=== PATIENT | male | born 1970 | race African-American/Black ===

== ENCOUNTER 2024-07-30 18:49 | Emergency (ER) | payer OTHER, SELFPAY ==
--- NOTE | ~2024-07-30 | XR_ITS ---
CHEST RADIOGRAPH, PA AND LATERAL CLINICAL HISTORY: cp . COMPARISON: 07/25/2018 TECHNIQUE: PA and lateral views of the chest. FINDINGS The cardiomediastinal silhouette is unremarkable. The lungs are clear. Visualized osseous structures and soft tissues are unremarkable. IMPRESSION: No focal infiltrate or effusion. Reviewed, dictated and finalized at location A. STICS/SHIPPER
--- NOTE | ~2024-07-30 | CT_ITS ---
EXAMINATION: CTA chest PE protocol DATE: 07/30/2024 20:16 QUALITY ASSURANCE CLERK INDICATION: Midsternal chest pain with a history of pulmonary embolus TECHNIQUE: Computed tomographic angiography (CTA) of the chest was performed with 100 mL Omnipaque-35 0 intravenous contrast. The dose-length product was 317.55 mGy-cm. Maximum intensity projection 3D-re constructions of the aorta and other arteries were constructed by the technologist on a separate work station. COMPARISON: 10/26/2016 FINDINGS/OBSERVATIONS: PULMONARY ARTERIES: No filling defect is identified within the main or proximal pulmonary artery. The main pulmonary artery is not enlarged. THORACIC AORTA: No aneurysmal dilatation or dissection is present. The great vessels are intact LUNGS: The lungs are clear MEDIASTINUM: No morphologically suspicious or pathologically enlarged lymph nodes are identified with in the mediastinum or bilateral axilla. Narrowing of the left brachiocephalic vein at the level of the aortic knob with extensive collaterali zation through the superior mediastinum and the lower cervical spine. BONES OF THE CHEST: No acute fracture. No significant degenerative disease. No lytic or blastic lesions. HEART: The heart is enlarged, without pericardial effusion. IMPRESSION: No pulmonary embolus. No thoracic aortic dissection. Narrowing of the left brachiocephalic vein at the level of the aortic knob with extensive collaterali zation through the superior mediastinum and the lower cervical spine. Reviewed, dictated and finalized at location A. ITY ASSURANCE CLERK IMPRESSION: No pulmonary embolus. No thoracic aortic dissection. Narrowing of the left brachiocephalic vein at the level of the aortic knob with extensive collateralization through the superior mediastinum and the lower cer vical spine.
--- OUTSIDE RECORDS SUMMARY | 2024-07-30 18:51 | XMS_ITS | Patient Health Summary ---
Author Organization [facility] Address [address] [place] [address] Care Team Providers Care Labor Relations Teacher Name Role Phone Corey Donahue MD Primary Care Provider [phone] Note from [facility],non-owned Affiliates and Associated Physician Practices is amultiple site organization consisting of ambulatory clinics and hospital sitesin [place], [place], [place] and [place]. This disclosure is being madepursuant to the Care Everywhere program and may not contain all information available regarding this patient. Last updated 18.[facility] Medications * Be aware that medications may not be up to date on this document. Alwaysverify current medications with the patient. * gabapentin (NEURONTIN) 400 MG capsule(Started 12/15/2015) Take 400 mg by mouth TID. 3 refills left Active Problems Problem Noted Date Diagnosed Date Radiculopathy of cervical region 12/15/2015 Male erectile dysfunction 09/02/2015 Other specified abnormal findings of blood chemi stry 03/17/2015 Epigastric pain 03/17/2015 Panic disorder without agoraphobia 03/17/2015 Prediabetes 03/17/2015 Low back pain 03/17/2015 Other pulmonary embolism without acute cor pulmo nale 01/26/2015 Social History Tobacco Use Types Packs/Day Years Used Date Smoking Tobacco: Never Smokeless Tobacco: Never Alcohol Use Standard Drinks/Week Comments No 0 (1 standard drink = 0.6 oz pur e alcohol) Sex and Gender Information Value Date Recorded Sex Assigned at Not on file Gender Identity Not on file Sexual Orientation Not on file Last Filed Vital Signs Vital Sign Reading Time Taken Comments Blood Pressure 109/75 04/27/2016 2:07 AM SHEET METAL LAYOUT MECH[employer]IC Pulse 45 04/27/2016 2:07 AM SHEET [employer]AL L[employer]OUT MECH[employer]IC Temperature 36.8 C (98.2 F) 04/27/2016 2:07 AM SHEET METAL LAYOUT MECHANIC Respiratory Rate 16 04/27/2016 2:07 AM SHEET METAL LAYOUT MECHANIC Oxygen Saturation 98% 04/27/2016 1:30 AM SHEET METAL LAYOUT MECHANIC Inhaled Oxygen Concentration - - Weight 85.3 kg (188 lb) 04/26/2016 9:50 PM SHEET METAL LAYOUT MECHANIC Height 182.9 cm (6') 04/26/2016 9:50 PM SHEET [employer]AL LAYOUT MECHANIC Body Mass Index 25.5 04/26/2016 9:50 PM SHEET METAL LAYOUT MECHANIC Procedures * CT HEAD WO CONTRAST(Performed 04/27/2016) * XR CHEST 1VW(Performed 04/26/2016) * URINALYSIS W/MICROSCOPIC NO CULTURE(Performed 04/26/2016) * CBC W AUTO DIFFERENTIAL(Performed 04/26/2016) * D-DIMER(Performed 04/26/2016) * CK + CKMB PANEL(Performed 04/26/2016) * TROPONIN I(Performed 04/26/2016) * COMPREHENSIVE METABOLIC PANEL(Performed 04/26/2016) * PT-INR SLH(Performed 04/26/2016) * CBC W AUTO DIFFERENTIAL(Performed 04/26/2016) * EKG 12-LEAD(Performed 04/26/2016) * XR LUMBAR SPINE 2 OR 3VW(Performed 12/18/2015) * CK + CKMB PANEL(Performed 09/19/2015) * D-DIMER(Performed 09/19/2015) * TROPONIN I(Performed 09/19/2015) * XR CHEST 2VW(Performed 09/19/2015) * CK + CKMB PANEL(Performed 09/19/2015) * TROPONIN I(Performed 09/19/2015) * BASIC METABOLIC PANEL (CALCIUM TOTAL)(Performed 09/19/2015) * CBC W AUTO DIFFERENTIAL(Performed 09/19/2015) * CBC W AUTO DIFFERENTIAL(Performed 09/19/2015) * EKG 12-LEAD(Performed 09/19/2015) * EKG 12-LEAD(Performed 09/19/2015) * IR NERVE BLOCK L OR S UNILAT(Performed 09/18/2015) * CBC W AUTO DIFFERENTIAL(Performed 09/18/2015) * PT-INR [facility](Performed 09/18/2015) * CBC W AUTO DIFFERENTIAL(Performed 09/18/2015) * XR LUMBAR SPINE 2 OR 3VW(Performed 08/20/2015) * NESTOR W/REFLEX IFA PATTERN(Performed 07/06/2015) * CYCLIC CITRULLINATED PEPTIDE(CCP) AB IGG(Performed 07/06/2015) * RHEUMATOID FACTOR BLOOD QUANTITATIVE(Performed 07/06/2015) * C-REACTIVE PROTEIN(Performed 07/06/2015) * ERYTHROCYTE SEDIMENTATION RATE(Performed 07/06/2015) * PT-INR [facility](Performed 04/30/2015) * COMPREHENSIVE METABOLIC PANEL(Performed 04/30/2015) * CBC W AUTO DIFFERENTIAL(Performed 04/30/2015) * CBC W AUTO DIFFERENTIAL(Performed 04/30/2015) * GLUCOSE - POINT OF CARE (AMB) SLU(Performed 04/30/2015) * GLUCOSE - POINT OF CARE (AMB) SLU(Performed 04/30/2015) * GLUCOSE ACCUCHECK(Performed 04/30/2015) * CT BRAIN STROKE(Performed 04/30/2015) * GLUCOSE - POINT OF CARE (AMB) SLU(Performed 04/30/2015) * GLUCOSE - POINT OF CARE (AMB) SLU(Performed 04/30/2015) * GLUCOSE ACCUCHECK(Performed 04/30/2015) * EKG 12-LEAD(Performed 04/30/2015) * BETA-2 GLYCOPROTEIN 1 ANTIBODY IGM(Performed 03/17/2015) * BETA-2 GLYCOPROTEIN 1 ANTIBODY IGG(Performed 03/17/2015) * CARDIOLIPIN ANTIBODY IGM(Performed 03/17/2015) * CARDIOLIPIN ANTIBODY IGG(Performed 03/17/2015) * PROTEIN S ACTIVITY(Performed 03/17/2015) * PROTEIN C FUNCTIONAL(Performed 03/17/2015) * COMPREHENSIVE METABOLIC PANEL(Performed 03/17/2015) * LDH BLOOD(Performed 03/17/2015) * ANTITHROMBIN III ACTIVITY(Performed 03/17/2015) * PROTHROMBIN [id number] PANEL(Performed 03/17/2015) * HAPTOGLOBIN(Performed 03/17/2015) * HELICOBACTER PYLORI ANTIGEN FECES(Performed 01/27/2015) * TSH(Performed 01/26/2015) * FERRITIN(Performed 01/26/2015) * TRANSFERRIN(Performed 01/26/2015) * IRON BLOOD(Performed 01/26/2015) * COMPREHENSIVE METABOLIC PANEL(Performed 01/26/2015) * LIPID PROFILE(Performed 01/26/2015) * CBC W AUTO DIFFERENTIAL(Performed 01/26/2015) * CBC W AUTO DIFFERENTIAL(Performed 01/26/2015) * CT ORBITS WO CONTRAST(Performed 12/26/2014) * BASIC METABOLIC PANEL (CALCIUM TOTAL)(Performed 12/26/2014) * PHOSPHORUS BLOOD(Performed 12/26/2014) * MAGNESIUM BLOOD(Performed 12/26/2014) * CBC W AUTO DIFFERENTIAL(Performed 12/26/2014) * CBC W AUTO DIFFERENTIAL(Performed 12/26/2014) * VAS BILATERAL VENOUS DUPLEX LE(Performed 12/25/2014) * BASIC METABOLIC PANEL (CALCIUM TOTAL)(Performed 12/25/2014) * CBC W AUTO DIFFERENTIAL(Performed 12/25/2014) * CBC W AUTO DIFFERENTIAL(Performed 12/25/2014) * ECHO SEBASTIÁN TRANSESOPHAGEAL(Performed 12/25/2014) * CT ANGIO CHEST PULM EMBOLISM(Performed 12/24/2014) * MRI ANGIO BRAIN ARTERIAL WO CONT(Performed 12/24/2014) * MRI ANGIO NECK W CONTRAST(Performed 12/24/2014) * MRI BRAIN WO CONTRAST(Performed 12/24/2014) * HEMOGLOBIN A1C(Performed 12/24/2014) * LIPID PROFILE(Performed 12/24/2014) * HEPATIC FUNCTION PANEL(Performed 12/24/2014) * PT-INR [facility](Performed 12/24/2014) * DRUG ABUSE PANEL 10-20+ETHANOL URINE NO CONFIRM(Performed 12/24/2014) * URINALYSIS REFLEX TO MICROSCOPIC NO CULTURE(Performed 12/24/2014) * TROPONIN I(Performed 12/24/2014) * CK + CKMB PANEL(Performed 12/24/2014) * COMPREHENSIVE METABOLIC PANEL(Performed 12/24/2014) * ALCOHOL ETHYL BLOOD(Performed 12/24/2014) * GLUCOSE - POINT OF CARE (AMB) SLU(Performed 12/24/2014) * GLUCOSE - POINT OF CARE (AMB) SLU(Performed 12/24/2014) * GLUCOSE ACCUCHECK(Performed 12/24/2014) * CT HEAD WO CONTRAST(Performed 12/24/2014) * XR CHEST 1VW PORTABLE(Performed 12/24/2014) * PTT SLH(Performed 12/24/2014) * PHOSPHORUS BLOOD(Performed 12/24/2014) * MAGNESIUM BLOOD(Performed 12/24/2014) * PT-INR [facility](Performed 12/24/2014) * CBC W AUTO DIFFERENTIAL(Performed 12/24/2014) * CBC W AUTO DIFFERENTIAL(Performed 12/24/2014) * ECHO COMPLETE(Performed 12/24/2014) * EKG 12-LEAD(Performed 12/24/2014) * EKG 12-LEAD(Performed 12/24/2014) Results * CT HEAD WO CONTRAST (04/27/2016 12:58 AM SHEET METAL LAYOUT MECHANIC) Only the most recent of2 resultswithin the time period is included. Anatomical Region Laterality Modality Head Other Impressions 04/27/2016 10:00 AM SHEET METAL LAYOUT MECHANIC IMPRESSION: 1. No acute intracranial hemorrhage. This report was approved by Skip Paz M.D. on 04/27/2016 9:19 AM . I, Dr. JUAN A NEELY M.D. have personally reviewed and interpreted this examination/study. This report was electronically signed by JUAN A NEELY M.D. on 04/27/2016 10:00 AM . Narrative 04/27/2016 10:00 AM SHEET METAL LAYOUT MECHANIC EXAMINATION: Computed tomography (CT) of the head without contrast HISTORY: Intermittent right-sided numbness. TECHNIQUE: CT of the head was performed without contrast according to standard protocol. FINDINGS: Comparison is made to prior head CT dated 04/30/2015. No acute intra- or extra-axial fluid collections are identified. The ventricles are of normal size, shape, and morphology. The basilar cisterns are patent. No mass effect or midline shift is seen. The rosas-white matter differentiation is normal. Other than mild mucosal thickening in the left maxillary sinus, the visualized portions of the orbits, paranasal sinuses, and mastoids appear normal. No acute fracture is identified. Procedure Note Erendira Hobson MD - 08/26/2017 EXAMINATION: Computed tomography (CT) of the head without contrast HISTORY: Intermittent right-sided numbness. TECHNIQUE: CT of the head was performed without contrast according tostandard protocol. FINDINGS: Comparison is made to prior head CT dated 04/30/2015. No acute intra- or extra-axial fluid collections are identified. Theventricles are of normal size, shape, and morphology. The basilar cisternsare patent. No mass effect or midline shift is seen. The rosas-white matterdifferentiation is normal. Other than mild mucosal thickening in the left maxillary sinus, the visualizedportions of the orbits, paranasal sinuses, and mastoids appear normal. Noacute fracture is identified. IMPRESSION IMPRESSION: 1. No acute intracranial hemorrhage. This report was approved by Skip Paz M.D. on 04/27/2016 9:[address] JUAN A Franz M.D. have personally reviewed and interpreted thisexamination/study. This report was electronically signed by JUAN A NEELY M.D. on 04/27/201610:00 AM . Antonia Beverly MD CT ORDERABLES * XR CHEST 1VW (04/26/2016 10:57 PM SHEET METAL LAYOUT MECHANIC) Anatomical Region Laterality Modality Chest Other Impressions 04/27/2016 10:23 AM SHEET METAL LAYOUT MECHANIC IMPRESSION: No acute pulmonary process. Dictated by Maverick Spaulding MD (vice president corporate communications). This report was approved by Maverick Spaulding M.D. on 04/27/2016 8:[address] SYBIL Franz MD have personally reviewed and interpreted this examination/study. This report was electronically signed by Dr. SYBIL GRACE MD on 04/27/2016 10:23 AM . Narrative 04/27/2016 10:23 AM SHEET METAL LAYOUT MECHANIC EXAMINATION: Portable chest, one view HISTORY: numbness COMPARISON: Chest radiograph dated 09/19/2015 FINDINGS: There is no focal consolidation, pleural effusion, or pneumothorax. The cardiomediastinal silhouette is normal. The visible bony thorax is intact. Procedure Note Sybil Grace MD - 08/26/2017 EXAMINATION: Portable chest, one view HISTORY: numbness COMPARISON: Chest radiograph dated 09/19/2015 FINDINGS: There is no focal consolidation, pleural effusion, or pneumothorax. Thecardiomediastinal silhouette is normal. The visible bony thorax isintact. IMPRESSION IMPRESSION: No acute pulmonary process. Dictated by Maverick Spaulding MD (vice president corporate communications). This report was approved by Maevrick Spaulding M.D. on 04/27/2016 8:[address] SYBIL Franz MD have personally reviewed and interpreted thisexamination/study. This report was electronically signed by Dr. SYBIL GRACE MD on04/27/2016 10:23 AM . Antonia Beverly MD DIAGNOSTIC IMAGING O RDERABLES * (ABNORMAL) URINALYSIS W/MICROSCOPIC NO CULTURE (04/26/2016 10:42 PM SHEET METAL LAYOUT MECHANIC) Color UA Yellow Straw, Yellow, Colorless, Light Yellow [facility] Clarity UA Clear Clear [facility] Specific [place] UA 1.013 1.001 - 1.030 [facility] pH UA 5.5 5.0 - 8.0 [facility] Protein UA Negative <=20 mg/dL [facility] Glucose UA Negative Negative mg/dL [facility] Ketone UA Negative Negative mg/dL [facility] Bilirubin UA Negative Negative mg/dL [facility] Blood UA Negative Negative [facility] Nitrite UA Negative Negative [facility] Leukocyte Esterase Negative Negative [facility] Urobilinogen UA <2.0 <2.0 mg/dL [facility] RBC UA 1 0 - 8 /HPF [facility] WBC UA 1 0 - 2 /HPF [facility] Mucus UA Few(A) None /LPF [facility] Urine specimen (specimen) 04/26/2016 10:42 PM SHEET METAL LAYOUT MECHANIC 04/26/2016 10:46 PM SHEET METAL LAYOUT MECHANIC Antonia Beverly MD LAB - URINALYSIS ORD ERABLES Performing Organization Address City/State/[facility] Co de Phone Number [address] [phone] * (ABNORMAL) CBC W AUTO DIFFERENTIAL (04/26/2016 10:23 PM SHEET METAL LAYOUT MECHANIC) Only the most recent of16 resultswithin the time period is included. WBC 7.3 3.5 - 10.5 10 3/uL [facility] RBC 5.00 4.30 - 5.70 10 6/uL [facility] Hemoglobin 13.3(L) 13.5 - 17.5 g/dL [facility] Hematocrit 38.9(L) 39.0 - 50.0 % [facility] MCV 77.8(L) 81.0 - 97.0 fL [facility] MCH 26.6(L) 28.0 - 34.0 pg [facility] MCHC 34.2 32.0 - 36.0 g/dL [facility] Platelet Count 260 150 - 400 10 3/uL [facility] RDW-SD 41.2 36.0 - 50.0 fL [facility] RDW-CV 14.6 11.2 - 14.8 % [facility] MPV 9.6 9.3 - 12.8 fL [facility] nRBC Absolute 0.00 0 10 3/uL [facility] nRBC Auto 0.0 0 /100 WBC [facility] Neutrophils % 61.7 35.0 - 70.0 % [facility] Lymphocytes % 28.4 19.7 - 55.1 % [facility] Monocytes % 7.7 3.0 - 15.0 % [facility] Eosinophils % 1.5 0.0 - 6.0 % [facility] Basophil % 0.7 0.0 - 1.5 % [facility] Neutrophils Absolute 4.5 1.6 - 7.0 10 3/uL [facility] Lymphocyte Absolute 2.1 0.8 - 2.9 10 3/uL [facility] Monocytes Absolute 0.56 0.14 - 0.66 10 3/uL [facility] Eosinophils Absolute 0.11 0.00 - 0.22 10 3/uL [facility] Basophils Absolute 0.05 0.00 - 0.06 10 3/uL [facility] Immature Granulocytes % 0.0 0.0 - 1.0 % [facility] Blood specimen (specimen) BLOOD SPECIMEN / Unknown 04/26/2016 10:23 PM SHEET METAL LAYOUT MECHANIC 04/26/2016 10:29 PM SHEET METAL LAYOUT MECHANIC Antonia Beverly MD LAB - HEMATOLOGY ORD ERABLES [facility] [address] [phone] * PT-INR [facility] (04/26/2016 10:23 PM SHEET METAL LAYOUT MECHANIC) Only the most recent of5 resultswithin the time period is included. PT 12.3 12.1 - 14.8 Seconds [facility] INR 0.9 See Comment [facility] Comment: Suggested therapeutic range for low-intensity coumadin therapy for venous thromboembolism prophylaxis is an INR of 2.0-3.0. For high risk patients (Mitral Valve Prosthesis, Atrial Fibrillation, history of TIA/stroke), suggested prophylactic therapeutic range is an INR of 2.5-3.5. Blood specimen (specimen) BLOOD SPECIMEN / Unknown 04/26/2016 10:23 PM SHEET METAL LAYOUT MECHANIC 04/26/2016 10:29 PM SHEET METAL LAYOUT MECHANIC Narrative [facility] - 04/26/2016 10:44 PM SHEET METAL LAYOUT MECHANIC Is patient on Heparin, Argatroban or Dabigatran?->N Antonia Beverly MD LAB - COAGULATION OR DERABLES Performing Organization Address [facility]/ZIP Co de Phone Number [address] [phone] * TROPONIN I (04/26/2016 10:23 PM SHEET METAL LAYOUT MECHANIC) Only the most recent of4 resultswithin the time period is included. Troponin I <0.010 <0.032 ng/mL [facility] Blood specimen (specimen) BLOOD SPECIMEN / Unknown 04/26/2016 10:23 PM SHEET METAL LAYOUT MECHANIC 04/26/2016 10:29 PM SHEET METAL LAYOUT MECHANIC Antonia Beverly MD LAB - CHEMISTRY ORDE RABLES Performing Organization Address [facility]/ZIP Co de Phone Number [address] [phone] * D-DIMER (04/26/2016 10:23 PM SHEET METAL LAYOUT MECHANIC) Only the most recent of2 resultswithin the time period is included. D-Dimer Quantitative 0.49 <=0.50 mcg/mL FEU [facility] Comment: In the absence of clinical symptoms, a value less than or equal to 0.5 mcg/mL FEU significantly decreases the probability of PE/DVT (negative predictive value >95%). 1 mcg/mL FEU = 1 Fibrinogen Equivalent Unit (approximates 0.5 mcg/ml of D- Dimer). [employer]ST[facility] DIAGNOSTIC SCORING SYSTEM FOR DIC Score 0 1 2 3 Platelet Count(x10^3/uL) > 100 < 100 < 50 N/A PT Prolongation above upper limit of normal 0-3 3-6 > 6 N/A range (seconds) Fibrinogen (mg/dL) > 100 < 100 N/A N/A D-Dimer (mcg/mL FEU) < 0.50 N/A 0.50-5.0 > 5 Calculate Cumulative Score: > or = 5 :compatible with overt DIC < 5 :suggestive for non-overt DIC N/A = Non applicable Reference: Br. J. Haematol. 145:24-33,2009. Blood specimen (specimen) BLOOD SPECIMEN / Unknown 04/26/2016 10:23 PM SHEET METAL LAYOUT MECHANIC 04/26/2016 10:29 PM SHEET METAL LAYOUT MECHANIC Antonia Beverly MD LAB - COAGULATION OR DERABLES [facility] [address] [place] [address] * (ABNORMAL) COMPREHENSIVE METABOLIC PANEL (04/26/2016 10:23 PM SHEET METAL LAYOUT MECHANIC) Only the most recent of5 resultswithin the time period is included. BUN 12 7 - 26 mg/dL [facility] Creatinine 0.9 0.6 - 1.2 mg/dL [facility] Sodium 140 136 - 145 mmol/L [facility] Potassium 3.9 3.5 - 4.5 mmol/L [facility] Chloride 104 98 - 107 mmol/L [facility] CO2 25 22 - 29 mmol/L [facility] Glucose 110 70 - 115 mg/dL [facility] Calcium 9.4 8.4 - 10.2 mg/dL [facility] Protein Total 7.7 6.0 - 8.3 g/dL [facility] Albumin 3.8 3.4 - 5.0 g/dL [facility] Bilirubin Total 0.5 0.2 - 1.2 mg/dL [facility] Alkaline Phosphatase 50 40 - 150 Units/L [facility] ALT 10 0 - 55 Units/L [facility] AST 20 5 - 34 Units/L [facility] Anion Gap 15 8 - 18 [facility] BUN/Creatinine Ratio 13 7 - 23 [facility] Osmolality Calculated 290 270 - 300 mOsm/kg [facility] Albumin/Globulin Ratio 1.0(L) 1.1 - 2.3 [facility] eGFR >60 >60 mL/min/1.7 3 m2 [facility] Blood specimen (specimen) BLOOD SPECIMEN / Unknown 04/26/2016 10:23 PM SHEET METAL LAYOUT MECHANIC 04/26/2016 10:29 PM SHEET METAL LAYOUT MECHANIC Antonia Beverly MD LAB - CHEMISTRY ORDE [place] [address] [phone] * (ABNORMAL) CK + CKMB PANEL (04/26/2016 10:23 PM SHEET METAL LAYOUT MECHANIC) Only the most recent of4 resultswithin the time period is included. CK Total 207(H) 30 - 200 Units/L [facility] CK-MB 4.6 0.0 - 6.6 ng/mL [facility] Blood specimen (specimen) BLOOD SPECIMEN / Unknown 04/26/2016 10:23 PM SHEET METAL LAYOUT MECHANIC 04/26/2016 10:29 PM SHEET METAL LAYOUT MECHANIC Antonia Beverly MD LAB - CHEMISTRY ORDE [facility] [address] [phone] * EKG 12-LEAD (04/26/2016 12:00 AM SHEET METAL LAYOUT MECHANIC) Only the most recent of6 resultswithin the time period is included. EKG [facility] Comment: Exam Date/Time: Apr 26 2016 21:57:14 Test Reason : right sided chest pain Blood Pressure : / mmHG Vent. Rate : 047 BPM Atrial Rate : 047 BPM P-R Int : 166 ms QRS Dur : 104 ms QT Int : 432 ms P-R-T Axes : 056 022 032 degrees QTc Int : 382 ms Marked sinus bradycardia Otherwise normal ECG When compared with ECG of 19-SEP-2015 22:05, No significant change was found Confirmed by TORRES COWAN, P ([id number]), design editor Osiel Rivero ([id number]) on 05/08/2016 11:29:47 AM Referred By: REFERRING NO Confirmed By:Martín MACDONALD MD 04/26/2016 Tamara Mercedes MD ECG ORDERABLES [facility] * XR LUMBAR SPINE 2 OR 3VW (12/18/2015 1:52 PM CDT) Only the most recent of2 resultswithin the time period is included. Anatomical Region Laterality Modality Spine Other Impressions 12/18/2015 4:09 PM CDT Impression: Mild lower lumbar degenerative change, not progressed. Report dictated by Jeremiah Gonzalez M.D. (resident). This report was approved by Jeremiah Gonzalez M.D. on 12/18/2015 3:[address] VALENTIN Franz MD have personally reviewed and interpreted this examination/study. This report was electronically signed by VALENTIN ZURITA MD on 12/18/2015 4:09 PM . Narrative 12/18/2015 4:09 PM CDT Examination: XR SPINE LUMBAR 2 OR 3 VW Date: 12/18/2015 1:53 PM History: back pain Comparison: Lumbar spine radiographs dated 08/20/2015. Findings: The alignment is normal. No fractures identified. Mild degenerative disc space narrowing at L4-5 and moderate disc space narrowing at L5-S1 are unchanged. L5- S1 facet arthritis is seen. Procedure Note Valentin Zurita MD - 08/26/2017 Examination: XR SPINE LUMBAR 2 OR 3 VW Date: 12/18/2015 1:53 PM History: back pain Comparison: Lumbar spine radiographs dated 08/20/2015. Findings: The alignment is normal. No fractures identified. Mild degenerative discspace narrowing at L4-5 and moderate disc space narrowing at L5-S1 areunchanged. L5-S1 facet arthritis is seen. IMPRESSION Impression: Mild lower lumbar degenerative change, not progressed. Report dictated by Jeremiah Gonzalez M.D. (resident). This report was approved by Jeremiah Gonzalez M.D. on 12/18/2015 3:[address] VALENTIN Franz MD have personally reviewed and interpreted thisexamination/study. This report was electronically signed by VALENTIN ZURITA MD on 12/18/20154:09 PM . Missael Lainez MD DIAGNOSTIC IMAGING O RDERABLES * XR CHEST 2VW (09/19/2015 6:48 PM CDT) Anatomical Region Laterality Modality Chest Other Impressions 09/20/2015 9:20 AM CDT Impression: No acute pulmonary process. This report has been dictated by Emmy Cervantes M.D. (Resident). This report was approved by Emmy Cervantes on 09/20/2015 7:[address] [email or web address] Franz MD have personally reviewed and interpreted this examination/study. This report was electronically signed by Dr. SYBIL GRACE MD on 09/20/2015 9:20 AM . Narrative 09/20/2015 9:20 AM CDT Exam: Chest, PA and lateral views Date: 09/19/2015 History: 45-year-old male with chest pain. Comparison: Portable chest radiograph dated 12/24/2014. Findings: The lungs are clear. There is no pleural effusion or pneumothorax. The cardiomediastinal silhouette is normal. The visible bony thorax is intact. Procedure Note Sybil Grace MD - 08/26/2017 Exam: Chest, PA and lateral views Date: 09/19/2015 History: 45-year-old male with chest pain. Comparison: Portable chest radiograph dated 12/24/2014. Findings: The lungs are clear. There is no pleural effusion or pneumothorax. Thecardiomediastinal silhouette is normal. The visible bony thorax isintact. IMPRESSION Impression: No acute pulmonary process. This report has been dictated by Emmy Cervantes M.D. (Resident). This report was approved by Emmy Cervantes on 09/20/2015 7:[address] SYBIL Franz MD have personally reviewed and interpreted thisexamination/study. This report was electronically signed by Dr. SYBIL GRACE MD on09/20/2015 9:20 AM . Yoandy Chan MD DIAGNOSTIC IMAGING O RDERABLES * (ABNORMAL) BASIC METABOLIC PANEL (CALCIUM TOTAL) (09/19/2015 6:48 PM CDT) Only the most recent of3 resultswithin the time period is included. BUN 13 7 - 26 mg/dL [facility] Creatinine 0.9 0.6 - 1.2 mg/dL [facility] Sodium 139 136 - 145 mmol/L [facility] Potassium 3.6 3.5 - 4.5 mmol/L [facility] Chloride 105 98 - 107 mmol/L [facility] CO2 22 22 - 29 mmol/L [facility] Glucose 149(H) 70 - 115 mg/dL [facility] Calcium 9.9 8.4 - 10.2 mg/dL [facility] Anion Gap 16 8 - 18 [facility] BUN/Creatinine Ratio 14 7 - 23 [facility] Osmolality Calculated 276 270 - 300 mOsm/kg [facility] eGFR >60 >60 mL/min/1.7 3 m2 [facility] Blood specimen (specimen) BLOOD SPECIMEN / Unknown 09/19/2015 6:48 PM CDT 09/19/2015 6:53 PM CDT Yoandy Chan MD LAB - CHEMISTRY [facility] Organization Address City/State/ZIP Co de Phone Number [facility] [address] [place] [address] * IR NERVE BLOCK L OR S UNILAT (09/18/2015 10:25 AM CDT) Anatomical Region Laterality Modality Other Impressions 09/25/2015 3:19 PM CDT Impression: Successful transforaminal nerve root epidural steroid injection at the level of left L5-S1 without any immediate complications. I, Dr. Jeremiah Meng, was present throughout and performed the entire procedure. This report was approved by Josiah Robles on 09/22/2015 11:51 AM . I, Dr. JEREMIAH MENG M.D. have personally reviewed and interpreted this examination/study. This report was electronically signed by JEREMIAH MENG M.D. on 09/25/2015 3:19 PM . Narrative 09/25/2015 3:19 PM CDT History/indication: Left lower extremity radiculopathy and sciatica pain. Bilateral low back pain. Left L5-S1 (S1 nerve root) epidural steroid injection requested. Procedure performed: Fluoroscopy-guided left L5-S1 transforaminal nerve root epidural steroid injection. Attending physician: Dr. Jeremiah Meng Fellow physician: Dr. Josiah Robles Consent: Written and oral consent was obtained from the patient after explaining the procedure and its risk factors in detail. Medications and monitoring: The procedure was done with local anesthesia. Monitoring of vital signs was provided by interventional radiology nurses. Procedure time: 30 minutes. Fluoroscopy time: 4.7 minutes. Contrast: 3 mL Omni 240. Procedure details and findings: The patient was placed prone on the fluoroscopy table. Preprocedure fluoroscopy was done and region of interest as well as needle trajectory was planned. The region of interest was then prepped and draped in usual sterile fashion. A 22-gauge needle was advanced into the left L5-S1 neural foramen epidural space under fluoroscopy guidance. Contrast was injected through the needle and epidurography was performed. Epidurography confirmed needle tip within the left L5-S1 neural foraminal epidural space. Subsequently, combination of 2.5 mL betamethasone (6 mg/mL) and 2 mL (0.5 percent) bupivacaine was injected. The needle was removed and sterile dressing was applied. The procedure was done without any immediate complications. Patient left the procedure room in a baseline condition. Procedure Note Jeremiah Meng MD - 08/26/2017 History/indication: Left lower extremity radiculopathy and sciatica pain.Bilateral low back pain. Left L5-S1 (S1 nerve root) epidural steroidinjection requested. Procedure performed: Fluoroscopy-guided left L5-S1 transforaminal nerveroot epidural steroid injection. Attending physician: Dr. Jeremiah Meng Fellow physician: Dr. Josiah Rolbes Consent: Written and oral consent was obtained from the patient afterexplaining the procedure and its risk factors in detail. Medications and monitoring: The procedure was done with local anesthesia.Monitoring of vital signs was provided by interventional radiologynurses. Procedure time: 30 minutes. Fluoroscopy time: 4.7 minutes. Contrast: 3 mL Omni 240. Procedure details and findings: The patient was placed prone on the fluoroscopy table. Preprocedurefluoroscopy was done and region of interest as well as needle trajectorywas planned. The region of interest was then prepped and draped in usualsterile fashion. A 22-gauge needle was advanced into the left L5-S1 neural foramen epidural space underfluoroscopy guidance. Contrast was injected through the needle andepidurography was performed. Epidurography confirmed needle tip within theleft L5-S1 neural foraminal epidural space. Subsequently, combination of 2.5 mL betamethasone (6 mg/mL) and 2 mL (0.5percent) bupivacaine was injected. The needle was removed and steriledressing was applied. The procedure was done without any immediatecomplications. Patient left the procedure room in a baseline condition. IMPRESSION Impression: Successful transforaminal nerve root epidural steroid injection at thelevel of left L5-S1 without any immediate complications. I, Dr. Jeremiah Meng, was present throughout and performed the entireprocedure. This report was approved by Josiah Robles on 09/22/2015 11:51 AM . I, Dr. JEREMIAH MENG M.D. have personally reviewed and interpreted thisexamination/study. This report was electronically signed by JEREMIAH MENG M.D. on 09/25/20153:19 PM . Yamil Vazquez III, MD IR ORDERABLES * NESTOR W/REFLEX IFA PATTERN (07/06/2015 12:46 PM SHEET METAL LAYOUT MECHANIC) Pathologist [facility] NESTOR None Detected None Detected [facility] Blood specimen (specimen) BLOOD SPECIMEN / Unknown 07/06/2015 12:46 PM SHEET METAL LAYOUT MECHANIC 07/06/2015 1:03 PM SHEET METAL LAYOUT MECHANIC Kelsea Clemons MD LAB - SEROLOGY ORDER DELORES Performing Organization Address [facility] Co de Phone Number [address] [phone] * RHEUMATOID FACTOR BLOOD QUANTITATIVE (07/06/2015 12:46 PM SHEET METAL LAYOUT MECHANIC) Pathologist [facility] Rheumatoid Factor <15 <30 IU/mL [facility] Blood specimen (specimen) BLOOD SPECIMEN / Unknown 07/06/2015 12:46 PM SHEET METAL LAYOUT MECHANIC 07/06/2015 1:03 PM SHEET METAL LAYOUT MECHANIC Kelsea Clemons MD LAB - CHEMISTRY ORDE RABALBERT Performing Organization Address [facility]/ZIP Co de Phone Number [address] [phone] * (ABNORMAL) C-REACTIVE PROTEIN (07/06/2015 12:46 PM SHEET METAL LAYOUT MECHANIC) Pathologist [facility] C-Reactive Protein 1.1(H) <=0.5 mg/dL [facility] Blood specimen (specimen) BLOOD SPECIMEN / Unknown 07/06/2015 12:46 PM SHEET METAL LAYOUT MECHANIC 07/06/2015 1:03 PM SHEET METAL LAYOUT MECHANIC Kelsea Clemons MD LAB - CHEMISTRY [facility] Performing Organization Address City/[facility]/ZIP Co de Phone Number [address] [phone] * CYCLIC CITRUL PEPTIDE AB IGG (CCP) (07/06/2015 12:46 PM SHEET METAL LAYOUT MECHANIC) CCP Antibody IgG <0.5 <5.0 U/mL [facility] Blood specimen (specimen) BLOOD SPECIMEN / Unknown 07/06/2015 12:46 PM SHEET METAL LAYOUT MECHANIC 07/06/2015 1:03 PM SHEET METAL LAYOUT MECHANIC Kelsea Clemons MD LAB - CHEMISTRY [facility] Performing Organization Address [facility] Co de Phone Number [address] [phone] * (ABNORMAL) ERYTHROCYTE SEDIMENTATION RATE (07/06/2015 12:46 PM SHEET METAL LAYOUT MECHANIC) Erythrocyte Sedimentation Rate Westergren 12(H) 0 - 10 MM/HR [facility] Comment: ########################################################################## # Please Note: New age specific reference ranges have been implemented. # ########################################################################## Blood specimen (specimen) BLOOD SPECIMEN / Unknown 07/06/2015 12:46 PM SHEET METAL LAYOUT MECHANIC 07/06/2015 1:03 PM SHEET METAL LAYOUT MECHANIC Kelsea A Prablek MD LAB - HEMATOLOGY ORD ERABLES Performing Organization Address [facility]/ZIP Co de Phone Number [facility] [address] [phone] * GLUCOSE - POINT OF CARE (AMB) [facility] (04/30/2015 8:43 PM SHEET METAL LAYOUT MECHANIC) Only the most recent of6 resultswithin the time period is included. Tamara Mercedes MD LAB - POINT OF CARE ORDERABLES Performing Organization Address [facility]/ZIP Co de Phone Number [facility] * GLUCOSE ACCUCHECK (04/30/2015 8:43 PM SHEET METAL LAYOUT MECHANIC) Only the most recent of3 resultswithin the time period is included. Glucose, Fingerstick 81 70-115mg/d L mg/dL [facility] ([place]) Comment:Bilingual Manager: ALFREDO HAWKINS 04/30/2015 8:43 PM SHEET METAL LAYOUT MECHANIC Guanaco Wallace MD LAB - CHEMISTRY ORDE MIHAI Performing Organization Address [facility] Co de Phone Number [facility] ([facility]) * CT BRAIN STROKE PROTOCOL (04/30/2015 8:31 PM SHEET METAL LAYOUT MECHANIC) Anatomical Region Laterality Modality Head Other Impressions 05/01/2015 9:29 AM SHEET METAL LAYOUT MECHANIC IMPRESSION: 1. No acute intracranial hemorrhage. This report was approved by Rolf Johansen on 05/01/2015 8:11 AM . I, Dr. ERENDIRA HOBSON M.D. have personally reviewed and interpreted this examination/study. This report was electronically signed by ERENDIRA HOBSON M.D. on 05/01/2015 9:29 AM . Narrative 05/01/2015 9:29 AM SHEET METAL LAYOUT MECHANIC EXAMINATION: Computed tomography (CT) of the head without contrast HISTORY: Headache and left facial numbness TECHNIQUE: CT of the head was performed without contrast according to standard protocol. FINDINGS: Comparison is made with a head CT study from 12/24/14. No acute intra- or extra-axial fluid collections are identified. The ventricles are of normal size, shape, and morphology. The basilar cisterns are patent. No mass effect or midline shift is seen. The rosas-white matter differentiation is normal. Other than mild bilateral ethmoid sinus disease and a partially imaged mucus retention cyst in the left maxillary sinus, the visualized portions of the orbits, paranasal sinuses, and mastoids appear normal. No acute fracture is identified. Chronic left nasal bone fractures are seen. Procedure Note Erendira Hobson MD - 08/26/2017 EXAMINATION: Computed tomography (CT) of the head without contrast HISTORY: Headache and left facial numbness TECHNIQUE: CT of the head was performed without contrast according tostandard protocol. FINDINGS: Comparison is made with a head CT study from 12/24/14. No acute intra- or extra-axial fluid collections are identified. Theventricles are of normal size, shape, and morphology. The basilar cisternsare patent. No mass effect or midline shift is seen. The rosas-white matterdifferentiation is normal. Other than mild bilateral ethmoid sinus disease and a partially imaged mucusretention cyst in the left maxillary sinus, the visualized portions of theorbits, paranasal sinuses, and mastoids appear normal. No acute fractureis identified. Chronic left nasal bone fractures are seen. IMPRESSION IMPRESSION: 1. No acute intracranial hemorrhage. This report was approved by Rolf Johansen on 05/01/2015 8:11 AM . I, Dr. ERENDIRA HOBSON M.D. have personally reviewed and interpreted thisexamination/study. This report was electronically signed by ERENDIRA HOBSON M.D. on 05/01/20159:29 AM . Guanaco Wallace MD CT ORDERABLES * BETA-2 GLYCOPROTEIN 1 ANTIBODY IGG (03/17/2015 1:15 PM CDT) Beta-2 Glycoprotein I Antibody IgG <20.0 <20.0 [facility] Blood specimen (specimen) BLOOD SPECIMEN / Unknown 03/17/2015 1:15 PM CDT 03/17/2015 1:25 PM CDT Corey Donahue MD LAB - SEROLOGY OR DERABLES [address] [phone] * BETA-2 GLYCOPROTEIN 1 ANTIBODY IGM (03/17/2015 1:15 PM CDT) Beta-2 Glycoprotein Antibody IgM <20.0 <20.0 [facility] Blood specimen (specimen) BLOOD SPECIMEN / Unknown 03/17/2015 1:15 PM CDT 03/17/2015 1:25 PM CDT Corey Donahue MD LAB - SEROLOGY OR DERABLES Performing Organization Address [facility] Co de Phone Number [address] [phone] * (ABNORMAL) PROTEIN C FUNCTIONAL (03/17/2015 1:15 PM CDT) Pathologist [facility] APTT 29.3 23.0 - 38.4 Seconds [facility] PT 16.5(H) 12.1 - 14.8 Seconds [facility] Protein C Activity 176(H) 75 - 165 U/dL [facility] INR 1.3 [facility] Blood specimen (specimen) BLOOD SPECIMEN / Unknown 03/17/2015 1:15 PM CDT 03/17/2015 1:25 PM CDT Narrative [facility] - 03/18/2015 1:24 PM CDT Is the patient on Coumadin?->N Corey Donahue MD LAB - CHEMISTRY O RDERABLES Performing Organization Address [facility] Co de Phone Number [address] [phone] * CARDIOLIPIN ANTIBODY IGM (03/17/2015 1:15 PM CDT) Anticardiolipin Antibody IgM <15.0 <15.0 MPL [facility] Blood specimen (specimen) BLOOD SPECIMEN / Unknown 03/17/2015 1:15 PM CDT 03/17/2015 1:25 PM CDT Corey Donahue MD LAB - SEROLOGY OR DERABLES [address] [phone] * CARDIOLIPIN ANTIBODY IGG (03/17/2015 1:15 PM CDT) Anticardiolipin Antibody IgG <15.0 <15.0 GPL [facility] Blood specimen (specimen) BLOOD SPECIMEN / Unknown 03/17/2015 1:15 PM CDT 03/17/2015 1:25 PM CDT Corey Donahue MD LAB - SEROLOGY OR DERABLES Performing Organization Address [facility] Co de Phone Number [address] [phone] * (ABNORMAL) ANTITHROMBIN III ACTIVITY (03/17/2015 1:15 PM CDT) [facility] APTT 30.6 23.0 - 38.4 Seconds [facility] PT 16.9(H) 12.1 - 14.8 Seconds [facility] Antithrombin Activity 100 85 - 130 U/dL [facility] INR 1.4 [facility] Blood specimen (specimen) BLOOD SPECIMEN / Unknown 03/17/2015 1:15 PM CDT 03/17/2015 1:25 PM CDT Narrative [facility] - 03/17/2015 1:46 PM CDT Is patient on Heparin, Argatroban or Dabigatran?->Y Corey Donahue MD LAB - COAGULATION ORDERABLES Performing Organization Address [facility]/ZIP Co de Phone Number [address] [phone] * (ABNORMAL) PROTEIN S ACTIVITY (03/17/2015 1:15 PM CDT) APTT 29.3 23.0 - 38.4 Seconds [facility] PT 16.5(H) 12.1 - 14.8 Seconds [facility] Protein S Functional 117 70 - 130 U/dL [facility] INR 1.3 [facility] Blood specimen (specimen) BLOOD SPECIMEN / Unknown 03/17/2015 1:15 PM CDT 03/17/2015 1:25 PM CDT Narrative [facility] - 03/18/2015 1:24 PM CDT Is the patient on Coumadin?->N Corey Donahue MD LAB - COAGULATION ORDERABLES Performing Organization Address [facility]/ZIP Co de Phone Number [address] [phone] * LDH BLOOD (03/17/2015 1:15 PM CDT) [facility] Total 217 125 - 243 Units/L [facility] Blood specimen (specimen) BLOOD SPECIMEN / Unknown 03/17/2015 1:15 PM CDT 03/17/2015 1:25 PM CDT Corey Donahue MD LAB - CHEMISTRY O RDERABLES Performing Organization Address [facility] Co de Phone Number [address] [phone] * PROTHROMBIN [id number] PANEL (03/17/2015 1:13 PM CDT) PT PCR Specimen Whole Blood [facility] ([facility]) Prothrombin (F2) F07382A Mutation Negative [facility] ([facility]) Comment: Indication for testing: Assess genetic risk for thrombosis. NEGATIVE: The Factor II, prothrombin C71353V mutation, was not detected. Other causes of elevated prothrombin levels and hereditary forms of venous thrombosis have not been excluded. Recommendations: If clinically indicated, testing for other inherited or acquired thrombophilic disorders is recommended including DNA testing for the factor V Leiden mutation, measurement of total plasma homocysteine concentration, serological assays for anticardiolipin antibodies, multiple phospholipid-dependent coagulation assays for lupus inhibitor, protein C activity, protein S activity or free protein S antigen, and antithrombin activity. This result has been reviewed and approved by Rom Gallegos, Ph.D. BACKGROUND INFORMATION: Prothrombin (F2) [id number] Mutation CHARACTERISTICS: The Factor II, D51359F mutation is a common genetic risk factor for venous thrombosis associated with elevated prothrombin levels leading to increased rates of thrombin generation and excessive growth of fibrin clots. The expression of Factor II thrombophilia is impacted by coexisting genetic thrombophilic disorders, acquired thrombophilic disorders (eg malignancy, hyperhomocysteinemia, high Factor VIII levels), and circumstances including: , oral contraceptive use, hormone replacement therapy, selective estrogen receptor modulators, travel, central venous catheters, surgery, and organ transplantation. INCIDENCE: Approximately 2-5 percent of Caucasians and 0.3 percent of Americans are heterozygous; homozygosity occurs in 1 in 10,000 individuals. INHERITANCE: Incomplete autosomal dominant. PENETRANCE: The risk of thrombosis is increased 2-4 fold for heterozygotes and further increased for homozygotes. CAUSE: Homozygosity or heterozygosity for F2 c.24109B>A (U38384E). MUTATION TESTED: F2 c.46396U>A (U40840Y). CLINICAL SENSITIVITY FOR VENOUS THROMBOSIS: Approximately 10 percent. METHODOLOGY: Polymerase chain reaction and fluorescence monitoring. ANALYTICAL SENSITIVITY AND SPECIFICITY: 99 percent. LIMITATIONS: Diagnostic errors can occur due to rare sequence variations. F2 gene mutations, other than [id number], will not be detected. Test developed and characteristics determined by [employer]. See Compliance Statement C: [employer] Blood specimen (specimen) BLOOD SPECIMEN / Unknown 03/17/2015 1:13 PM CDT 03/17/2015 1:24 PM CDT Corey Donahue MD LAB - COAGULATION ORDERABLES Performing Organization Address City/[facility]/ZIP Co de Phone Number [facility] ([facility]) * HAPTOGLOBIN (03/17/2015 1:13 PM CDT) Haptoglobin 89 14 - 258 mg/dL [facility] Blood specimen (specimen) BLOOD SPECIMEN / Unknown 03/17/2015 1:13 PM CDT 03/17/2015 1:25 PM CDT Corey Donahue MD LAB - CHEMISTRY O RDERABLES [address] [phone] * HELICOBACTER PYLORI ANTIGEN FECES (01/27/2015 12:23 PM CDT) Helicobacter pylori Antigen Stool Negative Negative [facility] Stool specimen (specimen) STOOL SPECIMEN / Unknown 01/27/2015 12:23 PM CDT 01/27/2015 12:33 PM CDT Narrative [facility] - 01/30/2015 9:20 AM CDT Specimen Type->Stool Performed at: [address] [id number] Nursing Home Aide: Yamil Ferrera MD, Phone: [phone] Corey Donahue MD LAB - MICROBIOLOG Y ORDERABLES [facility] * TRANSFERRIN (01/26/2015 10:05 AM CDT) Transferrin 264 174 - 382 mg/dL [facility] Transferrin Saturation % 28 16 - 50 % [facility] Blood specimen (specimen) BLOOD SPECIMEN / Unknown 01/26/2015 10:05 AM CDT 01/26/2015 10:45 AM CDT Corey Donahue MD LAB - CHEMISTRY O RDERABLES Performing Organization Address City/[facility]/ZIP Co de Phone Number [address] [phone] * IRON BLOOD (01/26/2015 10:05 AM CDT) Iron 93 50 - 175 mcg/dL [facility] Blood specimen (specimen) BLOOD SPECIMEN / Unknown 01/26/2015 10:05 AM CDT 01/26/2015 10:45 AM CDT Corey Donahue MD LAB - CHEMISTRY O RDERABLES Performing Organization Address [facility]/ZIP Co de Phone Number [address] [phone] * TSH (01/26/2015 10:05 AM CDT) TSH 0.707 0.350 - 4.940 uIU/mL [facility] Blood specimen (specimen) BLOOD SPECIMEN / Unknown 01/26/2015 10:05 AM CDT 01/26/2015 10:45 AM CDT Corey Donahue MD LAB - CHEMISTRY O VÍCTOR Performing Organization Address City/[facility]/ZIP Co de Phone Number [address] [phone] * (ABNORMAL) FERRITIN (01/26/2015 10:05 AM CDT) Ferritin 425(H) 22 - 275 ng/mL [facility] Blood specimen (specimen) BLOOD SPECIMEN / Unknown 01/26/2015 10:05 AM CDT 01/26/2015 10:45 AM CDT Corey Donahue MD LAB - CHEMISTRY O VÍCTOR Performing Organization Address [facility] Co de Phone Number [address] [phone] * (ABNORMAL) LIPID PROFILE (01/26/2015 10:05 AM CDT) Only the most recent of2 resultswithin the time period is included. Cholesterol Total 122 <200 mg/dL [facility] HDL 38(L) >40 mg/dL [facility] Comment: ATP III Classification of HDL Cholesterol: <40 mg/dL: Considered a major risk factor. >60 mg/dL: Considered a negative risk factor. LDL Calculated 70 <100 mg/dL [facility] Comment: ATP III Classification of LDL Cholesterol: <100 mg/dL: Optimal 100 - 129 mg/dL: Near Optimal/Above Optimal 130 - 159 mg/dL: Borderline High 160 - 189 mg/dL: High >190 mg/dL: Very High Triglycerides 72 <150 mg/dL [facility] Comment: ATP III Classification of Triglycerides: <150 mg/dL: Normal 150 - 199 mg/dL: Borderline High 200 - 400 mg/dL: High >500 mg/dL: Very High Blood specimen (specimen) BLOOD SPECIMEN / Unknown 01/26/2015 10:05 AM CDT 01/26/2015 10:45 AM CDT Corey Donahue MD LAB - CHEMISTRY O RDERABLES Performing Organization Address City/State/[facility] Co de Phone Number [facility] [address] [place] [address] * CT ORBITS WO CONTRAST (12/26/2014 9:14 AM CDT) Anatomical Region Laterality Modality Head Other Impressions 12/26/2014 10:25 AM CDT IMPRESSION: 1. Atrophy of the lateral and superior rectus muscles bilaterally. This report was approved by Aleksey Yoon on 12/26/2014 9:48 AM . I, Dr. RANI LOPEZ M.D. have personally reviewed and interpreted this examination/study. This report was electronically signed by RANI LOPEZ M.D. on 12/26/2014 10:25 AM . Narrative 12/26/2014 10:25 AM CDT EXAMINATION: Computed tomography (CT) of the maxillofacial bones, orbits, and paranasal sinuses HISTORY: Limited upward gaze and abduction bilaterally TECHNIQUE: CT of the maxillofacial bones, orbits, and paranasal sinuses was performed without contrast according to standard protocol. FINDINGS: Comparison made to MR brain and CT head dated 12/24/2014. The lateral and superior rectus muscles are atrophied bilaterally. There is a mucus retention cyst versus polyp in the left maxillary sinus. The hard palate, mandible, and temporomandibular joints appear normal. No acute facial bone fractures are identified. The mastoid air cells are clear. No soft tissue abnormality is identified. Procedure Note Rani Lopez MD - 08/26/2017 EXAMINATION: Computed tomography (CT) of the maxillofacial bones, orbits,and paranasal sinuses HISTORY: Limited upward gaze and abduction bilaterally TECHNIQUE: CT of the maxillofacial bones, orbits, and paranasal sinuseswas performed without contrast according to standard protocol. FINDINGS: Comparison made to MR brain and CT head dated 12/24/2014. The lateral and superior rectus muscles are atrophied bilaterally. Thereis a mucus retention cyst versus polyp in the left maxillary sinus. Thehard palate, mandible, and temporomandibular joints appear normal. Noacute facial bone fractures are identified. The mastoid air cells are clear. No soft tissue abnormality isidentified. IMPRESSION IMPRESSION: 1. Atrophy of the lateral and superior rectus muscles bilaterally. This report was approved by Aleksey Yoon on 12/26/2014 9:48 AM . I, Dr. RANI LOPEZ M.D. have personally reviewed and interpreted thisexamination/study. This report was electronically signed by RANI LOPEZ M.D. on 12/26/201410:25 AM . Danis Mcpherson MD CT ORDERABLES * PHOSPHORUS BLOOD (12/26/2014 3:43 AM CDT) Only the most recent of2 resultswithin the time period is included. Phosphorus 3.3 2.3 - 4.7 mg/dL [facility] Blood specimen (specimen) BLOOD SPECIMEN / Unknown 12/26/2014 3:43 AM CDT 12/26/2014 4:08 AM CDT Danis Mcpherson MD LAB - CHEMISTRY [facility] Performing Organization Address [facility] Co de Phone Number [address] [phone] * MAGNESIUM BLOOD (12/26/2014 3:43 AM CDT) Only the most recent of2 resultswithin the time period is included. Magnesium 1.9 1.6 - 2.6 mg/dL [facility] Blood specimen (specimen) BLOOD SPECIMEN / Unknown 12/26/2014 3:43 AM CDT 12/26/2014 4:08 AM CDT Danis Mcpherson MD LAB - CHEMISTRY [facility] Performing Organization Address City/[facility]/ZIP Co de Phone Number [address] [phone] * VAS BILATERAL VENOUS DUPLEX LE (12/25/2014 2:46 PM CDT) Anatomical Region Laterality Modality Other Danis Mcpherson MD VASCULAR LAB ORDERAB LES * ECHO SEBASTIÁN TRANSESOPHAGEAL (12/25/2014 12:00 AM CDT) Anatomical Region Laterality Modality Other 12/25/2014 Danis Mcpherson MD ECHOCARDIOGRAPHY RAD IANT * CT ANGIO CHEST PULM EMBOLISM (12/24/2014 11:55 PM CDT) Anatomical Region Laterality Modality Chest Other Impressions 12/25/2014 2:07 PM CDT IMPRESSION: 1. Pulmonary embolism in the right lower lobe pulmonary artery. 2. Mild right basilar opacity may represent atelectasis or developing infarct. Dictated by Alexa Bran M.D. (vice president corporate communications). This report was approved by Alexa Bran M.D. on 12/25/2014 1:02 PM . I, Dr. JOSEPH DIAMOND M.D. have personally reviewed and interpreted this examination/study. This report was electronically signed by JOSEPH DIAMOND M.D. on 12/25/2014 2:07 PM . Narrative 12/25/2014 2:07 PM CDT EXAMINATION: Computed tomography (CT) of the chest with contrast HISTORY: history of PE 1 week ago TECHNIQUE: 1-mm contiguous axial images were obtained through the chest after the uneventful administration of 75 mL of Omnipaque 350 intravenous contrast with a timing bolus designed for optimal pulmonary artery opacification. Post processing reconstructions were obtained in the coronal plane. COMPARISON: No prior study is available for comparison. FINDINGS: There is a filling defect in the right lower lobe pulmonary artery extending to its segmental branches likely representing a acute pulmonary embolism . Mild right basilar opacity may represent atelectasis and/or developing infarct. Otherwise, no focal consolidation, pneumothorax, or pleural effusion is identified. A calcified granuloma is seen in the right lower lobe. The heart size is normal. There is no evidence of thrombus in the right atrium or right ventricle. The right ventricle is not enlarged. There is no pericardial effusion. The left-sided aortic arch is normal in course and caliber. No pathologically enlarged mediastinal, hilar, or axillary lymph nodes are seen. Calcified right hilar lymph nodes are seen. Within the limits of this arterial phase study, the visualized portions of the liver, gallbladder, spleen, pancreas, adrenal glands, and kidneys are normal. The visualized stomach and bowel are normal. The bony thorax is intact. Procedure Note Joseph Diamond MD - 08/26/2017 EXAMINATION: Computed tomography (CT) of the chest with contrast HISTORY: history of PE 1 week ago TECHNIQUE: 1-mm contiguous axial images were obtained through the chestafter the uneventful administration of 75 mL of Omnipaque 350 intravenouscontrast with a timing bolus designed for optimal pulmonary arteryopacification. Post processing reconstructions were obtained in the coronal plane. COMPARISON: No prior study is available for comparison. FINDINGS: There is a filling defect in the right lower lobe pulmonary arteryextending to its segmental branches likely representing a acute pulmonaryembolism . Mild right basilar opacity may represent atelectasis and/ordeveloping infarct. Otherwise, no focal consolidation, pneumothorax, or pleural effusion is identified. Acalcified granuloma is seen in the right lower lobe. The heart size is normal. There is no evidence of thrombus in the rightatrium or right ventricle. The right ventricle is not enlarged. There isno pericardial effusion. The left-sided aortic arch is normal in courseand caliber. No pathologically enlarged mediastinal, hilar, or axillary lymph nodes are seen. Calcifiedright hilar lymph nodes are seen. Within the limits of this arterial phase study, the visualized portions ofthe liver, gallbladder, spleen, pancreas, adrenal glands, and kidneys arenormal. The visualized stomach and bowel are normal. The bony thorax isintact. IMPRESSION IMPRESSION: 1. Pulmonary embolism in the right lower lobe pulmonary artery. 2. Mild right basilar opacity may represent atelectasis or developinginfarct. Dictated by Alexa Bran M.D. (vice president corporate communications). This report was approved by Alexa Bran M.D. on 12/25/2014 1:02 PM . I, Dr. JOSEPH DIAMOND M.D. have personally reviewed and interpreted thisexamination/study. This report was electronically signed by JOSEPH DIAMOND M.D. on 12/25/20142:07 PM . Danis Mcpherson MD CT ORDERABLES * MRI BRAIN WO CONTRAST (12/24/2014 6:22 PM CDT) Anatomical Region Laterality Modality Head Other Impressions 12/25/2014 9:05 AM CDT IMPRESSION: 1. No evidence of acute cerebral infarction. 2. No large arterial occlusion or stenosis in the head or neck. No intracranial aneurysms identified. This report was approved by Connie Vera M.D. on 12/25/2014 9:02 AM . I, Dr. JUAN A NEELY M.D. have personally reviewed and interpreted this examination/study. This report was electronically signed by JUAN A NEELY M.D. on 12/25/2014 9:05 AM . Narrative 12/25/2014 9:05 AM CDT EXAMINATION: 1. Magnetic resonance imaging (MRI) of the brain without contrast 2. Magnetic resonance angiography (MRA) of the head without contrast 3. MRA of the neck with contrast HISTORY: 44-year-old male with right facial numbness. TECHNIQUE: MRI of the brain was performed without contrast according to standard protocol. MRA of the leards-gx-Azoanj was performed using a kkyc-dp-qmdhfq technique without contrast. Finally, contrast-enhanced MRA of the neck was performed following the uneventful administration of 9.5 mL Gadavist intravenous gadolinium contrast. FINDINGS: Comparison is made to a CT head dated 12/24/2014. Brain: No evidence of acute or chronic hemorrhage is identified. No evidence of acute cerebral infarction is seen. The ventricles are of normal size, shape, and morphology. No mass effect or midline shift is seen. The corpus callosum and sella appear normal. The posterior fossa, brainstem, and craniocervical junction appear normal. Other than mild left maxillary sinus disease, the visualized portions of the orbits, paranasal sinuses, and mastoids appear normal. Normal flow voids are demonstrated in the carotid arteries and basilar artery. The calvarium and visualized cervical spine appear normal. Angiographic findings: The visualized aortic arch appears normal. The configuration of the brachiocephalic vessels is typical. The innominate artery and both subclavian arteries appear normal. The common carotid arteries and carotid bifurcations appear normal. The cervical internal carotid and vertebral arteries appear normal. The distal internal carotid arteries appear normal. The anterior and middle cerebral arteries appear normal. The distal vertebral arteries appear normal. The basilar artery and posterior cerebral arteries appear normal. No aneurysms or intracranial stenoses are identified. Procedure Note Juan A Neely MD - 08/26/2017 EXAMINATION: 1. Magnetic resonance imaging (MRI) of the brain without contrast 2. Magnetic resonance angiography (MRA) of the head without contrast 3. MRA of the neck with contrast HISTORY: 44-year-old male with right facial numbness. TECHNIQUE: MRI of the brain was performed without contrast according tostandard protocol. MRA of the pbziip-ms-Fqngmx was performed using bbihl-qv-glxsnr technique without contrast. Finally, contrast-enhanced MRAof the neck was performed following the uneventful administration of 9.5 mL Gadavist intravenous gadoliniumcontrast. FINDINGS: Comparison is made to a CT head dated 12/24/2014. Brain: No evidence of acute or chronic hemorrhage is identified. No evidence ofacute cerebral infarction is seen. The ventricles are of normal size,shape, and morphology. No mass effect or midline shift is seen. The corpuscallosum and sella appear normal. The posterior fossa, brainstem, and craniocervical junction appearnormal. Other than mild left maxillary sinus disease, the visualized portions ofthe orbits, paranasal sinuses, and mastoids appear normal. Normal flowvoids are demonstrated in the carotid arteries and basilar artery. Thecalvarium and visualized cervical spine appear normal. Angiographic findings: The visualized aortic arch appears normal. The configuration of thebrachiocephalic vessels is typical. The innominate artery and bothsubclavian arteries appear normal. The common carotid arteries and carotidbifurcations appear normal. The cervical internal carotid and vertebral arteries appear normal. The distal internal carotid arteries appear normal. The anterior andmiddle cerebral arteries appear normal. The distal vertebral arteriesappear normal. The basilar artery and posterior cerebral arteries appearnormal. No aneurysms or intracranial stenoses are identified. IMPRESSION IMPRESSION: 1. No evidence of acute cerebral infarction. 2. No large arterial occlusion or stenosis in the head or neck. Nointracranial aneurysms identified. This report was approved by Connie Vera M.D. on 12/25/2014 9:[address] JUAN A Franz M.D. have personally reviewed and interpreted thisexamination/study. This report was electronically signed by JUAN A NEELY M.D. on 12/25/20149:05 AM . Danis Mcpherson MD MR ORDERABLES * MRI ANGIO NECK W CONTRAST (12/24/2014 6:22 PM CDT) Anatomical Region Laterality Modality Head Other Impressions 12/25/2014 9:05 AM CDT IMPRESSION: 1. No evidence of acute cerebral infarction. 2. No large arterial occlusion or stenosis in the head or neck. No intracranial aneurysms identified. This report was approved by Connie Vera M.D. on 12/25/2014 9:[address] JUAN A Franz M.D. have personally reviewed and interpreted this examination/study. This report was electronically signed by JUAN A NEELY M.D. on 12/25/2014 9:05 AM . Narrative 12/25/2014 9:05 AM CDT EXAMINATION: 1. Magnetic resonance imaging (MRI) of the brain without contrast 2. Magnetic resonance angiography (MRA) of the head without contrast 3. MRA of the neck with contrast HISTORY: 44-year-old male with right facial numbness. TECHNIQUE: MRI of the brain was performed without contrast according to standard protocol. MRA of the vgvoql-ri-Tswejl was performed using a bsru-ea-wmjzbh technique without contrast. Finally, contrast-enhanced MRA of the neck was performed following the uneventful administration of 9.5 mL Gadavist intravenous gadolinium contrast. FINDINGS: Comparison is made to a CT head dated 12/24/2014. Brain: No evidence of acute or chronic hemorrhage is identified. No evidence of acute cerebral infarction is seen. The ventricles are of normal size, shape, and morphology. No mass effect or midline shift is seen. The corpus callosum and sella appear normal. The posterior fossa, brainstem, and craniocervical junction appear normal. Other than mild left maxillary sinus disease, the visualized portions of the orbits, paranasal sinuses, and mastoids appear normal. Normal flow voids are demonstrated in the carotid arteries and basilar artery. The calvarium and visualized cervical spine appear normal. Angiographic findings: The visualized aortic arch appears normal. The configuration of the brachiocephalic vessels is typical. The innominate artery and both subclavian arteries appear normal. The common carotid arteries and carotid bifurcations appear normal. The cervical internal carotid and vertebral arteries appear normal. The distal internal carotid arteries appear normal. The anterior and middle cerebral arteries appear normal. The distal vertebral arteries appear normal. The basilar artery and posterior cerebral arteries appear normal. No aneurysms or intracranial stenoses are identified. Procedure Note Juan A Neely MD - 08/26/2017 EXAMINATION: 1. Magnetic resonance imaging (MRI) of the brain without contrast 2. Magnetic resonance angiography (MRA) of the head without contrast 3. MRA of the neck with contrast HISTORY: 44-year-old male with right facial numbness. TECHNIQUE: MRI of the brain was performed without contrast according tostandard protocol. MRA of the woukgl-cm-Qldscw was performed using amzys-fa-mibcdf technique without contrast. Finally, contrast-enhanced MRAof the neck was performed following the uneventful administration of 9.5 mL Gadavist intravenous gadoliniumcontrast. FINDINGS: Comparison is made to a CT head dated 12/24/2014. Brain: No evidence of acute or chronic hemorrhage is identified. No evidence ofacute cerebral infarction is seen. The ventricles are of normal size,shape, and morphology. No mass effect or midline shift is seen. The corpuscallosum and sella appear normal. The posterior fossa, brainstem, and craniocervical junction appearnormal. Other than mild left maxillary sinus disease, the visualized portions ofthe orbits, paranasal sinuses, and mastoids appear normal. Normal flowvoids are demonstrated in the carotid arteries and basilar artery. Thecalvarium and visualized cervical spine appear normal. Angiographic findings: The visualized aortic arch appears normal. The configuration of thebrachiocephalic vessels is typical. The innominate artery and bothsubclavian arteries appear normal. The common carotid arteries and carotidbifurcations appear normal. The cervical internal carotid and vertebral arteries appear normal. The distal internal carotid arteries appear normal. The anterior andmiddle cerebral arteries appear normal. The distal vertebral arteriesappear normal. The basilar artery and posterior cerebral arteries appearnormal. No aneurysms or intracranial stenoses are identified. IMPRESSION IMPRESSION: 1. No evidence of acute cerebral infarction. 2. No large arterial occlusion or stenosis in the head or neck. Nointracranial aneurysms identified. This report was approved by Connie Vera M.D. on 12/25/2014 9:[address] JUAN A Franz M.D. have personally reviewed and interpreted thisexamination/study. This report was electronically signed by JUAN A NEELY M.D. on 12/25/20149:05 AM . Danis Mcpherson MD MR ORDERABLES * MRI ANGIO BRAIN ARTERIAL WO CONT (12/24/2014 6:22 PM CDT) Anatomical Region Laterality Modality Head Other Impressions 12/25/2014 9:05 AM CDT IMPRESSION: 1. No evidence of acute cerebral infarction. 2. No large arterial occlusion or stenosis in the head or neck. No intracranial aneurysms identified. This report was approved by Connie Vera M.D. on 12/25/2014 9:[address] JUAN A Franz M.D. have personally reviewed and interpreted this examination/study. This report was electronically signed by JUAN A NEELY M.D. on 12/25/2014 9:05 AM . Narrative 12/25/2014 9:05 AM CDT EXAMINATION: 1. Magnetic resonance imaging (MRI) of the brain without contrast 2. Magnetic resonance angiography (MRA) of the head without contrast 3. MRA of the neck with contrast HISTORY: 44-year-old male with right facial numbness. TECHNIQUE: MRI of the brain was performed without contrast according to standard protocol. MRA of the ctkaxv-hk-Hcqhgu was performed using a lxtd-bn-fqikyn technique without contrast. Finally, contrast-enhanced MRA of the neck was performed following the uneventful administration of 9.5 mL Gadavist intravenous gadolinium contrast. FINDINGS: Comparison is made to a CT head dated 12/24/2014. Brain: No evidence of acute or chronic hemorrhage is identified. No evidence of acute cerebral infarction is seen. The ventricles are of normal size, shape, and morphology. No mass effect or midline shift is seen. The corpus callosum and sella appear normal. The posterior fossa, brainstem, and craniocervical junction appear normal. Other than mild left maxillary sinus disease, the visualized portions of the orbits, paranasal sinuses, and mastoids appear normal. Normal flow voids are demonstrated in the carotid arteries and basilar artery. The calvarium and visualized cervical spine appear normal. Angiographic findings: The visualized aortic arch appears normal. The configuration of the brachiocephalic vessels is typical. The innominate artery and both subclavian arteries appear normal. The common carotid arteries and carotid bifurcations appear normal. The cervical internal carotid and vertebral arteries appear normal. The distal internal carotid arteries appear normal. The anterior and middle cerebral arteries appear normal. The distal vertebral arteries appear normal. The basilar artery and posterior cerebral arteries appear normal. No aneurysms or intracranial stenoses are identified. Procedure Note Juan A Neely MD - 08/26/2017 EXAMINATION: 1. Magnetic resonance imaging (MRI) of the brain without contrast 2. Magnetic resonance angiography (MRA) of the head without contrast 3. MRA of the neck with contrast HISTORY: 44-year-old male with right facial numbness. TECHNIQUE: MRI of the brain was performed without contrast according tostandard protocol. MRA of the iirqmj-eh-Ovruti was performed using jkppq-yz-hmyufn technique without contrast. Finally, contrast-enhanced MRAof the neck was performed following the uneventful administration of 9.5 mL Gadavist intravenous gadoliniumcontrast. FINDINGS: Comparison is made to a CT head dated 12/24/2014. Brain: No evidence of acute or chronic hemorrhage is identified. No evidence ofacute cerebral infarction is seen. The ventricles are of normal size,shape, and morphology. No mass effect or midline shift is seen. The corpuscallosum and sella appear normal. The posterior fossa, brainstem, and craniocervical junction appearnormal. Other than mild left maxillary sinus disease, the visualized portions ofthe orbits, paranasal sinuses, and mastoids appear normal. Normal flowvoids are demonstrated in the carotid arteries and basilar artery. Thecalvarium and visualized cervical spine appear normal. Angiographic findings: The visualized aortic arch appears normal. The configuration of thebrachiocephalic vessels is typical. The innominate artery and bothsubclavian arteries appear normal. The common carotid arteries and carotidbifurcations appear normal. The cervical internal carotid and vertebral arteries appear normal. The distal internal carotid arteries appear normal. The anterior andmiddle cerebral arteries appear normal. The distal vertebral arteriesappear normal. The basilar artery and posterior cerebral arteries appearnormal. No aneurysms or intracranial stenoses are identified. IMPRESSION IMPRESSION: 1. No evidence of acute cerebral infarction. 2. No large arterial occlusion or stenosis in the head or neck. Nointracranial aneurysms identified. This report was approved by Connie Vera M.D. on 12/25/2014 9:02 AM. I, Dr. JUAN A NEELY M.D. have personally reviewed and interpreted thisexamination/study. This report was electronically signed by JUAN A NEELY M.D. on 12/25/20149:05 AM . Danis Mcpherson MD MR ORDERABLES * (ABNORMAL) HEMOGLOBIN A1C (12/24/2014 5:44 PM CDT) Hemoglobin A1c 6.4(H) 4.4 - 6.3 % [facility] Comment: Hemoglobin variant detected. Abnormal hemoglobins may not form glycated products at the same rate as hemoglobin A. Comparison of absolute hemoglobin A1C results for this patient with the reference range reported above may not be entirely accurate. However, relative changes in the hemoglobin A1C may be used to follow glycemic control. Recommend hemoglobin electrophoresis to evalulate the variant hemoglobin if clinically indicated. Estimated Average Glucose 137 mg/dL [facility] Comment: HbA1c Interpretation: Treatment target values recommended by ADA and other clinical organizations, not reference intervals, should be used to evaluate metabolic control in patients. Treatment Target Values: Normal : < 5.7% Pre-diabetes: 5.7-6.4% Diabetes: > 6.4% Test results diagnostic of diabetes should be repeated for confirmation. The Tosoh G8 assay for the measurement of HbA1c is a National Glycohemoglobin Standardization Program (NGSP)certified method. Results for patients with HbE disease should be interpreted with caution as this hemoglobinopathy has been shown to interfere with the Tosoh G8 assay. Blood specimen (specimen) BLOOD SPECIMEN / Unknown 12/24/2014 5:44 PM CDT 12/24/2014 5:44 PM CDT Danis Mcpherson MD LAB - CHEMISTRY [facility] Organization Address City/State/ZIP Co de Phone Number [address] [phone] * (ABNORMAL) HEPATIC FUNCTION PANEL (12/24/2014 5:33 PM CDT) Protein Total 6.9 6.0 - 8.3 g/dL S LABORATORY [facility] Albumin 3.2(L) 3.4 - 5.0 g/dL [facility] Bilirubin Total 0.5 0.2 - 1.2 mg/dL [facility] Bilirubin Conjugated 0.2 0.0 - 0.5 mg/dL [facility] Bilirubin Unconjugated 0.3 Unconjugated Bilirubin is a calculated value: Reference ranges have not been established. mg/dL [facility] Alkaline Phosphatase 51 40 - 150 Units/L [facility] ALT 16 0 - 55 Units/L [facility] AST 26 5 - 34 Units/L [facility] Albumin/Globulin Ratio 0.9(L) 1.1 - 2.3 [facility] Blood specimen (specimen) BLOOD SPECIMEN / Unknown 12/24/2014 5:33 PM CDT 12/24/2014 5:33 PM CDT Danis Mcpherson MD LAB [facility] Organization Address City/State/ZIP Co de Phone Number [address] [phone] * (ABNORMAL) DRUG ABUSE PANEL 10-20+ETHANOL URINE NO CONFIRM (12/24/2014 11:58 AM CDT) Pathologist [facility] Amphetamines Screen Urine Negative Negative : < 1000 ng/mL [facility] Barbiturates Screen Urine Negative Negative : < 200 ng/mL [facility] Benzodiazepine Screen Urine Negative Negative : < 200 ng/mL [facility] Opiates Urine Positive(A) Negative : < 300 ng/mL [facility] Comment: Positive urine opiate screening results should be confirmed by another generally accepted non-immunological method such as gas chromatography or mass spectrometry. Cocaine Metabolites Urine Negative Negative : < 300 ng/mL [facility] Phencyclidine Screen Urine Negative Negative : < 25 ng/ml [facility] Cannabinoids Screen Urine Negative Negative : <50 ng/mL [facility] Methadone Screen Urine Negative Negative : < 300 ng/mL [facility] Urine specimen (specimen) 12/24/2014 11:58 AM CDT 12/24/2014 12:15 PM CDT Narrative [facility] - 12/24/2014 12:44 PM CDT The Urine Toxicology Screening Panel does not screen for Propoxyphene, Meprobamate, Carisoprodol, Trazodone, [id number]-[id number] medications and/or volatiles (Acetone, Isopropanol, Methanol or Ethylene Glycol). Ethanol, Salicylate, Acetaminophen, Tricyclic Antidepressants and several therapeutic drugs may be individually assayed in serum or plasma specimen. Toxicology testing by the [facility] is an aid to medical diagnosis and treatment of patients. No documented chain of custody was maintained. Results are intended to be used for clinical purposes only. Antonia Beverly MD LAB - URINE CHEMISTR Y ORDERABLES [address] [phone] * (ABNORMAL) URINALYSIS REFLEX TO MICROSCOPIC NO CULTURE (12/24/2014 11:58 AM CDT) Color UA Yellow Straw, Yellow, Colorless, Light Yellow [facility] Clarity UA Clear Clear [facility] Specific [place] UA 1.016 1.001 - 1.030 [facility] pH UA 5.0 5.0 - 8.0 [facility] Protein UA Negative <=20 mg/dL [facility] Glucose UA Negative Negative mg/dL [facility] Ketone UA Negative Negative mg/dL [facility] Bilirubin UA Negative Negative mg/dL [facility] Blood UA Negative Negative [facility] Nitrite UA Negative Negative [facility] Leukocyte Esterase Negative Negative [facility] Urobilinogen UA <2.0 <2.0 mg/dL [facility] RBC UA 1 0 - 8 /HPF [facility] WBC UA 1 0 - 2 /HPF [facility] Bacteria UA Occasional Rare, Occasional, None /HPF [facility] Mucus UA Many(A) None /LPF [facility] Urine specimen (specimen) 12/24/2014 11:58 AM CDT 12/24/2014 12:15 PM CDT Antonia Beverly MD LAB - URINALYSIS ORD ERABLES [address] [phone] * ALCOHOL ETHYL BLOOD (12/24/2014 10:36 AM CDT) Interpretation Ethanol None Detected None Detected mg/dL [facility] Comment:Ethanol levels less than 10 mg/dL are resulted as None detected . Blood specimen (specimen) BLOOD SPECIMEN / Unknown 12/24/2014 10:36 AM CDT 12/24/2014 10:40 AM CDT Antonia Beverly MD LAB - CHEMISTRY ORDE RABLES Performing Organization Address City/[facility]/ZIP Co de Phone Number [address] [phone] * XR CHEST 1VW PORTABLE (12/24/2014 9:56 AM CDT) Anatomical Region Laterality Modality Chest Other Impressions 12/24/2014 11:02 AM CDT Impression: No acute pulmonary process. Dictated by Satya Leung MD (Document Improvement Specialist) This report was approved by Satya Leung on 12/24/2014 10:25 AM . I, Dr. Dr. SYBIL GRACE MD have personally reviewed and interpreted this examination/study. This report was electronically signed by Dr. SYBIL GRACE MD on 12/24/2014 11:02 AM . Narrative 12/24/2014 11:02 AM CDT Exam: PX CHEST 1 VW AP Date: 12/24/2014 9:57 AM History: Code Stroke Comparison: None available Findings: There is no consolidation, pleural effusion, or pneumothorax. The cardiomediastinal silhouette is normal. The visible bony thorax is intact. Procedure Note Sybil Grace MD - 08/26/2017 Exam: PX CHEST 1 VW AP Date: 12/24/2014 9:57 AM History: Code Stroke Comparison: None available Findings: There is no consolidation, pleural effusion, or pneumothorax. Thecardiomediastinal silhouette is normal. The visible bony thorax isintact. IMPRESSION Impression: No acute pulmonary process. Dictated by Satya Leung MD (Document Improvement Specialist) This report was approved by Satya Leung on 12/24/2014 10:25 AM . I, . Dr. SYBIL GRACE MD have personally reviewed and interpreted thisexamination/study. This report was electronically signed by Dr. SYBIL GRACE MD on12/24/2014 11:02 AM . Antonia Beverly MD DIAGNOSTIC IMAGING O RDERABLES * PTT U (12/24/2014 9:47 AM CDT) APTT 33.1 23.0 - 38.4 Seconds [facility] Comment:Suggested therapeuti c range for full dose I.V. heparin therapy for venous thromboembolism is 66.0-91.0 seconds. 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
--- OUTSIDE RECORDS SUMMARY | 2024-07-30 18:51 | XMS_ITS | Clinical Summary ---
Author Organization [facility] Address [address] [place] [address] Care Team Providers Care Atmospheric Chemist Name Role Phone Corey Donahue MD Primary Care Provider [phone] Source Comments [facility],non-owned Affiliates and Associated Physician Practices is amultiple site organization consisting of ambulatory clinics and hospital sitesin [place], [place], [place] and [place]. This disclosure is being madepursuant to the Care Everywhere program and may not contain all information available regarding this patient. Last updated 18.[facility] Medications * Be aware that medications may not be up to date on this document. Alwaysverify current medications with the patient. Medication Sig Dispensed Refills Start Date End Date Status gabapentin (NEURONTIN) 400 MG capsule Take 400 mg by mouth TID. 90 capsule 3 12/15/2015 Active Active Problems Problem Noted Date Diagnosed Date Radiculopathy of cervical region 12/15/2015 Male erectile dysfunction 09/02/2015 Overview (02/26/2022): O 2021 Update Other specified abnormal findings of blood chemi stry 03/17/2015 Epigastric pain 03/17/2015 Panic disorder without agoraphobia 03/17/2015 Prediabetes 03/17/2015 Low back pain 03/17/2015 Other pulmonary embolism without acute cor pulmo nale 01/26/2015 Family History Medical History Relation Name Comments Hypertension Father Hypertension Maternal Grandfather Hypertension Maternal Grandmother Diabetes Mother Diabetes Sister Hypertension Sister Relation Name Status Comments Father Maternal Grandfather Maternal Grandmother Mother Sister Social History Tobacco Use Types Packs/Day Years [...] Comments Blood Pressure 109/75 04/27/2016 2:07 AM ECONOMIC RESEARCH ASSISTANT Pulse 45 04/27/2016 2:07 AM ECONOMIC RESEARCH ASSISTANT Temperature 36.8 C (98.2 F) 04/27/2016 2:07 AM ECONOMIC RESEARCH ASSISTANT Respiratory Rate 16 04/27/2016 2:07 AM ECONOMIC RESEARCH ASSISTANT Oxygen Saturation 98% 04/27/2016 1:30 AM ECONOMIC RESEARCH ASSISTANT Inhaled Oxygen Concentration - - Weight 85.3 kg (188 lb) 04/26/2016 9:50 PM ECONOMIC RESEARCH ASSISTANT Height 182.9 cm (6') 04/26/2016 9:50 PM ECONOMIC RESEARCH ASSISTANT Body Mass Index 25.5 04/26/2016 9:50 PM ECONOMIC RESEARCH ASSISTANT Plan of Treatment Health Maintenance Due Date Last Done Comments COLOGUARD (AGES 45-75) - COL ON CA SCREENING 1968 COLON MONITORING 1968 COLONOSCOPY - COLON CA SCREENING 1968 CT COLONOGRAPHY - COLON CA SCREENING 1968 Colorectal Cancer Screening 1968 FIT - COLON CA SCREENING 1968 FLEX SIG - COLON CA SCREENING 1968 HIV SCREENING 1983 HEPATITIS C SCREENING 02/28/1986 DTAP/TDAP/TD VACCINES (1 - Tdap) 1987 HEPATITIS B VACCINE (1 of 3 - 19+ 3-dose series) 1987 PNEUMOCOCCAL VACCINE 50+ (1 of 1 - PCV) 2018 ZOSTER VACCINE (1 of 2) 2018 LIPID TESTING 01/27/2020 01/26/2015, 12/24/2014 COVID-19 VACCINE ( - 2023-2 5 season) 2024 INFLUENZA VACCINE (#1) 2024 DEPRESSION SCREENING 05/29/2024 HIB VACCINE Aged Out No longer eligi ble based on patient's age to complete this topic HPV VACCINE Aged Out No longer eligi ble based on patient's age to complete this topic MENINGOCOCCAL (Group B) VACCINE Aged Out No longer eligible b ased on patient's age to complete this topic MENINGOCOCCAL VACCINE Aged Out No josselyn kota eligible based on patient's age to complete this topic PNEUMOCOCCAL VACCINE Aged Out No long er eligible based on patient's age to complete this topic Procedures Procedure Name Priority Date/Time Associated Diagnosis Comments LIPID PROFILE Routine 01/26/2015 10:05 AM CDT from Last 3 Months or Most Recently Relevant to Health Maintenance Results * (ABNORMAL) LIPID PROFILE (01/26/2015 10:05 AM CDT) Cholesterol Total 122 <200 mg/dL [facility] HDL 38(L) >40 mg/dL [facility] Comment: ATP III Classification of HDL Cholesterol: <40 mg/dL: Considered a major risk factor. >60 mg/dL: Considered a negative risk factor. LDL Calculated 70 <100 mg/dL [facility] Comment: ATP III Classification of LDL Cholesterol: <100 mg/dL: Optimal 100 - 129 mg/dL: Near Optimal/Above Optimal 130 - 159 mg/dL: Borderline High 160 - 189 mg/dL: High >190 mg/dL: Very High Triglycerides 72 <150 mg/dL [facility] Comment: ATP III Classification of Triglycerides: <150 mg/dL: Normal 150 - 199 mg/dL: Borderline High 200 - 400 mg/dL: High >500 mg/dL: Very High Blood specimen (specimen) BLOOD SPECIMEN / Unknown 01/26/2015 10:05 AM CDT 01/26/2015 10:45 AM CDT Corey Donahue MD LAB - CHEMISTRY O RDERABLES Performing Organization Address City/State/[facility] Co de Phone Number [facility] [address] [phone] from Last 3 Months or Most Recently Relevant to Health Maintenance Care Teams Atmospheric Chemist Relationship Specialty Start Date End Date Corey Donahue MD [address] [place] [address] PCP - General 01/19/16
--- OUTSIDE RECORDS SUMMARY | 2024-07-30 18:51 | XMS_ITS | Clinical Summary ---
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 Care Bonding Machine Operator Name Role Phone Unavailable Primary Care Provider Unavailabl e Social History Tobacco Use Types Packs/Day Years Used Date Smoking Tobacco: Never Assessed Sex and Gender Information Value Date Recorded Sex Assigned at Not on file Legal Sex Male 11:02 AM DIRECTOR APPOINTMENT Gender Identity Not on file Sexual Orientation Not on file Plan of Treatment Health Maintenance Due Date Last Done Comments Hepatitis C Virus (HCV) Screening 1968 TdaP Immunization 1968 Hepatitis B Immunization (1 of 3 - 19+ 3-dose series) 1987 Colonoscopy 2013 Colorectal Cancer Screening 2013 Cologuard 2018 Immunochemical Fecal Occult Blood 2018 Pneumococcal Immunization (5 0+ years) (1 of 1 - PCV) 2018 Zoster Immunization (1 of 2) 2018 PSA Discussion 2023 Influenza Immunization (#1) 2024 SARS-COV-2 Immunization ( - season) 2024 Respiratory Syncytial Virus (RSV) Immunization (Adult) (1 - 1-dose 75+ series) 2043 Meningococcal Immunization (ACWY) Aged Out No longer eligible based on patient's age to complete this topic Pneumococcal Immunization Combined Aged Out No longer eligible based on patient's age to complete this topic Rotavirus Immunization Aged Out No lo nger eligible based on patient's age to complete this topic
--- OUTSIDE RECORDS SUMMARY | 2024-07-30 18:51 | XMS_ITS | Referral Summary ---
Author Organization [facility] Address [address] [place] [address] Care Team Providers Care Tube Closing Machine Operator Name Role Phone Corey Donahue MD Primary Care Provider [phone] [facility],non-owned Affiliates and Associated Physician Practices is amultiple site organization consisting of ambulatory clinics and hospital sitesin [place], [place], [place] and [place]. This disclosure is being madepursuant to the Care Everywhere program and may not contain all information available regarding this patient. Last updated 18.[facility] Medications * Be aware that medications may [...] Comments Blood Pressure 109/75 04/27/2016 2:07 AM GUEST SERVICES OFFICER Pulse 45 04/27/2016 2:07 AM GUEST SERVICES OFFICER Temperature 36.8 C (98.2 F) 04/27/2016 2:07 AM GUEST SERVICES OFFICER Respiratory Rate 16 04/27/2016 2:07 AM GUEST SERVICES OFFICER Oxygen Saturation 98% 04/27/2016 1:30 AM GUEST SERVICES OFFICER Inhaled Oxygen Concentration - - Weight 85.3 kg (188 lb) 04/26/2016 9:50 PM GUEST SERVICES OFFICER Height 182.9 cm (6') 04/26/2016 9:50 PM GUEST SERVICES OFFICER Body Mass Index 25.5 04/26/2016 9:50 PM GUEST SERVICES OFFICER Plan of Treatment Not on file Procedures Procedure Name Priority Date/Time Associated Diagnosis Comments LIPID PROFILE Routine 01/26/2015 10:05 AM CDT from Last 3 Months or Most Recently Relevant to Health Maintenance Results * (ABNORMAL) LIPID PROFILE (01/26/2015 10:05 AM CDT) Cholesterol Total 122 <200 mg/dL [facility] HDL 38(L) >40 mg/dL [facility] Comment: ATP III Classification of HDL Cholesterol: <40 mg/dL: Considered a major risk factor. >60 mg/dL: Considered a negative risk factor. LDL Calculated 70 <100 mg/dL [facility] Comment: ATP III Classification of LDL Cholesterol: <100 mg/dL: Optimal 100 - 129 mg/dL: Near Optimal/Above Optimal 130 - 159 mg/dL: Borderline High 160 - 189 mg/dL: High >190 mg/dL: Very High Triglycerides 72 <150 mg/dL [facility] Comment: ATP III Classification of Triglycerides: <150 mg/dL: Normal 150 - 199 mg/dL: Borderline High 200 - 400 mg/dL: High >500 mg/dL: Very High Blood specimen (specimen) BLOOD SPECIMEN / Unknown 01/26/2015 10:05 AM CDT 01/26/2015 10:45 AM CDT Corey Donahue MD LAB - CHEMISTRY O RDERABLES [facility] [address] [place] [address], [facility] [phone] from Last 3 Months or Most Recently Relevant to Health Maintenance Care Teams Tube Closing Machine Operator Relationship Specialty Start Date End Date Corey Donahue MD [address] [place] [address] PCP - General 01/19/16
--- NOTE | 2024-07-30 18:55 | ECG_ITS ---
Test Date: 2024-07-30 18:58:13 Measurements Intervals Ruby Rate: 57 P: 52 [place]: 202 QRS: 4 QRSD: 113 T: 3 QT: 419 QTc: 409 Interpretive Statements SINUS BRADYCARDIA MODERATE INTRAVENTRICULAR CONDUCTION DELAY [110+ ms QRS DURATION] No previous ECG available for comparison Electronically Signed On 07-31-2024 13:12:54 ARMATURE WINDER by Shree Kirby M.D.
[2024-07-30 18:56] VITALS: BP 153/93; PULSE 65; RESP 16; TEMP 36.6; O2SAT 100
[2024-07-30 19:12] LABS: Basophils Absolute Auto 0.1 K/mm3 (0.0-0.1); Basophils Percent Auto 0.6 % (0.2-1.2); Eosinophils Absolute Auto 0.1 K/mm3 (0-0.3); Eosinophils Percent Auto 1.2 % (0-4.4); Hematocrit 43.7 % (42.0-52.0); Hemoglobin 14.2 g/dL (14.0-18.0); Immature Granulocyte Absolute 0.01 K/mm3 (0.00-0.031); Immature Granulocyte Percent A 0.1 % (0-0.5); Lymphocytes Absolute Auto 3.18 K/mm3 (0.9-3.2); Lymphocytes Percent Auto 34.3 % (18.3-44.2); Mean Corpuscular HGB Conc 32.5 g/dl (32-36); Mean Corpuscular Hemoglobin 26.7 pg (26-34); Mean Corpuscular Volume 82.3 fl (80-100); Monocytes Absolute Auto 0.6 K/mm3 (0.1-0.6); Monocytes Percent Auto 6.9 % (2.6-8.5); Neutrophils Absolute Auto 5.3 K/mm3 (1.3-6.7); Neutrophils Percent Auto 56.9 % (45.5-73.1); Platelet Count Result 274 k/mm3 (150-375); Red Blood Count 5.31 M/mm3 (4.6-6.20); Red Cell Distribution Width 14.7 % (11.5-14.5); White Blood Count 9.3 K/mm3 (4.5-10.0)
--- NOTE | 2024-07-30 19:16 | ED.CHESTPAIN ---
HPI - Chest Pain General Chief Complaint: Chest Pain <Ailin Vazquez MD - Last Filed: 07/30/24 20:27> Stated Complaint: chest pain, sob <Ailin Vazquez MD - Last Filed: 07/30/24 20:27> Time Seen by Provider: 07/30/24 19:15 <Ailin Vazuqez MD - Last Filed: 07/30/24 20:27> History of Present Illness HPI narrative: Patient presents with some midsternal chest pain and shortness of breath started 1hr [employer], he had similar symptoms 10 years ago he was found have a blood clot that was unprovoked and started on blood thinners, so he wanted to get checked out. No leg swelling or pain. <Ailin Vazquez MD - Last Filed: 07/30/24 20:27> Related Data Allergies/Adverse Reactions: Allergies Allergy/AdvReac Type Severity Reaction Status Date / Time No Known Allergies Allergy Unverified 09/06/22 08:43 <Ailin Vazquez MD - Last Filed: 07/30/24 20:27> Review of Systems Review of Systems: All systems reviewed & are unremarkable except as noted in HPI and below <Ailin Vazquez MD - Last Filed: 07/30/24 20:27> [facility] Past Medical History Medical History: Medical History (Updated 07/30/24 @ 20:09 by Ailin Vazquez MD) Pulmonary embolism <Ailin Vazquez MD - Last Filed: 07/30/24 20:27> Surgical History Surgical History: Surgical History (System 09/06/22 @ 08:43 by Kemal Woods) H/O spinal fusion <Ailin Vazquez MD - Last Filed: 07/30/24 20:27> Social History Social History: Social History (System 09/06/22 @ 08:43 by Kemal Woods) Smoking status: Never smoker <Ailin Vazquez MD - Last Filed: 07/30/24 20:27> Exam Narrative: EXAMINATION OF ORGAN SYSTEMS/BODY AREAS: Constitutional: Vital signs per nursing GENERAL:[No acute distress, non-toxic appearing.] HEAD: Normal with no signs of head trauma. EYES: EOMI, conjunctiva normal ENT: Hearing grossly intact LUNGS: Nonlabored breathing. HEART: [Regular rate and rhythm], normal radial/DP pulses ABD: [Soft], [nontender to palpation] EXT: Normal range of motion; no lower extremity swelling or tenderness SKIN: [No rashes or lesions.] NEURO: [Alert and oriented x 3. No gross focal sensory or strength deficits.] PSYCH: Normal affect <Ailin Vazquez MD - Last Filed: 07/30/24 20:27> Course Vital Signs Vital signs: Vital Signs Temperature 36.6 C 07/30/24 18:56 Pulse Rate 65 07/30/24 18:56 Respiratory Rate 16 07/30/24 18:56 Blood Pressure 153/93 H 07/30/24 18:56 Pulse Oximetry 100 07/30/24 18:56 Oxygen Delivery Room Air 07/30/24 18:56 Temperature 36.6 C 07/30/24 18:56 Pulse Rate 46 L 07/30/24 23:30 Respiratory Rate 16 07/30/24 23:23 Blood Pressure 102/64 07/30/24 23:23 Pulse Oximetry 98 07/30/24 23:23 Oxygen Delivery Room Air 07/30/24 18:59 <Ailin Vazquez MD - Last Filed: 07/30/24 20:27> Vital Signs Temperature 36.6 C 07/30/24 18:56 Pulse Rate 65 07/30/24 18:56 Respiratory Rate 16 07/30/24 18:56 Blood Pressure 153/93 H 07/30/24 18:56 Pulse Oximetry 100 07/30/24 18:56 Oxygen Delivery Room Air 07/30/24 18:56 Temperature 36.6 C 07/30/24 18:56 Pulse Rate 46 L 07/30/24 23:30 Respiratory Rate 16 07/30/24 23:23 Blood Pressure 102/64 07/30/24 23:23 Pulse Oximetry 98 07/30/24 23:23 Oxygen Delivery Room Air 07/30/24 18:59 <Usman Douglas MD - Last Filed: 07/31/24 00:44> MDM - Chest Pain MDM Narrative Medical decision making narrative: Patient presents with some midsternal chest pain and shortness of breath started 1hr [employer], he had similar symptoms 10 years ago he was found have a blood clot that was unprovoked and started on blood thinners, so he wanted to get checked out. Will obtain cardiac w/u and CT-PE. EKG on my independent interpretation shows sinus ashley rate 57, NE 202, QRS 113, QTc 409, no significant CARA or D; no signs of acute arrhythmia/ischemia, compared to [address] PE is negative. Labs within acceptable limits including initial negative troponin, repeat troponin ordered along with a rpt EKG and will be signed out to oncoming ER physician. <Ailin Vazquez MD - Last Filed: 07/30/24 20:27> Patient presents with some midsternal chest pain and shortness of breath started 1hr [employer], he had similar symptoms 10 years ago he was found have a blood clot that was unprovoked and started on blood thinners, so he wanted to get checked out. Will obtain cardiac w/u and CT-PE. EKG on my independent interpretation shows sinus ashley rate 57, NE 202, QRS 113, QTc 409, no significant CARA or D; no signs of acute arrhythmia/ischemia, compared to [address] PE is negative. Labs within acceptable limits including initial negative troponin, repeat troponin ordered along with a rpt EKG and will be signed out to oncoming ER physician. Patient was signed out pending repeat troponin that was negative patient will be discharged home <Usman Douglas MD - Last Filed: 07/31/24 00:44> Lab Data Result diagrams: 07/30/24 19:07 07/30/24 19:07 <Ailin Vazquez MD - Last Filed: 07/30/24 20:27> Labs: Lab Results 07/30/24 07/30/24 Range/Units 19:07 22:41 WBC 9.3 (4.5-10.0) K/mm3 RBC 5.31 (4.6-6.20) M/mm3 Hgb 14.2 (14.0-18.0) g/dL Hct 43.7 (42.0-52.0) % MCV 82.3 (80-100) fl MCH 26.7 (26-34) pg MCHC 32.5 (32-36) g/dl RDW 14.7 H (11.5-14.5) % Plt Count 274 (150-375) k/mm3 MPV 9.0 (7.4-10.4) fl Immature Gran % (Auto) 0.1 (0-0.5) % Neut % (Auto) 56.9 (45.5-73.1) % Lymph % (Auto) 34.3 (18.3-44.2) % [place] % (Auto) 6.9 (2.6-8.5) % Eos % (Auto) 1.2 (0-4.4) % Baso % (Auto) 0.6 (0.2-1.2) % Lymph # (Auto) 3.18 (0.9-3.2) K/mm3 [place] # (Auto) 0.6 (0.1-0.6) K/mm3 Eos # (Auto) 0.1 (0-0.3) K/mm3 Baso # (Auto) 0.1 (0.0-0.1) K/mm3 Abs Immat Gran (auto) 0.01 (0.00-0.031) K/mm3 Absolute Neuts (auto) 5.3 (1.3-6.7) K/mm3 Absolute Nucleated RBC 0.000 (0.0-0.012) K/mm3 Nucleated RBC % 0.0 (0.0-0.2) % PT 13.3 (11.1-14.7) Seconds INR 1.0 APTT 23.8 (22.3-36.8) Seconds Sodium 140 (137-145) mmol/L Potassium 3.7 (3.4-5.0) mmol/L Chloride 103 (98-107) mmol/L Carbon Dioxide 25 (22-30) mmol/L Anion Gap 12 (4-12) mmol/L BUN 12 (9-20) mg/dL Creatinine 0.80 (0.7-1.3) mg/dL Estim Creat Clear Calc 99 ml/min Estimated GFR > 60 (59 - ) Glucose 89 (65-110) mg/dL Calcium 9.6 (8.4-10.2) mg/dL Total Bilirubin 0.9 (0.2-1.3) mg/dL AST 40 (17-59) U/L ALT 29 (6-50) U/L Alkaline Phosphatase 54 (38-126) U/L Troponin I 0.016 < 0.012 D (0.000-0.034) ng/mL Total Protein 8.0 (6.3-8.2) g/dL Albumin 4.7 (3.5-5.1) g/dL Lipase 139 (23-300) U/L <Ailin Vazquez MD - Last Filed: 07/30/24 20:27> Lab Results 07/30/24 07/30/24 Range/Units 19:07 22:41 WBC 9.3 (4.5-10.0) K/mm3 RBC 5.31 (4.6-6.20) M/mm3 Hgb 14.2 (14.0-18.0) g/dL Hct 43.7 (42.0-52.0) % MCV 82.3 (80-100) fl MCH 26.7 (26-34) pg MCHC 32.5 (32-36) g/dl RDW 14.7 H (11.5-14.5) % Plt Count 274 (150-375) k/mm3 MPV 9.0 (7.4-10.4) fl Immature Gran % (Auto) 0.1 (0-0.5) % Neut % (Auto) 56.9 (45.5-73.1) % Lymph % (Auto) 34.3 (18.3-44.2) % [place] % (Auto) 6.9 (2.6-8.5) % Eos % (Auto) 1.2 (0-4.4) % Baso % (Auto) 0.6 (0.2-1.2) % Lymph # (Auto) 3.18 (0.9-3.2) K/mm3 [place] # (Auto) 0.6 (0.1-0.6) K/mm3 Eos # (Auto) 0.1 (0-0.3) K/mm3 Baso # (Auto) 0.1 (0.0-0.1) K/mm3 Abs Immat Gran (auto) 0.01 (0.00-0.031) K/mm3 Absolute Neuts (auto) 5.3 (1.3-6.7) K/mm3 Absolute Nucleated RBC 0.000 (0.0-0.012) K/mm3 Nucleated RBC % 0.0 (0.0-0.2) % PT 13.3 (11.1-14.7) Seconds INR 1.0 APTT 23.8 (22.3-36.8) Seconds Sodium 140 (137-145) mmol/L Potassium 3.7 (3.4-5.0) mmol/L Chloride 103 (98-107) mmol/L Carbon Dioxide 25 (22-30) mmol/L Anion Gap 12 (4-12) mmol/L BUN 12 (9-20) mg/dL Creatinine 0.80 (0.7-1.3) mg/dL Estim Creat Clear Calc 99 ml/min Estimated GFR > 60 (59 - ) Glucose 89 (65-110) mg/dL Calcium 9.6 (8.4-10.2) mg/dL Total Bilirubin 0.9 (0.2-1.3) mg/dL AST 40 (17-59) U/L ALT 29 (6-50) U/L Alkaline Phosphatase 54 (38-126) U/L Troponin I 0.016 < 0.012 D (0.000-0.034) ng/mL Total Protein 8.0 (6.3-8.2) g/dL Albumin 4.7 (3.5-5.1) g/dL Lipase 139 (23-300) U/L <Usman Douglas MD - Last Filed: 07/31/24 00:44> Discharge Plan Discharge Clinical Impression: Atypical chest pain <Ailin Vazquez MD - Last Filed: 07/30/24 20:27> Patient Disposition: Home, Self-Care <Ailin Vazquez MD - Last Filed: 07/30/24 20:27> Condition: Stable <Ailin Vazquez MD - Last Filed: 07/30/24 20:27> Instructions: Antibiotic Form <Ailin Vazquez MD - Last Filed: 07/30/24 20:27> Additional Instructions: Please follow up with your doctor; you can always return for any further issues. <Ailin Vazquez MD - Last Filed: 07/30/24 20:27> Patient Language: Welsh <Ailni Vazquez MD - Last Filed: 07/30/24 20:27> Prescriptions: No Action cyclobenzaprine 10 mg tablet 10 mg PO TID PRN (Reason: muscle spasm) Qty: 20 0RF naproxen 500 mg tablet 500 mg PO BID Qty: 20 0RF <Ailin Vazquez MD - Last Filed: 07/30/24 20:27> Follow-up/Referrals: [facility] [Primary Care Provider] - <Ailin Vazquez MD - Last Filed: 07/30/24 20:27> Time of Disposition: 00:43 <Ailin Vazquez MD - Last Filed: 07/30/24 20:27> 00:43 <Usman Douglas MD - Last Filed: 07/31/24 00:44> Sign Out Sign Out Data: Patient Sign Out occurred on 07/31/24 at 00:42. Patient's care was discussed, and care was transferred from Ailin Vazquez MD to Usman Douglas MD. <Ailin Vazquez MD - Last Filed: 07/30/24 20:27>
[2024-07-30] MEDS: ASPIRIN 81 MG CHEWABLE TABLET 324 MG PO (19:19)
--- OUTSIDE RECORDS SUMMARY | 2024-07-30 19:21 | XMS_ITS | Encounter Summary ---
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 This section includes the names of all active insurance providers for the patient. Insurance Provider Type of Coverage Plan Name Start of Policy Coverage End of Policy Coverage Group Number Member ID Insurance Provider's Telephone Number Policy Clemons's Name Patient's Relationship to Policy Clemons Selected Encounter This section includes the information on record at [place] for the Encounter. Date/Time Encounter Type Encounter Description Reason Provider Source Aug 07, 2023 01:30 PM OFFICE O/P EST MOD 30 MIN PRIMARY CARE/MEDICINE ICD-10-CM F43.12 Post-traumatic stress disorder, chronic GOLDSMITH,TOVA A IHE Encounter Template Text not used by [place] Assessments - Encounter Diagnoses This section includes the primary and secondary diagnoses documented for the Encounter. Date/Time Primary/Secondary Diagnosis Diagnosis Name Provider Source Aug 08, 2023 11:21 PM PRIMARY Post-traumatic stress disorder, chronic GOLDSMITH,TOVA A [facility] Aug 08, 2023 11:21 PM SECONDARY Other cervical disc degeneration, unsp cervical region GOLDSMITH,TOVA A . [facility] Aug 08, 2023 11:21 PM SECONDARY Other migraine, not intractable, without status migrainosus TOVA GOLDSMITH [facility] Aug 08, 2023 11:21 PM SECONDARY Type 2 diabetes mellitus without complications ABBEYTOVA A [facility] Plan of Treatment: Future Appointments (+ 6 months) and Future Tests (+/- 45 days) The Plan of Treatment section includes future care activities for the [facility] [place] [facility] This section includes future appointments and future orders which are active, pending or scheduled. Future Appointments This section includes appointments that were scheduled to occur 6 months from the date of the Encounter, up to a maximum of 20 appointments. The data comes from all [facility] facilities. Appointment Date/Time Appointment Type Appointme nt Facility Name Sep 18, 2023 09:00 AM AMBULATORY - NONE [facility] Nov 14, 2023 03:00 PM AMBULATORY - SURGERY [facility] Dec 05, 2023 09:00 AM AMBULATORY - MEDICINE [facility] Jan 04, 2024 09:30 AM AMBULATORY - PSYCHIATRY [facility] Jan 08, 2024 08:30 AM AMBULATORY - MEDICINE [facility] Feb 06, 2024 01:00 PM AMBULATORY - NONE [facility] Vital Signs: All taken on the encounter date This section contains inpatient and outpatient Vital Signs collected on the date of the Encounter. Date/Time Temperature Pulse Blood Pressure Respiratory Rate SP02 Pain Height Weight Body Mass Index Source Aug 07, 2023 01:19 PM 98.1 56 130/79 18 7 199 26 [facility] Social History: Smoking Status (Most current) and Tobacco Use (All prior to encounter date) This section includes the most current, and the historical, smoking and tobacco- related health factors from the [place] facility where the Encounter took place. Current Smoking Status This section includes the most current smoking, or tobacco-related health factor, from the [place] facility where the Encounter took place. Date/Time Current Smoking Status Alida jeffries Dec 29, 2014 03:43 PM LIFETIME NON-USER OF TOBACCO [facility] Encounter Notes: All associated encounter notes This section contains the clinical notes associated to the Encounter. Date/Time Encounter Note(s) Provider Source Aug 07, 2023 01:45 PM PRIMARY CARE NOTE: LOCAL TITLE: PRIMARY CARE PROVIDER ESTABLISHED VISIT ST STANDARD TITLE: PRIMARY CARE NOTE DATE OF NOTE: AUG 07, 2023@13:45 ENTRY DATE: AUG 07, 2023@13:46:02 AUTHOR: TOVA GOLDSMITH COSIGNER: URGENCY: STATUS: COMPLETED ESTABLISHED PATIENT [id number]: REASON FOR VISIT/CHIEF COMPLAINT: routie f.u DM LBP /Neck pain, PTSD, migraine HPI:Reports stable mood, followed by , denies SI.HI. Has chronic neck pain that radiates down both hands. no weakness. worse with activity , better with rest. takes NSaid alternating with APAP prn for pain. Denies increased thirst, urination nor hunger, denies cp, sob, palpitations. SOURCE(S) OF HISTORY: Patient PAST MEDICAL HISTORY: 1) Shoulder pain 2) TIA 3) Chronic low back pain 4) Migraine 5) H/O: embolism comment: Pulmonary 6) H/O: sexual function problem 7) Posttraumatic stress disorder 8) Pain in right knee 9) Type 2 diabetes mellitus 10) Degeneration of intervertebral disc 11) Degenerative disc disease comment: cervical s/p fusion c4-5 '06 and laminec/foraminot c6-7 '08 12) Exposure to potentially hazardous substance FAMILY HISTORY: No new updates. SOCIAL HISTORY: NICOTINE: Nicotine User: No ILLICIT DRUGS: No ETOH: denies ALLERGIES: Patient has answered NKA ALLERGY REVIEW: Allergy list reviewed and remains current. MEDICATION RECONCILIATION: I have reviewed the patient's medication list with the patient and/or his/her care-document specialist. Handwritten corrections, additions and/or deletions were made to the list. Corrected Outpatient Medication List was provided to the patient/caregiver. Active Outpatient Medications (including Supplies): Active Outpatient Medications Status 1) ALOGLIPTIN 25MG TAB TAKE ONE TABLET BY MOUTH ONCE A ACTIVE DAY TO LOWER BLOOD SUGAR 2) CLONIDINE HCL 0.1MG TAB TAKE ONE AND ONE-HALF TABLETS ACTIVE BY MOUTH TWICE A DAY FOR POST TRAUMATIC STRESS DISORDER 3) DULOXETINE HCL 30MG EC CAP TAKE THREE CAPSULES BY ACTIVE MOUTH ONCE A DAY DO NOT ABRUPTLY DISCONTINUE MEDICATION. 4) HYDROXYZINE HCL 25MG TAB TAKE ONE TABLET BY MOUTH ACTIVE THREE TIMES A DAY NEEDED FOR ANXIETY *MAY CAUSE DROWSINESS* Active Non-VA Medications Status 1) Non-VA ASPIRIN 81MG EC TAB 81MG BY MOUTH ONCE A DAY ACTIVE 5 Total Medications REVIEW OF SYSTEMS: General: Normal No Fevers, Chills, Weight Loss, Weight Gain, Recent Illness. Ears, Nose, Mouth, Throat: Normal No new loss of hearing or tinnitus, no Dental issue, Difficulty swallowing, Vertigo. Eye: Normal No Trauma, Cataracts, Glaucoma, Blurred vision Cardiovascular: Normal No Chest pain, Dizziness, Palpitations. Respiratory: Normal No Cough, SOB, Hemoptysis, Epistaxis, Influenza symptoms, +PDD. PHYSICAL EXAMINATION: General appearance: VITALS (most recent, as listed in the electronic record): B/P: 130/79 (08/07/2023 13:19) Pulse: 56 (08/07/2023 13:19) Temperature: 98.1 F [36.7 C] (08/07/2023 13:19) Weight: 199 lb [90.26 kg] (08/07/2023 13:19) Height: 73 in [185.4 cm] (12/17/2020 11:27) BMI: 26.3 Pain: 7 (08/07/2023 13:19) (0-10 scale) General: pleasant, cooperative, well-developed, well-nourished, appropriately dressed and groomed [place]; in no acute distress. Ears, Nose, Mouth, Throat:TM pearly boothe, intact. Throat clear with no exudate. No trismus. Nose patent Eye:PERRL Cardiovascular:RRR, No m/r/g or clicks. Respiratory:Clear to auscultation bilaterally. No accessory muscle use. Respirations even and non-labored ABD/GI:soft, non-tender. BS + x 4. /BUNDLE PACKER: Deferred Lymph: No lymphadenopathy Extremities:No pedal edema. Psych:Affect appropriate. Neuro: Oriented x3. Gait steady with normal stride. Hematology: Color good. No pallor. No ecchymosis or petechiae. Skin:No visualized abnormalities. DATA REVIEW: SLT - Lab Tests Selected Collection DT Specimen Test Name Result Units Ref Range 04/04/2023 07:19 BLOOD HGA1C 7.2 H % 4.0 - 6.0 07/13/2022 10:15 BLOOD HGA1C 6.9 H % 4.0 - 6.0 12/22/2021 11:15 BLOOD HGA1C 7.0 H % 4.0 - 6.0 = TRIGLYCERIDE 62 mg/dL 04/04/2023 07:19 CHOLESTEROL 140 mg/dL 04/04/2023 07:19 HDL(New) 40 mg/dL 04/04/2023 07:19 CALCULATED LDL 88 mg/dL 04/04/2023 07:19 = SODIUM 138 mEq/L 04/04/2023 07:19 POTASSIUM 4.0 mEq/L 04/04/2023 07:19 CHLORIDE 104 mEq/L 04/04/2023 07:19 UREA NITROGEN 10.8 mg/dL 04/04/2023 07:19 CREATININE 0.85 mg/dL 04/04/2023 07:19 CALCIUM 9.8 mg/dL 04/04/2023 07:19 PROTEIN 8.0 g/dL 04/04/2023 07:19 ALBUMIN 4.8 g/dL 04/04/2023 07:19 ALKALINE PHOSPHATASE 53 U/L 04/04/2023 07:19 ALT/SGPT 14 U/L 04/04/2023 07:19 AST/SGOT 21 U/L 04/04/2023 07:19 TOTAL BILIRUBIN 0.6 mg/dL 04/04/2023 07:19 CARBON DIOXIDE 27 mEq/L 04/04/2023 07:19 GLUCOSE 126 H mg/dL 04/04/2023 07:19 EGFR (CKD-EPI 2020) 102.6 04/04/2023 07:19 = WBC 6.9 10*3/uL 04/04/2023 07:19 RBC 5.44 10*6/uL 04/04/2023 07:19 HGB 14.3 g/dL 04/04/2023 07:19 HCT 43.7 % 04/04/2023 07:19 MCV 80.3 fL 04/04/2023 07:19 MCH 26.3 L pg 04/04/2023 07:19 MCHC 32.7 L g/dL 04/04/2023 07:19 RDW 14.4 % 04/04/2023 07:19 PLT 308 10*3/uL 04/04/2023 07:19 MPV 9.7 fL 04/04/2023 07:19 NEUTROPHILS, AUTO % 57 % 04/04/2023 07:19 LYMPHOCYTES, AUTO % 34 % 04/04/2023 07:19 MONOCYTES, AUTO % 6 % 04/04/2023 07:19 EOSINOPHILS, AUTO % 2 % 04/04/2023 07:19 BASOPHILS, AUTO % 1 % 04/04/2023 07:19 IMMATURE GRANS, AUTO % 0.1 % 12/22/2021 11:15 NEUTROPHILS, ABSOLUTE 3.89 10*3/uL 04/04/2023 07:19 LYMPHOCYTES, ABSOLUTE 2.33 10*3/uL 04/04/2023 07:19 MONOCYTES, ABSOLUTE 0.44 10*3/uL 04/04/2023 07:19 EOSINOPHILS, ABSOLUTE 0.11 10*3/uL 04/04/2023 07:19 BASOPHILS, ABSOLUTE 0.07 10*3/uL 04/04/2023 07:19 IMMATURE GRANS, AUTO ABS 0.01 10*3/uL 12/22/2021 11:15 = PROST. SPECIFIC AG.(PB-STL) 0.739 ng/mL 04/04/2023 07:19 PROST. SPECIFIC AG.(PB-STL) 0.696 ng/mL 12/22/2021 11:15 PROST. SPECIFIC AG.(PB-STL) 0.615 ng/mL 12/17/2020 13:00 PROST. SPECIFIC AG.(PB-STL) 0.590 ng/mL 11/26/2019 08:50 PROST. SPECIFIC AG.(PB-STL) 1.173 ng/ml 02/12/2019 13:58 PROST. SPECIFIC AG.(PB-STL) 1.631 ng/ml 10/08/2018 07:50 = TSH 2.025 uIU/mL 04/04/2023 07:19 = URIC ACID: No data available for: URIC ACID = No B12 EO data found = VITAMIN D, 25-HYDROXY 56.2 ng/mL 04/04/2023 07:19 = INR: No INR EO data found = URINE COLOR Light-Yellow 04/04/2023 07:27 APPEARANCE Clear 04/04/2023 07:27 U.PH 5.5 04/04/2023 07:27 U.BILIRUBIN Negative mg/dL 04/04/2023 07:27 U.NITRITE Negative mg/dL 04/04/2023 07:27 = Urine Microalbumin: No data available = No METHADONE PANEL EO data found = Dilantin: ____ = Digoxin: No data available for: DIGOXIN = Chest x-ray: No data available for: CHEST 2 VIEWS PA&LAT = EKG: No data available for: EKG CONSULT STL EKG CONSULTS PB EKG RESULTS MA Result: Acceptable Follow-up Action: Data results reviewed with patient ASSESSMENT/PLAN: PTSD - mood stable, denies SI.HI. MH recs. cpm DMT2- at goal. cint alogliptin. recommend statin, declined . recommend юлия inh for renoprotection,deferred by pt. annual eye exam UTD october 2022 LBP and neck pain 2.2 DDD- cont stretching exercises. cont otc apap alternat with nsaid prn. NSY recs. Migraine stable, monitor RETURN TO CLINIC:6-9 mo Return to Clinic order placed SUMMARY STATEMENT: Plan of care has been discussed with including expected therapeutic benefits and potential side effects of prescribed medication and treatments. [place] verbalizes understanding and is in agreement with the plan of care. Patient was instructed to keep all scheduled appointments and contact actuarial science professor for any additional problems. PREVENTION & SCREENING: ALCOHOL: Clinical Reminder not due now or within a month BLOOD PRESSURE: Clinical Reminder not due now or within a month HEMOGLOBIN A1C: Clinical Reminder not due now or within a month Assess Statin Use - Lipids (CVD/DM): The patient declines to be treated with a statin. Medication Reconciliation Opt STL: I have reviewed the patient's medication list (including active outpatient [facility] and dispensed from another [place] or [facility] facility (remote) as well as inpatient orders (local pending and active), local clinic medications, locally documented non-VA medications, and local prescriptions that have or been discontinued in the past 90 days.) with the patient and/or his/her care-document specialist. Handwritten corrections, additions and/or deletions were made to the list, as appropriate. Corrected Outpatient Medication List was provided to the patient/caregiver. PAVE Foot Check: A complete foot check was completed at this encounter. VISUAL INSPECTION: Includes inspection for skin breaks, deformity, erythema, trauma, pallor on elevation, dependent rubor, nail deformities, extensive callus and pitting edema. Visual exam results: Normal PEDAL PULSES: Includes palpation of dorsalis and posterior tibial pulses and signs/symptoms of vascular compromise like pain, pallor, parasthesia or paralysis. Present (even if diminished) SENSORY CHECK: Includes 10 gram Monofilament ([place]) test of sensation. Intact (Greater than or equal to 80% of sites checked) Abnormal (Less than 80% of sites checked): Intact LOW-RISK LOW RISK FOOT EDUCATION: 1. Advised patient not to walk barefoot. Instructed the patient to pay close attention to the style and fit of shoes. 2. Explained the importance of daily foot checks. Explained that loss of sensation leads to callouses. Callouses break down, which result in ulcers that may lead to gangrene and amputation. 3. Stressed the importance of daily foot hygiene. Warm (not hot) bathing of the feet, complete drying and thorough inspection for changes in the condition of the skin constitute daily foot care. Demonstrated how to do a thorough foot check. 4. Emphasized the use of clean, non-restrictive socks/stockings and well fitting shoes. 5. Stressed the importance of immediate follow-up of any foot injuries or ulcers. Explained that he/she should be non-weight bearing whenever there are lesions on the foot, to prevent cellular damage. Level of Understanding: Good /radha/ TOVA GOLDSMITH MD Signed: 08/17/2023 09:37 TOVA GOLDSMITHChase [facility] Aug 07, 2023 01:30 PM NURSING NOTE: LOCAL TITLE: V15 PACT FACE TO FACE NOTE ST STANDARD TITLE: NURSING NOTE DATE OF NOTE: AUG 07, 2023@13:30 ENTRY DATE: AUG 07, 2023@13:30:34 AUTHOR: CARMEN SALOMON COSIGNER: URGENCY: STATUS: COMPLETED Provider Visit: Patient Identifiers : Full Name Telephone Number Reason for visit: Established Follow-Up Mode of Arrival: Ambulatory Allergy Review: Patient has answered NKA Allergy list reviewed and remains current. Recent Vital Signs: Temperature: 98.1 F [36.7 C] (08/07/2023 13:19) Pulse: 56 (08/07/2023 13:19) Respiration: 18 (08/07/2023 13:19) B/P: 130/79 (08/07/2023 13:19) Pain: 7 (08/07/2023 13:19) Wt: 199 lb [90.26 kg] (08/07/2023 13:19) Ht: 73 in [185.4 cm] (12/17/2020 11:27) BMI: 26.3 POX: 100% (03/29/2023 14:56) Would you like to discuss any personal problem, family problem, alcohol use, drug use, or a mental or emotional illness? No Contact provided Primary Care phone number and encouraged to call if any questions or concerns. Review that after hours nurse line [phone] and emergency room are available 19/12 for patient use. Contact verbalized good understanding. Information forwarded to Dr Goldsmith for intervention. Homelessness/Food Insecurity Screen: In the past 2 months, have you been living in stable housing that you own, rent, or stay in as part of a household? Yes - Living in stable housing. Are you worried or concerned that in the next 2 months you may NOT have stable housing that you own, rent, or stay in as part of a household? No - Not worried about housing near future The [place] reports the following: Within the past 12 months, you worried whether your food would run out before you got money to buy more. Never true Within the past 12 months, the food you bought just didn't last and you didn't have money to get more. Never true COVID-19 Immunization: Refused Moderna Monovalent COVID-19 vaccine Immunization: COVID-19 (MODERNA), MRNA, LNP-S, PF, 50 MCG/0.5 ML (AGES 12+ YEARS) Refusal Reason: PATIENT DECISION Patient refuses all immunization(s) in the COVID-19 group Date Documented: 08/07/23 13:36 Influenza Immunization: The patient declines to receive the recommended dose of seasonal influenza vaccine. Immunization: INFLUENZA, UNSPECIFIED FORMULATION Refusal Reason: PATIENT DECISION Patient refuses all immunization(s) in the FLU group Date Documented: 08/07/23 13:37 /radha/ CARMEN SALOMON REGISTERED NURSE Signed: 08/07/2023 13:38 CARMEN SALOMON [facility]
--- OUTSIDE RECORDS SUMMARY | 2024-07-30 19:22 | XMS_ITS | Encounter Summary ---
Author Name [facility] [place] [facility] [place] Address [address] [place] [address] Care Team Providers Care Postal Clerk Name Role Phone TOVA POTTER Primary Care Provider Unavailabl e Insurance Providers: [...] section includes the information on record at [place] for the Encounter. Date/Time Encounter Type Encounter Description Reason Pro vider Source May 14, 2024 09:44 AM Outpatient Encounter COMMUNITY CARE CONSULT IHE Encounter Template Text not used by [place] Plan of Treatment: Future Appointments (+ 6 months) and Future Tests (+/- 45 days) The Plan of Treatment section includes future care activities for the patient from all [place] treatmentfacilities. This section includes future appointments and future orders which are active, pending or scheduled. Future Appointments This section includes appointments that were scheduled to occur 6 months from the date of the Encounter, up to a maximum of 20 appointments. The data comes from all [place] treatment facilities. Appointment Date/Time Appointment Type Appointme nt Facility Name May 15, 2024 02:00 PM AMBULATORY - PS[facility]ATRY [facility] May 16, 2024 01:00 PM AMBULATORY - REHAB MEDICIN E [facility] May 31, 2024 01:30 PM AMBULATORY - REHAB MEDICIN E [facility] Jun 10, 2024 03:00 PM AMBULATORY - NONE . LENIN Kilgore [facility] Jun 14, 2024 01:30 PM AMBULATORY - REHAB MEDICIN E [facility] Jun 21, 2024 03:00 PM AMBULATORY - NONE [facility] Jun 25, 2024 10:00 AM AMBULATORY - NONE [facility] Jun 28, 2024 01:30 PM AMBULATORY - REHAB MEDICIN E [facility] Jul 02, 2024 08:00 AM AMBULATORY - NONE [facility] Jul 09, 2024 08:30 AM AMBULATORY - MEDICINE [facility] Jul 29, 2024 01:00 PM AMBULATORY - SURGERY [facility] Aug 06, 2024 02:00 AM AMBULATORY - NONE [facility] October 01, 2024 08:00 AM AMBULATORY - MEDICINE [facility] Active, Pending, and Scheduled Orders This section includes a listing of several types of active, pending, and scheduled orders, including clinic medications orders, diagnostic test orders, procedure orders and consult orders; where the start date of the order is 45 days before the date of the Encounter or 45 days after the date of theEncounter. The data comes from all [facility]. Test Date/Time Test Type Test Details Facility Name Apr 15, 2024 12:00 AM Laboratory - Chemi stry Order BASIC METABOLIC PANEL GREEN LI/HEP BLD/PLAS PLASMA SP [facility] Apr 15, 2024 12:00 AM Laboratory - Chemi stry Order MICRAL/CREAT PROFILE (STL) URINE SP [facility] Apr 15, 2024 12:00 AM Laboratory - Chemi stry Order LIPID PANEL (STL) GREEN LI/HEP BLD/PLAS PLASMA SP ONCE [facility] Apr 15, 2024 12:00 AM Laboratory - Chemi stry Order HGA1C BLOOD SP [facility] May 14, 2024 11:54 AM Consult Order COMMUNITY CARE-STL DENTAL GEN Cons Cutter Hot Knife's Choice [facility] Lab Results: +/- 30 days of the encounter This section includes the Chemistry and Hematology Lab Results on record with [facility] for the patient. Radiology Reports and Pathology Reports are provided separately, in subsequent sections. Lab Results This section contains the Chemistry/Hematology Results that were resulted 30 days before or 30 daysafter the date of the Encounter. Date/Time Source Result Type Result - Unit Interpretation Reference Range Comment Apr 15, 2024 02:33 PM [facility] GLUCOSE,BLOOD-poct (STL) Specimen Type: BLOOD Comment: Test Performed by: [id number] Meter #: [id number] Ordering Provider: CHARITY POTTER Report Released Date/Time: Apr 15, 2024 03:35 PM Reporting Lab: [facility] [address] [facility] [id number] Performing Lab: [facility] [address] [facility] [id number] GLUCOSE,BLO OD-poct (STL) 71 mg/dL L 72-99 Social History: Smoking Status (Most current) and Tobacco Use (All prior to encounter date) This section includes the most current, and the historical, smoking and tobacco- related health factors from the [place] facility where the Encounter took place. Current Smoking Status This section includes the most current smoking, or tobacco-related health factor, from the [place] facility where the Encounter took place. Date/Time Current Smoking Status Comment Rocky jeffries Nov 11, 2015 11:40 AM LIFETIME NON-USER OF TOBACCO [facility] Tobacco Use History This section includes a history of the smoking, or tobacco-related health factors, that were collected on or before the date of the Encounter. The data comes from the [place] facility where the Encounter took place. Date/Time Smoking Status/Tobacco Use Comment Linus blake Dec 24, 2013 02:11 PM LIFETIME NON-USER OF TOBAC CO never [facility] Encounter Notes: All associated encounter notes This section contains the clinical notes associated to the Encounter. Date/Time Encounter Note(s) Provider Source May 14, 2024 11:55 AM ADDENDUM: LOCAL TITLE: Addendum STANDARD TITLE: ADDENDUM DATE OF NOTE: MAY 14, 2024@11:55:07 ENTRY DATE: MAY 14, 2024@11:55:08 AUTHOR: DALILA PERALTA COSIGNER: URGENCY: STATUS: COMPLETED STL DENTAL SERVICE/COMMUNITY CARE RFS DETERMINATION The requested treatment: AUTHORIZED SUBMITTED. AUTHORIZED TREATMENT: [id number] MAINTENANCE [id number] APPLICATION OF FLUORIDE ACTION STEPS * RFS/ADA Dental Claim Form external records reviewed. * New consult(s) placed with corresponding SEOC(s). * to continue dental treatment with community provider. AUTHORIZED PROVIDER: Leyla Cabrera [address] [place] [address] Email: [email or web address] Specialty: Dentist - Unit Aide Network: [facility] Region 2 COMMUNITY CARE COORDINATION NOTES Please continue [place]'s care for authorized treatment /es/ DALILA PERALTA DMD DENTIST Signed: 05/14/2024 11:55 Receipt Acknowledged By: 05/14/2024 16:53 /es/ JSESE CHESTER RN, BSN COMMUNITY WALL COVERING INSTALLER 05/14/2024 14:35 /es/ LIZBETH REYES [facility] CARE RN --- Original Document --- 05/14/24 COMMUNITY CARE-REQUEST FOR SERVICE NOTE STL: Request for Services (RFS) documentation has been sent for scanning to [facility] Community Care Consult: COMMUNITY CARE- COMMUNITY CARE-STL DENTAL GEN Consult No: [id number] Date sent to scanning: Apr A Request for Service (RFS) form [id number] has been received which includes the following: Care Requested: [id number] MAINTENANCE [id number] APPLICATION OF FLUORIDE ADA, note in preauth folder Date [facility] received request: Apr Date service required: Apr Requesting Community Provider Information: Name of Ordering Provider: Dr Shai [address] Dr [address] [place] [address] Email: [email or web address] Specialty: Dentist - Unit Aide Network: [place] [phone] /radha/ LIZBETH REYES [facility] RN Signed: 05/14/2024 09:53 Receipt Acknowledged By: 05/14/2024 11:54 /radha/ DALILA PERALTA DMD DENTIST DALILA PERALTA [facility] May 14, 2024 09:44 AM NONVA NOTE: LOCAL TITLE: COMMUNITY CARE-REQUEST FOR SERVICE NOTE STL STANDARD TITLE: NONVA NOTE DATE OF NOTE: MAY 14, 2024@09:44 ENTRY DATE: MAY 14, 2024@09:44:43 AUTHOR: LIZBETH REYES EXP COSIGNER: URGENCY: STATUS: COMPLETED COMMUNITY CARE-REQUEST FOR SERVICE NOTE STL Has ADDENDA Request for Services (RFS) documentation has been sent for scanning to [employer] Community Care Consult: COMMUNITY CARE- COMMUNITY CARE-STL DENTAL GEN Consult No: [id number] Date sent to scanning: Apr A Request for Service (RFS) form [id number] has been received which includes the following: Care Requested: [id number] MAINTENANCE [id number] APPLICATION OF FLUORIDE ADA, note in preauth folder Date VA received request: Apr Date service required: Apr Requesting Community Provider Information: Name of Ordering Provider: Dr Shai Chow Dental Dr Shai [address] [place] [address] Email: [email or web address] Specialty: Dentist - Unit Aide Network: [place] [phone] /jeannette REYES [facility] RN Signed: 05/14/2024 09:53 Receipt Acknowledged By: 05/14/2024 11:54 /radha/ DALILA PERALTA DMD DENTIST 05/14/2024 ADDENDUM STATUS: COMPLETED STL DENTAL SERVICE/COMMUNITY CARE RFS DETERMINATION The requested treatment: AUTHORIZED SUBMITTED. AUTHORIZED TREATMENT: [id number] MAINTENANCE [id number] APPLICATION OF FLUORIDE ACTION STEPS * RFS/ADA Dental Claim Form external records reviewed. * New consult(s) placed with corresponding SEOC(s). * [place] to continue dental treatment with community provider. AUTHORIZED PROVIDER: Leyla Cabrera [address] [place] [address] Email: [email or web address] Specialty: Dentist - Unit Aide Network: [facility] 2 COMMUNITY CARE COORDINATION NOTES Please continue [place]'s care for authorized treatment /es/ DALILA PERALTA DMD DENTIST Signed: 05/14/2024 11:55 Receipt Acknowledged By: * AWAITING SIGNATURE * JESSE CHESTER * AWAITING SIGNATURE * LIZBETH REYES NICOLE D [facility]
--- OUTSIDE RECORDS SUMMARY | 2024-07-30 19:23 | XMS_ITS ---
Author Name [facility] [place] [facility] [place] Address [address] [place] [address] Care Team Providers Care Nutrition Intern Name Role Phone TOVA POTTER Primary Care [...] section includes the information on record at [place] for the Encounter. Date/Time Encounter Type Encounter Description Reason Provider Source Nov 14, 2023 03:00 PM OFFICE O/P EST LOW 20 MIN OPTOMETRY ICD-10-CM E11.9 Type 2 diabetes mellitus without complications GABBY DANIELS [facility] Encounter Template Text not used by [place] Assessments - Encounter Diagnoses This section includes the primary and secondary diagnoses documented for the Encounter. Date/Time Primary/Secondary Diagnosis Diagnosis Name Provider Source Nov 14, 2023 03:59 PM PRIMARY Type 2 diabetes mellitus without complications ADOLPH DANIELS [facility] Nov 14, 2023 03:59 PM SECONDARY Age-related nuclear cataract, bilateral ADOLPH DANIELS [facility] Nov 14, 2023 03:59 PM SECONDARY Myopia, bilateral ADOLPH DANIELS [facility] Nov 14, 2023 03:59 PM SECONDARY Open angle with borderline findings, high risk, bilateral ADOLPH DANIELS [facility] Nov 14, 2023 03:59 PM SECONDARY Presbyopia ADOLPH DANIELS [facility] Nov 14, 2023 03:59 PM SECONDARY Unspecified astigmatism, bilateral ADOLPH DANIELS [facility] Plan of Treatment: Future Appointments (+ 6 months) and Future Tests (+/- 45 days) The Plan of Treatment section includes future care activities for the patient from all [place] [facility] This section includes future appointments and future orders which are active, pending or scheduled. Future Appointments This section includes appointments that were scheduled to occur 6 months from the date of the Encounter, up to a maximum of 20 appointments. The data comes from all [place] treatment [facility]. Appointment Date/Time Appointment Type Appointme nt Facility Name Dec 05, 2023 09:00 AM AMBULATORY - MEDICINE [facility] Jan 04, 2024 09:30 AM AMBULATORY - PSYCHIATRY [facility] Jan 08, 2024 08:30 AM AMBULATORY - MEDICINE [facility] Feb 06, 2024 01:00 PM AMBULATORY - NONE [facility] Feb 13, 2024 03:00 PM AMBULATORY - SURGERY [facility] Apr 15, 2024 02:00 PM AMBULATORY - MEDICINE [facility] May 01, 2024 02:00 PM AMBULATORY - PSYCHIATRY [facility] May 02, 2024 01:00 PM AMBULATORY - REHAB MEDICIN E [facility] May 07, 2024 02:00 PM AMBULATORY - NONE [facility] May 15, 2024 02:00 PM AMBULATORY - PSYCHIATRY [facility] Social History: Smoking Status (Most current) and Tobacco Use (All prior to encounter date) This section includes the most current, and the historical, smoking and tobacco- related health factors from the [place] facility where the Encounter took place. Current Smoking Status This section includes the most current smoking, or tobacco-related health factor, from the [place] facility where the Encounter took place. Date/Time Current Smoking Status Comment Facil ity Dec 19, 2022 08:17 AM VA-TOBACCO NEVER USED [facility] Tobacco Use History This section includes a history of the smoking, or tobacco-related health factors, that were collected on or before the date of the Encounter. The data comes from the [place] facility where the Encounter took place. Date/Time Smoking Status/Tobacco Use Comment F acility Sep 22, 2021 01:13 PM VA-TOBACCO NEVER USED . [facility] Sep 17, 2020 08:39 AM VA-TOBACCO NEVER USED [facility] Aug 07, 2019 08:59 AM [place]-TOBACCO NEVER USED [facility] October 07, 2016 10:17 AM LIFETIME NON-USER OF TOBACCO [facility] Jun 04, 2012 03:33 PM LIFETIME NON-USER OF TOBACCO [facility] Encounter Notes: All associated encounter notes This section contains the clinical notes associated to the Encounter. Date/Time Encounter Note(s) Provider Source Nov 14, 2023 04:01 PM OPTOMETRY CONSULT: LOCAL TITLE: OPTOMETRY CONSULT [facility] STANDARD TITLE: OPTOMETRY CONSULT DATE OF NOTE: NOV 14, 2023@16:01 ENTRY DATE: NOV 14, 2023@16:01:43 AUTHOR: GUILLE DANIELS EXP COSIGNER: URGENCY: STATUS: COMPLETED Optic Nerve Head and RNFL Analysis 11/14/23 Reason: Glaucoma suspect high risk OU OD: SS 9/10; Ave Thickness 76 um Interpretation: thinning temp, textile machine mechanic thinning inf OS: SS 9/10; Ave Thickness 76 um Interpretation: textile machine mechanic thinning temp and inf Assessment: progression inf and temp OD; Stable OS GCC analysis 11/14/23 OD: SS 10/10; Interpretation: textile machine mechanic thinning S,ST,IT; all other quadrants WNL OS: SS 10/10; Interpretation: thinning ST, all other quadrants WNL Assessment: Baseline [employer] /radha/ GUILLE DANIELS O.D. Staff Tanning Solution Maker, Optometry Signed: 11/14/2023 16:05 GUILLE DANIELS [facility] Nov 14, 2023 03:01 PM OPTOMETRY NOTE: LOCAL TITLE: OPTOMETRY NOTE STANDARD TITLE: OPTOMETRY NOTE DATE OF NOTE: NOV 14, 2023@15:01 ENTRY DATE: NOV 13, 2023@15:14:47 AUTHOR: GUILLE DANIELS EXP COSIGNER: URGENCY: STATUS: COMPLETED Last seen 10/14/22 Reason for visit: Ocular Health CC: 1. Vision stable per patient - H/o POAG, indeterminate stage OU Current treatment: Lumigan qhs OU (LD: yesterday) Pt states good compliance (6 out of 7 days) - No ocular complaints or vision changes 2. Diabetes Type 2 - Patient controls BS through diet and exercise - Last blood sugar: 102 - Last HbA1C: 7.2 H % Ocular meds: None Ocular ROS: (-) Surgery (-) Trauma (+) Primary Open Angle Glaucoma, indeterminate stage OU (+) Hx of External Ophthalmoplegia OU (+) Diabetes without retinopathy OU (+) Refractive Error/presbyopoia OU Family OcHX: (-) blindness (+) glaucoma - mother, paternal grandmother (-) AMD (-) RD Cardiovascular ROS: no change from problem & medication lists CPRS Problem list, medications and allergies reviewed: CPRS Serology for Diabetes GLUCOSE 126 H mg/dL 04/04/2023 07:19 HGA1C 7.2 H % 04/04/2023 07:19 Cardiovascular BP: 130/79 (08/07/2023 13:19) Pulse: 56 (08/07/2023 13:19) Neuro: Orientation: Normal Psych: Mood/Affect: Normal Depression/suicide ideation: NO VISUAL ACUITY With correction Distance Visual Acuity OD 20/20- OS 20/20 Pupils PERRL OU (-)APD Confrontation: Limited elevation and abduction, OD, OS Extra-Ocular Muscles Full OU, (-) diplopia, (-) pain Externals/adnexa: Unremarkable OU Refraction: 10/14/2022 OD: -0.75 -0.75 x150 20/20 OS: -0.75 -1.00 x150 20/20 Add: +2.00 06/18/24 OD -0.75 - 0.50 x 145 20/20- OS -0.50 - 0.75 x 135 20/20- Add: + 2.00 SLIT LAMP EXAMINATION Lids/Lashes/Lacrimal No blepharitis OU Conjunctiva/Sclera White/quiet OU Cornea Clear OU Ant Chamber Deep and quiet OU; no cells or flare Iris Normal, (-)NVI OU Lens Tr NS cataract OU Intraocular Pressures (Goldmann) 1 gtt fluress Date: O.D. O.S. Time Meds 01/25/2019 16 17 15:00 none (patient squinting) 10/20/2021 15 15 1530 none 10/14/2022 17 16 0850 Lumigan qhs OU, lid holding 11/10/2022 15 13 0922 Lumigan 11/14/23 16 15 1508 Lumigan qhs OU RETINAL EVALUATION 1 phenyleph 2.5%, 1 trop 1% OU Pt educated on temporary effects of dilation drops such as light sensitivityand blurry vision. DFE Dilated retinal exam Optic Nerve OD: 0.7 CDR Flat, pink, distinct (-)NVD OS: 0.7 CDR Flat, pink, distinct (-)NVD Vessels: 2/3 OU; no tortuosity noted Posterior Pole: OD: (-) Hemorrhages (-) exudates (-) cotton wool spots OS: (-) Hemorrhages (-) exudates (-) cotton wool spots Macula: OD: Flat, clear (-)CSME hypopigmentation/atrophy inferior temporal OS: Flat, clear (-)CSME hypopigmentation superior nasal Periphery: OD: Flat and attached; no holes, tears, detachments 360 OS: Flat and attached; no holes, tears, detachments 360 Vitreous: No PVD OU Assessment/Plan 11/14/23 1. Primary Open Angle Glaucoma, indeterminate stage OU - CDRs 0.70 OU - IOPs (treated) today: - OCT (10/2023): RNFL: progression inf and temp OD; Stable OS GCC: OD: textile machine mechanic thinning S,ST,IT; all other quadrants WNL OS: thinning ST, all other quadrants WNL - Current Treatment: Lumigan qhs OU Started by outside provider - (+) family hx: mother, paternal grandmother - Continue [facility] q OU - Educated patient on today's findings and the importance of monitoring closely as well as coming to follow-ups as indicated - Monitor in 3 months with HVF 24-2, IOP check 2. Diabetes without retinopathy - Last HgA1C 7.2% - No CSME noted on clinical examination - Educated patient on today's findings and the affect Diabetes can have on vision. Recommended pt keep HbA1C below 7.0% - Monitor yearly 3. H/o External Ophthalmoplegia OU - Chronic, 2/2 TBI - Diagnosed at [place] 2000 - Appears stable per chart review - Patient asymptomatic - Monitor yearly 4. Refractive error/Presbyopia - increase in bva w/refraction - Ordered new glasses for patient today - Monitor yearly Ed. Pt on all findings and given the opportunity to have questions answered RTC in 3 months for HVF 24-2, IOP check; sooner PRN /radha/ GUILLE DANIELS O.D. Staff Tanning Solution Maker, Optometry Signed: 11/16/2023 15:19 GUILLE DANIELS [facility]
--- OUTSIDE RECORDS SUMMARY | 2024-07-30 19:23 | XMS_ITS | Encounter Summary ---
Author Name [facility] [place] Organization [facility] [place] Address [address] [place] [address] Care Team Providers Care Windows Deployment Technician Name Role Phone TOVA GOLDSMITH Primary Care Provider Unavailabl e Insurance Providers: [...] section includes the information on record at [place] for the Encounter. Date/Time Encounter Type Encounter Description Reason Provider Source May 16, 2024 01:00 PM THERAPEUTIC EXERCISES PHYSICAL THERAPY ICD-10-CM M54.50 Low back pain, unspecified JEWELS ARAIZA Encounter Template Text not used by [place] Assessments - Encounter Diagnoses This section includes the primary and secondary diagnoses documented for the Encounter. Date/Time Primary/Secondary Diagnosis Diagnosis Name Provider Source May 16, 2024 01:21 PM PRIMARY Low back pain, unspecified EDDI COLINDRES [facility] Plan of Treatment: Future Appointments (+ 6 months) and Future Tests (+/- 45 days) The Plan of Treatment section includes future care activities for the patient from all [place] treatmentfacilities. This section includes future appointments and future orders which are active, pending or scheduled. Future Appointments This section includes appointments that were scheduled to occur 6 months from the date of the Encounter, up to a maximum of 20 appointments. The data comes from all [facility]. Appointment Date/Time Appointment Type Appointme nt Facility Name May 31, 2024 01:30 PM AMBULATORY - REHAB [facility]IN [facility] Jun 10, 2024 03:00 PM AMBULATORY - NONE [facility] Jun 14, 2024 01:30 PM AMBULATORY - REHAB [facility] Jun 21, 2024 03:00 PM AMBULATORY - NONE [facility] Jun 25, 2024 10:00 AM AMBULATORY - NONE [facility] Jun 28, 2024 01:30 PM AMBULATORY - REHAB MEDICIN [facility] Jul 02, 2024 08:00 AM AMBULATORY - NONE [facility] Jul 09, 2024 08:30 AM AMBULATORY - MEDICINE [facility] Jul 29, 2024 01:00 PM AMBULATORY - SURGERY [facility] Aug 06, 2024 02:00 AM AMBULATORY - NONE [facility] October 01, 2024 08:00 AM AMBULATORY - MEDICINE [facility] Active, Pending, and Scheduled Orders This section includes a listing of several types of active, pending, and scheduled orders, including clinic medications orders, diagnostic test orders, procedure orders and consult orders; where the start date of the order is 45 days before the date of the Encounter or 45 days after the date of theEncounter. The data comes from all [facility]. Test Date/Time Test Type Test Details Facility Name Apr 15, 2024 12:00 AM Laboratory - Chemi stry Order BASIC METABOLIC PANEL GREEN LI/HEP BLD/PLAS PLASMA SP [facility] Apr 15, 2024 12:00 AM Laboratory - Chemi stry Order HGA1C BLOOD SP [facility] Apr 15, 2024 12:00 AM Laboratory - Chemi stry Order LIPID PANEL (STL) GREEN LI/HEP BLD/PLAS PLASMA SP ONCE [facility] Apr 15, 2024 12:00 AM Laboratory - Chemi stry Order MICRAL/CREAT PROFILE (STL) URINE SP [facility] May 14, 2024 11:54 AM Consult Order COMMUNITY CARE-STL DENTAL GEN Cons Pharm Tech's Choice [facility] Social History: Smoking Status (Most current) and Tobacco Use (All prior to encounter date) This section includes the most current, and the historical, smoking and tobacco- related health factors from the [facility] where the Encounter took place. Current Smoking Status This section includes the most current smoking, or tobacco-related health factor, from the [place] facility where the Encounter took place. Date/Time Current Smoking Status Comment Facil ity Dec 28, 2023 10:45 AM IN-TOBACCO NEVER USED [facility] Tobacco Use History This section includes a history of the smoking, or tobacco-related health factors, that were collected on or before the date of the Encounter. The data comes from the [place] facility where the Encounter took place. Date/Time Smoking Status/Tobacco Use Comment F acility Dec 19, 2022 08:17 AM VA-TOBACCO NEVER USED [facility] Sep 22, 2021 01:13 PM VA-TOBACCO NEVER USED [facility] Sep 17, 2020 08:39 AM IN-TOBACCO NEVER USED [facility] Aug 07, 2019 08:59 AM IN-TOBACCO NEVER USED [facility] October 07, 2016 10:17 AM LIFETIME NON-USER OF TOBACCO [facility] Jun 04, 2012 03:33 PM LIFETIME NON-USER OF TOBACCO [facility] Encounter Notes: All associated encounter notes This section contains the clinical notes associated to the Encounter. Date/Time Encounter Note(s) Provider Source May 16, 2024 01:15 PM PHYSICAL MEDICINE REHAB NOTE: LOCAL TITLE: PT DAILY STL STANDARD TITLE: PHYSICAL MEDICINE REHAB NOTE DATE OF NOTE: MAY 16, 2024@13:15 ENTRY DATE: MAY 16, 2024@13:15:39 AUTHOR: EDDI COLINDRES COSIGNER: URGENCY: STATUS: COMPLETED PLAN OF CARE: Plan of care documented in Primary PT note; treatment consisting of: []Initial eval []progress note Frequency/duration: Primary PT:Clary Araiza PT Treatment Time: 1300 Service Related: [] yes [x] no ICD-10-Code/dx: M54.50/Low back pain, unspecified ICD-10-Code/dx: Requesting Provider: Tova Goldsmith PARTICIPATION: 04/15/2024 - MD consult 05/02/2024 - PT initial eval 05/16/2024 - follow up 2 Visit as of today: 2 Treatment minutes: 30 min [] min early, began therapy upon arrival [] min late for therapy session today SUBJECTIVE: [facility] [facility] reports that he has been doing his HEP Pain Rating (0-10 scale): Current: 7-7.5/10 Where: Change in health status since last visit: [x] No; [] Yes: Falls: [x]No []Yes: OBJECTIVE: received/performed the following: [x]review HEP TREATMENT TODAY [x] Therapeutic Exercise (CPT code 46634): x2 [x] HOME EXERCISE PROGRAM: [x] No changes [] See Changes Below Current HEP Exercises - Clamshell - 2 x daily - 5 x weekly - 1 sets - 20 reps - Supine Bridge - 2 x daily - 5 x weekly - 1 sets - 20 reps - Supine Piriformis Stretch with Foot on Ground - 2 x daily - 5 x weekly - 1 sets - 20 reps - Seated Hamstring Stretch - 2 x daily - 5 x weekly - 1 sets - 20 reps EDUCATION [facility] provided the following education during this therapy session: [x]verbally [x] expresses understanding Exercise [x]importance of compliance with HEP [x]Correct exercise techniques [x]Correct posture Aquatics [x]Handout provided for what is expected/required to participate in Aquatic PT []Not appropriate for aquatic at this time []Declined at this time ASSESSMENT: demonstrates good understanding of HEP GOALS: Continue exercises for to progress toward goals set on initial/progress evaluation not previously met: STG's(to be met within 3 visits): 1. Independent with HEP. 2. Pt will describe at least a 25% decrease in frequency and/or intensity of pain radiating to his left leg. 3. Pt will initiate a walking program, or an alternative low-impact aerobic exercise, as appropriate per pt's tolerance. 4. Progress neutral spine core stabilization and functional hip strengthening and conditioning exercises as appropriate per pt's tolerance. 5. Pt will improve B hip abductor strength by 1/3 MMT. 6. Pt will improve B hip extensor strength by 1/3 MMT. LTG's(to be met within 6 visits): 1. Pt will be (I) with progressive HEP. 2. Pt will describe improved functional strength and stability at his left leg with at least a 50% reduction in episodes of his left leg radiating pain during performance of daily gait activities. 3. Pt will be knowledgeable regarding appropriate selection and performance of neutral spine core stabilization exercises. 4. Pt will display increased awareness of posture, neutral spine mechanics, and positioning techniques. 5. Pt will describe improved management of back and left leg pain with combination of HEP performance, increased awareness of postural and positioning strategies, and use of provided therapeutic equipment. 6. Pt will be able to itzel/doff socks. [facility]'s care preformed under supervision of primary PT. All progress and changes in plan of care communicated with Primary PT. PLAN: Continue per plan of care as communicated with primary PT UPCOMING APPOINTMENTS [x][place] [facility] accepted earliest available appointment unless otherwise noted [x] understands changes may occur due to illness/weather/other cancelations. [x]attendance Policy- 2 no show/cancelation policy will be seen for 4-10 therapy sessions: [x]1x a week []2x a week [] Other: [] [facility]-Physical Therapy 1 [x] [facility]-PT Aquatic [x]RTC entered for visits /es/ EDDI COLINDRES Licensed Regional Property Manager Signed: 05/16/2024 13:21 EDDI COLINDRES [facility]
--- OUTSIDE RECORDS SUMMARY | 2024-07-30 19:23 | XMS_ITS | Clinical Summary ---
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
--- OUTSIDE RECORDS SUMMARY | 2024-07-30 19:23 | XMS_ITS | Encounter Summary ---
Author Name [facility] [place] Organization [facility] [place] Address [address] [place] [address] Care Team Providers Care Bariatric Coordinator Name Role Phone TOVA POTTER Primary Care [...] section includes the information on record at [place] for the Encounter. Date/Time Encounter Type Encounter Description Reason Pro vider Source Dec 05, 2023 09:00 AM OFFICE O/P EST MOD 30 MIN GASTROENTEROLOGY ICD-10-CM K31.9 Disease of stomach and duodenum, unspecified SHERIN REYES E IHE Encounter Template Text not used by [place] Assessments - Encounter Diagnoses This section includes the primary and secondary diagnoses documented for the Encounter. Date/Time Primary/Secondary Diagnosis Diagnosis Name Provider Source Dec 05, 2023 10:07 AM PRIMARY Disease of stomach and duodenum, unspecified RICHARD REYES [facility] Dec 05, 2023 10:07 AM SECONDARY Fatty (change of) liver, not elsewhere classified RICHARD REYES [facility] Dec 05, 2023 10:07 AM SECONDARY Personal history of colonic polyps RICHARD REYES [facility] Plan of Treatment: Future Appointments (+ 6 months) and Future Tests (+/- 45 days) The Plan of Treatment section includes future care activities for the patient from all [place] [facility] This section includes future appointments and future orders which are active, pending or scheduled. Future Appointments This section includes appointments that were scheduled to occur 6 months from the date of the Encounter, up to a maximum of 20 appointments. The data comes from all [facility]. Appointment Date/Time Appointment Type Appointme nt Facility Name Jan 04, 2024 09:30 AM AMBULATORY - PSYCHIATRY [facility] Jan 08, 2024 08:30 AM AMBULATORY - MEDICINE [facility] Feb 06, 2024 01:00 PM AMBULATORY - NONE [facility] Feb 13, 2024 03:00 PM AMBULATORY - SURGERY [facility] Apr 15, 2024 02:00 PM AMBULATORY - MEDICINE [facility] May 01, 2024 02:00 PM AMBULATORY - PSYCHIATRY [facility] May 02, 2024 01:00 PM AMBULATORY - REHAB MEDICIN E [facility] May 07, 2024 02:00 PM AMBULATORY - NONE [facility] May 15, 2024 02:00 PM AMBULATORY - PSYCHIATRY [facility] May 16, 2024 01:00 PM AMBULATORY - REHAB MEDICIN E [facility] May 31, 2024 01:30 PM AMBULATORY - REHAB MEDICIN E [facility] Vital Signs: All taken on the encounter date This section contains inpatient and outpatient Vital Signs collected on the date of the Encounter. Date/Time Temperature Pulse Blood Pressure Respiratory Rate SP02 Pain Height Weight Body Mass Index Source Dec 05, 2023 09:00 AM 153/93 [facility] Dec 05, 2023 09:00 AM 96.7 52 165/108 16 98 0 195.2 26 [facility] Social History: Smoking Status (Most current) and Tobacco Use (All prior to encounter date) This section includes the most current, and the historical, smoking and tobacco- related health factors from the [facility] where the Encounter took place. Current Smoking Status This section includes the most current smoking, or tobacco-related health factor, from the [facility] where the Encounter took place. Date/Time Current Smoking Status Comment Rocky mervin Nov 11, 2015 11:40 AM LIFETIME NON-USER OF TOBACCO [facility] Tobacco Use History This section includes a history of the smoking, or tobacco-related health factors, that were collected on or before the date of the Encounter. The data comes from the [place] facility where the Encounter took place. Date/Time Smoking Status/Tobacco Use Comment F acdianna Dec 24, 2013 02:11 PM LIFETIME NON-USER OF TOBAC CO never [facility] Encounter Notes: All associated encounter notes This section contains the clinical notes associated to the Encounter. Date/Time Encounter Note(s) Provider Source Jan 08, 2024 02:01 PM PHYSICIAN LETTERS: LOCAL TITLE: TEST RESULT GI LETTER ST STANDARD TITLE: PHYSICIAN LETTERS DATE OF NOTE: JAN 08, 2024@14:01 ENTRY DATE: JAN 08, 2024@14:02:02 AUTHOR: RICHARD REYES COSIGNER: URGENCY: STATUS: COMPLETED [facility] [address] [place] [address] JAN 08, 2024 FANY CISSE [address] [place], [place] [address] Dear Fany Cisse, I would like to update you on your recent test results. OTHER TEST RESULTS RADIOLOGY (NON-INVASIVE TEST RESULTS): Report Status: Verified Date Reported: JAN 08, 2024 Date Verified: JAN 08, 2024 Pictures Editor E-Sig:/ES/SYBIL SALOMON Report: Report number: [id number], [id number] EXAMINATION:US ABDOMEN LTD, SINGLE ORG OR QUADRANT, US BLOOD FLOW ABD/RENAL (LTD) HISTORY::MASH, History of elevated LFTs Comparison: None FINDINGS: The echotexture of the liver is normal. The echogenicity is normal. There is no surface nodularity. No focal solid lesions are seen. No intrahepatic bile duct dilatation is seen. The common bile duct is normal, measuring 3 mm. The liver measures 13.6 cm in diameter. Portal vein measures 8 mm and demonstrates hepatopedal flow. The gallbladder wall measures 1 mm in thickness. No pericholecystic fluid. Sonographic Hoffman sign is negative. The visualized portions of the pancreas demonstrate no focal lesion. The right kidney has an inferior pole contour abnormality which likely represents a small scar Impression: 1. Normal liver sonogram. The liver ultrasound has improved compared to the one done on 08/18/2020. At that time there was evidence of Hepatic steatosis (fatty tissue in the liver). PLAN Keep scheduled follow up in the GI Clinic, 10/01/2024. Sincerely, Richard Reyes MD Staff Physician FANY CISSE [facility] Dec 05, 2023 07:40 AM GASTROENTEROLOGY O UTPATIENT NOTE: LOCAL TITLE: GASTROENTEROLOGY OUTPATIENT FOLLOW UP [facility] STANDARD TITLE: GASTROENTEROLOGY OUTPATIENT NOTE DATE OF NOTE: DEC 05, 2023@07:40 ENTRY DATE: DEC 05, 2023@07:40:41 AUTHOR: RICHARD REYES EXP COSIGNER: URGENCY: STATUS: COMPLETED CC: Duplication cyst of duodenum, TINA, Personal History of Colon Polyps/FH CRC 12/05/2023: Pt. is a 53 y/o BLACK OR MALE with following GI Problems: 1. Duplication cyst of second duodenum: EUSs: 06/06/[address] Moscoso at [facility]. Benign Leiomyoma. 05/10/[address] Suresh Win at [place]. 07/11/[address] Oracio Mack at [place]. One 9.0 x 4.5 mm anechoic subepithelial lesion was found in the 2nd portion of the duodenum, distal to the ampulla and close to the lateral wall. This had an thin wall and was arising from layer 3 (submucosa). 08/16/[address] Perry Jimenez at [place]. The endosonographic appeaance is suggestive of a duplication cyst. 10/14/[address] Perry Jimenez at [place]. The lesion measured 7 mm (in maximum thickness). The lesion also measure 15 mm in diameter. 2 year recall. 2. MASH. US of RUQ 08/18/2020. Hepatic steatosis with no focal liver mass. Normal gallbladder with no bile duct dilatation. Labs reviewed, improved. 3. Personal History of Colon Polyps. Colonoscopy 02/15/2016. Subcentimeter sigmoid hyperplastic polyp. Colonoscopy 02/09/2021. Internal hemorrhoids, otherwise normal. 10 year recall. FH GI: Aunt, late 60s, CRC EtOH: None Patient does not smoke cigarettes PMH: 1) Shoulder pain 2) TIA 3) Chronic low back pain 4) Migraine 5) H/O: embolism 6) H/O: sexual function problem 7) Posttraumatic stress disorder 8) Pain in right knee 9) Type 2 diabetes mellitus 10) Degeneration of intervertebral disc 11) Degenerative disc disease 12) Exposure to potentially hazardous substance ROS: Review of systems is as per HPI and additionally notable for Constitutional: No fever, No weakness/ fatigue Cardiovascular: No chest pain, No palpitations Respiratory: No shortness of breath, No cough Genitourinary: No dysuria, No polyuria Neurology: +headache, No tremors Musculoskeletal: +joint pain, +back pain Skin: No rash, No itching Psychiatric: +anxiety, +depression 10-point ROS is otherwise negative. MEDICATIONS: Active Outpatient Medications (excluding Supplies): Issue Date Status Last Fill Active Outpatient Medications Refills Expiration 1) ALOGLIPTIN 25MG TAB Qty: 90 for 90 days ACTIVE Issu:01-25-23 Sig: TAKE ONE TABLET BY MOUTH ONCE A Refills: 2 Last:01-26-23 DAY TO LOWER BLOOD SUGAR Expr:01-26-24 2) CLONIDINE HCL 0.1MG TAB Qty: 270 for 90 ACTIVE Issu:07-07-23 days Sig: TAKE ONE AND ONE-HALF Refills: 1 Last:07-07-23 TABLETS BY MOUTH TWICE A DAY FOR POST Expr:07-07-24 TRAUMATIC STRESS DISORDER 3) DULOXETINE HCL 30MG EC CAP Qty: 270 for ACTIVE Issu:07-07-23 90 days Sig: TAKE THREE CAPSULES BY Refills: 1 Last:07-07-23 MOUTH ONCE A DAY DO NOT ABRUPTLY Expr:07-07-24 DISCONTINUE MEDICATION. 4) HYDROXYZINE HCL 25MG TAB Qty: 90 for 30 ACTIVE Issu:07-07-23 days Sig: TAKE ONE TABLET BY MOUTH Refills: 1 Last:07-07-23 THREE TIMES A DAY NEEDED FOR Expr:07-07-24 ANXIETY *MAY CAUSE DROWSINESS* 5) SITAGLIPTIN (EQV-ZITUVIO) 100MG TAB HOLD Issu:01-25-23 Qty: 90 for 90 days Sig: TAKE ONE Refills: 2 TABLET BY MOUTH ONCE A DAY FOR Expr:01-26-24 DIABETES REPLACES ALOGLIPTIN Start Date Active Non-VA Medications Refills Expiration 1) Non-VA ASPIRIN 81MG EC TAB SiMG BY ACTIVE MOUTH ONCE A DAY 6 Total Medications Vitals: 98.1 F [36.7 C] (08/07/2023 13:19)56 (08/07/2023 13:19)130/79 (08/07/2023 13:19)18 (08/07/2023 13:19) Measurement DT POx (L/MIN)(%) 03/29/2023 14:56 100 07/13/2022 09:49 98 06/23/2022 10:01 99 01/24/2022 15:12 9926.3 General-NAD, Well-Nourished HEENT-Sclera nonicteric, mucosal membranes moist. CV-RRR Lung-CTA & P. Abd-Soft, ND, NABS. Nontender to palpation. Skin-No rash or jaundice. Ext-No c/c/e INTERVAL TESTS: LABS: WBC 6.9 10*3/uL (04/04/23 07:19) Hgb HGB 14.3 g/dL 04/04/2023 07:19 Hct 43.7 % (04/04/23 07:19) MCV 80.3 fL (04/04/23 07:19) Plt PLT 308 10*3/uL 04/04/2023 07:19 Iron, TIBC No IRON & TIBC EO data found Sajan No FERRITIN EO data found BUN 10.8 mg/dL (04/04/23 07:19) Cr CREATININE 0.85 mg/dL 04/04/2023 07:19 Alb ALBUMIN 4.8 g/dL 04/04/2023 07:19 Ca 9.8 mg/dL (04/04/23 07:19) TSH TSH 2.025 uIU/mL 04/04/2023 07:19 Vit D VITAMIN D, 25-HYDROXY 56.2 ng/mL 04/04/2023 07:19 ALT 14 U/L (04/04/23 07:19) AST 21 U/L (04/04/23 07:19) TB TOTAL BILIRUBIN 0.6 mg/dL 04/04/2023 07:19 AP ALKALINE PHOSPHATASE 53 U/L 04/04/2023 07:19 INR No INR EO data found VitDVITAMIN D, 25-HYDROXY 56.2 ng/mL 04/04/2023 07:19 0 No PEREZ Ab (IgG) (STL) data found HEP HB S AG (AUSRIA) STL-MT No data available for: HEP HB S Ag (AUSRIA) (STL) No HEP B Surface Ab-HBsAB (AUSAB) (STL-MA) data found HEP C Ab HCV Ab (STL) Nonreactive S/CO 08/18/2020 08:57 HEP C Ab HCV Ab (STL) Nonreactive S/CO 08/18/2020 08:57 IMAGING: No Impressions found Impression for US ABDOMEN LTD, SINGLE ORG OR QUADRANT, 08/18/20, case 1066 Hepatic steatosis with no focal liver mass. Normal gallbladder with no bile duct dilatation. No Impressions found Colonoscopy: Prog Note DT Title Author Last Anup DT 02/09/2021 COLONOSCOPY CONSULT REPORT JONATHAN MALDONADO ASSESSMENT AND PLAN: # Duplication cyst of duodenum. Repeat EUS 2024. # MASH. Follow up LFTs, US RUQ. # Personal History of Colon Polyps/FH CRC. Discusssed with patient. Plan repeat colonoscopy in 5 years instead of 10 as previously recommended. Repeat colonoscopy 2025. Follow Up GI Clinic 1 year 12/05/2023 09:00 [facility]-GI PRESTI 01/04/2024 09:30 [facility]-VVC PCT ARISTIDES PSI 1 02/13/2024 15:00 [facility]-OPTOMETRY 9 04/15/2024 14:00 [facility]-ST CLR PACT 6 PCP In the case of procedures; benefits, risks, and alternative tests described to patient in layperson terms. The patient was instructed to call the GI lab on the 6th floor of [facility] at [phone] or [phone] if questions or concerns arise. Medication list was reviewed with the patient or care-data software engineer, any discrepancies were resolved and the patient was given an updated list. The patient was provided information with my name, contact phone number, fax, GI lab number and email address. Patient was instructed to contact me with issues/questions/concerns. Instructions with plans for meds/lab/imaging/procedures were provided to ensure compliance with the above stated plan. /es/ Richard Reyes MD Staff Physician Signed: 12/05/2023 10:07 RICHARD REYES [facility]
--- OUTSIDE RECORDS SUMMARY | 2024-07-30 19:23 | XMS_ITS | Encounter Summary ---
Author Name [facility] [facility] [place] Address [address] [place] [address] Care Team Providers Care Bull Riveter Name Role Phone TOVA POTTER Primary Care [...] Type Encounter Description Reason Provider Source May 01, 2024 02:00 PM PSYTX W PT 60 MINUTES PTSD OUTPT RES SPEC PROG INDIV ICD-10-CM F43.12 Post-traumatic stress disorder, chronic MASTNAK,MARY IHE Encounter Template Text not used by [place] Assessments - Encounter Diagnoses This section includes the primary and secondary diagnoses documented for the Encounter. Date/Time Primary/Secondary Diagnosis Diagnosis Name Provider Source May 01, 2024 03:49 PM PRIMARY Post-traumatic stress disorder, chronic MARY WISDOM [facility] Plan of Treatment: Future Appointments (+ 6 months) and Future Tests (+/- 45 days) The Plan of Treatment section includes future care activities for the patient from all [facility]. This section includes future appointments and future orders which are active, pending or scheduled. Future Appointments This section includes appointments that were scheduled to occur 6 months from the date of the Encounter, up to a maximum of 20 appointments. The data comes from all [facility]. Appointment Date/Time Appointment Type Appointme nt Facility Name May 02, 2024 01:00 PM AMBULATORY - REHAB MEDIC[facility] E [facility] May 07, 2024 02:00 PM AMBULATORY - NONE [facility] May 15, 2024 02:00 PM AMBULATORY - PSYCHIATRY [facility] May 16, 2024 01:00 PM AMBULATORY - REHAB MEDICIN E [facility] May 31, 2024 01:30 PM AMBULATORY - REHAB MEDICIN E [facility] Jun 10, 2024 03:00 PM AMBULATORY - NONE [facility] Jun 14, 2024 01:30 PM AMBULATORY - REHAB MEDICIN E [facility] Jun 21, 2024 03:00 PM AMBULATORY - NONE [facility] Jun 25, 2024 10:00 AM AMBULATORY - NONE [facility] Jun 28, 2024 01:30 PM AMBULATORY - REHAB MEDICIN E [facility] Jul 02, 2024 08:00 AM AMBULATORY - NONE [facility] Jul 09, 2024 08:30 AM AMBULATORY - MEDICINE [facility] Jul 29, 2024 01:00 PM AMBULATORY - SURGERY . [facility] Aug 06, 2024 02:00 AM AMBULATORY - NONE [facility] October 01, 2024 08:00 AM AMBULATORY - MEDICINE [facility] Active, Pending, and Scheduled Orders This section includes a listing of several types of active, pending, and scheduled orders, including clinic medications orders, diagnostic test orders, procedure orders and consult orders; where the start date of the order is 45 days before the date of the Encounter or 45 days after the date of theEncounter. The data comes from all [facility]. Test Date/Time Test Type Test Details Facility Name Apr 15, 2024 12:00 AM Laboratory - Chemi stry Order BASIC METABOLIC PANEL GREEN LI/HEP BLD/PLAS PLASMA SP [facility] Apr 15, 2024 12:00 AM Laboratory - Chemi stry Order LIPID PANEL (STL) GREEN LI/HEP BLD/PLAS PLASMA SP ONCE [facility] Apr 15, 2024 12:00 AM Laboratory - Chemi stry Order MICRAL/CREAT PROFILE (STL) URINE SP [facility] Apr 15, 2024 12:00 AM Laboratory - Chemi stry Order HGA1C BLOOD SP [facility] May 14, 2024 11:54 AM Consult Order COMMUNITY CARE-STL DENTAL GEN Cons Instrument Technologist's Choice [facility] Lab Results: +/- 30 days of the encounter This section includes the Chemistry and Hematology Lab Results on record with [place] for the patient. Radiology Reports and Pathology Reports are provided separately, in subsequent sections. Lab Results This section contains the Chemistry/Hematology Results that were resulted 30 days before or 30 daysafter the date of the Encounter. Date/Time Source Result Type Result - Unit Interpretation Reference Range Comment Apr 15, 2024 02:33 PM [facility] GLUCOSE,BLOOD-poct (STL) Specimen Type: BLOOD Comment: Test Performed by: [id number] Meter #: [id number] Ordering Provider: CHARITY POTTER Report Released Date/Time: Apr 15, 2024 03:35 PM Reporting Lab: [facility] [address] [facility] [id number] Performing Lab: [facility] [address] [facility] [id number] GLUCOSE,BLO OD-poct (STL) 71 mg/dL L 72-99 Social History: Smoking Status (Most current) and Tobacco Use (All prior to encounter date) This section includes the most current, and the historical, smoking and tobacco- related health factors from the [place] facility where the Encounter took place. Current Smoking Status This section includes the most current smoking, or tobacco-related health factor, from the [place] facility where the Encounter took place. Date/Time Current Smoking Status Comment Facil ity Dec 28, 2023 10:45 AM VA-TOBACCO NEVER USED [facility] Tobacco Use History This section includes a history of the smoking, or tobacco-related health factors, that were collected on or before the date of the Encounter. The data comes from the [place] facility where the Encounter took place. Date/Time Smoking Status/Tobacco Use Comment F acility Dec 19, 2022 08:17 AM VA-TOBACCO NEVER USED [facility] Sep 22, 2021 01:13 PM VA-TOBACCO NEVER USED [facility] Sep 17, 2020 08:39 AM VA-TOBACCO NEVER USED . [facility] Aug 07, 2019 08:59 AM VA-TOBACCO NEVER USED . [facility] October 07, 2016 10:17 AM LIFETIME NON-USER OF TOBACCO [facility] Jun 04, 2012 03:33 PM LIFETIME NON-USER OF TOBACCO [facility] Encounter Notes: All associated encounter notes This section contains the clinical notes associated to the Encounter. Date/Time Encounter Note(s) Provider Source May 01, 2024 04:45 PM PSYCHOLOGY CONSULT : LOCAL TITLE: PSYCHOLOGY CONSULT [facility] STANDARD TITLE: PSYCHOLOGY CONSULT DATE OF NOTE: MAY 01, 2024@16:45 ENTRY DATE: MAY 01, 2024@16:45:15 AUTHOR: MARY WISDOM EXP COSIGNER: URGENCY: STATUS: COMPLETED PSYCHOLOGY CONSULT [facility] Has ADDENDA The participated in an appointment on this date. No emergent mental health needs were identified; the denied current SI/HI. The [place] is aware of how to access emergency mental health services, should the need arise. A full report will follow. /radha/ Mary Wisdom, Ph.D., ABPP Psychologist, [facility]-Trauma Recovery Program Signed: 05/02/2024 07:35 05/02/2024 ADDENDUM STATUS: COMPLETED TRAUMA RECOVERY PROGRAM (TRP) - TREATMENT PLANNING SESSION was informed of the limits of confidentiality, as well as the potential risk, benefits, and complications of participating in treatment. The [place] expressed understanding and consented to participate in services. REASON FOR VISIT [X] Treatment planning update INTERVENTIONS [X] Establish rapport [X] Assessment of current mental health symptoms [X] Identify 's treatment goals [X] Provide psycho-education about relevant evidence-based psychotherapy treatments [X] Review treatment progress (and review previous measurement-based care, if applicable) and explore options for future care using shared decision-making ASSESSMENT MEASURES USED [X] Measures/Scores session (see results in Mental Health Diagnostic Study Note): PCL-5 = 38 PHQ-9 = 6 [X] Measures will continue to be monitored CHANGE IN RELEVANT HISTORY IMPACTING CURRENT FUNCTIONING [X] Assessment of symptoms/functioning: The [place] was previously engaged in an episode of psychotherapy in [facility] ([facility]T, last seen by this provider in 2022). 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 The [place] reported that recent stressors have contributed to an exacerbation of nightmares, difficulty sleeping (he estimated sleeping 3-4 hours per night), trust-related stuck points, and hypervigilance. [X] Changes in history since previous team assessment: [X] Suicide attempts? Denied [X] Psychiatric hospitalizations? Denied [X] Current substance use? Denied [X] Relationship status: The [place] reported that he has been to his of nearly 37 years. They have two children and three grandchildren. [X] Employment/financial stability: The [place] reported that he is currently working full-time. [X] Significant life events: The [place] reported recent work-related stressors. VETERANS CURRENT GOALS FOR TREATMENT (as part of shared decision-making) Treatment goal in the Veterans own words: talk to someone , get this cry out CURRENT DIAGNOSTIC IMPRESSIONS (based on current symptoms outlined above): PTSD RISK ASSESSMENT Assessment for suicidal or homicidal ideation: The [place] was asked directly and denied suicidal or homicidal ideation, plan, or intent. The C-SSRS was negative. Risk factors include: History of trauma exposure, current PTSD symptoms, current stressors Protective factors include: Family (, kids, grandkids), help-seeking behavior (including re-engaging in an episode of psychotherapy) The [place] was reminded how to access emergency mental health services (through the ER or the Veterans Crisis Hotline), should the need arise. SUMMARY OF RISK BASED UPON REVIEW OF KNOWN RISK/PROTECTIVE FACTORS [X] Carmen did not appear to be at imminent risk to harm self or others. Carmen is judged to be sustainable as an outpatient at this time. OUTCOME OF SHARED DECISION-MAKING INFORMED CONSENT FOR PSYCHOTHERAPY [X] Evidence-Based Psychotherapy (EBPs) treatments were discussed/offered, as clinically indicated. Veterans response for all applicable offered EBPs: The [place] was offered, but declined, to resume a trauma-focused EBP at this time, citing work- related stressors as the primary presenting concern. The provider and [place] discussed various options, engaged in shared decision-making, and collaboratively agreed to meet for several sessions (to review CBT-based coping skills). [X] The [place] was offered, but declined, a referral to psychiatry; he reported plans to follow-up with his PCP for medication at this time. [X] The [place] was offered, and accepted, a referral [facility] (and expressed interest in the Mindfulness-Based Stress Reduction class); a consult was generated on this date. [X] The was offered, but declined, a referral to Vocation Rehabilitation services at this time. [X] Carmen was agreeable to the following RTC: 05-15-2024 @ 2:00 pm /es/ Mary Wisdom, Ph.D., [facility] Psychologist, [facility]-Trauma Recovery Program Signed: 05/02/2024 11:10 MARY WISDOM [facility] May 01, 2024 03:05 PM SUICIDE PREVENTION NOTE: LOCAL TITLE: [place]-SUICIDE SEVERITY RATING SCALE STANDARD TITLE: SUICIDE PREVENTION NOTE DATE OF NOTE: MAY 01, 2024@15:05 ENTRY DATE: MAY 01, 2024@15:05:31 AUTHOR: MARY WISDOM EXP COSIGNER: URGENCY: STATUS: COMPLETED [place]-Suicide Severity Rating Scale (C-SSRS Screener) 1. Over the past month, have you wished you were or wished you could go to sleep and not wake up? No 2. Over the past month, have you had any actual thoughts of killing yourself? No 3. Over the past month, have you been thinking about how you might do this? Response not required due to responses to other questions. 4. Over the past month, have you had these thoughts and had some intention of acting on them? Response not required due to responses to other questions. 5. Over the past month, have you started to work out or worked out the details of how to kill yourself? Response not required due to responses to other questions. 6. If yes, at any time in the past month did you intend to carry out this plan? Response not required due to responses to other questions. 7. In your lifetime, have you ever done anything, started to do anything, or prepared to do anything to end your life (for example, collected pills, obtained a gun, gave away valuables, went to the roof but didn't jump)? No 8. If YES, was this within the past 3 months? Response not required due to responses to other questions. I have reviewed the results of the Mental Health screens and have evaluated the patient. Based on the evaluation, the following disposition plan will be implemented: Already receiving needed treatment. Contact information and instructions for accessing emergency services provided. /radha/ Mary Wisdom, Ph.D., ABPP Psychologist, [facility]-Trauma Recovery Program Signed: 05/01/2024 15:49 MARY WISDOM [facility]
--- OUTSIDE RECORDS SUMMARY | 2024-07-30 19:23 | XMS_ITS | Encounter Summary ---
Author Name [facility] [place] [facility] [place] [facility] [place] Address [address] [place] [address] Care Team Providers Care Glass Worker Name Role Phone TOVA POTTER Primary Care [...] section includes the information on record at [place] for the Encounter. Date/Time Encounter Type Encounter Description Reason Pro vider Source May 14, 2024 02:37 PM Outpatient Encounter COMMUNITY CARE CONSULT IHE Encounter Template Text not used by [place] Plan of Treatment: Future Appointments (+ 6 months) and Future Tests (+/- 45 days) The Plan of Treatment section includes future care activities for the patient from all [place] treatmentfacilities. This section includes future appointments and future orders which are active, pending or scheduled. Future Appointments This section includes appointments that were scheduled to occur 6 months from the date of the Encounter, up to a maximum of 20 appointments. The data comes from all [place] treatment facilities. Appointment Date/Time Appointment Type Appointme nt Facility Name May 15, 2024 02:00 PM AMBULATORY - PSYCHIATRY [facility] May 16, 2024 01:00 PM AMBULATORY - REHAB MEDICIN E [facility] May 31, 2024 01:30 PM AMBULATORY - REHAB MEDICIN E [facility] Jun 10, 2024 03:00 PM AMBULATORY - NONE . [facility] Jun 14, 2024 01:30 PM AMBULATORY - REHAB MEDICIN E [facility] Jun 21, 2024 03:00 PM AMBULATORY - NONE [facility] Jun 25, 2024 10:00 AM AMBULATORY - NONE [facility] Jun 28, 2024 01:30 PM AMBULATORY - REHAB MEDICIN E [facility] Jul 02, 2024 08:00 AM AMBULATORY - NONE [facility] Jul 09, 2024 08:30 AM AMBULATORY - MEDICINE [facility] Jul 29, 2024 01:00 PM AMBULATORY - SURGERY [facility] Aug 06, 2024 02:00 AM AMBULATORY - NONE [facility] October 01, 2024 08:00 AM AMBULATORY - MEDICINE [facility] Active, Pending, and Scheduled Orders This section includes a listing of several types of active, pending, and scheduled orders, including clinic medications orders, diagnostic test orders, procedure orders and consult orders; where the start date of the order is 45 days before the date of the Encounter or 45 days after the date of theEncounter. The data comes from all [facility]. Test Date/Time Test Type Test Details Facility Name Apr 15, 2024 12:00 AM Laboratory - Chemi stry Order BASIC METABOLIC PANEL GREEN LI/HEP BLD/PLAS PLASMA SP [facility] Apr 15, 2024 12:00 AM Laboratory - Chemi stry Order MICRAL/CREAT PROFILE (STL) URINE SP [facility] Apr 15, 2024 12:00 AM Laboratory - Chemi stry Order LIPID PANEL (STL) GREEN LI/HEP BLD/PLAS PLASMA SP ONCE [facility] Apr 15, 2024 12:00 AM Laboratory - Chemi stry Order HGA1C BLOOD SP [facility] May 14, 2024 11:54 AM Consult Order COMMUNITY CARE-STL DENTAL GEN Cons Counter Sales Representative's Choice [facility] Lab Results: +/- 30 days of the [...] Range Comment Apr 15, 2024 02:33 PM [facility] GLUCOSE,BLOOD-poct (STL) Specimen Type: BLOOD Comment: Test Performed by: [id number] Meter #: [id number] Ordering Provider: CHARITY POTTER Report Released Date/Time: Apr 15, 2024 03:35 PM Reporting Lab: [facility] [address] [facility] [id number] Performing Lab: [facility] [address] [facility] [id number] GLUCOSE,BLO OD-poct (STL) 71 mg/dL L 72-99 Social History: Smoking Status (Most current) and Tobacco Use (All prior to encounter date) This section includes the most current, and the historical, smoking and tobacco- related health factors from the [place] facility where the Encounter took place. Current Smoking Status This section includes the most current smoking, or tobacco-related health factor, from the [place] facility where the Encounter took place. Date/Time Current Smoking Status Comment Rocky jeffries Nov 11, 2015 11:40 AM LIFETIME NON-USER OF TOBACCO [facility] Tobacco Use History This section includes a history of the smoking, or tobacco-related health factors, that were collected on or before the date of the Encounter. The data comes from the [place] facility where the Encounter took place. Date/Time Smoking Status/Tobacco Use Comment Linus blake Dec 24, 2013 02:11 PM LIFETIME NON-USER OF TOBAC CO never [facility] Encounter Notes: All associated encounter notes This section contains the clinical notes associated to the Encounter. Date/Time Encounter Note(s) Provider Source May 14, 2024 02:37 PM LETTERS: LOCAL TITLE: COMMUNITY CARE-REQUEST FOR SERVICES (RFS) LETTER ST STANDARD TITLE: LETTERS DATE OF NOTE: MAY 14, 2024@14:37 ENTRY DATE: MAY 14, 2024@14:37:35 AUTHOR: LIZBETH REYES COSIGNER: URGENCY: STATUS: COMPLETED [facility] [address] [place] [address] [facility] Shai Cab[address] [place] [address] Dear Provider, Information: Patient Name: FANY CISSE Date of : Feb The [facility] has received the request [id number] MAINTENANCE [id number] APPLICATION OF FLUORIDE from you for services that were not originally authorized in the [employer] for this [place]. Upon review, the following determination has been made: Service has been approved. Should you have questions, please contact us at [phone] to speak with a patient account services coordinator. As a reminder, if applicable, return medical records within 30 days for routine services. Sincerely, LIZBETH REYES [facility]ARE RN LIZBETH REYES [facility]
--- OUTSIDE RECORDS SUMMARY | 2024-07-30 19:23 | XMS_ITS | Encounter Summary ---
Author Name [facility] [place] [facility] [place] Address [address] [place] [address] Care Team Providers Care Duplicator Punch Set Up Operator Name Role Phone TOVA GOLDSMITH Primary Care [...] section includes the information on record at [place] for the Encounter. 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 Date/Time Primary/Secondary Diagnosis Diagnosis Name Provider Source Jul 29, 2024 01:31 PM PRIMARY Spondyls w/o myelopathy or radiculopathy, lumbosacr region SUZANNE CORDOVA [facility] Jul 29, 2024 01:31 PM SECONDARY Spinal stenosis, lumbar region without neurogenic sher CARAGINE,SUZANNE Resendiz [facility] Plan of Treatment: Future Appointments (+ 6 months) and Future Tests (+/- 45 days) The Plan of Treatment section includes future care activities for the patient from [facility] [place] [facility] This section includes future appointments and future orders which are active, pending or scheduled. Future Appointments This section includes appointments that were scheduled to occur 6 months from the date of the Encounter, up to a maximum of 20 appointments. The data comes from all [place] treatment facilities. Appointment Date/Time Appointment Type Appointme nt Facility Name Aug 06, 2024 02:00 AM AMBULATORY - NONE [facility] October 01, 2024 08:00 AM AMBULATORY - MEDICINE [facility] Active, Pending, and Scheduled Orders This section includes a listing of several types of active, pending, and scheduled orders, including clinic medications orders, diagnostic test orders, procedure orders and consult orders; where the start date of the order is 45 days before the date of the Encounter or 45 days after the date of theEncounter. The data comes from all [facility]. Test Date/Time Test Type Test Details Facility Name Jul 29, 2024 02:47 PM Consult Order HEMATOLOGY /ONCOLOGY ECONSULT OUTPT [facility] Cons Gear Straightener's Choice [facility] Lab Results: +/- 30 days of the encounter This section includes the Chemistry and Hematology Lab Results on record with [place] for the patient. Radiology Reports and Pathology Reports are provided separately, in subsequent sections. Lab Results This section contains the Chemistry/Hematology Results that were resulted 30 days before or 30 daysafter the date of the Encounter. Date/Time Source Result Type Result - Unit Interpretation Reference Range Comment Jul 12, 2024 05:35 PM [facility] HGA1C Specimen Type: BLOOD No comment entered. Ordering Provider: TOVA GOLDSMITH Report Released Date/Time: Jul 12, 2024 09:05 AM Reporting Lab: [place] [address] [facility] [id number] Performing Lab: [address] [address] HGA1C 6.5 H 4.0-6.0 Jul 12, 2024 05:35 PM [facility] LIPID PANEL (STL) Specimen Type: PLASMA Comment: No hemolysis noted. Ordering Provider: TOVA GOLDSMITH Report Released Date/Time: Jul 12, 2024 09:05 AM Reporting Lab: [facility] [address] [facility] [address] Performing Lab: [facility] [address] [place] [id number] CHOLESTEROL 171 mg/dL 0-200 TRIGLYCERIDE 61 mg/dL 0-150 CALCULATED LDL 112 mg/dL HDL(New) 47 mg/dL >40 Jul 12, 2024 05:35 PM [facility] MICRAL/CREAT PROFILE (STL) Specimen Type: URINE Comment: uALB/CREAT Ratio Unable to be calculated Unable to calculate due to Microalbumin < 5.0 mg/L Ordering Provider: TOVA GOLDSMITH Report Released Date/Time: Jul 12, 2024 09:05 AM Reporting Lab: [facility] [address] [address] Performing Lab: [address] [address] URINE ALBUMIN (PB-STL) <5.0 mg/L uACR (STL) comment mg/g 0-29 CREATININE URINE/OTHERS 57.8 mg/dL L 63-166 Jul 12, 2024 05:35 PM [facility] BASIC METABOLIC PANEL Specimen Type: PLASMA Comment: No hemolysis noted. Ordering Provider: TOVA GOLDSMITH Report Released Date/Time: Jul 12, 2024 09:05 AM Reporting Lab: [facility] [address] [address] Performing Lab: [address] [address] CREATININE 0.83 mg/dL 0.7-1.3 UREA NITROGEN 14.4 mg/dL 9.0-25.0 GLUCOSE 96 mg/dL 72-99 SODIUM 138 meq/L 136-145 POTASSIUM 4.3 meq/L 3.5-5 CHLORIDE 104 meq/L 98-107 CARBON DIOXIDE 24 meq/L 22-31 CALCIUM 10.0 mg/dL 8.4-10.4 EGFR (CKD-EPI 2020) 102.7 >60 Vital Signs: All taken on the encounter date This section contains inpatient and outpatient Vital Signs collected on the date of the Encounter. Date/Time Temperature Pulse Blood Pressure Respiratory Rate SP02 Pain Height Weight Body Mass Index Source Jul 29, 2024 01:04 PM 97.3 58 114/73 [address] [facility] Social History: Smoking Status (Most current) and Tobacco Use (All prior to encounter date) This section includes the most current, and the historical, smoking and tobacco- related health factors from the [place] facility where the Encounter took place. Current Smoking Status This section includes the most current smoking, or tobacco-related health factor, from the [place] facility where the Encounter took place. Date/Time Current Smoking Status Comment Rocky jeffries Nov 11, 2015 11:40 AM LIFETIME NON-USER OF TOBACCO [facility] Tobacco Use History This section includes a history of the smoking, or tobacco-related health factors, that were collected on or before the date of the Encounter. The data comes from the [place] facility where the Encounter took place. Date/Time Smoking Status/Tobacco Use Comment F acdianna Dec 24, 2013 02:11 PM LIFETIME NON-USER OF TOBAC CO never [facility] Radiology Reports: +/- 30 days of the encounter Radiology Reports For cases when an order for radiology services may have been completed prior to the date of the Encounter, the report list includes the Radiology Reports that were completed up to 30 days before dateof the Encounter. For cases when an order for radiology services may have been completed after the date of the Encounter, the report list also includes the Radiology Reports that were completed up to30 days after date of the Encounter. The data comes from all [place] treatment facilities. Date/Time Radiology Report Provider Source Jul 02, 2024 08:02 AM MRI SPINE LUMBAR W /O CONT: BETITOFANYFlores TURNER [id number] -[id number] M Exm Date: JUL 02, 2024@08:02 Req Phys: TOVA GOLDSMITH Pat Loc: [facility] PACT 6 PCP ([facility] Loc: [facility] Service: Unknown [facility], [address] [place] [address] (Case [id number] COMPLETE) MRI SPINE LUMBAR W/O CONT (MRI Detailed) CPT:18375 Reason for Study: acute exac of CLBP 2/2 DDD Clinical History: Has this patient had a plain film x-ray of this associated spine within the past 6 months? No If the above answer is no, please order an x-ray of the associated spine along with the MRI. These studies will be performed during the same patient encounter. Date of plain film x-ray performed? Mar Responsible Attending: Tova Goldsmith Attending Contact Number: [phone] Resident Contact Number: Does your patient have an implanted device or hardware? (Any prosthesis, implant, shrapnel or bullet fragments) No Does your patient have any of the following (Please check all that apply) [ ] Pacemaker [ ] AICD [ ] Neuro-stimulator [ ] Bone Growth Stimulator [ ] Pain Pump [ ] Insulin Pump [ ] Cochlear Implant [ ] Ocular Implant [ ] Aneurysm Clip [ ] Vascular Clip Any other type of implant, please explain Does your patient have a Coronary Stent: No Does your patient have a an artificial Heart Valve: No Were any of the following intravascular implanted devices inserted less than 6 weeks ago: Stent No IVC Filter No Embolization Coils No Is your patient's weight >350lbs or abdominal and shoulder width >60cm? No Does your patient have Renal Failure, Chronic or Acute Renal Disease? No If ordering a contrasted enhanced MRI, you will be required to complete the order for creatine eGFR which is located at the bottom of the MRI ordering screen. If your patient is 60 years or older, the patient will need a recent eGFR within 30 days prior to the exam. NOTE: Incorrectly answering these questions may result in a delay in the procedure. A patient with a device or implant does not automatically mean the patient cannot receive an MRI. If your patient will have difficulty with a confined space, the provider will be responsible for ordering a sedation prior to the procedure, or to order an alternative procedure. Report Status: Verified Date Reported: JUL 02, 2024 Date Verified: JUL 02, 2024 Clothes Wringer E-Sig:/ES/CHANTELLE GARCIA Report: INDICATION: acute exac of CLBP 2/2 DDD COMPARISON: Radiographs 05/10/2016. TECHNIQUE: MRI lumbar spine without intravenous contrast FINDINGS: Mild retrolisthesis at L5-S1. Endplate remodeling is seen primarily at L5-S1, L4-L5, and L3-L4. Congenitally short pedicles. Epidural lipomatosis. Edema associated with the endplates is seen primarily at L5-S1. The lowest fully formed intervertebral disc space is designated as L5-S1. No suspicious marrow replacing lesion. Normal distal spinal cord signal. The conus is at L1. Bilateral T2 bright renal cysts. Multilevel ligamentum flavum hypertrophy. T11-T12: No significant central canal stenosis. T12-L1: No significant central canal stenosis. L1-L2: No significant neuroforaminal stenosis. No significant central canal stenosis. Facet arthropathy. L2-L3: No significant neuroforaminal stenosis. Mild right-sided articular stenosis. Facet arthropathy and ligamentum flavum hypertrophy. Mild central canal stenosis. L3-L4: Mild to moderate left mild right neuroforaminal stenosis. Disc bulge. Left greater than right subarticular stenosis. Facet arthropathy asymmetric on the left. Ligamentum flavum hypertrophy. Dorsal epidural lipomatosis. Moderate to severe central canal stenosis. L4-L5: Mild bilateral neuroforaminal stenosis. Disc bulge asymmetric on the right with abutment of exiting right L4 nerve root in the extra foraminal zone. Facet arthropathy and ligamentum flavum hypertrophy. Dorsal epidural lipomatosis. Severe central canal stenosis with thecal sac impingement and nerve root crowding. Bilateral subarticular stenosis with mass effect on the descending L5 nerve roots. L5-S1: Moderate left neuroforaminal stenosis. Disc osteophyte complex asymmetric on the left with abutment of exiting left L5 nerve roots next foraminal zone. Right greater than left facet arthropathy with fluid in the facet joints. Ligamentum flavum hypertrophy. Moderate central canal stenosis. Left subarticular stenosis with impingement of the descending left S1 nerve root. Impression: Multilevel degenerative disc disease as discussed above. Congenitally short pedicles. Collectively this results in multilevel central canal stenosis which is most prominent at L4-L5. Primary Interpreting Staff: CHANTELLE GARCIA, RADIOLOGIST (Clothes Wringer) /ALONSO GARCIA,CHANTELLE [facility] Encounter Notes: All associated encounter notes This section contains the clinical notes associated to the Encounter. Date/Time Encounter Note(s) Provider Source Jul 29, 2024 01:13 PM NEUROSURGERY CONSU LT: LOCAL TITLE: NEUROSURGERY CONSULT STL STANDARD TITLE: NEUROSURGERY CONSULT DATE OF NOTE: JUL 29, 2024@13:13 ENTRY DATE: JUL 29, 2024@13:13:18 AUTHOR: SUZANNE CORDOVA EXP COSIGNER: URGENCY: STATUS: COMPLETED HPI: 54 yo with h/o TIA, embolism, Type II DM (6.5), sexual function problem, right knee pain, migraine, and... CLBP occ radiating BLE PT just started PMH: 1) Shoulder pain 2) TIA 3) Chronic low back pain 4) Migraine 5) H/O: embolism 6) H/O: sexual function problem 7) Posttraumatic stress disorder 8) Pain in right knee 9) Type 2 diabetes mellitus 10) Degeneration of intervertebral disc 11) Degenerative disc disease 12) Exposure to potentially hazardous substance Active Outpatient Medications (including Supplies): Active Outpatient Medications Status 1) ATORVASTATIN CALCIUM 80MG TAB TAKE ONE-HALF TABLET BY MOUTH ACTIVE EVERY EVENING Indication: FOR HIGH CHOLESTEROL 2) CLONIDINE HCL 0.1MG TAB TAKE ONE AND ONE-HALF TABLETS BY ACTIVE MOUTH TWICE A DAY FOR POST TRAUMATIC STRESS DISORDER 3) DULOXETINE HCL 30MG EC CAP TAKE THREE CAPSULES BY MOUTH ONCE ACTIVE A DAY DO NOT ABRUPTLY DISCONTINUE MEDICATION. 4) HYDROXYZINE HCL 25MG TAB TAKE ONE TABLET BY MOUTH THREE ACTIVE TIMES A DAY NEEDED *MAY CAUSE DROWSINESS* Indication: FOR ANXIETY 5) METHOCARBAMOL 750MG TAB TAKE 1 TABLET BY MOUTH FOUR TIMES A ACTIVE DAY NEEDED Indication: FOR MUSCLE SPASM 6) SITAGLIPTIN (EQV-ZITUVIO) 100MG TAB TAKE ONE TABLET BY MOUTH ACTIVE ONCE A DAY REPLACES ALOGLIPTIN Indication: FOR DIABETES Neurologic EXAMINATION Vitals: Stable Weight: BMI = 26 195 No saddle paresthesia. UE: R L Power Triceps 5 5 Biceps 5 5 Deltoid 5 5 Wrist FLX 5 5 Wrist EXT 5 5 Finger abduction 5 5 Database Management Specialist 5 5 Muscle bulk Normal Normal Tone Normal Normal Reflexes Triceps 2+ 2+ Biceps 2+ 2+ Brachioradialis 2+ 2+ Hussein's - - Tremor - - Shoulder ROM Normal Normal Pain to palpation - - Sensory Normal to light touch bilaterally Coordination Movements are normal. LE: R L Power Hip flex 5 5 Hip ext 5 5 Knee flex 5 5 Knee ext 5 5 Ankle flex 5 5 Ankle ext 5 5 Toe flex 5 5 Toe ext 5 5 Muscle bulk Normal Normal Tone Normal Normal SLR Negative Negative Reflexes Patellar 2+ 2+ Achilles 2+ 2+ Sensory Normal to light touch bilaterally Coordination Movements are normal. Gait: Posture is normal. Gait is steady with normal steps. Final Report REPORT: Exam: MRI SPINE LUMBAR W/O CONT INDICATION: acute exac of CLBP 2/2 DDD COMPARISON: Radiographs 05/10/2016. TECHNIQUE: MRI lumbar spine without intravenous contrast FINDINGS: Mild retrolisthesis at L5-S1. Endplate remodeling is seen primarily at L5-S1, L4-L5, and L3-L4. Congenitally short pedicles. Epidural lipomatosis. Edema associated with the endplates is seen primarily at L5-S1. The lowest fully formed intervertebral disc space is designated as L5-S1. No suspicious marrow replacing lesion. Normal distal spinal cord signal. The conus is at L1. Bilateral T2 bright renal cysts. Multilevel ligamentum flavum hypertrophy. T11-T12: No significant central canal stenosis. T12-L1: No significant central canal stenosis. L1-L2: No significant neuroforaminal stenosis. No significant central canal stenosis. Facet arthropathy. L2-L3: No significant neuroforaminal stenosis. Mild right-sided articular stenosis. Facet arthropathy and ligamentum flavum hypertrophy. Mild central canal stenosis. L3-L4: Mild to moderate left mild right neuroforaminal stenosis. Disc bulge. Left greater than right subarticular stenosis. Facet arthropathy asymmetric on the left. Ligamentum flavum hypertrophy. Dorsal epidural lipomatosis. Moderate to severe central canal stenosis. L4-L5: Mild bilateral neuroforaminal stenosis. Disc bulge asymmetric on the right with abutment of exiting right L4 nerve root in the extra foraminal zone. Facet arthropathy and ligamentum flavum hypertrophy. Dorsal epidural lipomatosis. Severe central canal stenosis with thecal sac impingement and nerve root crowding. Bilateral subarticular stenosis with mass effect on the descending L5 nerve roots. L5-S1: Moderate left neuroforaminal stenosis. Disc osteophyte complex asymmetric on the left with abutment of exiting left L5 nerve roots next foraminal zone. Right greater than left facet arthropathy with fluid in the facet joints. Ligamentum flavum hypertrophy. Moderate central canal stenosis. Left subarticular stenosis with impingement of the descending left S1 nerve root. IMPRESSION: Multilevel degenerative disc disease as discussed above. Congenitally short pedicles. Collectively this results in multilevel central canal stenosis which is most prominent at L4-L5. Principal Lead Manufacturing Technician Name: CHANTELLE GARCIA A/P 54 yo with h/o TIA, pulmonary embolism unprovoked not worked up for hypercoagulable state, Type II DM (6.5), sexual function problem, right knee pain, migraine, cervical s.c.i. (S/P C4-C5 ACDF and bilat. laminectomies C4 and C5 OH), and... CLBP occ left posterior leg pain, no pain today. PT just started Lumbar MRI shows: lumbar spondylosis with DDD L4-5 and L5-S1 facet arthropathy and hypertrophy especially L4-5 epidural lipomatosis contributing to stenosis L4-L5: Mild bilateral neuroforaminal stenosis. Disc bulge asymmetric on the right with abutment of exiting right L4 nerve root in the extra foraminal zone. Facet arthropathy and ligamentum flavum hypertrophy. Dorsal epidural lipomatosis. Severe central canal stenosis with thecal sac impingement and nerve root crowding. Bilateral subarticular stenosis with mass effect on the descending L5 nerve roots. We discussed surgery. Declined at this time. [facility] for chiropraxctor, accupuncture, Otoniel Chi yoga, PT aquatic , heat massage, inversion , traction, TENS, Karla, please order hematology consult hypercoagulable work up. Contact info given. f/U PRN. /radha/ SUZANNE CORDOVA MD PhD [employer]ANS FC[facility] ATTENDING NEUROSURGEON Signed: 07/29/2024 13:32 Receipt Acknowledged By: * AWAITING SIGNATURE * TOVA GOLDSMITH 07/29/2024 14:15 /radha/ KARLA JONES BSN RN REGISTERED NURSE SUZANNE CORDOVA [facility]
--- OUTSIDE RECORDS SUMMARY | 2024-07-30 19:24 | XMS_ITS | Encounter Summary ---
Author Name [facility] [place] Organization [facility] [place] [place] Address [address] [place] [address] Care Team Providers Care Fitness Worker Name Role Phone TOVA GOLDSMITH Primary Care [...] Type Encounter Description Reason Provider Source May 02, 2024 01:00 PM THERAPEUTIC EXERCISES PHYSICAL THERAPY ICD-10-CM M54.50 Low back pain, unspecified JEWELS TRAN Felisa Encounter Template Text not used by [place] Assessments - Encounter Diagnoses This section includes the primary and secondary diagnoses documented for the Encounter. Date/Time Primary/Secondary Diagnosis Diagnosis Name Provider Source May 02, 2024 01:43 PM PRIMARY Low back pain, unspecified LILI TRAN [facility] Plan of Treatment: Future Appointments (+ 6 months) and Future Tests (+/- 45 days) The Plan of Treatment section includes future care activities for the patient from all [place] treatmentfacilities. This section includes future appointments and future orders which are active, pending or scheduled. Future Appointments This section includes appointments that were scheduled to occur 6 months from the date of the Encounter, up to a maximum of 20 appointments. The data comes from all [facility]. Appointment Date/Time Appointment Type Appointme nt Facility Name May 07, 2024 02:00 PM AMBULATORY - NONE [facility] May 15, 2024 02:00 PM AMBULATORY - PSYCHIATRY [facility] May 16, 2024 01:00 PM AMBULATORY - REHAB MEDICIN E [facility] May 31, 2024 01:30 PM AMBULATORY - REHAB MEDICIN E [facility] Jun 10, 2024 03:00 PM AMBULATORY - NONE [facility] Jun 14, 2024 01:30 PM AMBULATORY - REHAB MEDICIN E [facility] Jun 21, 2024 03:00 PM AMBULATORY - NONE [facility] Jun 25, 2024 10:00 AM AMBULATORY - NONE [facility] Jun 28, 2024 01:30 PM AMBULATORY - REHAB MEDICIN E [facility] Jul 02, 2024 08:00 AM AMBULATORY - NONE [facility] Jul 09, 2024 08:30 AM AMBULATORY - MEDICINE [facility] Jul 29, 2024 01:00 PM AMBULATORY - SURGERY [facility] Aug 06, 2024 02:00 AM AMBULATORY - NONE [facility] October 01, 2024 08:00 AM AMBULATORY - MEDICINE [facility] Active, Pending, and Scheduled Orders This section includes a listing of several types of active, pending, and scheduled orders, including clinic medications orders, diagnostic test orders, procedure orders and consult orders; where the start date of the order is 45 days before the date of the Encounter or 45 days after the date of theEncounter. The data comes from all [facility]. Test Date/Time Test Type Test Details Facility Name Apr 15, 2024 12:00 AM Laboratory - Chemi stry Order BASIC METABOLIC PANEL GREEN LI/HEP BLD/PLAS PLASMA SP [facility] Apr 15, 2024 12:00 AM Laboratory - Chemi stry Order MICRAL/CREAT PROFILE (STL) URINE SP [facility] Apr 15, 2024 12:00 AM Laboratory - Chemi stry Order LIPID PANEL (STL) GREEN LI/HEP BLD/PLAS PLASMA SP ONCE [facility] Apr 15, 2024 12:00 AM Laboratory - Chemi stry Order HGA1C BLOOD SP [facility] May 14, 2024 11:54 AM Consult Order COMMUNITY CARE-STL DENTAL GEN Cons Roent[employer]ology Teacher's Choice [facility] Lab Results: +/- 30 days of the encounter This section includes the Chemistry and Hematology Lab Results on record with [place] for the patient. Radiology Reports and Pathology Reports are provided separately, in subsequent sections. Lab Results This section contains the Chemistry/Hematology Results that were resulted 30 days before or 30 daysafter the date of the Encounter. Date/Time Source Result Type Result - Unit Interpretation Reference Range Comment Apr 15, 2024 02:33 PM [facility] GLUCOSE,BLOOD-poct (STL) Specimen Type: BLOOD Comment: Test Performed by: [id number] Meter #: [id number] Ordering Provider: CHARITY GOLDSMITH Report Released Date/Time: Apr 15, 2024 03:35 PM Reporting Lab: [facility] [address] [facility] [id number] Performing Lab: [facility] [address] [facility] [address] [facility] [id number] GLUCOSE,BLO OD-poct (STL) 71 mg/dL L 72-99 [...] 28, 2023 10:45 AM VA-TOBACCO NEVER USED [facility] Tobacco Use History This section includes a history of the smoking, or tobacco-related health factors, that were collected on or before the date of the Encounter. The data comes from the [place] facility where the Encounter took place. Date/Time Smoking Status/Tobacco Use Comment F acility Dec 19, 2022 08:17 AM VA-TOBACCO NEVER USED . [facility] Sep 22, 2021 01:13 PM VA-TOBACCO NEVER USED . [facility] Sep 17, 2020 08:39 AM VA-TOBACCO NEVER USED . [facility] Aug 07, 2019 08:59 AM VA-TOBACCO NEVER USED . [facility] October 07, 2016 10:17 AM LIFETIME NON-USER OF TOBACCO [facility] Jun 04, 2012 03:33 PM LIFETIME NON-USER OF TOBACCO [facility] Encounter Notes: All associated encounter notes This section contains the clinical notes associated to the Encounter. Date/Time Encounter Note(s) Provider Source May 02, 2024 01:29 PM PHYSICAL THERAPY C ONSULT: LOCAL TITLE: PT CONSULT ST STANDARD TITLE: PHYSICAL THERAPY CONSULT DATE OF NOTE: MAY 02, 2024@13:29 ENTRY DATE: MAY 02, 2024@13:30:02 AUTHOR: LILI TRAN COSIGNER: URGENCY: STATUS: COMPLETED Physical Therapy Outpatient Initial Consult Referring Provider: Tova Goldsmith Diagnosis: Low back pain, unspecified(ICD-10-CM M54.50) Reason for referral: acute exac of CLBP 2/2 DDD. pls eval and treat for stretching and core strengthening exercises Time Spent: 60 min session. eval, 15 min ther ex, 45 min Session Number: 1 Missed Sessions: 0 Anticipated Discharge Date: 07/30/24 -Location of visit: [] room [x]Outpatient office -Other people involved in treatment [x]None []Included: Subjective: Vet is a 54y/o male with an acute exacerbation of chronic LBP 2/2 DDD x 1 month. Chronic LBP ongoing for years. Complains of constant pain in __mid back _x_left low back _x Lt buttock Describes pain as _x_sharp __shooting __dull __achy __burning. Pain travels down _x_back __outside of Lt thigh to _x_knee __calf __foot. Pain level of 7-8/10. Onset: __Traumatic _x_Insidious __days __weeks __months _x_years ago. __on job injury __while on AD __bending __lifting __twisting __fall Distal Symptoms: _x_Pain __numbness __tingling down L leg to _x_knee __foot Treatment: __Meds _x_Toradol injections (last given 2wks ago)__Chiropractic __Surgery Treatment consisted of _x_Meds __Chiropractic _x_Physical Therapy __Surgery Aggravates: __Changes in weather __Bending _x_Lifting _x_Walking __Sitting _x_Standing __Twisting __Any Activity Eases: _x_Meds _x_Heat __Cold __Walking _x_Sitting __Frequently changing positions _x_Laying down on __back __side with knees __bent __straight __stomach __TENS __Nothing. 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 Goal(s) for P.T.: Decrease pain to 2/10 (prior to exacerbation) Objective: Posture: Head: _x_forward __rotated Rt Lt Shoulders: x__rounded __elevated __flexed __abducted __med rot Thoracic kyphosis: _x_nml __flat __excessive __scoliosis w/ concavity to __Right __Left __lateral trunk shift to __Right __Left Lumbar lordosis: __nml _x_flat __excessive __scoliosis w/ concavity to __Right __Left Pelvic height: _x_even __uneven Hips rotated: _x_medially __laterally Knees: _x_nml __genu __recurvatum __valgum __varum Feet: __nml _x_planus __equinus. Movement Tests: Standing: Forward bending and return: Reached to knees w/ excessive flexion of thoracic spine, flat lumbar spine. Pain increased with _x_forward bending __return from forward bend Repetition of motion caused pain to _x_incr __decr __no affect Forward bending hip flex only: pain __incr __decr _x_didn't change Side bending: __normal _x_flat spinal motion. Pain __incr __decr _x_didn't change. Back bending: __normal _x_flat spinal motion. Pain __incr __decr _x_didn't change. Repetition of motion caused pain to __incr _x_decr __no affect. Sitting: Preferred posture: __flexed __flat _x_erect __with pain N0 Corrected posture: Pain __increased __decreased _x_didn't change. Rotation: _x_symmetrical __decreased to __R __L No Pain Knee extensions: Spinal motion NO Hip flexion: Spinal motion NO Pain incr NO w/ __Rt __Lt _x_both Supine: Hip Flexor length test: Iliopsoas Right (short) Left (short) ITB/TFL Right (short) Left (short) Rectus femoris Right (short) Left (short) Knees __flexed _x_extended eased pain Straight Leg Raise: NEG __Rt __Lt _x_Both Single knee to chest: Rt motion ( decr) Lt motion decr) Pain _x_increases __decreases __no affect Bent knee fall out: Rt motion ( rotates) Lt motion ( rotates) Pain __incrs x__doesn't change eased with stabilization __YES x__NO Sidelying: Hip Abduction: _x_difficult with _x_Rt _x_Lt Right (weak) Left (weak) Kari test: Right: (Short ) Left: (Short ) Prone: Knee flexion: Right motion (normal ) Left motion (normal Pain increases __YES _x_NO Hip extension: Right motion (rotates) Left motion (rotates) Pain increases __YES x__NO Hip rotation: Right motion (normal Left motion (normal Pain increases __YES _x_NO On elbows: with __pain __numbness __tingling __burning symptoms __increased _x_decreased __centralized __unchanged Press ups: with __pain __numbness __tingling __burning __unchanged symptoms __increased _x_decreased __centralized Mobility: Sit to supine: _x_sit to side to supine with pain NO __long sit to supine with pain YES NO Rolling: __moved shoulders and hips separately with pain YES NO _x_moved shoulders and hips together with pain NO Sit <-> stand: spinal flexion to extension with pain NO Gait: Indep with _x_out assistive device __cane __wheeled walker __crutches __w/c __electric mobility. Demonstrates _x_normal pattern __trendelenburg pattern __short leg pattern __antalgic pattern __weight shifted to __Right __Left Abdominal Strength: Lower: _x_Poor __Fair __Good __Normal LE Strength: B hip abductors 3-/5 B hip extenders 3/5 B hip LR 3/5 Muscle Lengths: Hamstrings: Right: _x_Short __Normal Left: _x_Short __Normal Hip lateral rot: Right: _x_Short __Normal Left: _x_Short __Normal Hip medial rot: Right: _x_Short __Normal Left: _x_Short __Normal Glute max: Right: __Short __Normal Left: _x_Short __Normal Rectus fem: Right: _x_Short __Normal Left: _x_Short __Normal Gastrocnemius: Right: _x_Short __Normal Left: _x_Short __Normal Palpitation: _x_non-tender to palpation __iliacus __pubic ramus __inguinal ligament __Ant Sup Iliac Spine __Adductors __Abductors __glute minimus __Tensor Fascia Baylee __Ant Lat Trochanter __Piriformis __Post Sup Iliac Spine __Quadratus lumborum __L5 Neuro: dermatomes: _x_Intact R L B __Diminished R L B L-1 -2 -3 -4 -5 -S-1 myotomes: _x_Intact R L B __Diminished R L B L-1 -2 -3 -4 -5- S-1 reflexes: _x_Patellar(L4): _x_norm __incr'd R L B __decr'd R L B _x_Achilles(S1): _x_norm __incr'd R L B __decr'd R L B Treatment: _x_Manual therapeutic tech's: _x_Counterstrain _x_Myofascial release _x_Muscle Energy __Cranial-Sacral _x_Deep tissue massage _x_Exercises: _x_Low abdominals level 1a x__McKenzie program extension _x_Stretching of x__hamstrings _x_piriformis _x_quads _x_ITB/TFL _x_Spinal stabilization _x_Strengthening hip abductors, hip extendors, hip LR __Modalities: __Ultrasound _x_TENS _x_Moist Hot Pack _x_Cold pack _x_Electrical stimulation __Pelvic traction: __Static __Intermit __Supine w/ hips and knees flexed __Prone __lbs for 30 min's HEP: Exercises - Clamshell - 2 x daily [...] weekly - 1 sets - 20 reps Education - Reviewed HEP with pt and discussed posture/biomechanics, positioning techniques, and joint protection with pt. Assessment:54 y/o male w/ Dx of Low back Pain. Referred to P.T. for eval and treat as indicated due to acute exacerbation of chronic LBP x 1 month. Vet presents with L Lower lumbar sharp pain, rated at 7-8/10, with radicular sharp pain down the L posterior thigh to the knee, also rated at 7-8/10. Vet with increased pain initially in standing, walking, ascending stairs, lifting. Pain decreases with sitting, use of heat, muscle relaxers, toradol injections, and with Lumbar extension movements. Presents to P.T. w/ Lumbar DDD, Radiculopathy, with signs and symptoms of Lumbar flexion disorder. He has decreased strength in the lower abdominals, B hip abductors, hip extenders, and hip LR, and has short B piriformis, hamstrings, quads and ITB bands. Vet to benefit from outpt PT 1x/2wks x 3 months x 30 min sessions to improve the above mentioned deficits and allow the vet to return to his PLOF for ADLs, mobility, and reduce pain to PLOF of 2/10 without radicular symptoms. Radiologic report: NA STG's(to be met within 3 visits): 1. [...] Pt will be able to itzel/doff socks. Barriers: Longevity of pain. Plan: Pt to f/u in 2 weeks via in-person visit per pt's request to reassess his progress and to review/amend his HEP as needed and appropriate. Received: copies of exercises. Equipment issued: _x_None __TENS unit Follow up: w/ P.T. for re-eval/treatment in ronald-physical therapy 1 x 30 min Learning Assessment: Patient/Caregiver appeared ready for instruction (good eye contact, appropriate questions, active participation, etc.) Person(s) who received education: Patient Education Topic/Teaching Needs: Rehabilitation and Habilitation Purpose of PT consult, Lumbar biomechanics, postural awareness, HEP Methods used included: Handout: HEP Oral: instruction Demonstration: HEP Teaching outcomes: Good level of understanding /radha/ LILI TRAN Certified Lymphedema Therapist Signed: 05/02/2024 15:09 Receipt Acknowledged By: 05/06/2024 14:42 /radha/ EDDI COLINDRES Licensed Family Partner SULLINGER,LYNN M [facility]
--- OUTSIDE RECORDS SUMMARY | 2024-07-30 19:24 | XMS_ITS | Clinical Summary ---
Author Organization [facility] [employer] Address [address] [place] [address] Care Team Providers Care Administration Internship Name Role Phone Corey Donahue MD Primary Care Provider [phone] Source Comments [facility] [employer],non-owned Affiliates and Associated Physician Practices is amultiple site organization consisting of ambulatory clinics and hospital sitesin [place], [place], [place] and [place]. This disclosure is being madepursuant to the Care Everywhere program and may not contain all information available regarding this patient. Last updated 18.[facility] [employer] Medications * Be aware that medications may [...] Comments Blood Pressure 109/75 04/27/2016 2:07 AM BOTTOMING ROOM SUPERVISOR Pulse 45 04/27/2016 2:07 AM BOTTOMING ROOM SUPERVISOR Temperature 36.8 C (98.2 F) 04/27/2016 2:07 AM BOTTOMING ROOM SUPERVISOR Respiratory Rate 16 04/27/2016 2:07 AM BOTTOMING ROOM SUPERVISOR Oxygen Saturation 98% 04/27/2016 1:30 AM BOTTOMING ROOM SUPERVISOR Inhaled Oxygen Concentration - - Weight 85.3 kg (188 lb) 04/26/2016 9:50 PM BOTTOMING ROOM SUPERVISOR Height 182.9 cm (6') 04/26/2016 9:50 PM BOTTOMING ROOM SUPERVISOR Body Mass Index 25.5 04/26/2016 9:50 PM BOTTOMING ROOM SUPERVISOR Plan of Treatment Health Maintenance Due Date [...] AM CDT) Cholesterol Total 122 <200 mg/dL [facility] HDL 38(L) >40 mg/dL [facility] Comment: ATP III Classification of HDL Cholesterol: <40 mg/dL: Considered a major risk factor. >60 mg/dL: Considered a negative risk factor. LDL Calculated 70 <100 mg/dL [facility] Comment: ATP III Classification of LDL Cholesterol: <100 mg/dL: Optimal 100 - 129 mg/dL: Near Optimal/Above Optimal 130 - 159 mg/dL: Borderline High 160 - 189 mg/dL: High >190 mg/dL: Very High Triglycerides 72 <150 mg/dL [facility] Comment: ATP III Classification of Triglycerides: <150 mg/dL: Normal 150 - 199 mg/dL: Borderline High 200 - 400 mg/dL: High >500 mg/dL: Very High Blood specimen (specimen) BLOOD SPECIMEN / Unknown 01/26/2015 10:05 AM CDT 01/26/2015 10:45 AM CDT Corey Donahue MD LAB - CHEMISTRY O RDERABLES Performing Organization Address City/State/[facility] Co de Phone Number [facility] [address] [phone] from Last 3 Months or Most Recently Relevant to Health Maintenance Care Teams Administration Internship Relationship Specialty Start Date End Date Corey Donahue MD [address] [place] [address] PCP - General 01/19/16
--- OUTSIDE RECORDS SUMMARY | 2024-07-30 19:24 | XMS_ITS | Referral Summary ---
Author Organization [facility] [employer] Address [address] [place] [address] Care Team Providers Care Improvement Nurse Name Role Phone Corey Donahue MD Primary Care Provider [phone] [phone] Source Comments [facility] [employer],non-owned Affiliates and Associated Physician Practices is amultiple site organization consisting of ambulatory clinics and hospital sitesin [place], [place], [place] and [place]. This disclosure is being madepursuant to the Care Everywhere program and may not contain all information available regarding this patient. Last updated 18.[facility] [employer] Medications * Be aware that medications may [...] Comments Blood Pressure 109/75 04/27/2016 2:07 AM BRAKE RELINER Pulse 45 04/27/2016 2:07 AM BRAKE RELINER Temperature 36.8 C (98.2 F) 04/27/2016 2:07 AM BRAKE RELINER Respiratory Rate 16 04/27/2016 2:07 AM BRAKE RELINER Oxygen Saturation 98% 04/27/2016 1:30 AM BRAKE RELINER Inhaled Oxygen Concentration - - Weight 85.3 kg (188 lb) 04/26/2016 9:50 PM BRAKE RELINER Height 182.9 cm (6') 04/26/2016 9:50 PM BRAKE RELINER Body Mass Index 25.5 04/26/2016 9:50 PM BRAKE RELINER Plan of Treatment Not on file Procedures Procedure Name Priority Date/Time Associated Diagnosis Comments LIPID PROFILE Routine 01/26/2015 10:05 AM CDT from Last 3 Months or Most Recently Relevant to Health Maintenance Results * (ABNORMAL) LIPID PROFILE (01/26/2015 10:05 AM CDT) Cholesterol Total 122 <200 mg/dL [facility] HDL 38(L) >40 mg/dL [facility] Comment: ATP III Classification of HDL Cholesterol: <40 mg/dL: Considered a major risk factor. >60 mg/dL: Considered a negative risk factor. LDL Calculated 70 <100 mg/dL [facility] Comment: ATP III Classification of LDL Cholesterol: <100 mg/dL: Optimal 100 - 129 mg/dL: Near Optimal/Above Optimal 130 - 159 mg/dL: Borderline High 160 - 189 mg/dL: High >190 mg/dL: Very High Triglycerides 72 <150 mg/dL [facility] Comment: ATP III Classification of Triglycerides: <150 mg/dL: Normal 150 - 199 mg/dL: Borderline High 200 - 400 mg/dL: High >500 mg/dL: Very High Blood specimen (specimen) BLOOD SPECIMEN / Unknown 01/26/2015 10:05 AM CDT 01/26/2015 10:45 AM CDT Corey Donahue MD LAB - CHEMISTRY O RDERABLES [facility] [address] [place] [address], [facility] [phone] from Last 3 Months or Most Recently Relevant to Health Maintenance Care Teams Improvement Nurse Relationship Specialty Start Date End Date Corey Donahue MD [address] [place] [address] PCP - General 01/19/16
--- OUTSIDE RECORDS SUMMARY | 2024-07-30 19:24 | XMS_ITS | Encounter Summary ---
Author Name [facility] [place] [facility] [place] Address [address] [place] [address] Care Team Providers Care Resin Remover Name Role Phone TOVA POTTER Primary Care [...] section includes the information on record at [place] for the Encounter. Date/Time Encounter Type Encounter Description Reason Pro vider Source Jan 25, 2024 03:15 PM Outpatient Encounter COMMUNITY CARE CONSULT IHE Encounter Template Text not used by [place] Plan of Treatment: Future Appointments (+ 6 months) and Future Tests (+/- 45 days) The Plan of Treatment section includes future care activities for the patient from all [facility] treatment[facility]ilities. This section includes future appointments and future orders which are active, pending or scheduled. Future Appointments This section includes appointments that were scheduled to occur 6 months from the date of the Encounter, up to a maximum of 20 appointments. The data comes from all [place] treatment facilities. Appointment Date/Time Appointment Type Appointme nt Facility Name Feb 06, 2024 01:00 PM AMBULATORY - NONE [facility] Feb 13, 2024 03:00 PM AMBULATORY - SURGERY [facility] Apr 15, 2024 02:00 PM AMBULATORY - MEDICINE [facility] May 01, 2024 02:00 PM AMBULATORY - PSYCHIATRY [facility] May 02, 2024 01:00 PM AMBULATORY - REHAB MEDICIN [facility] May 07, 2024 02:00 PM AMBULATORY - NONE [facility] May 15, 2024 02:00 PM AMBULATORY - PSYCHIATRY [facility] May 16, 2024 01:00 PM AMBULATORY - REHAB MEDICIN E [facility] May 31, 2024 01:30 PM AMBULATORY - REHAB MEDICIN E [facility] Jun 10, 2024 03:00 PM AMBULATORY - NONE [facility] Jun 14, 2024 01:30 PM AMBULATORY - REHAB MEDICIN E [facility] Jun 21, 2024 03:00 PM AMBULATORY - NONE [facility] Jun 25, 2024 10:00 AM [facility] Jun 28, 2024 01:30 PM AMBUL[facility] - [facility] Jul 02, 2024 08:00 AM AMBULATORY - NONE [facility] Jul 09, 2024 08:30 AM AMBULATORY - MEDICINE [facility] Social History: Smoking Status (Most current) and Tobacco Use (All prior to encounter date) This section includes the most current, and the historical, smoking and tobacco- related health factors from the [place] facility where the Encounter took place. Current Smoking Status This section includes the most current smoking, or tobacco-related health factor, from the [place] facility where the Encounter took place. Date/Time Current Smoking Status Comment Facil ity Nov 11, 2015 11:40 AM LIFETIME NON-USER OF TOBACCO [facility] Tobacco Use History This section includes a history of the smoking, or tobacco-related health factors, that were collected on or before the date of the Encounter. The data comes from the [place] facility where the Encounter took place. Date/Time Smoking Status/Tobacco Use Comment F hayden Dec 24, 2013 02:11 PM LIFETIME NON-USER OF TOBAC CO never [facility] Radiology Reports: +/- 30 days of [...] the Encounter. The data comes from all [place] treatment facilities. Date/Time Radiology Report Provider Source Jan 08, 2024 08:24 AM US ABDOMEN LIMITED W/BLOOD FLOW DOPPLER: BETITOFANYFelisa TURNER [id number] -[id number] M Exm Date: JAN 08, 2024@08:24 Req Phys: RICHARD REYES Loc: [facility]GI ERIC (Req'g Loc) Img Loc: [facility]ULTRASOUND Service: [facility], [facility] [address] [place] [address] (Case 171 COMPLETE) US ABDOMEN LTD, SINGLE ORG OR DILMA(US Detailed) CPT:50039 Reason for Study: :MASH, History of elevated LFTs (Case 172 COMPLETE) US BLOOD FLOW ABD/RENAL (LTD) (US Detailed) CPT:82618 Clinical History: Organ to Image: Liver Reason for exam: MASH, History of elevated LFTs Report Status: Verified Date Reported: JAN 08, 2024 Date Verified: JAN 08, 2024 County Director E-Sig:/ES/SYBIL SALOMON Report: Report number: [id number], [id number] EXAMINATION:US ABDOMEN LTD, SINGLE ORG OR QUADRANT, [...] small scar Impression: 1. Normal liver sonogram. Dictated by Josefa Gaffney M.D. (residential sales consultant) I, Sybil Salomon, have reviewed the images and report and concur with these findings. Primary Interpreting Staff: SYBIL SALOMON MD (County Director) Primary Interpreting Resident: JOSEFA GAFFNEY, Resident Physician /SYBIL LIGHT [facility] Encounter Notes: All associated encounter notes This section contains the clinical notes associated to the Encounter. Date/Time Encounter Note(s) Provider Source Jan 25, 2024 08:13 PM ADDENDUM: LOCAL TITLE: Addendum STANDARD TITLE: ADDENDUM DATE OF NOTE: JAN 25, 2024@20:13:38 ENTRY DATE: JAN 25, 2024@20:13:39 AUTHOR: DALILA PERALTA EXP COSIGNER: URGENCY: STATUS: COMPLETED [facility] DENTAL SERVICE/COMMUNITY CARE RFS DETERMINATION The requested treatment: AUTHORIZED SUBMITTED. AUTHORIZED TREATMENT: [id number] MAINTENANCE U1599-[id number] APPLICATION OF FLUORIDE VARNISH N0068-[id number] FOUR RADIOGRAPHIC IMAGES [id number] PERIAPICAL FIRST FILM TOOTH #3 [id number] PERIAPICAL EAD ADD FILM TOOTH #19 ACTION STEPS * RFS/ADA Dental Claim Form external records reviewed. * New consult(s) placed with corresponding SEOC(s). * to continue dental treatment with community provider. AUTHORIZED PROVIDER: Leyla Cabrera [address] [place] [id number] Email: [email or web address] Specialty: Dentist - Bi Report Developer Network: [facility] Region 2 COMMUNITY CARE COORDINATION NOTES Please continue [place]'s care for authorized treatment /radha/ DALILA PERALTA DMD DENTIST Signed: 01/25/2024 20:14 Receipt Acknowledged By: 01/26/2024 07:43 /radha/ LIZBETH REYES [facility] RN --- Original Document --- 01/25/24 COMMUNITY CARE-REQUEST FOR SERVICE NOTE [facility]: Request for Services (RFS) documentation has been sent for scanning to [employer] Community Care Consult: COMMUNITY CARE-COMMUNITY CARE-[facility] DENTAL GEN Consult No: [id number] Date sent to scanning: Dec A Request for Service (RFS) form [id number] has been received which includes the following: Care Requested: [id number] MAINTENANCE O9771-[id number] APPLICATION OF FLUORIDE VARNISH G3669-[id number] FOUR RADIOGRAPHIC IMAGES [id number] PERIAPICAL FIRST FILM TOOTH #3 B6089-[id number] PERIAPICAL EAD ADD FILM TOOTH #19 ADA, note in preauth folder Date [facility] received request: Dec Date service required: Dec Requesting Community Provider Information: Name of Ordering Provider: Dr Shai Cabrera [facility] Shai Cabrera [address] [facility] [place] [address] Email: [email or web address] Specialty: Dentist - Bi Report Developer Network: [facility] Region 2 /radha/ LIZBETH REYES [facility] RN Signed: 01/25/2024 15:20 Receipt Acknowledged By: 01/25/2024 20:13 /radha/ DALILA PERALTA DMD DENTIST DALILA PERALTA [facility] Jan 25, 2024 03:15 PM NONVA NOTE: LOCAL TITLE: COMMUNITY CARE-REQUEST FOR SERVICE NOTE [facility] STANDARD TITLE: NONVA NOTE DATE OF NOTE: JAN 25, 2024@15:15 ENTRY DATE: JAN 25, 2024@15:15:54 AUTHOR: LIZBETH REYES EXP COSIGNER: URGENCY: STATUS: COMPLETED COMMUNITY CARE-REQUEST FOR SERVICE NOTE [facility] Has ADDENDA Request for Services (RFS) documentation has been sent for scanning to [employer] Community Care Consult: COMMUNITY CARE-COMMUNITY CARE-[facility] DENTAL GEN Consult No: [id number] Date sent to scanning: Dec A Request for Service (RFS) form [id number] has been received which includes the following: Care Requested: X0528-YMDUTMTMHD MAINTENANCE X9485-[id number] APPLICATION OF FLUORIDE VARNISH A3134-[id number] FOUR RADIOGRAPHIC IMAGES [id number] PERIAPICAL FIRST FILM TOOTH #3 G7225-[id number] PERIAPICAL EAD ADD FILM TOOTH #19 ADA, note in preauth folder Date VA received request: Dec Date service required: Dec Requesting Community Provider Information: Name of Ordering Provider: Dr Shai Cabrera [address] [place] [id number] Email: [email or web address] Specialty: Dentist - Bi Report Developer Network: [place] [id number] /radha/ LIZBTEH REYES [facility] RN Signed: 01/25/2024 15:20 Receipt Acknowledged By: 01/25/2024 20:13 /radha/ DALILA PERALTA DMD DENTIST 01/25/2024 ADDENDUM STATUS: COMPLETED [facility] DENTAL SERVICE/COMMUNITY CARE RFS DETERMINATION The requested treatment: AUTHORIZED SUBMITTED. AUTHORIZED TREATMENT: O5494-TDMEMXBIRT MAINTENANCE J9363-BMGRYEH APPLICATION OF FLUORIDE VARNISH M2898-[id number] FOUR RADIOGRAPHIC IMAGES [id number] PERIAPICAL FIRST FILM TOOTH #3 F3676-[id number] PERIAPICAL EAD ADD FILM TOOTH #19 ACTION STEPS * RFS/ADA Dental Claim Form external records reviewed. * New consult(s) placed with corresponding SEOC(s). * to continue dental treatment with community provider. AUTHORIZED PROVIDER: Leyla Cabrera [address] [facility] [place] [address] Email: [email or web address] Specialty: Dentist - Bi Report Developer Network: [place] [id number] COMMUNITY CARE COORDINATION NOTES Please continue 's care for authorized treatment /radha/ DALILA PERALTA DMD DENTIST Signed: 01/25/2024 20:14 Receipt Acknowledged By: * AWAITING SIGNATURE * LIZBETH REYES NICOLE D [facility]
--- OUTSIDE RECORDS SUMMARY | 2024-07-30 19:24 | XMS_ITS | Patient Health Summary ---
Author Organization [facility] Address [address] [place] [address] Care Team Providers Care Gill Box Tender Name Role Phone Corey Donahue MD Primary Care Provider [phone] Note from [facility],non-owned Affiliates and Associated Physician Practices is amultiple site organization consisting of ambulatory clinics and hospital sitesin [place], [place] and [place]. This disclosure is being madepursuant to the Care Everywhere program and may not contain all information available regarding this patient. Last updated 18.[facility] Medications * Be aware that medications may [...] Comments Blood Pressure 109/75 04/27/2016 2:07 AM RESIDENTIAL TEAM LEADER Pulse 45 04/27/2016 2:07 AM RESIDENTIAL TEAM LEADER Temperature 36.8 C (98.2 F) 04/27/2016 2:07 AM RESIDENTIAL TEAM LEADER Respiratory Rate 16 04/27/2016 2:07 AM RESIDENTIAL TEAM LEADER Oxygen Saturation 98% 04/27/2016 1:30 AM RESIDENTIAL TEAM LEADER Inhaled Oxygen Concentration - - Weight 85.3 kg (188 lb) 04/26/2016 9:50 PM RESIDENTIAL TEAM LEADER Height 182.9 cm (6') 04/26/2016 9:50 PM RESIDENTIAL TEAM LEADER Body Mass Index 25.5 04/26/2016 9:50 PM RESIDENTIAL TEAM LEADER Procedures * CT HEAD WO CONTRAST(Performed 04/27/2016) [...] * ANTITHROMBIN III ACTIVITY(Performed 03/17/2015) * PROTHROMBIN [id number] PANEL(Performed 03/17/2015) * HAPTOGLOBIN(Performed 03/17/2015) * HELICOBACTER [...] CT HEAD WO CONTRAST (04/27/2016 12:58 AM RESIDENTIAL TEAM LEADER) Only the most recent of2 resultswithin the time period is included. Anatomical Region Laterality Modality Head Other Impressions 04/27/2016 10:00 AM RESIDENTIAL TEAM LEADER IMPRESSION: 1. No acute intracranial hemorrhage. This report was approved by Skip Paz M.D. on 04/27/2016 9:19 AM . I, Dr. JUAN A NEELY M.D. have personally reviewed and interpreted this examination/study. This report was electronically signed by JUAN A NEELY M.D. on 04/27/2016 10:00 AM . Narrative 04/27/2016 10:00 AM RESIDENTIAL TEAM LEADER EXAMINATION: Computed tomography (CT) of the head [...] * XR CHEST 1VW (04/26/2016 10:57 PM RESIDENTIAL TEAM LEADER) Anatomical Region Laterality Modality Chest Other Impressions 04/27/2016 10:23 AM RESIDENTIAL TEAM LEADER IMPRESSION: No acute pulmonary process. Dictated by Maverick Spaulding MD (financial institution president). This report was approved by Maverick Spaulding M.D. on 04/27/2016 8:[address] SYBIL Franz MD have personally reviewed and interpreted this examination/study. This report was electronically signed by Dr. SYBIL GRACE MD on 04/27/2016 10:23 AM . Narrative 04/27/2016 10:23 AM RESIDENTIAL TEAM LEADER EXAMINATION: Portable chest, one view HISTORY: numbness [...] pulmonary process. Dictated by Maverick Spaulding MD (financial institution president). This report was approved by Maverick Spaulding M.D. on 04/27/2016 8:[address] SYBIL Franz MD have personally reviewed and interpreted thisexamination/study. This report was electronically signed by Dr. SYBIL GRACE MD on04/27/2016 10:23 AM . Antonia Beverly MD DIAGNOSTIC IMAGING O RDERABLES * (ABNORMAL) URINALYSIS W/MICROSCOPIC NO CULTURE (04/26/2016 10:42 PM RESIDENTIAL TEAM LEADER) Color UA Yellow Straw, Yellow, Colorless, Light Yellow [facility] Clarity UA Clear Clear [facility] Specific [place] UA 1.013 1.001 - 1.030 [facility] pH UA 5.5 5.0 - 8.0 [facility] Protein UA Negative <=20 mg/dL [facility] Glucose UA Negative Negative mg/dL [facility] Ketone UA Negative Negative mg/dL [facility] Bilirubin UA Negative Negative mg/dL [facility] Blood UA Negative Negative [facility] Nitrite UA Negative Negative [facility] Leukocyte Esterase Negative Negative [facility] Urobilinogen UA <2.0 <2.0 mg/dL [facility] RBC UA 1 0 - 8 /HPF [facility] WBC UA 1 0 - 2 /HPF [facility] Mucus UA Few(A) None /LPF [facility] Urine specimen (specimen) 04/26/2016 10:42 PM RESIDENTIAL TEAM LEADER 04/26/2016 10:46 PM RESIDENTIAL TEAM LEADER Antonia Beverly MD LAB - URINALYSIS ORD ERABLES Performing Organization Address City/State/[facility] Co de Phone Number [address] [phone] * (ABNORMAL) CBC W AUTO DIFFERENTIAL (04/26/2016 10:23 PM RESIDENTIAL TEAM LEADER) Only the most recent of16 resultswithin the time period is included. WBC 7.3 3.5 - 10.5 10 3/uL [facility] RBC 5.00 4.30 - 5.70 10 6/uL [facility] Hemoglobin 13.3(L) 13.5 - 17.5 g/dL [facility] Hematocrit 38.9(L) 39.0 - 50.0 % [facility] MCV 77.8(L) 81.0 - 97.0 fL [facility] MCH 26.6(L) 28.0 - 34.0 pg [facility] MCHC 34.2 32.0 - 36.0 g/dL [facility] Platelet Count 260 150 - 400 10 3/uL [facility] RDW-SD 41.2 36.0 - 50.0 fL [facility] RDW-CV 14.6 11.2 - 14.8 % [facility] MPV 9.6 9.3 - 12.8 fL [facility] nRBC Absolute 0.00 0 10 3/uL [facility] nRBC Auto 0.0 0 /100 WBC [facility] Neutrophils % 61.7 35.0 - 70.0 % [facility] Lymphocytes % 28.4 19.7 - 55.1 % [facility] Monocytes % 7.7 3.0 - 15.0 % [facility] Eosinophils % 1.5 0.0 - 6.0 % [facility] Basophil % 0.7 0.0 - 1.5 % [facility] Neutrophils Absolute 4.5 1.6 - 7.0 10 3/uL [facility] Lymphocyte Absolute 2.1 0.8 - 2.9 10 3/uL [facility] Monocytes Absolute 0.56 0.14 - 0.66 10 3/uL [facility] Eosinophils Absolute 0.11 0.00 - 0.22 10 3/uL [facility] Basophils Absolute 0.05 0.00 - 0.06 10 3/uL [facility] Immature Granulocytes % 0.0 0.0 - 1.0 % [facility] Blood specimen (specimen) BLOOD SPECIMEN / Unknown 04/26/2016 10:23 PM RESIDENTIAL TEAM LEADER 04/26/2016 10:29 PM RESIDENTIAL TEAM LEADER Antonia Beverly MD LAB - HEMATOLOGY ORD ERABLES [facility] [address] [phone] * PT-INR [facility] (04/26/2016 10:23 PM RESIDENTIAL TEAM LEADER) Only the most recent of5 resultswithin the time period is included. PT 12.3 12.1 - 14.8 Seconds [facility] INR 0.9 See Comment [facility] Comment: Suggested therapeutic range for low-intensity coumadin therapy for venous thromboembolism prophylaxis is an INR of 2.0-3.0. For high risk patients (Mitral Valve Prosthesis, Atrial Fibrillation, history of TIA/stroke), suggested prophylactic therapeutic range is an INR of 2.5-3.5. Blood specimen (specimen) BLOOD SPECIMEN / Unknown 04/26/2016 10:23 PM RESIDENTIAL TEAM LEADER 04/26/2016 10:29 PM RESIDENTIAL TEAM LEADER Narrative [facility] - 04/26/2016 10:44 PM RESIDENTIAL TEAM LEADER Is patient on Heparin, Argatroban or Dabigatran?->N Antonia Beverly MD LAB - COAGULATION OR DERABLES Performing Organization Address [facility]/ZIP Co de Phone Number [address] [phone] * TROPONIN I (04/26/2016 10:23 PM RESIDENTIAL TEAM LEADER) Only the most recent of4 resultswithin the time period is included. Troponin I <0.010 <0.032 ng/mL [facility] Blood specimen (specimen) BLOOD SPECIMEN / Unknown 04/26/2016 10:23 PM RESIDENTIAL TEAM LEADER 04/26/2016 10:29 PM RESIDENTIAL TEAM LEADER Antonia Beverly MD LAB - CHEMISTRY ORDE RABLES Performing Organization Address [facility]/ZIP Co de Phone Number [address] [phone] * D-DIMER (04/26/2016 10:23 PM RESIDENTIAL TEAM LEADER) Only the most recent of2 resultswithin the time period is included. D-Dimer Quantitative 0.49 <=0.50 mcg/mL FEU [facility] Comment: In the absence of clinical [...] BLOOD SPECIMEN / Unknown 04/26/2016 10:23 PM RESIDENTIAL TEAM LEADER 04/26/2016 10:29 PM RESIDENTIAL TEAM LEADER Antonia Beverly MD LAB - COAGULATION OR DERABLES [facility] [address] [place] [address] * (ABNORMAL) COMPREHENSIVE METABOLIC PANEL (04/26/2016 10:23 PM RESIDENTIAL TEAM LEADER) Only the most recent of5 resultswithin the time period is included. BUN 12 7 - 26 mg/dL [facility] Creatinine 0.9 0.6 - 1.2 mg/dL [facility] Sodium 140 136 - 145 mmol/L [facility] Potassium 3.9 3.5 - 4.5 mmol/L [facility] Chloride 104 98 - 107 mmol/L [facility] CO2 25 22 - 29 mmol/L [facility] Glucose 110 70 - 115 mg/dL [facility] Calcium 9.4 8.4 - 10.2 mg/dL [facility] Protein Total 7.7 6.0 - 8.3 g/dL [facility] Albumin 3.8 3.4 - 5.0 g/dL [facility] Bilirubin Total 0.5 0.2 - 1.2 mg/dL [facility] Alkaline Phosphatase 50 40 - 150 Units/L [facility] ALT 10 0 - 55 Units/L [facility] AST 20 5 - 34 Units/L [facility] Anion Gap 15 8 - 18 [facility] BUN/Creatinine Ratio 13 7 - 23 [facility] Osmolality Calculated 290 270 - 300 mOsm/kg [facility] Albumin/Globulin Ratio 1.0(L) 1.1 - 2.3 [facility] eGFR >60 >60 mL/min/1.7 3 m2 [facility] Blood specimen (specimen) BLOOD SPECIMEN / Unknown 04/26/2016 10:23 PM RESIDENTIAL TEAM LEADER 04/26/2016 10:29 PM RESIDENTIAL TEAM LEADER Antonia Beverly MD LAB - CHEMISTRY ORDE RABALBERT [address] [phone] * (ABNORMAL) CK + CKMB PANEL (04/26/2016 10:23 PM RESIDENTIAL TEAM LEADER) Only the most recent of4 resultswithin the time period is included. CK Total 207(H) 30 - 200 Units/L [facility] CK-MB 4.6 0.0 - 6.6 ng/mL [facility] Blood specimen (specimen) BLOOD SPECIMEN / Unknown 04/26/2016 10:23 PM RESIDENTIAL TEAM LEADER 04/26/2016 10:29 PM RESIDENTIAL TEAM LEADER Antonia Beverly MD LAB - CHEMISTRY ORDE MIHAI [facility] [address] [phone] * EKG 12-LEAD (04/26/2016 12:00 AM RESIDENTIAL TEAM LEADER) Only the most recent of6 resultswithin the time period is included. EKG [facility] Comment: Exam Date/Time: Apr 26 2016 [...] No significant change was found Confirmed by TORRSE COWAN, P ([id number]), visual effects editor Osiel Rivero ([id number]) on 05/08/2016 11:29:47 AM Referred By: REFERRING NO Confirmed By:Martín MACDONALD MD 04/26/2016 Tamara Mercedes MD ECG ORDERABLES [facility] * XR LUMBAR SPINE 2 OR [...] included. BUN 13 7 - 26 mg/dL [facility] Creatinine 0.9 0.6 - 1.2 mg/dL [facility] Sodium 139 136 - 145 mmol/L [facility] Potassium 3.6 3.5 - 4.5 mmol/L [facility] Chloride 105 98 - 107 mmol/L [facility] CO2 22 22 - 29 mmol/L [facility] Glucose 149(H) 70 - 115 mg/dL [facility] Calcium 9.9 8.4 - 10.2 mg/dL [facility] Anion Gap 16 8 - 18 [facility] BUN/Creatinine Ratio 14 7 - 23 [facility] Osmolality Calculated 276 270 - 300 mOsm/kg [facility] eGFR >60 >60 mL/min/1.7 3 m2 [facility] Blood specimen (specimen) BLOOD SPECIMEN / Unknown 09/19/2015 6:48 PM CDT 09/19/2015 6:53 PM CDT Yoandy Chan MD LAB - CHEMISTRY [facility] Organization Address City/State/ZIP Co de Phone Number [facility] [address] [place] [address] * IR NERVE BLOCK L OR S [...] NESTOR W/REFLEX IFA PATTERN (07/06/2015 12:46 PM RESIDENTIAL TEAM LEADER) Pathologist [facility] NESTOR None Detected None Detected [facility] Blood specimen (specimen) BLOOD SPECIMEN / Unknown 07/06/2015 12:46 PM RESIDENTIAL TEAM LEADER 07/06/2015 1:03 PM RESIDENTIAL TEAM LEADER Kelsea Clemons MD LAB - SEROLOGY ORDER DELORES Performing Organization Address [facility] Co de Phone Number [address] [phone] * RHEUMATOID FACTOR BLOOD QUANTITATIVE (07/06/2015 12:46 PM RESIDENTIAL TEAM LEADER) Pathologist [facility] Rheumatoid Factor <15 <30 IU/mL [facility] Blood specimen (specimen) BLOOD SPECIMEN / Unknown 07/06/2015 12:46 PM RESIDENTIAL TEAM LEADER 07/06/2015 1:03 PM RESIDENTIAL TEAM LEADER Kelsea Clemons MD LAB - CHEMISTRY ORDE RABALBERT Performing Organization Address [facility]/ZIP Co de Phone Number [address] [phone] * (ABNORMAL) C-REACTIVE PROTEIN (07/06/2015 12:46 PM RESIDENTIAL TEAM LEADER) Pathologist [facility] C-Reactive Protein 1.1(H) <=0.5 mg/dL [facility] Blood specimen (specimen) BLOOD SPECIMEN / Unknown 07/06/2015 12:46 PM RESIDENTIAL TEAM LEADER 07/06/2015 1:03 PM RESIDENTIAL TEAM LEADER Kelsea Clemons MD LAB - CHEMISTRY [facility] Performing Organization Address City/[facility]/ZIP Co de Phone Number [address] [phone] * CYCLIC CITRUL PEPTIDE AB IGG (CCP) (07/06/2015 12:46 PM RESIDENTIAL TEAM LEADER) CCP Antibody IgG <0.5 <5.0 U/mL [facility] Blood specimen (specimen) BLOOD SPECIMEN / Unknown 07/06/2015 12:46 PM RESIDENTIAL TEAM LEADER 07/06/2015 1:03 PM RESIDENTIAL TEAM LEADER Kelsea Clemons MD LAB - CHEMISTRY [facility] Performing Organization Address [facility] Co de Phone Number [address] [phone] * (ABNORMAL) ERYTHROCYTE SEDIMENTATION RATE (07/06/2015 12:46 PM RESIDENTIAL TEAM LEADER) Erythrocyte Sedimentation Rate Westergren 12(H) 0 - 10 MM/HR [facility] Comment: ########################################################################## # Please Note: New age specific reference ranges have been implemented. # ########################################################################## Blood specimen (specimen) BLOOD SPECIMEN / Unknown 07/06/2015 12:46 PM RESIDENTIAL TEAM LEADER 07/06/2015 1:03 PM RESIDENTIAL TEAM LEADER Kelsea A Prablek MD LAB - HEMATOLOGY ORD ERABLES Performing Organization Address [facility]/ZIP Co de Phone Number [facility] [address] [phone] * GLUCOSE - POINT OF CARE (AMB) [facility] (04/30/2015 8:43 PM RESIDENTIAL TEAM LEADER) Only the most recent of6 resultswithin the time period is included. Tamara Mercedes MD LAB - POINT OF CARE ORDERABLES Performing Organization Address [facility]/ZIP Co de Phone Number [facility] * GLUCOSE ACCUCHECK (04/30/2015 8:43 PM RESIDENTIAL TEAM LEADER) Only the most recent of3 resultswithin the time period is included. Glucose, Fingerstick 81 70-115mg/d L mg/dL [facility] ([place] Comment:Assistant Engineer: ALFREDO HAWKINS 04/30/2015 8:43 PM RESIDENTIAL TEAM LEADER Guanaco Wallace MD LAB - CHEMISTRY ORDE MIHAI Performing Organization Address [facility] Co de Phone Number [facility] ([facility]) * CT BRAIN STROKE PROTOCOL (04/30/2015 8:31 PM RESIDENTIAL TEAM LEADER) Anatomical Region Laterality Modality Head Other Impressions 05/01/2015 9:29 AM RESIDENTIAL TEAM LEADER IMPRESSION: 1. No acute intracranial hemorrhage. This report was approved by Rolf Johansen on 05/01/2015 8:11 AM . I, Dr. ERENDIRA HOBSON M.D. have personally reviewed and interpreted this examination/study. This report was electronically signed by ERENDIRA HOBSON M.D. on 05/01/2015 9:29 AM . Narrative 05/01/2015 9:29 AM RESIDENTIAL TEAM LEADER EXAMINATION: Computed tomography (CT) of the head [...] Beta-2 Glycoprotein I Antibody IgG <20.0 <20.0 [facility] Blood specimen (specimen) BLOOD SPECIMEN / Unknown 03/17/2015 1:15 PM CDT 03/17/2015 1:25 PM CDT Corey Donahue MD LAB - SEROLOGY OR DERABLES [address] [phone] * BETA-2 GLYCOPROTEIN 1 ANTIBODY IGM (03/17/2015 1:15 PM CDT) Beta-2 Glycoprotein Antibody IgM <20.0 <20.0 [facility] Blood specimen (specimen) BLOOD SPECIMEN / Unknown 03/17/2015 1:15 PM CDT 03/17/2015 1:25 PM CDT Corey Donahue MD LAB - SEROLOGY OR DERABLES Performing Organization Address [facility] Co de Phone Number [address] [phone] * (ABNORMAL) PROTEIN C FUNCTIONAL (03/17/2015 1:15 PM CDT) Pathologist [facility] APTT 29.3 23.0 - 38.4 Seconds [facility] PT 16.5(H) 12.1 - 14.8 Seconds [facility] Protein C Activity 176(H) 75 - 165 U/dL [facility] INR 1.3 [facility] Blood specimen (specimen) BLOOD SPECIMEN / Unknown 03/17/2015 1:15 PM CDT 03/17/2015 1:25 PM CDT Narrative [facility] - 03/18/2015 1:24 PM CDT Is the patient on Coumadin?->N Corey Donahue MD LAB - CHEMISTRY O RDERABLES Performing Organization Address [facility] Co de Phone Number [address] [phone] * CARDIOLIPIN ANTIBODY IGM (03/17/2015 1:15 PM CDT) Anticardiolipin Antibody IgM <15.0 <15.0 MPL [facility] Blood specimen (specimen) BLOOD SPECIMEN / Unknown 03/17/2015 1:15 PM CDT 03/17/2015 1:25 PM CDT Corey Donahue MD LAB - SEROLOGY OR DERABLES [address] [phone] * CARDIOLIPIN ANTIBODY IGG (03/17/2015 1:15 PM CDT) Anticardiolipin Antibody IgG <15.0 <15.0 GPL [facility] Blood specimen (specimen) BLOOD SPECIMEN / Unknown 03/17/2015 1:15 PM CDT 03/17/2015 1:25 PM CDT Corey Donahue MD LAB - SEROLOGY OR DERABLES Performing Organization Address [facility] Co de Phone Number [address] [phone] * (ABNORMAL) ANTITHROMBIN III ACTIVITY (03/17/2015 1:15 PM CDT) [facility] APTT 30.6 23.0 - 38.4 Seconds [facility] PT 16.9(H) 12.1 - 14.8 Seconds [facility] Antithrombin Activity 100 85 - 130 U/dL [facility] INR 1.4 [facility] Blood specimen (specimen) BLOOD SPECIMEN / Unknown 03/17/2015 1:15 PM CDT 03/17/2015 1:25 PM CDT Narrative [facility] - 03/17/2015 1:46 PM CDT Is patient on Heparin, Argatroban or Dabigatran?->Y Corey Donahue MD LAB - COAGULATION ORDERABLES Performing Organization Address [facility]/ZIP Co de Phone Number [address] [phone] * (ABNORMAL) PROTEIN S ACTIVITY (03/17/2015 1:15 PM CDT) APTT 29.3 23.0 - 38.4 Seconds [facility] PT 16.5(H) 12.1 - 14.8 Seconds [facility] Protein S Functional 117 70 - 130 U/dL [facility] INR 1.3 [facility] Blood specimen (specimen) BLOOD SPECIMEN / Unknown 03/17/2015 1:15 PM CDT 03/17/2015 1:25 PM CDT Narrative [facility] - 03/18/2015 1:24 PM CDT Is the patient on Coumadin?->N Corey Donahue MD LAB - COAGULATION ORDERABLES Performing Organization Address [facility]/ZIP Co de Phone Number [address] [phone] * LDH BLOOD (03/17/2015 1:15 PM CDT) [facility] Total 217 125 - 243 Units/L [facility] Blood specimen (specimen) BLOOD SPECIMEN / Unknown 03/17/2015 1:15 PM CDT 03/17/2015 1:25 PM CDT Corey Donahue MD LAB - CHEMISTRY O RDERABLES Performing Organization Address [facility] Co de Phone Number [address] [phone] * PROTHROMBIN [id number] PANEL (03/17/2015 1:13 PM CDT) PT PCR Specimen Whole Blood [facility] Prothrombin (F2) [id number] Mutation Negative [facility] ([place]) Comment: Indication for testing: Assess genetic risk for thrombosis. NEGATIVE: The Factor II, prothrombin W74950Y mutation, was not detected. Other causes of [...] Rom Gallegos, Ph.D. 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 CAUSE: Homozygosity or heterozygosity for F2 c.63296M>A (A37186L). MUTATION TESTED: F2 c.05507P>A (R59839C). CLINICAL SENSITIVITY FOR VENOUS THROMBOSIS: Approximately 10 percent. METHODOLOGY: Polymerase chain reaction and fluorescence monitoring. ANALYTICAL SENSITIVITY AND SPECIFICITY: 99 percent. LIMITATIONS: Diagnostic errors can occur due to rare sequence variations. F2 gene mutations, other than F99001F, will not be detected. Test developed and characteristics determined by [employer]. See Compliance Statement C: [employer] Blood specimen (specimen) BLOOD SPECIMEN / Unknown 03/17/2015 1:13 PM CDT 03/17/2015 1:24 PM CDT Corey Donahue MD LAB - COAGULATION ORDERABLES Performing Organization Address City/[facility]/ZIP Co de Phone Number [facility] ([facility] * HAPTOGLOBIN (03/17/2015 1:13 PM CDT) Haptoglobin 89 14 - 258 mg/dL [facility] Blood specimen (specimen) BLOOD SPECIMEN / Unknown 03/17/2015 1:13 PM CDT 03/17/2015 1:25 PM CDT Corey Donahue MD LAB - CHEMISTRY O RDERABLES [address] [phone] * HELICOBACTER PYLORI ANTIGEN FECES (01/27/2015 12:23 PM CDT) Helicobacter pylori Antigen Stool Negative Negative [facility] Stool specimen (specimen) STOOL SPECIMEN / Unknown 01/27/2015 12:23 PM CDT 01/27/2015 12:33 PM CDT Narrative [facility] - 01/30/2015 9:20 AM CDT Specimen Type->Stool Performed at: [address] [id number] [employer] [employer]er: Yamil Ferrera MD, Phone: [phone] Corey Donahue MD LAB - MICROBIOLOG Y ORDERABLES [facility] * TRANSFERRIN (01/26/2015 10:05 AM CDT) Transferrin 264 174 - 382 mg/dL [facility] Transferrin Saturation % 28 16 - 50 % [facility] Blood specimen (specimen) BLOOD SPECIMEN / Unknown 01/26/2015 10:05 AM CDT 01/26/2015 10:45 AM CDT Corey Donahue MD LAB - CHEMISTRY O RDERABLES Performing Organization Address City/[facility]/ZIP Co de Phone Number [address] [phone] * IRON BLOOD (01/26/2015 10:05 AM CDT) Iron 93 50 - 175 mcg/dL [facility] Blood specimen (specimen) BLOOD SPECIMEN / Unknown 01/26/2015 10:05 AM CDT 01/26/2015 10:45 AM CDT Corey Donahue MD LAB - CHEMISTRY O RDERABLES Performing Organization Address [facility]/ZIP Co de Phone Number [address] [phone] * TSH (01/26/2015 10:05 AM CDT) TSH 0.707 0.350 - 4.940 uIU/mL [facility] Blood specimen (specimen) BLOOD SPECIMEN / Unknown 01/26/2015 10:05 AM CDT 01/26/2015 10:45 AM CDT Corey Donahue MD LAB - CHEMISTRY O VÍCTOR Performing Organization Address City/[facility]/ZIP Co de Phone Number [address] [phone] * (ABNORMAL) FERRITIN (01/26/2015 10:05 AM CDT) Ferritin 425(H) 22 - 275 ng/mL [facility] Blood specimen (specimen) BLOOD SPECIMEN / Unknown 01/26/2015 10:05 AM CDT 01/26/2015 10:45 AM CDT Corey Donahue MD LAB - CHEMISTRY O VÍCTOR Performing Organization Address [facility] Co de Phone Number [address] [phone] * (ABNORMAL) LIPID PROFILE (01/26/2015 10:05 AM CDT) Only the most recent of2 resultswithin the time period is included. Cholesterol Total 122 <200 mg/dL [facility] HDL 38(L) >40 mg/dL [facility] Comment: ATP III Classification of HDL Cholesterol: <40 mg/dL: Considered a major risk factor. >60 mg/dL: Considered a negative risk factor. LDL Calculated 70 <100 mg/dL [facility] Comment: ATP III Classification of LDL Cholesterol: <100 mg/dL: Optimal 100 - 129 mg/dL: Near Optimal/Above Optimal 130 - 159 mg/dL: Borderline High 160 - 189 mg/dL: High >190 mg/dL: Very High Triglycerides 72 <150 mg/dL [facility] Comment: ATP III Classification of Triglycerides: <150 mg/dL: Normal 150 - 199 mg/dL: Borderline High 200 - 400 mg/dL: High >500 mg/dL: Very High Blood specimen (specimen) BLOOD SPECIMEN / Unknown 01/26/2015 10:05 AM CDT 01/26/2015 10:45 AM CDT Corey Donahue MD LAB - CHEMISTRY O RDERABLES Performing Organization Address City/State/[facility] Co de Phone Number [facility] [address] [place] [address] * CT ORBITS WO CONTRAST (12/26/2014 9:14 [...] included. Phosphorus 3.3 2.3 - 4.7 mg/dL [facility] Blood specimen (specimen) BLOOD SPECIMEN / Unknown 12/26/2014 3:43 AM CDT 12/26/2014 4:08 AM CDT Danis Mcpherson MD LAB - CHEMISTRY GRACE HOLM Performing Organization Address [facility] Co de Phone Number [address] [phone] * MAGNESIUM BLOOD (12/26/2014 3:43 AM CDT) Only the most recent of2 resultswithin the time period is included. Magnesium 1.9 1.6 - 2.6 mg/dL [facility] Blood specimen (specimen) BLOOD SPECIMEN / Unknown 12/26/2014 3:43 AM CDT 12/26/2014 4:08 AM CDT Dains Mcpherson MD LAB - CHEMISTRY GRACE HOLM Performing Organization Address City/[facility]/ZIP Co de Phone Number [address] [phone] * VAS BILATERAL VENOUS DUPLEX LE (12/25/2014 2:46 PM CDT) Anatomical Region Laterality Modality Other Danis Mcpherson MD VASCULAR LAB ORDERAB LES * ECHO SEBASTIÁN TRANSESOPHAGEAL (12/25/2014 12:00 AM CDT) Anatomical Region Laterality Modality Other 12/25/2014 Danis cMpherson MD ECHOCARDIOGRAPHY RAD IANT * CT ANGIO CHEST PULM EMBOLISM (12/24/2014 11:55 PM CDT) Anatomical Region Laterality Modality Chest Other Impressions 12/25/2014 2:07 PM CDT IMPRESSION: 1. Pulmonary embolism in the right lower lobe pulmonary artery. 2. Mild right basilar opacity may represent atelectasis or developing infarct. Dictated by Alexa Bran M.D. (financial institution president). This report was approved by Alexa Bran [...] or developinginfarct. Dictated by Alexa Bran M.D. (financial institution president). This report was approved by Alexa Bran [...] according to standard protocol. MRA of the geszvc-gj-Eewyzf was performed using a dpfg-qo-dyqiwj technique without contrast. Finally, contrast-enhanced MRA of [...] contrast according tostandard protocol. MRA of the lejkdy-jz-Oirzzl was performed using vanra-zf-rbyynn technique without contrast. Finally, contrast-enhanced MRAof the [...] according to standard protocol. MRA of the wemubj-ux-Wmxunc was performed using a brus-fd-uyevsb technique without contrast. Finally, contrast-enhanced MRA of [...] contrast according tostandard protocol. MRA of the lyzllg-xf-Ttywfx was performed using ajgmj-my-oufpid technique without contrast. Finally, contrast-enhanced MRAof the [...] according to standard protocol. MRA of the vkmmoa-vj-Jowhbe was performed using a qnpv-yc-ouvxzy technique without contrast. Finally, contrast-enhanced MRA of [...] contrast according tostandard protocol. MRA of the ssrlnc-kb-Idpgng was performed using wcykw-gi-mbczew technique without contrast. Finally, contrast-enhanced MRAof the [...] Hemoglobin A1c 6.4(H) 4.4 - 6.3 % [facility] Comment: Hemoglobin variant detected. Abnormal hemoglobins [...] clinically indicated. Estimated Average Glucose 137 mg/dL [facility] Comment: HbA1c Interpretation: Treatment target values [...] Mcpherson MD LAB - CHEMISTRY GRACE HOLM [facility] Organization Address City/State/ZIP Co de Phone Number [address] [phone] * (ABNORMAL) HEPATIC FUNCTION PANEL (12/24/2014 5:33 PM CDT) Protein Total 6.9 6.0 - 8.3 g/dL [facility] Albumin 3.2(L) 3.4 - 5.0 g/dL [facility] Bilirubin Total 0.5 0.2 - 1.2 mg/dL [facility] Bilirubin Conjugated 0.2 0.0 - 0.5 mg/dL [facility] Bilirubin Unconjugated 0.3 Unconjugated Bilirubin is a calculated value: Reference ranges have not been established. mg/dL [facility] Alkaline Phosphatase 51 40 - 150 Units/L [facility] ALT 16 0 - 55 Units/L [facility] AST 26 5 - 34 Units/L [facility] Albumin/Globulin Ratio 0.9(L) 1.1 - 2.3 [facility] Blood specimen (specimen) BLOOD SPECIMEN / Unknown 12/24/2014 5:33 PM CDT 12/24/2014 5:33 PM CDT Danis Mcpherson MD LAB [facility]Y [facility] Organization Address City/State/ZIP Co de Phone Number [address] [phone] * (ABNORMAL) DRUG ABUSE PANEL 10-20+ETHANOL URINE NO CONFIRM (12/24/2014 11:58 AM CDT) Pathologist [facility] Amphetamines Screen Urine Negative Negative : < 1000 ng/mL [facility] Barbiturates Screen Urine Negative Negative : < 200 ng/mL [facility] Benzodiazepine Screen Urine Negative Negative : < 200 ng/mL [facility] Opiates Urine Positive(A) Negative : < 300 ng/mL [facility] Comment: Positive urine opiate screening results should be confirmed by another generally accepted non-immunological method such as gas chromatography or mass spectrometry. Cocaine Metabolites Urine Negative Negative : < 300 ng/mL [facility] Phencyclidine Screen Urine Negative Negative : < 25 ng/ml [facility] Cannabinoids Screen Urine Negative Negative : <50 ng/mL [facility] Methadone Screen Urine Negative Negative : < 300 ng/mL [facility] Urine specimen (specimen) 12/24/2014 11:58 AM CDT 12/24/2014 12:15 PM CDT Narrative [facility] - 12/24/2014 12:44 PM CDT The Urine Toxicology Screening Panel does not screen for Propoxyphene, Meprobamate, Carisoprodol, Trazodone, vosp-yxh-eruzuvc medications and/or volatiles (Acetone, Isopropanol, Methanol or Ethylene Glycol). Ethanol, Salicylate, Acetaminophen, Tricyclic Antidepressants and several therapeutic drugs may be individually assayed in serum or plasma specimen. Toxicology testing by the [facility] is an aid to medical diagnosis and treatment of patients. No documented chain of custody was maintained. Results are intended to be used for clinical purposes only. Antonia Beverly MD LAB - URINE CHEMISTR Y ORDERABLES [address] [phone] * (ABNORMAL) URINALYSIS REFLEX TO MICROSCOPIC NO CULTURE (12/24/2014 11:58 AM CDT) Color UA Yellow Straw, Yellow, Colorless, Light Yellow [facility] Clarity UA Clear Clear [facility] Specific [place] UA 1.016 1.001 - 1.030 [facility] pH UA 5.0 5.0 - 8.0 [facility] Protein UA Negative <=20 mg/dL [facility] Glucose UA Negative Negative mg/dL [facility] Ketone UA Negative Negative mg/dL [facility] Bilirubin UA Negative Negative mg/dL [facility] Blood UA Negative Negative [facility] Nitrite UA Negative Negative [facility] Leukocyte Esterase Negative Negative [facility] Urobilinogen UA <2.0 <2.0 mg/dL [facility] RBC UA 1 0 - 8 /HPF [facility] WBC UA 1 0 - 2 /HPF [facility] Bacteria UA Occasional Rare, Occasional, None /HPF [facility] Mucus UA Many(A) None /LPF [facility] Urine specimen (specimen) 12/24/2014 11:58 AM CDT 12/24/2014 12:15 PM CDT Antonia Beverly MD LAB - URINALYSIS ORD ERABLES [address] [phone] * ALCOHOL ETHYL BLOOD (12/24/2014 10:36 AM CDT) Interpretation Ethanol None Detected None Detected mg/dL [facility] Comment:Ethanol levels less than 10 mg/dL are resulted as None detected . Blood specimen (specimen) BLOOD SPECIMEN / Unknown 12/24/2014 10:36 AM CDT 12/24/2014 10:40 AM CDT Antonia Beverly MD LAB - CHEMISTRY ORDE RABLES Performing Organization Address City/[facility]/ZIP Co de Phone Number [address] [phone] * XR CHEST 1VW PORTABLE (12/24/2014 9:56 AM CDT) Anatomical Region Laterality Modality Chest Other Impressions 12/24/2014 11:02 AM CDT Impression: No acute pulmonary process. Dictated by Satya Leung MD (Proposal Manager Writer) This report was approved by Satya Leung [...] pulmonary process. Dictated by Satya Leung MD (Proposal Manager Writer) This report was approved by Satya Leung on 12/24/2014 10:25 AM . I, . Dr. SYBIL GRACE MD have personally reviewed and interpreted thisexamination/study. This report was electronically signed by Dr. SYBIL GRACE MD on12/24/2014 11:02 AM . Antonia Beverly MD DIAGNOSTIC IMAGING O RDERABLES * PTT U (12/24/2014 9:47 AM CDT) APTT 33.1 23.0 - 38.4 Seconds [facility] Comment:Suggested therapeuti c range for full dose I.V. heparin therapy for venous thromboembolism is 66.0-91.0 seconds. Blood specimen (specimen) BLOOD SPECIMEN / Unknown 12/24/2014 9:47 AM CDT 12/24/2014 9:50 AM CDT Narrative [facility] - 12/24/2014 10:08 AM CDT Is patient on Heparin, Argatroban or Dabigatran?->N Antonia Beverly MD LAB - COAGULATION OR DERABLES [facility] [address] [place] [address] * ECHO W DOPPLER AND COLOR FLOW (12/24/2014 12:00 AM CDT) Anatomical Region Laterality Modality Other 12/24/2014 Danis Mcpherson MD ECHOCARDIOGRAPHY RAD IANT Care Teams Gill Box Tender Relationship Specialty Start Date End Date Corey Donahue MD [address] [place] [address] PCP - General 01/19/16
--- OUTSIDE RECORDS SUMMARY | 2024-07-30 19:24 | XMS_ITS ---
Author Name [facility] Organization [facility]) Address [address] [place] [address] Care Team Providers Care Tire Maintenance Technician Name Role Phone TOVA POTTER Primary Care [...] section includes the information on record at OR for the Encounter. Date/Time Encounter Type Encounter Description Reason Pro vider Source Aug 15, 2023 08:28 AM Outpatient Encounter GENERAL INTERNAL MEDICINE IHE Encounter Template Text not used by OR Plan of Treatment: Future Appointments (+ 6 months) and Future Tests (+/- 45 days) The Plan of Treatment section includes future care activities for the patient from all OR treatmentfacilities. This section includes future appointments and future orders which are active, pending or scheduled. Future Appointments This section includes appointments that were scheduled to occur 6 months from the date of the Encounter, up to a maximum of 20 appointments. The data comes from all OR treatment facilities. Appointment Date/Time Appointment Type Appointme nt Facility Name Sep 18, 2023 09:00 AM AMBULATORY - NONE [facility] Nov 14, 2023 03:00 PM AMBULATORY - SURGERY . Rosales TAS[facility] Dec 05, 2023 09:00 AM AMBULATORY - MEDICINE [facility] Jan 04, 2024 09:30 AM AMBULATORY - PSYCHIATRY [facility] Jan 08, 2024 08:30 AM AMBULATORY - MEDICINE [facility] Feb 06, 2024 01:00 PM AMBULATORY - NONE . LENIN Kilgore [facility] Feb 13, 2024 03:00 PM AMBULATORY - SURGERY [facility] Social History: Smoking Status (Most current) and Tobacco Use (All prior to encounter date) This section includes the most current, and the historical, smoking and tobacco- related health factors from the OR facility where the Encounter took place. Current Smoking Status This section includes the most current smoking, or tobacco-related health factor, from the OR facility where the Encounter took place. Date/Time Current Smoking Status Comment Rocky jeffries Nov 11, 2015 11:40 AM LIFETIME NON-USER OF TOBACCO [facility] Tobacco Use History This section includes a history of the smoking, or tobacco-related health factors, that were collected on or before the date of the Encounter. The data comes from the OR facility where the Encounter took place. Date/Time Smoking Status/Tobacco Use Comment Linus blake Dec 24, 2013 02:11 PM LIFETIME NON-USER OF TOBAC CO never [facility] Encounter Notes: All associated encounter notes This section contains the clinical notes associated to the Encounter. Date/Time Encounter Note(s) Provider Source Aug 15, 2023 08:24 PM ADDENDUM: LOCAL TITLE: Addendum STANDARD TITLE: ADDENDUM DATE OF NOTE: AUG 15, 2023@20:24:38 ENTRY DATE: AUG 15, 2023@20:24:39 AUTHOR: DALILA PERALTA EXP COSIGNER: URGENCY: STATUS: COMPLETED [facility] DENTAL SERVICE/COMMUNITY CARE RFS DETERMINATION The requested treatment: AUTHORIZED SUBMITTED. AUTHORIZED TREATMENT: [id number] ORAL EVALUAITON-PROBLEM FOCUSED [id number] FIRST FILM TOOTH #3 B7930-[id number] MAINTENANCE I1881-[id number] ORAL EVALUATION -ESTABLISHED PT [id number] APPLICATION OF FLUORIDE VARNISH ACTION STEPS * RFS/ADA Dental Claim Form external records reviewed. * New consult(s) placed with corresponding SEOC(s). * Rozet to continue dental treatment with community provider. AUTHORIZED PROVIDER: Dr Shai [facility] [address] [place] [address] Email: [email or web address] Specialty: Dentist - Wool Batting Worker Network: [place] [id number] COMMUNITY CARE COORDINATION NOTES Please continue 's care for authorized treatment. /radha/ DALILA PERALTA DMD DENTIST Signed: 08/15/2023 20:25 Receipt Acknowledged By: 08/16/2023 07:41 /radha/ LIZBETH REYES [facility]ITY CARE RN --- Original Document --- 08/15/23 [facility] CARE-REQUEST FOR SERVICE NOTE [facility]: Request for Services (RFS) documentation has been sent for scanning to [facility] Community Care Consult: COMMUNITY CARE- COMMUNITY CARE-[facility] DENTAL GEN Consult No: [id number] Date sent to scanning: Jul A Request for Service (RFS) form [id number] has been received which includes the following: Care Requested: [id number] ORAL EVALUAITON-PROBLEM FOCUSED [id number] FIRST FILM TOOTH #3 B4420-[id number] MAINTENANCE D3420-[id number] ORAL EVALUATION -ESTABLISHED PT [id number] APPLICATION OF FLUORIDE VARNISH ADA, note, xray in preauth folder Date [facility] received request: Jul Date service required: Jul Requesting Community Provider Information: Name of Ordering Provider: Dr [facility] [address] [place] [address] Email: [email or web address] Specialty: Dentist - Wool Batting Worker Network: [place] [id number] /jeannette REYES COMM[facility]ITY CARE RN Signed: 08/15/2023 09:08 Receipt Acknowledged By: 08/15/2023 20:24 /radha/ DALILA PERALTA DMD DENTIST DALILA PERALTA [facility] Aug 15, 2023 08:28 AM NONVA NOTE: LOCAL TITLE: COMMUNITY CARE-REQUEST FOR SERVICE NOTE ST[facility] STANDARD TITLE: NONVA NOTE DATE OF NOTE: AUG 15, 2023@08:28 ENTRY DATE: AUG 15, 2023@08:28:11 AUTHOR: LIZBETH REYES EXP COSIGNER: URGENCY: STATUS: COMPLETED COMMUNITY CARE-REQUEST FOR SERVICE NOTE STL Has ADDENDA Request for Services (RFS) documentation has been sent for scanning to [facility] Community Care Consult: COMMUNITY CARE- COMMUNITY CARE-[facility] DENTAL GEN Consult No: [id number] Date sent to scanning: Jul A Request for Service (RFS) form [id number] has been received which includes the following: Care Requested: [id number] ORAL EVALUAITON-PROBLEM FOCUSED [id number] FIRST FILM TOOTH #3 C2687-[id number] MAINTENANCE P6631-[id number] ORAL EVALUATION -ESTABLISHED PT [id number] APPLICATION OF FLUORIDE VARNISH ADA, note, xray in preauth folder Date [facility] received request: Jul Date service required: Jul Requesting Community Provider Information: Name of Ordering Provider: Dr Shai Cabrera [facility] [address] [place] [address] Email: [email or web address] Specialty: Dentist - Wool Batting Worker Network: [facility] Region 2 /radha/ LIZBETH REYES [facility] RN Signed: 08/15/2023 09:08 Receipt Acknowledged By: 08/15/2023 20:24 /radha/ DALILA PERALTA DMD DENTIST 08/15/2023 ADDENDUM STATUS: COMPLETED [facility] DENTAL SERVICE/COMMUNITY CARE RFS DETERMINATION The requested treatment: AUTHORIZED SUBMITTED. AUTHORIZED TREATMENT: [id number] ORAL EVALUAITON-PROBLEM FOCUSED [id number] FIRST FILM TOOTH #3 P7864-[id number] MAINTENANCE M3024-[id number] ORAL EVALUATION -ESTABLISHED PT [id number] APPLICATION OF FLUORIDE VARNISH ACTION STEPS * RFS/ADA Dental Claim Form external records reviewed. * New consult(s) placed with corresponding SEOC(s). * to continue dental treatment with community provider. AUTHORIZED PROVID[facility] [address] [place] [address] Email: [email or web address] Specialty: Dentist - Wool Batting Worker Network: [facility] Region 2 COMMUNITY CARE COORDINATION NOTES Please continue 's care for authorized treatment. /radha/ DALILA PERALTA DMD DENTIST Signed: 08/15/2023 20:25 Receipt Acknowledged By: * AWAITING SIGNATURE * LIZBETH REYES NICOLE D [facility]
--- OUTSIDE RECORDS SUMMARY | 2024-07-30 19:24 | XMS_ITS | Encounter Summary ---
Author Name [facility] [facility] [place] [facility] [place] Address [address] [place] [address] Care Team Providers Care Investigation Manager Name Role Phone TOVA POTTER Primary Care [...] section includes the information on record at [place] for the Encounter. Date/Time Encounter Type Encounter Description Reason Provider Source Apr 09, 2024 03:10 PM QNHP OL DIG ASSMT&MGMT 11-20 CLINICAL PHARMACY ICD-10-CM E11.9 Type 2 diabetes mellitus without complications AUTUMN HERZOG E Encounter Template Text not used by [place] Assessments - Encounter Diagnoses This section includes the primary and secondary diagnoses documented for the Encounter. Date/Time Primary/Secondary Diagnosis Diagnosis Name Provider Source Apr 09, 2024 03:22 PM PRIMARY Type 2 diabetes mellitus without complications KENZIE HERZOG [facility] Plan of Treatment: Future Appointments (+ 6 months) and Future Tests (+/- 45 days) The Plan of Treatment section includes future care activities for the patient from all [facility]. This section includes future appointments and future orders which are active, pending or scheduled. Future Appointments This section includes appointments that were scheduled to occur 6 months from the date of the Encounter, up to a maximum of 20 appointments. The data comes from all [facility]. Appointment Date/Time Appointment Type Appointme nt Facility Name Apr 15, 2024 02:00 PM AMBULATORY - MEDICINE [facility] May 01, 2024 02:00 PM AMBULATORY - PSYCHIATRY [facility] May 02, 2024 01:00 PM AMBULATORY - REHAB MEDICIN E [facility] May 07, 2024 02:00 PM AMBULATORY - NONE [facility] May 15, 2024 02:00 PM AMBULATORY - PSYCHIATRY [facility] May 16, 2024 01:00 PM AMBULATORY - REHAB MEDICIN E [facility] May 31, 2024 01:30 PM AMBULATORY - REHAB MEDICIN E [facility] Jun 10, 2024 03:00 PM AMBULATORY - NONE [facility] Jun 14, 2024 01:30 PM AMBULATORY - REHAB MEDICIN E [facility] Jun 21, 2024 03:00 PM AMBULATORY - NONE [facility] Jun 25, 2024 10:00 AM AMBULATORY - NONE [facility] Jun 28, 2024 01:30 PM AMBULATORY - REHAB MEDICIN E [facility] Jul 02, 2024 08:00 AM AMBULATORY - NONE [facility] Jul 09, 2024 08:30 AM AMBULATORY - MEDICINE [facility] Jul 29, 2024 01:00 PM AMBULATORY - [facility]GERY [facility] Aug 06, 2024 02:00 AM AMBULATORY - NONE [facility] October 01, 2024 08:00 AM AMBULATORY - MEDICINE [facility] Active, Pending, and Scheduled Orders This section includes a listing of several types of active, pending, and scheduled orders, including clinic medications orders, diagnostic test orders, procedure orders and consult orders; where the start date of the order is 45 days before the date of the Encounter or 45 days after the date of theEncounter. The data comes from all [place] treatment facilities. Test Date/Time Test Type Test Details Facility Name Apr 15, 2024 12:00 AM Laboratory - Chemi stry Order BASIC METABOLIC PANEL GREEN LI/HEP BLD/PLAS PLASMA SP [facility] Apr 15, 2024 12:00 AM Laboratory - Chemi stry Order HGA1C BLOOD SP [facility] Apr 15, 2024 12:00 AM Laboratory - Chemi stry Order LIPID PANEL (STL) GREEN LI/HEP BLD/PLAS PLASMA SP ONCE [facility] Apr 15, 2024 12:00 AM Laboratory - Chemi stry Order MICRAL/CREAT PROFILE (STL) URINE SP [facility] May 14, 2024 11:54 AM Consult Order COMMUNITY CARE-STL DENTAL GEN Cons Cake [employer] [facility] Lab Results: +/- 30 days of the encounter This section includes the Chemistry and Hematology Lab Results on record with [place] for the patient. Radiology Reports and Pathology Reports are provided separately, in subsequent sections. Lab Results This section contains the Chemistry/Hematology Results that were resulted 30 days before or 30 daysafter the date of the Encounter. Date/Time Source Result Type Result - Unit Interpretation Reference Range Comment Apr 15, 2024 02:33 PM [facility] GLUCOSE,BLOOD-poct (STL) Specimen Type: BLOOD Comment: Test Performed by: [id number] Meter #: [id number] Ordering Provider: CHARITY POTTER Report Released Date/Time: Apr 15, 2024 03:35 PM Reporting Lab: [facility] [address] [facility] [id number] Performing Lab: [facility] [address] [facility] [id number] GLUCOSE,BLO OD-poct (STL) 71 mg/dL L 72-99 Social History: Smoking Status (Most current) and Tobacco Use (All prior to encounter date) This section includes the most current, and the historical, smoking and tobacco- related health factors from the [place] facility where the Encounter took place. Current Smoking Status This section includes the most current smoking, or tobacco-related health factor, from the [facility] where the Encounter took place. Date/Time Current Smoking Status Comment Rocky jeffries Nov 11, 2015 11:40 AM LIFETIME NON-USER OF TOBACCO [facility] Tobacco Use History This section includes a history of the smoking, or tobacco-related health factors, that were collected on or before the date of the Encounter. The data comes from the [place] facility where the Encounter took place. Date/Time Smoking Status/Tobacco Use Comment F hayden Dec 24, 2013 02:11 PM LIFETIME NON-USER OF TOBAC CO never [facility] Encounter Notes: All associated encounter notes This section contains the clinical notes associated to the Encounter. Date/Time Encounter Note(s) Provider Source Apr 09, 2024 03:10 PM INTERNAL MEDICINE CLINICAL PHARMACIST MEDICATION MGT NOTE: LOCAL TITLE: CLINICAL PHARMACIST NOTE ST STANDARD TITLE: INTERNAL MEDICINE CLINICAL PHARMACIST MEDICATION DATE OF NOTE: APR 09, 2024@15:10 ENTRY DATE: APR 09, 2024@15:10:39 AUTHOR: PAWAN HERZOG COSIGNER: URGENCY: STATUS: COMPLETED CLINICAL PHARMACY CHART REVIEW NOTE Vet was identified by [facility] population management dashboard. I have reviewed pertinent CPRS documentation in the electronic medical record for this patient. The recommendations/findings offered are the result of information from chart review only. Alerting PCP: please consider the recommendations below at your upcoming appointment with this 04/15 2 14:00. PMH: 1) Shoulder pain 2) TIA 3) Chronic low back pain 4) Migraine 5) H/O: embolism 6) H/O: sexual function problem 7) Posttraumatic stress disorder 8) Pain in right knee 9) Type 2 diabetes mellitus 10) Degeneration of intervertebral disc 11) Degenerative disc disease 12) Exposure to potentially hazardous substance Allergies: Patient has answered NKA Medications: Active and Recently Outpatient Medications (excluding Supplies): Active Outpatient Medications Status 1) CLONIDINE HCL 0.1MG TAB TAKE ONE AND ONE-HALF TABLETS ACTIVE BY MOUTH TWICE A DAY FOR POST TRAUMATIC STRESS DISORDER 2) DULOXETINE HCL 30MG EC CAP TAKE THREE CAPSULES BY ACTIVE MOUTH ONCE A DAY DO NOT ABRUPTLY DISCONTINUE MEDICATION. 3) HYDROXYZINE HCL 25MG TAB TAKE ONE TABLET BY MOUTH ACTIVE THREE TIMES A DAY NEEDED FOR ANXIETY *MAY CAUSE DROWSINESS* Active Non-VA Medications Status 1) Non-VA ASPIRIN 81MG EC TAB 81MG BY MOUTH ONCE A DAY ACTIVE : - sitagliptin 100mg daily - alogliptin 25mg daily which was converted to sitagliptin per [facility] formulary conversion labs: HGA1C 7.2 H % 04/04/2023 07:19 HGA1C 6.9 H % 07/13/2022 10:15 HGA1C 7.0 H % 12/22/2021 11:15 HGA1C 7.0 H % 12/17/2020 13:00 HGA1C 6.2 H % 11/26/2019 08:50 A1C per JLV: 6.5% (03/21/2024) Patient's Hemoglobin A1c from a non-VA lab. Date: March 21, 2024 Result 6.5 CREATININE 0.85 mg/dL 04/04/2023 07:19 CREATININE 0.85 mg/dL 04/04/2023 07:19 EGFR (CKD-EPI 2020) 102.6 04/04/2023 07:19 Estimated CrCl 109.7mL/min SGOT: 21 U/L (04/04/23 07:19) SGPT: 14 U/L (04/04/23 07:19) micral per [facility] (03/21/24): MICROALBUMIN (U) 5.6 <20 MG/L CREATININE RANDOM (U) 59.4 MG/DL ALBUMIN/CREAT RATIO 9.4 <30 MG/G vitals per [facility] (03/21/24): Blood Pressure 116 / 68 Pulse 81 Assessment/Plan: # Diabetes - Goal A1c <7%, FBG 80-130, post-prandial BG <180, per VA/DoD guidelines Controlled to a1c goal per recent nonVA A1C per [facility]. completed a1c outside lab template today to fulfill EQM measure as above. vet w [facility] rx for sitagliptin. Per [facility] active DM medications include empagliflozin 25mg daily and pioglitazone 30mg daily. JLV also showed active rx from atorvastatin 40mg daily. renal function appropriate for regimen. recommend med rec at upcoming pcp appt to confirm these rxs w vet. - (+)statin (active rx per JLV) *added to nonVA med list w start date for EQM measure - last clinic bp controlled per JLV - (+) opto exam - 10/2023 Diabetes without retinopathy , of note vet no showed 01/2024 opto appt - (+) foot exam - 07/2023 Alerting PCP to the above as FYI 13 minutes spent reviewing patient's medical records /radha/ Nurys Herzog PharmD Clinical Pharmacist Practitioner Signed: 04/09/2024 15:26 Receipt Acknowledged By: 04/15/2024 14:15 /radha/ [facility]
--- OUTSIDE RECORDS SUMMARY | 2024-07-30 19:24 | XMS_ITS | Encounter Summary ---
Author Name [facility] [place] Organization [place] Address [address] [place] [address] Care Team Providers Care Underpresser Hand Name Role Phone TOVA POTTER Primary Care [...] Type Encounter Description Reason Pro vider Source Feb 23, 2024 12:18 PM Outpatient Encounter COMMUNITY CARE CONSULT IHE [...] 15, 2024 02:00 PM AMBULATORY - MEDICINE [facility] May 01, 2024 02:00 PM AMBULATORY - PS[facility]IATRY [facility] May 02, 2024 01:00 PM AMBULATORY - REHAB MEDICIN E . [facility] May 07, 2024 02:00 PM AMBULATORY - NONE [facility] May 15, 2024 02:00 PM AMBULATORY - PSYCHIATRY [facility] May 16, 2024 01:00 PM AMBULATORY - REHAB MEDICIN E [facility] May 31, 2024 01:30 PM AMBULATORY - REHAB MEDICIN E [facility] Jun 10, 2024 03:00 PM AMBULATORY - NONE [facility] Jun 14, 2024 01:30 PM AMBULATORY - REHAB MEDICIN E [facility] Jun 21, 2024 03:00 PM [facility] Jun 25, 2024 10:[facility] Jun 28, 2024 01:30 PM AMBULATORY - REHAB MEDICIN E [facility] Jul 02, 2024 08:00 AM [facility] Jul 09, 2024 08:30 AM AMBULATORY - MEDICINE [facility] Jul 29, 2024 01:00 PM AMBULATORY - SURGERY [facility] Aug 06, 2024 02:00 AM [facility] Social History: Smoking Status (Most current) [...] LIFETIME NON-USER OF TOBAC CO never [facility] Encounter Notes: All associated encounter notes This section contains the clinical notes associated to the Encounter. Date/Time Encounter Note(s) Provider Source Feb 23, 2024 12:32 PM ADDENDUM: LOCAL TITLE: Addendum STANDARD TITLE: ADDENDUM DATE OF NOTE: FEB 23, 2024@12:32:27 ENTRY DATE: FEB 23, 2024@12:32:29 AUTHOR: DALILA PERALTA EXP COSIGNER: URGENCY: STATUS: COMPLETED STL DENTAL SERVICE/COMMUNITY CARE RFS DETERMINATION The requested treatment: AUTHORIZED SUBMITTED. AUTHORIZED TREATMENT: [id number] MAINTENANCE [id number] APPLICATION OF FLUORIDE VARNISH ACTION STEPS * RFS/ADA Dental Claim Form external records reviewed. * New consult(s) placed with corresponding SEOC(s). * to continue dental treatment with community provider. AUTHORIZED PROVIDER: [facility] [address] [place] [address] Email: [email or web address] NPI: [id number] Specialty: Dentist - Home Advisor Network: [facility] 2 COMMUNITY CARE COORDINATION NOTES Please continue 's care for authorized treatment /radha/ DALILA PERALTA DMD DENTIST Signed: 02/23/2024 12:33 Receipt Acknowledged By: 02/23/2024 14:13 /radha/ LIZBETH REYES [facility] RN --- Original Document --- 02/23/24 COMMUNITY CARE-REQUEST FOR SERVICE NOTE STL: Request for Services (RFS) documentation has been sent for [facility] [employer] [facility] Consult: COMMUNITY CARE-COMMUNITY CARE-STL DENTAL GEN Consult No: [id number] Date sent to scanning: Jan A Request for Service (RFS) form [id number] has been received which includes the following: Care Requested: [id number] MAINTENANCE [id number] APPLICATION OF FLUORIDE VARNISH ADA, note, xray in preauth folder Date [facility] received request: Jan Date service required: Jan Requesting Community Provider Information: Name of Ordering Provider: Dr Oziel Chow [address] Dr [address] [place] [id number] Email: [email or web address] NPI: [id number] Specialty: Dentist - Home Advisor Network: [place] [id number] /radha/ LIZBETH REYES [facility] RN Signed: 02/23/2024 12:22 Receipt Acknowledged By: 02/23/2024 12:32 /radha/ DALILA PERALTA DMD DENTIST DALILA PERALTA [facility] Feb 23, 2024 12:18 PM NONVA NOTE: LOCAL TITLE: COMMUNITY CARE-REQUEST FOR SERVICE NOTE STL STANDARD TITLE: NONVA NOTE DATE OF NOTE: FEB 23, 2024@12:18 ENTRY DATE: FEB 23, 2024@12:18:58 AUTHOR: LIZBETH REYES EXP COSIGNER: URGENCY: STATUS: COMPLETED COMMUNITY CARE-REQUEST FOR SERVICE NOTE STL Has ADDENDA Request for Services (RFS) documentation has been sent for scanning to [facility] Community Care Consult: COMMUNITY CARE-COMMUNITY CARE-STL DENTAL GEN Consult No: [id number] Date sent to scanning: Jan A Request for Service (RFS) form [id number] has been received which includes the following: Care Requested: [id number] MAINTENANCE [id number] APPLICATION OF FLUORIDE VARNISH ADA, note, xray in preauth folder Date VA received request: Jan Date service required: Jan Requesting Community Provider Information: Name of Ordering Provider: Dr Oziel Chow Dental Dr Oziel [address] [place] [id number] Email: [email or web address] NPI: [id number] Specialty: Dentist - Home Advisor Network: [place] [id number] /jeannette REYES [facility] RN Signed: 02/23/2024 12:22 Receipt Acknowledged By: 02/23/2024 12:32 /es/ DALILA PERALTA DMD DENTIST 02/23/2024 ADDENDUM STATUS: COMPLETED STL DENTAL SERVICE/COMMUNITY CARE RFS DETERMINATION The requested treatment: AUTHORIZED SUBMITTED. AUTHORIZED TREATMENT: [id number] MAINTENANCE [id number] APPLICATION OF FLUORIDE VARNISH ACTION STEPS * RFS/ADA Dental Claim Form external records reviewed. * New consult(s) placed with corresponding SEOC(s). * [place] to continue dental treatment with community provider. AUTHORIZED PROVIDER: Leyla [address] [facility] Dr [address] [place] [address] Email: [email or web address] NPI: [id number] Specialty: Dentist - Home Advisor Network: [facility] 2 COMMUNITY CARE COORDINATION NOTES Please continue 's care for authorized treatment /es/ DALILA PERALTA DMD DENTIST Signed: 02/23/2024 12:33 Receipt Acknowledged By: * AWAITING SIGNATURE * JESSE CHESTER * AWAITING SIGNATURE * LIZBETH REYES NICOLE D [facility]
--- OUTSIDE RECORDS SUMMARY | 2024-07-30 19:25 | XMS_ITS | Continuity of Care Document ---
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 It does not include entries that were removed or entered in error. Problem Status Onset Date Problem Type Date of Resolution Comments Source Chronic low back pain Active Condition [facility] Degeneration of intervertebral disc Active Condition [facility] Degenerative disc disease Active Condition Mar 06, 2018 Entered By: BLACK HOOD Comment: cervical s/p fusion c4-5 '06 and laminec/foramin ot c6-7 '08 [facility] Exposure to potentially hazardous substance Active Condition [facility] H/O: embolism Active Condition Oct Entered By: MICHAEL LEROY Comment: Pulmonary [facility] H/O: sexual function problem Active Condition [facility] Migraine Active Condition [facility] Pain in right knee Active Condition [facility] Posttraumatic stress disorder Active Condition [facility] Shoulder pain Active Condition [facility] TIA Active Condition [facility] Type 2 diabetes mellitus Active Condition [facility] dermatophytosis tinea pedis Active Condition DoD gout first MTP joint Active Condition D oD restless legs syndrome Active Condition DoD ophthalmoplegia Active Condition DoD cervical radiculopathy C5 Active Condition DoD patellofemoral syndrome Active Condition DoD cervical neuritis C6 - C7 Active Condition DoD nonallopathic lesions pelvic Active Condition DoD nonallopathic lesions cervical Active Condition DoD nonallopathic lesions thoracic Active Condition DoD nonallopathic lesions rib cage Active Condition DoD nonallopathic lesions lumbar Active Condition DoD nonallopathic lesions sacral Active Condition DoD nonallopathic lesions head Active Condition DoD cervical spondylosis (C6 - C7) Active Condition DoD cervical spondylosis (C7 - T1) Active Condition DoD cervical spondylosis (C5 - C6) Active Condition DoD cervical spondylosis (C3 - C4) Active Condition DoD cervical spondylosis (C4 - C5) Active Condition DoD cervical radiculopathy C6 Active Condition DoD cervical radiculopathy C7 Active Condition Do[facility] ptosis of left upper eyelid Active Condition Do[facility] disorders of gaze Active Condition DoD tendonitis shoulder Active Condition Do D joint pain, localized in the hip Active Condition DoD sacroiliitis Active Condition DoD lower back pain Active Condition [facility] joint pain, localized in the right shoulder Active Condition DoD neck pain Active Condition Do[facility] common migraine without aura Active Condition Do[facility] 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 DoD migraine headache Active Condition DoD nightmare disorder Active Condition DoD spondyloarthropathy Active Condition Do D Outpatient Physician Consultation Active Condition DoD borderline glaucoma Active Condition Do D presbyopia Active Condition DoD astigmatism Active Condition DoD refractive error - myopia Active Condition [facility] Inquiry And Counseling: Concern About Behavior Of Child Inactive Condition DoD partner relational problem Inactive Condition [facility] visit for: services physical Active Condition DoD lumbago Active Condition DoD post-traumatic stress disorder Active Condition DoD primary snoring Active Condition DoD psychiatric diagnosis or condition deferred on axis I Active Condition DoD cognitive disorder Active Condition 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 DoD Back Muscle Spasm Active Condition DoD spondylosis Active Condition Do[facility] abnormal auditory perception Active Condition [facility] Counseling About Travel Active Condition DoD cerumen impaction - right ear Active Condition DoD sensorineural hearing loss Active Condition DoD tinnitus subjective Active Condition Do D sensorineural hearing loss bilateral Active Condition Do[facility] Patient Counseling Medical Management Individual Patient Active Condition DoD visit for: occupational health / fitness exam Active Condition DoD routine examination Active Condition Do D tinnitus Active Condition Do[facility] visit: ears/hearing exam for hearing conservation, treatment Active Condition [facility] Preventive Medicine Established Patient Checkup Adult 40-64 Years Active Condition DoD visit for: screening exam cardiovascular disorders Inactive Condition DoD male erectile disorder Active Condition DoD fatigue Active Condition DoD herniated intervertebral disc cervical Active Condition DoD headache syndromes Inactive Condition Do D visit for: postsurgical exam Active Condition [facility] Aftercare Following Surgery Of Musculoskeletal System Inactive Condition Do[facility] Aftercare Following Surgery Active Condition SM's is to continue his post-opt PT and pool therapy He is to continue his T3 profile.He was RXs for Mobic,Robaxin, and Pamelor.The possible benefits and sides of effects of these medicines were discussed including the risk of opioid dependency with continued use of his previously prescribed Percocet.He was advised to gradually taper off the Percocet once he has started the Pamelor.If he is unsuccessful in d'cing the narcotic a referral to [facility]MP may be necessary in the future. He is to continue practicing good spine health by routinely performing spine stabilization stretches and exercises, using proper lifting techniques, and maintaining a normal body weight. He is to RTO to [facility] clinic in 2 weeks for a VTC with the [facility] Neurosurgeon. Time of face to face counseling and/or coordinating care was 30 minutes. DoD spinal stenosis cervical Active Condition DoD tingling (paresthesia) Active Condition DoD cervical radiculopathy Active Condition DoD cervical spondylosis with myelopathy Active Condition The SM 's films,PE and Hx were reviewed by the [facility] Neurosurgeon. 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 He is to continue his PL2.He is to continue his medicines. He was advised to implement good spine health by routinely performing spine stabilization stretches and exercises, using proper lifting techniques, and maintaining a normal body weight. He is to follow up in the [facility] post opt day 7-10 for a wound check unless otherwise directed by the [facility] Neurosurgeon. Time of face to face counseling and/or coordinating was 30 minutes DoD pain in upper arms Active Condition DoD cervicalgia Active Condition DoD chronic pain syndrome Active Condition DoD intervertebral disc degeneration - lumbar Active Condition DoD Laboratory Studies Inactive Condition Do D ptosis of eyelid Active Condition DoD cervical disc degeneration C5 - C6 Active Condition DoD cervical disc degeneration C6 - C7 Active Condition DoD cervical disc degeneration C4 - C5 Active Condition DoD intervertebral disc degeneration Active Condition DoD intervertebral disc degeneration - cervical Active Condition DoD spinal stenosis Active Condition DoD postsurgical state Active Condition [facility] visit for: administrative purpose Inactive Condition Instructed regarding use of AKO for Individual Medical Readiness Status, and how to remedy using local resources. Currently Medically Ready per [facility] Routine Readiness standard, except for: Will need to contact unit regarding Vision Readiness Scree DoD muscle weakness Active Condition [facility] Other Physical Therapy Active Condition DoD cervical disc degeneration C3 - C4 Active Condition DoD backache Inactive Condition [facility] Administrative Evaluation Services Inactive Condition [facility] Diagnosis: ICD-10-CM M47.817 Spondyls w/o myelopathy or radiculopathy, lumbosacr region Active Diagnosis [facility] Diagnosis: ICD-10-CM M50.30 Other cervical disc degeneration, unsp cervical region Active Diagnosis [facility] Diagnosis: ICD-10-CM F43.12 Post-traumatic stress disorder, chronic Active Diagnosis [facility] Diagnosis: ICD-10-CM M54.50 Low back pain, unspecified Active Diagnosis [facility] Diagnosis: ICD-10-CM E11.9 Type 2 diabetes mellitus without complications Active Diagnosis [facility] Diagnosis: ICD-10-CM K31.9 Disease of stomach and duodenum, unspecified Active Diagnosis [facility] Diagnosis: ICD-10-CM F43.10 Post-traumatic stress disorder, unspecified Active Diagnosis [facility] Medications Combined list of outpatient medications from Department of Defense and Veterans Affairs facilities.Medications provided include 1) outpatient medications from the last 15 months, and 2) patient-reported medications. Medication Details Route Status Patient Instructions Prescription Expires Prescription Number Last Dispense Date Ordering Provider Order Date Order Qty Source AMOXICILLIN (AMOXICILLI N), 875MG, TABLET, ORAL, [employer], 100 ea. BOTTLE Active [id number] 2023 28 Pharmac y Data Transac tion Service Facilit y AMOXICILLIN (AMOXICILLI N), 875MG, TABLET, ORAL, [employer], 100 ea. BOTTLE Active [id number] 2022 28 Pharmac y Data Transac tion Service Facilit y atorvastati n 10 mg tablet See Instruct ions, # 90 EA, 1 total refill(s ), Acute Complet ed 03/01/2023 3 2022 90.0 Ambulat ory Pharmac y atorvastati n 10 mg tablet See Instruct ions, # 90 EA, 3 total refill(s ), Hard Stop Complet ed 03/19/2024 4 2023 90.0 Ambulat ory Pharmac y atorvastati n 40 mg tablet See Instruct ions, # 90 EA, 3 total refill(s ), Hard Stop Ordered 09/18/2024 4 2023 90.0 Ambulat ory Pharmac y ATORVASTATI N CA 80MG TAB TAKE ONE-HALF TABLET BY MOUTH EVERY EVENING FOR HIGH CHOLESTE ROL ORAL ACTIVE 04/16/2025 [id number] POTTER,A RMIDA A 2023 45 [facility] bimatoprost 0.01% ophthalmic solution INSTILL ONE DROP INTO BOTH EYES ONCE DAILY IN THE EVENING, # 10 mL, 2 total refill(s ), Acute Complet ed 04/25/20232022 10.0 Ambulat ory Pharmac y cholecalcif elodia 125 mcg (5,000 units) capsule See Instruct ions, # 90 EA, 3 total refill(s ), Hard Stop Ordered 06/21/2025 5 2024 90.0 Ambulat ory Pharmac y cholecalcif elodia 125 mcg (5,000 units) capsule 125 mcg, Oral, Daily, # 90 EA, 3 total refill(s ), Hard Stop Oral (given by mouth) Complet ed 03/19/2024 4 2023 90.0 Ambulat ory Pharmac y CLONIDINE HCL 0.1MG TAB TAKE ONE AND ONE-HALF TABLETS BY MOUTH TWICE A DAY FOR POST TRAUMATI C STRESS DISORDER ORAL ACTIVE 01/11/2025 [id number] POTETR,A RMIDA A 2023 270 [facility] CLONIDINE HCL 0.1MG TAB TAKE ONE AND ONE-HALF TABLETS BY MOUTH TWICE A DAY FOR POST TRAUMATI C STRESS DISORDER ORAL DISCONT INUED 01/06/2025 [id number] 4 GLENDA IRVING I 2023 270 [facility] CLONIDINE HCL 0.1MG TAB TAKE ONE AND ONE-HALF TABLETS BY MOUTH TWICE A DAY FOR POST TRAUMATI C STRESS DISORDER ORAL DISCONT INUED 07/07/2024 [id number] 4 GLENDA IRVING I 2023 270 [facility] DULOXETINE HCL 30MG CAP,EC TAKE THREE CAPSULES BY MOUTH ONCE A DAY DO NOT ABRUPTLY DISCONTI NUE MEDICATI ON. ORAL ACTIVE 01/11/2025 [id number] 4 POTTER,A RMIDA A 2023 270 [facility] DULOXETINE HCL 30MG CAP,EC TAKE THREE CAPSULES BY MOUTH ONCE A DAY DO NOT ABRUPTLY DISCONTI NUE MEDICATI ON. ORAL DISCONT INUED 01/06/2025 [id number] 4 GLENDA IRVING I 2023 270 [facility] DULOXETINE HCL 30MG CAP,EC TAKE THREE CAPSULES BY MOUTH ONCE A DAY DO NOT ABRUPTLY DISCONTI NUE MEDICATI ON. ORAL DISCONT INUED 07/07/2024 [id number] GLENDA IRVING I 2023 270 [facility] Aaron EMPAGLIFLOZ IN 25 MG ORAL TAB Check with your doctor before becoming . 03/19/2024 [id number] 2023 90 [facility] Chuck SNYDER [place] HYDROCODONE -ACETAMINOP HEN (HYDROCODON E/ACETAMINO PHEN), 5MG-325MG, TABLET, ORAL, M[place]ROD T PH, 500 ea. BOTTLE Active [id number] 2022 12 Pharmac y Data Transac tion Service Facilit y HYDROXYZINE HCL 25MG TAB TAKE ONE TABLET BY MOUTH THREE TIMES A DAY NEEDED FOR ANXIETY *MAY CAUSE DROWSINE SS* ORAL ACTIVE 01/11/2025 [id number] 4 POTTER,A RMIDA A 2023 90 [facility] HYDROXYZINE HCL 25MG TAB TAKE ONE TABLET BY MOUTH THREE TIMES A DAY NEEDED FOR ANXIETY *MAY CAUSE DROWSINE SS* ORAL DISCONT INUED 01/06/2025 [id number] GLENDA IRVING I [address] [place] [address] [facility] N HYDROXYZINE HCL 25MG TAB TAKE ONE TABLET BY MOUTH THREE TIMES A DAY NEEDED FOR ANXIETY *MAY CAUSE DROWSINE SS* ORAL DISCONT INUED 07/07/2024 [id number] 4 GLENDA IRVING I 2023 90 [facility] IBUPROFEN (ibuprofen) , 800 MG, TABLET, ORAL, AUROBINDO PHARM, 500 ea. BOTTLE Active [id number] 3 2022 20 Pharmac y Data Transac tion Service Facilit y Jardiance 25 mg tablet 25 mg, Oral, Daily, # 90 EA, 3 total refill(s ), Hard Stop Oral (given by mouth) Ordered 04/22/2025 4 2023 90.0 Ambulat ory Pharmac y Jardiance 25 mg tablet See dose instruct ions in comments , # 90 EA, 3 total refill(s ), Acute Complet ed 03/01/2023 3 2022 90.0 Ambulat ory Pharmac y Jardiance 25 mg tablet See Instruct ions, # 90 EA, 3 total refill(s ), Hard Stop Complet ed 03/19/2024 4 2023 90.0 Ambulat ory Pharmac y Lumigan 0.01% eye drops [5mL] See Instruct ions, # 10 mL, 3 total refill(s ), Hard Stop Ordered 03/12/2025 4 2023 10.0 Ambulat ory Pharmac y Lumigan 0.01% eye drops [5mL] See dose instruct ions in comments , # 10 mL, 2 total refill(s ), Acute Complet ed 09/26/2023 3 2023 10.0 Ambulat ory Pharmac y Lumigan 0.01% eye drops [5mL] See Instruct ions, # 5 mL, 6 total refill(s ), Hard Stop Complet ed 03/06/2024 3 2023 5.0 Ambulat ory Pharmac y MELOXICAM 7.5MG TAB TAKE ONE TABLET BY MOUTH ONCE A DAY FOR PAIN ORAL 07/14/2024 [id number] POTTER,A RMIDA A 2023 90 [facility] METHOCARBAM OL 750MG TAB TAKE 1 TABLET BY MOUTH FOUR TIMES A DAY NEEDED FOR MUSCLE SPASM ORAL ACTIVE 04/16/2025 [id number] POTTER,A RMIDA A 2023 120 [facility] pioglitazon e 15 mg tablet 15 mg, Oral, Daily, # 90 EA, 3 total refill(s ), Hard Stop Oral (given by mouth) Discont inued 12/19/2023 4 2023 90.0 Ambulat ory Pharmac y pioglitazon e 30 mg tablet 30 mg, Oral, Daily, # 90 EA, 3 total refill(s ), Hard Stop Oral (given by mouth) Ordered 12/18/2024 4 2023 90.0 Ambulat ory Pharmac y sildenafil 50 mg tablet See Instruct ions, # 30 EA, 3 total refill(s ), Hard Stop Ordered 03/21/2025 5 2024 30.0 Ambulat ory Pharmac y SITAGLIPTIN (EQV-ZITUVI O) 100MG TAB TAKE ONE TABLET BY MOUTH ONCE A DAY FOR DIABETES REPLA ELEN ALOGLIPT IN ORAL ACTIVE 04/16/2025 [id number] POTTER,A RMIDA A 2023 90 [facility] SITAGLIPTIN (EQV-ZITUVI O) 100MG TAB TAKE ONE TABLET BY MOUTH ONCE A DAY FOR DIABETES REPLA ELEN ALOGLIPT IN ORAL DISCONT INUED 01/26/2024 [id number] [place] HE 2023 90 [facility] Allergies, Adverse Reactions, Alerts Combined list of allergies from Department of Defense and Veterans Affairs facilities. It does not include entries that were removed or entered in error. Substance Category Reaction Severity Reaction type Status Date Reported Comments Source NO OUTPUT FOR NCID [id number] Drug allergy (disorder) active 12/26/2007 [facility] [place] Immunizations Combined list of available immunizations from the Department of Defense and Veterans Affairs facilities. Immunization Series Date Given Administered By Site Reaction Lot Number CVX Code Drug Hand Tool Lapper Status Comments Source COVID-19 (PFIZER), MRNA, LNP-S, PF, 30 MCG/0.3 ML DOSE 3 2020 208 complet ed PFR; [id number]; 1 [facility] COVID-19 (PFIZER), MRNA, LNP-S, PF, 30 MCG/0.3 ML DOSE 2 2020 208 complet ed PFR; [id number]; 1 [facility] COVID-19 (PFIZER), MRNA, LNP-S, PF, 30 MCG/0.3 ML DOSE 1 2020 208 complet ed PFR; [id number]; 1 [facility] INFLUENZA, UNSPECIFIED FORMULATION 2014 88 complet ed [facility] INFLUENZA, UNSPECIFIED FORMULATION 2013 88 complet ed [facility] tetanus, diphtheria, acellular pertu is 2009 Body, whole [id number] complet ed tetanus, diphtheri a, acellular pertussis 09/21/09 Given Ambulat ory Pharmac y typhoid vaccine, live, oral 2009 [id number] [employer] [place] [employer] complet ed typhoid vaccine, live, oral 09/21/09 Given Ambulat ory Pharmac y typhoid vaccine, live, oral 1 2009 JEFF FREEMAN [id number] [employer] ([facility]) complet ed typhoid vaccine, live, oral DoD tetanus toxoid, reduced diphtheria toxoid, and acellular pertu is vaccine, adsorbed 0 2009 JEFF FREEMAN [id number] [employer]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 (MED) complet ed influenza virus vaccine, live, attenuate d, for intranasa l use DoD influenza virus vaccine, live 2007 [id number] [employer] [facility] comple t ed influenza virus vaccine, live 04/30/08 Given Ambulat ory Pharmac y influenza virus vaccine, live, attenuated, for intranasal use 1 2007 Unknown, Provider [id number] 111 [employer] (MED) complet ed influenza virus vaccine, live, attenuate d, for intranasa l use DoD influenza virus vaccine,split 2006 [id number] 15 [employer] complet ed influenza virus vaccine,s plit 04/12/07 Given Ambulat ory Pharmac y influenza virus vaccine, split virus (incl. purified surface antigen)-reti red CODE 1 2006 [id number] 15 [facility] ([facility]) complet ed influenza virus vaccine, split virus (incl. purified surface antigen)- retired CODE DoD influenza virus vaccine,split 2005 [id number] 15 [employer] [facility] complet ed influenza virus vaccine,s plit 04/18/06 Given Ambulat ory Pharmac y influenza virus vaccine, split virus (incl. purified surface antigen)-reti red CODE 1 2005 [id number] 15 [employer] (MED) complet ed influenza virus vaccine, split virus (incl. purified surface antigen)- retired CODE DoD influenza virus vaccine,split 2005 [id number] 15 Unknown complet ed influenza virus vaccine,s plit 06/03/05 Given Ambulat ory Pharmac y influenza virus vaccine, split virus (incl. purified surface antigen)-reti red CODE 1 2005 [id number] 15 Unknown (UNK) comple t ed influenza virus vaccine, split virus (incl. purified surface antigen)- retired CODE DoD typhoid Vi capsular polysaccharid e vac 2004 [id number] sanofi pasteur complet ed typhoid Vi capsular polysacch aride vac 09/23/04 Given Ambulat ory Pharmac y typhoid Vi capsular polysaccharid e vaccine 1 2004 [id number] Sanofi Pasteur ([facility]) complet ed typhoid Vi capsular polysacch aride vaccine DoD tuberculin purified protein derivative 2004 UNK 96 Unknown complet ed tuberculi n purified protein derivativ e 07/27/04 Given Ambulat ory Pharmac y influenza virus vaccine,split 2003 [id number] 15 [employer] complet ed influenza virus vaccine,s plit 04/21/04 Given Ambulat ory Pharmac y influenza virus vaccine, split virus (incl. purified surface antigen)-reti red CODE 1 2003 [id number] 15 [employer] ([facility]) complet ed influenza virus vaccine, split virus (incl. purified surface antigen)- retired CODE DoD anthrax vaccine 2003 [id number] [employer] complet ed anthrax vaccine 01/28/04 Given Ambulat ory Pharmac y anthrax vaccine 5 2003 [id number] [employer] ([facility]) complet ed anthrax vaccine DoD TDAP 2003 115 complet ed [facility] tuberculin purified protein derivative 2002 [id number] sanofi pasteur complet ed tuberculi n purified protein derivativ e 11/25/02 Given Ambulat ory Pharmac y typhoid Vi capsular polysaccharid e vac 2002 [id number] sanofi pasteur complet ed typhoid Vi capsular polysacch aride vac 08/21/02 Given Ambulat ory Pharmac y influenza virus vaccine,split 2002 UNK 15 sanofi pasteur complet ed influenza virus vaccine,s plit 08/21/02 Given Ambulat ory Pharmac y tuberculin purified protein derivative 2002 [id number] 96 sanofi pasteur complet ed tuberculi n purified protein derivativ e 08/21/02 Given Ambulat ory Pharmac y influenza virus vaccine, split virus (incl. purified surface antigen)-reti red CODE 0 2002 UNK 15 Sanofi Pasteur ([facility]) complet ed influenza virus vaccine, split virus (incl. purified surface antigen)- retired CODE DoD typhoid Vi capsular polysaccharid e vaccine 0 2002 [id number] Sanofi Pasteur ([facility]) complet ed typhoid Vi capsular polysacch aride vaccine DoD vaccinia (smallpox) vaccine 2002 UNK 75 Unknown complet ed vaccinia (smallpox ) vaccine 07/27/02 Given Ambulat ory Pharmac y vaccinia (smallpox) vaccine 1 2002 UNK 75 Unknown (UNK) comple t ed vaccinia (smallpox ) vaccine DoD meningococcal polysaccharid e (MPSV4) 2002 UNK 32 Unknown complet ed meningoco ccal polysacch aride (MPSV4) 06/29/02 Given Ambulat ory Pharmac y meningococcal polysaccharid e vaccine (MPSV4) 1 2002 UNK 32 Unknown (UNK) comple t ed meningoco ccal polysacch aride vaccine (MPSV4) DoD anthrax vaccine 2002 UNK 24 [employer] complet ed anthrax vaccine 06/14/02 Given Ambulat ory Pharmac y anthrax vaccine 4 2002 UNK 24 [employer] ([facility]) complet ed anthrax vaccine DoD influenza virus vaccine,split 2001 [id number] sanofi pasteur complet ed influenza virus vaccine,s plit 04/23/02 Given Ambulat ory Pharmac y influenza virus vaccine, split virus (incl. purified surface antigen)-reti red CODE 0 2001 [id number] 15 Sanofi Pasteur ([facility]) complet ed influenza virus vaccine, split virus (incl. purified surface antigen)- retired CODE DoD tuberculin purified protein derivative 2001 [id number] 96 sanofi pasteur complet ed tuberculi n purified protein derivativ e 11/05/01 Given Ambulat ory Pharmac y meningococcal polysaccharid e (MPSV4) 2001 [id number] 32 sanofi pasteur complet ed meningoco ccal polysacch aride (MPSV4) 11/05/01 Given Ambulat ory Pharmac y meningococcal polysaccharid e vaccine (MPSV4) 0 2001 [id number] Sanofi Pasteur ([facility]) complet ed meningoco ccal polysacch aride vaccine (MPSV4) DoD influenza virus vaccine,split 2000 [id number] 15 sanofi pasteur complet ed influenza virus vaccine,s plit 04/06/01 Given Ambulat ory Pharmac y influenza virus vaccine, split virus (incl. purified surface antigen)-reti red CODE 0 2000 [id number] 15 Sanofi Pasteur ([facility]) complet ed influenza virus vaccine, split virus (incl. purified surface antigen)- retired CODE DoD tetanus-dipht h toxoids (Td) adult/adol 1999 UNK 09 Unknown complet ed tetanus-d iphth toxoids (Td) adult/ado l 06/25/99 Given Ambulat ory Pharmac y tetanus and diphtheria toxoids, adsorbed, preservative free, for adult use (2 Lf of tetanus toxoid and 2 Lf of diphtheria toxoid) 0 1999 UNK 09 Unknown (UNK) comple t ed tetanus and diphtheri a toxoids, adsorbed, preservat tobias free, for adult use (2 Lf of tetanus toxoid and 2 Lf of diphtheri a toxoid) DoD tuberculin purified protein derivative 1998 UNK 96 Unknown complet ed tuberculi n purified protein derivativ e 05/07/99 Given Ambulat ory Pharmac y typhoid Vi capsular polysaccharid e vac 1998 UNK 101 Unknown complet ed typhoid Vi capsular polysacch aride vac 02/02/99 Given Ambulat ory Pharmac y typhoid Vi capsular polysaccharid e vaccine 0 1998 UNK 101 Unknown (UNK) comple t ed typhoid Vi capsular polysacch aride vaccine DoD hepatitis B adult vaccine 1998 UNK 43 Unknown complet ed hepatitis B adult vaccine 11/02/98 Given Ambulat ory Pharmac y hepatitis B vaccine, adult dosage 3 1998 UNK 43 Unknown (UNK) comple t ed hepatitis B vaccine, adult dosage DoD anthrax vaccine 1998 [id number] [employer] complet ed anthrax vaccine 08/10/98 Given Ambulat ory Pharmac y anthrax vaccine 3 1998 [id number] [employer] ([facility]) complet ed anthrax vaccine DoD anthrax vaccine 1998 [id number] 24 [employer] complet ed anthrax vaccine 06/16/98 Given Ambulat ory Pharmac y anthrax vaccine 2 1998 [id number] [employer] ([facility]) complet ed anthrax vaccine DoD hepatitis B adult vaccine 1998 UNK 43 Unknown complet ed hepatitis B adult vaccine 06/04/98 Given Ambulat ory Pharmac y hepatitis B vaccine, adult dosage 2 1998 UNK 43 Unknown (UNK) comple t ed hepatitis B vaccine, adult dosage DoD hepatitis B adult vaccine 1997 UNK 43 Unknown complet ed hepatitis B adult vaccine 04/14/98 Given Ambulat ory Pharmac y anthrax vaccine 1997 [id number] [employer] complet ed anthrax vaccine 04/14/98 Given Ambulat ory Pharmac y anthrax vaccine 1 1997 [id number] [employer] ([facility]) complet ed anthrax vaccine DoD hepatitis B vaccine, adult dosage 1 1997 UNK 43 Unknown (UNK) comple t ed hepatitis B vaccine, adult dosage DoD hepatitis A adult vaccine 1995 UNK 52 Unknown complet ed hepatitis A adult vaccine 02/14/96 Given Ambulat ory Pharmac y meningococcal polysaccharid e (MPSV4) 1995 UNK 32 Unknown complet ed meningoco ccal polysacch aride (MPSV4) 02/14/96 Given Ambulat ory Pharmac y meningococcal polysaccharid e vaccine (MPSV4) 0 1995 UNK 32 Unknown (UNK) comple t ed meningoco ccal polysacch aride vaccine (MPSV4) DoD hepatitis A vaccine, adult dosage 2 1995 UNK 52 Unknown (UNK) comple t ed hepatitis A vaccine, adult dosage DoD poliovirus vaccine, inactivated 1994 UNK 10 Unknown complet ed polioviru s vaccine, inactivat ed 01/16/95 Given Ambulat ory Pharmac y measles/mumps /rubella virus vaccine 1994 UNK 03 Unknown complet ed measles/m umps/rube lla virus vaccine 01/16/95 Given Ambulat ory Pharmac y measles, mumps and rubella virus vaccine 0 1994 UNK 03 Unknown (UNK) comple t ed measles, mumps and rubella virus vaccine DoD poliovirus vaccine, inactivated 0 1994 UNK 10 Unknown (UNK) comple t ed polioviru s vaccine, inactivat ed DoD yellow fever vaccine 1993 UNK 37 Unknown complet ed yellow fever vaccine 11/03/93 Given Ambulat ory Pharmac y yellow fever vaccine 0 1993 UNK 37 Unknown (UNK) comple t ed yellow fever vaccine DoD hepatitis A adult vaccine 1987 UNK 52 Unknown complet ed hepatitis A adult vaccine 04/28/88 Given Ambulat ory Pharmac y hepatitis A vaccine, adult dosage 1 1987 UNK 52 Unknown (UNK) comple t ed hepatitis A vaccine, adult dosage DoD Results Combined list of recent chemistry, hematology and other laboratory results from Department of Defense and Veterans Affairs, ranging from 15 months to all on record, depending upon the facility. Order Name Results Value Reference Range Date Interpretation Specimen Comments Source BASIC METABOLIC PANEL CREATININE [MASS/VOLUM E] IN SERUM OR PLASMA 0.83 mg/dL 0.7 - 1.3 07/12 Specimen Type: PLASMA Comment: No hemolysis noted. Ordering Provider: PADMA POTTER Report Released Date/Time: Jul 12, 2024 09:05 AM Reporting Lab: [facility] [address] [facility] [place] [place] [address] Performing Lab: [facility] [address] [facility] [place] [phone] [place] [address] BASIC METABOLIC PANEL UREA NITROGEN [MASS/VOLUM E] IN SERUM OR PLASMA 14.4 mg/dL 9.0 - 25.0 07/12 Specimen Type: PLASMA Comment: No hemolysis noted. Ordering Provider: PADMA POTTER Report Released Date/Time: Jul 12, 2024 09:05 AM Reporting Lab: [facility] [address] [facility] [place] [address] Performing Lab: [facility] [address] [facility] [place] [phone] [place] [address] BASIC METABOLIC PANEL GLUCOSE [MASS/VOLUM E] IN SERUM OR PLASMA 96 mg/dL 72 - 99 07/12 Specimen Type: PLASMA Comment: No hemolysis noted. Ordering Provider: PADMA POTTER Report Released Date/Time: Jul 12, 2024 09:05 AM Reporting Lab: [facility] [address] [facility] [place] [address] Performing Lab: [facility] [address] [facility] [place] [address] [facility] BASIC METABOLIC PANEL SODIUM [MOLES/VOLU ME] IN SERUM OR PLASMA 138 meq/L 136 - 145 07/12 Specimen Type: PLASMA Comment: No hemolysis noted. Ordering Provider: PADMA POTTER Report Released Date/Time: Jul 12, 2024 09:05 AM Reporting Lab: [facility] [address] [facility] [address] Performing Lab: [facility] [address] [facility] [place] [address] [facility] BASIC METABOLIC PANEL POTASSIUM [MOLES/VOLU ME] IN SERUM OR PLASMA 4.3 meq/L 3.5 - 5 07/12 Specimen Type: PLASMA Comment: No hemolysis noted. Ordering Provider: PADMA POTTER Report Released Date/Time: Jul 12, 2024 09:05 AM Reporting Lab: [facility] [address] [facility] [address] Performing Lab: [facility] [address] [facility] [place] [address] [facility] BASIC METABOLIC PANEL CHLORIDE [MOLES/VOLU ME] IN SERUM OR PLASMA 104 meq/L 98 - 107 07/12 Specimen Type: PLASMA Comment: No hemolysis noted. Ordering Provider: PADMA POTTER Report Released Date/Time: Jul 12, 2024 09:05 AM Reporting Lab: [facility] [address] [facility] [address] Performing Lab: [facility] [address] [facility] [place] [address] [facility] BASIC METABOLIC PANEL CARBON DIOXIDE, TOTAL [MOLES/VOLU ME] IN SERUM OR PLASMA 24 meq/L 22 - 31 07/12 Specimen Type: PLASMA Comment: No hemolysis noted. Ordering Provider: PADMA POTTER Report Released Date/Time: Jul 12, 2024 09:05 AM Reporting Lab: [facility] [address] [facility] [address] Performing Lab: [facility] [address] [facility] [address] [facility] BASIC METABOLIC PANEL CALCIUM [MASS/VOLUM E] IN SERUM OR PLASMA 10.0 mg/dL 8.4 - 10.4 07/12 Specimen Type: PLASMA Comment: No hemolysis noted. Ordering Provider: PADMA POTTER Report Released Date/Time: Jul 12, 2024 09:05 AM Reporting Lab: [facility] [address] [facility] [address] Performing Lab: [facility] [address] [facility] [phone] [place] [address] BASIC METABOLIC PANEL GLOMERULAR FILTRATION RATE/1.73 SQ M.PREDICTED [VOLUME RATE/AREA] IN SERUM, PLASMA OR BLOOD BY CREATININE- BASED FORMULA (CKD-EPI 2020) 102.7 60 07/12 Specimen Type: PLASMA Comment: No hemolysis noted. Ordering Provider: PADMA POTTER A Report Released Date/Time: Jul 12, 2024 09:05 AM Reporting Lab: [facility] [address] [facility] [address] Performing Lab: [facility] [address] [facility] [address] [facility] HGA1C HEMOGLOBIN A1C/HEMOGLO BIN.TOTAL IN BLOOD 6.5 4.0 - 6.0 07/12 H Specimen Type: BLOOD No comment entered. Ordering Provider: PADMA POTTER A Report Released Date/Time: Jul 12, 2024 09:05 AM Reporting Lab: [facility] [address] [facility] [address] Performing Lab: [facility] [address] [facility] [place] [address] [facility] LIPID PANEL (STL) CHOLESTEROL [MASS/VOLUM E] IN SERUM OR PLASMA 171 mg/dL 0 - 200 07/12 Specimen Type: PLASMA Comment: No hemolysis noted. Ordering Provider: PADMA POTTER Report Released Date/Time: Jul 12, 2024 09:05 AM Reporting Lab: [facility] [address] [facility] [place] [address] Performing Lab: [facility] [address] [facility] [place] [address] [facility] LIPID PANEL (STL) TRIGLYCERID E [MASS/VOLUM E] IN SERUM OR PLASMA 61 mg/dL 0 - 150 07/12 Specimen Type: PLASMA Comment: No hemolysis noted. Ordering Provider: PADMA POTTER Report Released Date/Time: Jul 12, 2024 09:05 AM Reporting Lab: [facility] [address] [place] [phone] Performing Lab: [facility] [address] [place] [phone] [place] [address] LIPID PANEL (STL) CHOLESTEROL IN LDL [MASS/VOLUM E] IN SERUM OR PLASMA BY CALCULATION 112 mg/dL 07/12 Specimen Type: PLASMA Comment: No hemolysis noted. Ordering Provider: PADMA POTTER Report Released Date/Time: Jul 12, 2024 09:05 AM Reporting Lab: [facility] [address] [facility] [place] [address] Performing Lab: [facility] [address] [place] [address] [phone] [place] [address] LIPID PANEL (STL) CHOLESTEROL IN HDL [MASS/VOLUM E] IN SERUM OR PLASMA 47 mg/dL 40 07/12 Specimen Type: PLASMA Comment: No hemolysis noted. Ordering Provider: PADMA POTTER Report Released Date/Time: Jul 12, 2024 09:05 AM Reporting Lab: [facility] [address] [facility] [place] [address] Performing Lab: [facility] [address] [facility] [place] [address] [facility] MICRAL/CR EAT PROFILE (STL) ALBUMIN [MASS/VOLUM E] IN URINE <5.0mg /L 07/12 Specimen Type: URINE Comment: uALB/CREAT Ratio Unable to be calculated Unable to calculate due to Microalbumi n < 5.0 mg/L Ordering Provider: PADMA POTTER Report Released Date/Time: Jul 12, 2024 09:05 AM Reporting Lab: [address] [address] Performing Lab: [address] [phone] MICRAL/CR EAT PROFILE (STL) ALBUMIN/CRE ATININE [MASS RATIO] IN URINE commen tmg/g 0 - 29 07/12 Specimen Type: URINE Comment: uALB/CREAT Ratio Unable to be calculated Unable to calculate due to Microalbumi n < 5.0 mg/L Ordering Provider: PADMA POTTER Report Released Date/Time: Jul 12, 2024 09:05 AM Reporting Lab: [address] [address] Performing Lab: [address] [phone] [place] [address] MICRAL/CR EAT PROFILE (STL) CREATININE [MASS/VOLUM E] IN URINE 57.8 mg/dL 63 - 166 07/12 L Specimen Type: URINE Comment: uALB/CREAT Ratio Unable to be calculated Unable to calculate due to Microalbumi n < 5.0 mg/L Ordering Provider: PADMA POTTER Report Released Date/Time: Jul 12, 2024 09:05 AM Reporting Lab: [address] [phone] Performing Lab: [address] [address] [facility] GLUCOSE,B LOOD-poct (STL) GLUCOSE [MASS/VOLUM E] IN BLOOD BY AUTOMATED TEST STRIP 71 mg/dL 72 - 99 04/15 L Specimen Type: BLOOD Comment: Test Performed by: [id number] Meter #: [id number] Ordering Provider: PADMA POTTER Report Released Date/Time: Apr 15, 2024 03:35 PM Reporting Lab: [address] [address] Performing Lab: [address] [address] [facility] URINALYSI S (STL) COLOR OF URINE Light- Yellow 04/04 Specimen Type: URINE No comment entered. Ordering Provider: CAMDEN HE Report Released Date/Time: Mar 29, 2023 03:42 PM Reporting Lab: [facility] [address] [place] [address] Performing Lab: [address] URINALYSI S (STL) BILIRUBIN.T OTAL [PRESENCE] IN URINE BY TEST STRIP Negati vemg/d L 04/04 Specimen Type: URINE No comment entered. Ordering Provider: CAMDEN HE Report Released Date/Time: Mar 29, 2023 03:42 PM Reporting Lab: [facility] [address] [place] [address] Performing Lab: [facility] [address] [place] [address] URINALYSI S (STL) PH OF URINE BY TEST STRIP 5.5 5.0 - 8.0 04/04 Specimen Type: URINE No comment entered. Ordering Provider: CAMDEN HE Report Released Date/Time: Mar 29, 2023 03:42 PM Reporting Lab: [facility] [address] [place] [address] Performing Lab: [facility] [address] [place] [address] URINALYSI S (STL) APPEARANCE OF URINE Clear 04/04 Specimen Type: URINE No comment entered. Ordering Provider: CAMDEN HE Report Released Date/Time: Mar 29, 2023 03:42 PM Reporting Lab: [facility] [address] [facility] [address] Performing Lab: [facility] [address] [facility] [address] [facility] URINALYSI S (STL) NITRITE [PRESENCE] IN URINE BY TEST STRIP Negati vemg/d L 04/04 Specimen Type: URINE No comment entered. Ordering Provider: CAMDEN HE Report Released Date/Time: Mar 29, 2023 03:42 PM Reporting Lab: [facility] [address] [facility] [address] Performing Lab: [facility] [address] [facility] [phone] [place] [address] URINALYSI S (STL) GLUCOSE [MASS/VOLUM E] IN URINE BY TEST STRIP Normal mg/dL 04/04 Specimen Type: URINE No comment entered. Ordering Provider: CAMDEN HE Report Released Date/Time: Mar 29, 2023 03:42 PM Reporting Lab: [facility] [address] [facility] [address] Performing Lab: [facility] [address] [facility] [address] [facility] URINALYSI S (STL) PROTEIN [MASS/VOLUM E] IN URINE BY TEST STRIP Negati vemg/d L - 20 04/04 Specimen Type: URINE No comment entered. Ordering Provider: CAMDEN HE Report Released Date/Time: Mar 29, 2023 03:42 PM Reporting Lab: [facility] [address] [facility] [address] Performing Lab: [facility] [address] [facility] [address] [facility] URINALYSI S (STL) URN.UROBILI NOGEN Normal mg/dL 04/04 Specimen Type: URINE No comment entered. Ordering Provider: CAMDEN HE Report Released Date/Time: Mar 29, 2023 03:42 PM Reporting Lab: [facility] [address] [facility] [address] Performing Lab: [facility] [address] [place] [phone] [place] [address] URINALYSI S (STL) HEMOGLOBIN [MASS/VOLUM E] IN URINE BY TEST STRIP Negati vemg/d L 04/04 Specimen Type: URINE No comment entered. Ordering Provider: CAMDEN HE Report Released Date/Time: Mar 29, 2023 03:42 PM Reporting Lab: [facility] [address] [place] [phone] Performing Lab: [address] URINALYSI S (STL) KETONES [MASS/VOLUM E] IN URINE BY TEST STRIP Negati vemg/d L 04/04 Specimen Type: URINE No comment entered. Ordering Provider: CAMDEN HE Report Released Date/Time: Mar 29, 2023 03:42 PM Reporting Lab: [facility] [address] [place] [phone] Performing Lab: [address] [phone] [place] [address] URINALYSI S (STL) URN.LEUK.ES T. Negati vemg/d L 04/04 Specimen Type: URINE No comment entered. Ordering Provider: CAMDEN HE Report Released Date/Time: Mar 29, 2023 03:42 PM Reporting Lab: [facility] [address] Performing Lab: [phone] [place] [address] URINALYSI S (L) SPECIFIC GRAVITY OF URINE 1.020 1.005 - 1.029 04/04 Specimen Type: URINE No comment entered. Ordering Provider: CAMDEN HE Report Released Date/Time: Mar 29, 2023 03:42 PM Reporting Lab: [facility] [address] [facility] [place] [place] [address] Performing Lab: [facility] [address] [place] [phone] [facility] HGA1C HEMOGLOBIN A1C/HEMOGLO BIN.TOTAL IN BLOOD 7.2 4.0 - 6.0 04/04 H Specimen Type: BLOOD No comment entered. Ordering Provider: CAMDEN HE Report Released Date/Time: Mar 29, 2023 03:42 PM Reporting Lab: [facility] [address] [place] [phone] Performing Lab: [address] [address] [facility] LIPID PANEL (STL) CHOLESTEROL [MASS/VOLUM E] IN SERUM OR PLASMA 140 mg/dL 0 - 200 04/04 Specimen Type: PLASMA Comment: No hemolysis noted. Ordering Provider: CAMDEN HE Report Released Date/Time: Mar 29, 2023 03:42 PM Reporting Lab: [facility] [address] [place] [phone] Performing Lab: [address] [address] [facility] LIPID PANEL (STL) TRIGLYCERID E [MASS/VOLUM E] IN SERUM OR PLASMA 62 mg/dL 0 - 150 04/04 Specimen Type: PLASMA Comment: No hemolysis noted. Ordering Provider: CAMDEN HE Report Released Date/Time: Mar 29, 2023 03:42 PM Reporting Lab: [facility] [address] [place] [phone] Performing Lab: [address] [address] [facility] LIPID PANEL (STL) CHOLESTEROL IN LDL [MASS/VOLUM E] IN SERUM OR PLASMA BY CALCULATION 88 mg/dL 04/04 Specimen Type: PLASMA Comment: No hemolysis noted. Ordering Provider: CAMDEN HE Report Released Date/Time: Mar 29, 2023 03:42 PM Reporting Lab: [address] [place] [address] Performing Lab: [facility] [address] [place] [phone] [facility] LIPID PANEL (STL) CHOLESTEROL IN HDL [MASS/VOLUM E] IN SERUM OR PLASMA 40 mg/dL 40 04/04 Specimen Type: PLASMA Comment: No hemolysis noted. Ordering Provider: CAMDEN HE Report Released Date/Time: Mar 29, 2023 03:42 PM Reporting Lab: [facility] [address] [place] [phone] Performing Lab: [address] [phone] [place] [address] PROST. SPECIFIC AG.(PB-ST L) PROSTATE SPECIFIC AG [MASS/VOLUM E] IN SERUM OR PLASMA 0.739 ng/mL 0 - 4 04/04 Specimen Type: SERUM Comment: The listed sex of this patient may not be a typical indication for this test. Therefore, reference ranges or interpretiv e criteria listed may not be valid. Clinical correlation suggested. Ordering Provider: CAMDEN HE Report Released Date/Time: Mar 29, 2023 03:42 PM Reporting Lab: [address] [address] Performing Lab: [address] [address] [facility] TSH (MA-PB-ST L) THYROTROPIN [UNITS/VOLU ME] IN SERUM OR PLASMA 2.025 u[IU]/ mL 0.47 - 5 04/04 Specimen Type: SERUM Comment: The listed sex of this patient may not be a typical indication for this test. Therefore, reference ranges or interpretiv e criteria listed may not be valid. Clinical correlation suggested. Ordering Provider: CAMDEN HE Report Released Date/Time: Mar 29, 2023 03:42 PM Reporting Lab: [facility] [address] [place] [phone] Performing Lab: [address] [address] [facility] Vital Signs Combined list of inpatient and outpatient Vital Signs from Department of Defense and Veterans Affairs, ranging from 12 months to all on record, depending upon the facility. Vital Sign Value Date Comments Source SYSTOLIC BLOOD PRESSURE 114 07/29/2024 13:04:45 [facility] DIASTOLIC BLOOD PRESSURE 73 07/29/2024 13:04:45 [facility] PULSE OXIMETRY 99 07/29/2024 13:04:45 [facility] WEIGHT 199.6 07/29/2024 13:04:45 [facility] BMI 27 kg/m2 07/29/2024 13:04:45 [facility] PAIN 7 07/29/2024 13:04:45 [facility] HEIGHT 72 07/29/2024 13:04:45 [facility] TEMPERATURE 97.3 07/29/2024 13:04:45 [facility] PULSE 58 07/29/2024 13:04:45 [facility] RESPIRATION 18 07/29/2024 13:04:45 [facility] SYSTOLIC BLOOD PRESSURE 122 04/15/2024 14:11:06 [facility] DIASTOLIC BLOOD PRESSURE 73 04/15/2024 14:11:06 [facility] PULSE OXIMETRY 99 04/15/2024 14:11:06 S [facility] WEIGHT 195 04/15/2024 14:11:[facility] BMI 26 kg/m2 04/15/2024 14:11:[facility] PAIN 8 04/15/2024 14:11:06 [facility] HEIGHT 73 04/15/2024 14:11:[facility] TEMPERATURE 97.8 04/15/2024 14:11:06 [facility] PULSE 50 04/15/2024 14:11:[facility] RESPIRATION 18 04/15/2024 14:11:06 [facility] SYSTOLIC BLOOD PRESSURE 165 12/05/2023 09:00:27 [facility] DIA[facility] 108 12/05/2023 09:00[facility] PULSE OXIMETRY 98 12/05/2023 09:00:27 S [facility] WEIGHT 195.2 12/05/2023 09:00:27 [facility] BMI 26 kg/m2 12/05/2023 09:00:27 [facility] PAIN 0 12/05/2023 09:00:27 [facility] TEMPERATURE 96.7 12/05/2023 09:00:27 [facility] PULSE 52 12/05/2023 09:00:27 [facility] RESPIRATION 16 12/05/2023 09:00:27 [facility] SYSTOLIC BLOOD PRESSURE 130 08/07/2023 13:19:51 [facility] DIASTOLIC BLOOD PRESSURE 79 08/07/2023 13:19:51 [facility] WEIGHT 199 08/07/2023 13:19:51 [facility] BMI 26 kg/m2 08/07/2023 13:19:51 [facility] PAIN 7 08/07/2023 13:19:51 [facility] TEMPERATURE 98.1 08/07/2023 13:19:51 [facility] PULSE 56 08/07/2023 13:19:51 [facility] RESPIRATION 18 08/07/2023 13:19:51 [facility] Encounters Combined list of: 1) Encounters from Department of Veterans Affairs facilities going backup to the last 18 months, not all VA inpatient encounters are included; 2) Encounters from the Department of Defense facilities going backup to 280 months. Location Location Details Encounter Type Encounter Number Reason For Visit Attending Provider ADM Date DC Date Status Disposition Source Katie Blank ([facility])([facility] M[facility] Adm) TELE CONSULT [id number] Please review for bella espinosa TIANA VIZCARRA 03/25 [place] [facility] Adm[facility] [place] [facility]Phys Therapy) OUTPATIENT [id number] KIRILL REY 04/11 Released w/o Limitations [place] [facility]Ph ys Therapy ) [place] [facility]) OUTPATIENT [id number] pt stats having headach e after surgery /exstan d leave IVANIA VALDES V 10/05 Released w/o Limitations [place] [facility] Adm) [place] [facility]) OUTPATIENT [id number] f/u on surgery SONU JEFF HERB 11/04 Released with Work/Duty Limitations [place] ([facility])([facility]) [place] ([facility])(Phys Therapy) OUTPATIENT [id number] s/p cervica l fusion PABLO LANG 11/15 Released w/o Limitations [place] ([facility] ) [place] ([facility]) OUTPATIENT [id number] PABLO LANG 12/06 Released w/o Limitations [place] ([facility]Ph [facility] ) KRAIG Mcclelland([facility]) OUTPATIENT [id number] GENEVA Mendez 01/31 Released w/o Limitations KRAIG Mcclelland([facility]) KRAIG Mcclelland([facility]) OUTPATIENT [id number] numbnes s in right arm - had spinal fusion JOHN NEGRETE 05/04 Released with Work/Duty Limitations [facility]IG [facility]) [facility]lelland([facility]) OUTPATIENT [id number] Cervica l fusion AMERICA HERNANDEZ 05/17 Released w/o Limitations [facility]lell[facility]) KRAIG [facility] ed[facility]) OUTPATIENT [id number] MALLORY DUONG 07/31 Released with Work/Duty Limitations [facility](Orth opedic) [facility]op ed[facility]) OUTPATIENT [id number] PRE-VTC BURTOFT, MALLORY G 09/05 Released with Work/Duty Limitations [facility](Orth opedic) [facility](Te le-Neuros urgery Cl [facility]) OUTPATIENT [id number] VTC NEW SUE S 09/06 Released with Work/Duty Limitations [facility]( Tele-Ne urosurg love Cl [facility]) [facility](Orthop ed[facility]) OUTPATIENT [id number] VTC BURTOFT, MALLORY G 09/07 Released with Work/Duty Limitations [facility](Orth opedic) [facility]) OUTPATIENT [id number] pain in neck CRISTINA PAYAN Sarmad 09/14 Released w/o Limitations [facility]op edic) OUTPATIENT [id number] re-eval BURTOFTKAMALJITMALLORY G 02/28 Released with Work/Duty Limitations [facility](Orth opedic) [facility] ) OUTPATIENT [id number] lower back pain GUILLERMO PAYNE O 03/16 Released with Work/Duty Limitations [facility]) [facility](Orthop edic[facility] OUTPATIENT [id number] PRE-VTC BURTOFT, MALLORY G 03/27 Released with Work/Duty Limitations [facility](Orth opedic) [facility](Te le-Neuros [facility]gery Cl [facility]) OUTPATIENT [id number] VTC-F/U NEW SUE S 03/29 Released with Work/Duty Limitations [facility]( Tele-Ne urosurg love Cl [facility]) [facility](Orthop edic) OUTPATIENT [id number] VTC BURTOFT, MALLORY G 04/03 Released with Work/Duty Limitations [facility](Orth opedic) [facility] [place]) [place] [id number] CERVICA L DISC DEGENER ATION C3 - C4 LEANN CORDERO 04/04 Released w/o Limitations [facility] [place] [facility] [place]) [place] [id number] danielitore EMILY Cortez 04/05 Released w/o Limitations [facility] [place] [facility] [place] [id number] DO KAHN T 04/17 Released w/o Limitations [facility] [place] [facility] [place] [id number] DO KAHN T 04/26 Released w/o Limitations [facility] [place] [facility](Ph ys Therapy WR) OUTPATIENT [id number] MARY B[place]ING[place]AM 06/07 Released w/o Limitations [facility]( Phys Therapy [facility]) [facility](Te le-Neuros urgery Cl [facility]) OUTPATIENT [id number] PROC/EV AL NEW SUE 06/07 Released with Work/Duty Limitations [facility]( Tele-Ne [facility]rosurg love [facility]) [facility] TO [facility] FROM OTHER THAN ER OR [facility] [id number] [id number] JOSÉ MANUEL FARAH 06/08 [facility] [place] [id number] 7-10 day post-op f/u MALLORY DUONG 06/15 Released with Work/Duty Limitations [facility] [place] [facility] [place] [id number] Afterca re Followi ng Surgery EMILY GUAMAN 07/10 Released with Work/Duty Limitations [facility] [place] [facility] [place]) [place] [id number] CARRIE MOHR 07/19 Released w/o Limitations [facility] [place] [facility] [place] [id number] post-op f/u MALLORY DUONG 07/19 Released with Work/Duty Limitations [facility] [place] [facility](Te le-Neuros urgery Cl [facility]) OUTPATIENT [id number] VTC/EST NEW SUE S 08/07 Released with Work/Duty Limitations [facility]( Tele-Ne urosurg love Cl [facility]) [facility] [place] [id number] EMILY GUAMAN 08/09 Released with Work/Duty Limitations [facility] [place] [facility] [place] [id number] DO KAHN T 08/19 Released w/o Limitations [facility] [place] [facility] [place] [id number] DO KAHN T 08/21 Released w/o Limitations [facility] [place] [facility] [place] [id number] DO KAHN T 08/28 Released w/o Limitations [facility] [place] [facility] [place] [id number] DO KAHN T 08/30 Released w/o Limitations [facility] [place] [facility] [place] [id number] EVIE PEREZ 09/04 Released w/o Limitations [facility] [place] [facility] [place] [id number] EVIE PEREZ 09/06 Released w/o Limitations [facility] [place] [facility]Te le-Neuros urgery Cl [facility]) OUTPATIENT [id number] VTC/EST NEW SUE S 09/11 Released w/o Limitations [facility]( Tele-Ne urosurg love Cl [facility]) [facility] [place] [id number] EMILY GUAMAN 09/11 Released with Work/Duty Limitations [facility] [place] [facility] [place] [id number] GUAMANEMILY Darrin 10/11 Released w/o Limitations [facility] [place] [facility]Te le-Neuros urgery Cl [facility]) OUTPATIENT [id number] F/U RICHARDRM KAYKAY A 11/14 Released w/o Limitations [facility]( Tele-Ne urosurg love Cl WR) [facility](Ph ys Therapy WR) OUTPATIENT [id number] MARY [place] 11/14 Released w/o Limitations [facility]( Phys Therapy [facility]) [facility] [id number] JOHN Pak 12/13 Released w/o Limitations [facility] [place] [facility] [place] [id number] numbnes s in rt arm and hand VIJAY LANCASTER 12/25 Released with Work/Duty Limitations [facility] [place] [facility] [place] [id number] CK NECK GUILLERMO PAYNE 05/09 Released with Work/Duty Limitations [facility] [place] [facility] [place] [id number] f/u for lab results VIJAY LANCASTER 06/03 Released w/o Limitations [facility] [place] [facility] [place] [id number] needs EKG/LAB S for PHA over 40 physica l @ 1050 MARYAM MONTALVO 07/29 Released w/o Limitations [facility] [place] [facility] [place] [id number] PHA MARYAM MONTALVO F 07/29 Released w/o Limitations [facility] [place] [facility] [place] [id number] EVJULISA, ROMERO J 07/29 Released w/o Limitations [facility] [place] [facility] [place] [id number] f/u for cardiol ogy MARYAM MONTALVO F 08/06 Released w/o Limitations [facility] [place] [facility] [place] [id number] EVIRA EGANA J 08/06 Released w/o Limitations [facility] [place] [facility] [place] [place]) [place] [id number] Pas entered the order TAYLOR MCGHEE 08/07 Released w/o Limitations [facility] [place]) [facility](Fl ight Med FB) TELE CONSULT [id number] Reg. for lab MARY YUN Martín 11/06 [facility]( Flight Med FB) [facility](Fl ight Med FB) OUTPATIENT [id number] SABRA Arevalo 11/13 Released w/o Limitations [facility]( Flight Med FB) [facility](Co mm Health FB) OUTPATIENT [id number] ERIC Easton 03/04 Released w/o Limitations [facility]( Comm Health FB) [facility](Fa m Practice FB) OUTPATIENT [id number] BARB Sanchez 06/17 Released w/o Limitations [facility]( Fam Practic e FB) [facility](Au diology Cl WR) OUTPATIENT [id number] JUAN ANTONIOITU FREEDOM LAM I 06/25 Released w/o Limitations [facility]( Audiolo gy Cl WR) [facility](Ph ys Therapy FB) OUTPATIENT [id number] CERVICA PÉREZ CLARK RICHARD Kevin 07/27 Released w/o Limitations [facility]( Phys Therapy FB) [facility](Ph ys Therapy FB) OUTPATIENT [id number] neck LAKESHA MELENDEZFelisa Caba 08/05 Released w/o Limitations [facility]( Phys Therapy FB) [facility](Ph ys Therapy FB) OUTPATIENT [id number] neck MICHEAL LAMB M 08/10 Released w/o Limitations [facility]( Phys Therapy FB) [facility](Au diology Cl FB) OUTPATIENT [id number] FULL KIRILL IRVING 08/10 Released w/o Limitations [facility]( Audiolo gy Cl FB) [facility](Ph ys Therapy FB) OUTPATIENT [id number] neck MICHEAL LAMB M 08/17 Released w/o Limitations [facility]( Phys Therapy FB) [facility](Ph ys Therapy FB) OUTPATIENT [id number] f/u RICHARD Cain Kevin 08/31 Released w/o Limitations [facility]( Phys Therapy FB) [facility](Ot olaryng Cl FB) OUTPATIENT [id number] senSORI NEURAL HEARING LOSS GIL KENNEY 09/01 Released w/o Limitations [facility]( Otolary ng Cl FB) [facility](Ph ys Therapy FB) OUTPATIENT [id number] neck NORA CHARAN L 09/08 Released w/o Limitations [facility]( Phys Therapy FB) [facility](Fa m Practice FB) TELE CONSULT [id number] rad results BARB DEVI 09/18 [facility]( Fam Practic e FB) [facility](Fl ight Med FB) OUTPATIENT [id number] travel to JEFF Daly 09/21 Released w/o Limitations [facility]( Flight Med FB) [facility](Ph ys Therapy FB) OUTPATIENT [id number] neck NORA CHARAN L 09/22 Released w/o Limitations [facility]( Phys Therapy FB) [facility](Au diology Svc BE) OUTPATIENT [id number] SENSORI NEURAL HEARING LOSS YEYO ABEBE 09/23 Released w/o Limitations [facility]( Audiolo gy Svc BE) [facility](Ne urosurg Cl WR) OUTPATIENT [id number] Cervica l spondyl osis with myelopa thy NOAH COMBS S 10/01 Released w/o Limitations [facility]( Neurosu rg Cl WR) [facility](Au diology Svc BE) OUTPATIENT [id number] tinnitu s class 1 MISYEYO MORALES Rosales. 10/06 Released w/o Limitations [facility]( Audiolo gy Svc BE) [facility](Ne urosurg Cl WR) OUTPATIENT [id number] per RAKEL Rizzo d result of MRI NOAH COMBS S 10/08 Released w/o Limitations [facility]( Neurosu rg Cl WR) [facility](Fa m Practice FB) OUTPATIENT [id number] m in for eval on back injury LEONORAPAULA DOZIER 10/28 Released w/o Limitations [facility]( Fam Practic e FB) [facility](Fa m Practice FB) OUTPATIENT [id number] f/u per PAULA Perdue 11/09 Released w/o Limitations [facility]( Fam Practic e FB) [facility](Au diology Svc BE) OUTPATIENT [id number] FM fitting MIS YEYO Mc 11/16 Released w/o Limitations [facility]( Audiolo gy Svc BE) [facility](Ph ys Therapy FB) OUTPATIENT [id number] neck RICHARD CLARK V 11/17 Released w/o Limitations [facility]( Phys Therapy FB) [facility](Fa m Practice FB) OUTPATIENT [id number] Follow- up BARB DEVI 01/12 Released w/o Limitations [facility]( Fam Practic e FB) [facility](Ph ys Therapy FB) OUTPATIENT [id number] upper neck and lower back RICHARD CLARK V 01/15 Released w/o Limitations [facility]( Phys Therapy FB) [facility](ZZ Pain Mgmt Cl WR) OUTPATIENT [id number] Muscle spasm of the back JUNE GORDON 02/04 Released w/o Limitations [facility]( ZZPain Mgmt Cl WR) [facility](Ph ys Therapy FB) OUTPATIENT [id number] Muscle spasm of the back AMERICA ABDULLAHI 02/23 Released w/o Limitations [facility]( Phys Therapy FB) [facility](ZZ Pain Mgmt Cl WR) OUTPATIENT [id number] VENICE CHINCHILLA 03/15 Released w/o Limitations [facility]( ZZPain Mgmt Cl WR) [facility](Tr aumatic Stress/Br ain Inj Pro) OUTPATIENT [id number] f/u SAMUELIVANIA VALDIVIA 03/31 Released w/o Limitations [facility]( Traumat ic Stress/ Brain Inj Pro) [facility](Ph ys Exam FB) OUTPATIENT [id number] FRITZ Hernandez 04/05 Released w/o Limitations [facility]( Phys Exam FB) [facility](Ph ys Therapy FB) OUTPATIENT [id number] F/U LOWER BACK AMERICA ABDULLAHI James 04/16 Released w/o Limitations [facility]( Phys Therapy FB) [facility](Op tometry Cl FB) OUTPATIENT [id number] eye exam CARMEN SANCHEZ 04/26 Released w/o Limitations [facility]( Optomet ry Cl FB) [facility](Ph ys Therapy FB) OUTPATIENT [id number] lbp AMERICA ABDULLAHI 05/18 Released w/o Limitations [facility]( Phys Therapy FB) [facility](ER FB) OUTPATIENT [id number] KEYANNA MOMIN 07/12 Released w/o Limitations [facility]( ER FB) [facility](Co mm Health FB) OUTPATIENT [id number] ERIC AGUILAR 07/22 Released w/o Limitations [facility]( Comm Health FB) [facility](Fa roberto Practice Green FB) OUTPATIENT [id number] back pain ALESSIO MANCIA 07/27 Released w/o Limitations [facility]( Family Practic e Green FB) [facility](Fa roberto Practice Green FB) OUTPATIENT [id number] lower and shoulde r pain BARB DEVI 08/25 Released w/o Limitations [facility]( Family Practic e Green FB) [facility](ZZ Pain Mgmt Cl WR) OUTPATIENT [id number] chronic lbp LAUREEN COTTRELL 09/20 Released w/o Limitations [facility]( ZZPain Mgmt Cl WR) [facility](Sl eep Clinic WR) OUTPATIENT [id number] DEVIN DEL CID 09/29 Released w/o Limitations [facility]( Sleep Clinic WR) [facility](He ari Conservat [facility]) TELE CONSULT [id number] needs consult for tinnitu s managem ent MISYEYO MORALES. 12/15 [facility]( Hearing Conserv ation [place] a) [facility](Fa roberto Practice Green FB) OUTPATIENT [id number] BARB Negron 12/22 Released w/o Limitations [facility]( Family Practic e Green FB) [facility](Sl eep Clinic WR) OUTPATIENT [id number] PER DR JUNG OV SPLIT PSG DEVIN DEL CID 12/25 Released w/o Limitations [facility]( Sleep Clinic WR) [facility](Sl eep Clinic WR) TELE CONSULT [id number] PSG results f/u. DEVIN DEL CID 12/27 [facility]( Sleep Clinic WR) [facility](Au diology Cl WR) OUTPATIENT [id number] TINNITU S SUBJECT AMRIT REINA 01/03 Released w/o Limitations [facility]( Audiolo gy Cl WR) [facility](Au diology Svc BE) OUTPATIENT [id number] BRYANT SIMON 01/26 Released w/o Limitations [facility]( Audiolo gy Svc BE) [facility](Sl eep (Pulm) Cl Be) OUTPATIENT [id number] f/u DEVIN DEL CID 02/16 Released w/o Limitations [facility]( Sleep (Pulm) Cl Be) [facility](Ne urology Cl FB) OUTPATIENT [id number] SUREKHA Mahoney 03/04 Released w/o Limitations [facility]( Neurolo gy Cl FB) [facility](Fa [facility] Practice Silver Cl FB) TELE CONSULT [id number] Pt is request ing for a same day appt with Dr. Calvillo or NOE Moseley 03/09 [facility]( Family Practic e Silver Cl FB) [facility](Fa roberto Practice Gold Cl FB) OUTPATIENT [id number] Neck pain CEDRIC ASHBY 03/10 Released with Work/Duty Limitations [facility]( Family Practic e Gold Cl FB) [facility](Fa roberto Practice Gold Cl FB) TELE CONSULT [id number] Neurosu rgery referra NEYMAR Hernandez B 03/17 [facility]( Family Practic e Gold Cl FB) [facility](Sl eep (Pulm) Cl Be) OUTPATIENT [id number] cpap fu NEHEMIAS DEVIN N 03/22 Released w/o Limitations [facility]( Sleep (Pulm) Cl Be) [facility](Au diology Svc BE) OUTPATIENT [id number] BRYANT SIMON E 03/29 Released w/o Limitations [facility]( Audiolo gy Svc BE) [facility](Ne urology Cl FB) OUTPATIENT [id number] ADALI SUREKHA M 04/04 Released w/o Limitations [facility]( Neurolo gy Cl FB) [facility] [facility]) OUTPATIENT [id number] Cervica l spondyl osis with myelopa thy VALERIA DAVIES B 04/15 Released with Work/Duty Limitations [facility]( [place] [facility]) [facility](Fa roberto Practice Red FB) TELE CONSULT [id number] No acute appts, pt is having a lower back pain. pls call back, thank you ALEXANDRE TEJADA 04/19 [facility]( Family Practic e Red FB) [facility](Fa roberto Practice Green FB) OUTPATIENT [id number] low back pain LIZZETH CARR 04/20 Released w/o Limitations [facility]( Family Practic e Green FB) [facility](Ph ys Therapy FB) OUTPATIENT [id number] neck AMERICA ABDULLAHI M 04/20 Released w/o Limitations [facility]( Phys Therapy FB) [facility](Ph ys Therapy FB) OUTPATIENT [id number] Cervica l spondyl osis with myelopa thy MICHEAL LAMB M 04/25 Released w/o Limitations [facility]( Phys Therapy FB) [facility](Fa roberto Practice Red FB) OUTPATIENT [id number] f/u BARB CUNHA 04/27 Released w/o Limitations [facility]( Family Practic e Red FB) [facility](Ph ys Therapy FB) OUTPATIENT [id number] neck MICHEAL LAMB 04/29 Released w/o Limitations [facility]( Phys Therapy FB) [facility](Ph ys Therapy FB) OUTPATIENT [id number] MICHEAL iL 05/02 Released w/o Limitations [facility]( Phys Therapy FB) [facility](Op tometry Cl FB) OUTPATIENT [id number] retirem ent PE SYBIL ALBERTS 05/03 Released w/o Limitations [facility]( Optomet ry Cl FB) [facility](Ca rdiolog Cl FB) OUTPATIENT [id number] EKG ONLY ZARA LINK JR 05/03 Released w/o Limitations [facility]( Cardiol og Cl FB) [facility](He ar Conserv SRP FB) OUTPATIENT [id number] retirem ent LIZZETH PATTERSON 05/03 Released w/o Limitations [facility]( Hear Conserv SRP FB) [facility]( 12Sports Med Prim Care Cl FB) OUTPATIENT [id number] Pain in the right shoulde r joint(s ) DOT HODGE 05/05 Released w/o Limitations [facility]( NA78Tpn rts Med Prim Care Cl FB) [facility](Ph ys Therapy FB) OUTPATIENT [id number] MICHEAL Li 05/06 Released w/o Limitations [facility]( Phys Therapy FB) [facility](Ph ys Therapy FB) OUTPATIENT [id number] neck LAM RAPHAEL 05/09 Released w/o Limitations [facility]( Phys Therapy FB) [facility](Op tometry Cl FB) OUTPATIENT [id number] eye exam GRIFFIN GONZALEZ 05/09 Released w/o Limitations [facility]( Optomet ry Cl FB) [facility](Sl eep (Pulm) Cl Be) OUTPATIENT [id number] cpap fu DEVIN DEL CID 05/09 Released w/o Limitations [facility]( Sleep (Pulm) Cl Be) [facility](Ph ys Exam FB) OUTPATIENT [id number] ret part 2 FRITZ LANGE 05/13 Released w/o Limitations [facility]( Phys Exam FB) [facility](Ph ys Therapy FB) OUTPATIENT [id number] neck JUNE FARAH 05/16 Released w/o Limitations [facility]( Phys Therapy FB) [facility](Op hth Compre FB) OUTPATIENT [id number] IVANIA MEIER 05/19 Released w/o Limitations [facility]( Ophth Compre FB) [facility](Ph ys Therapy FB) OUTPATIENT [id number] TENDONI TIS KIRIT HOLLING[place]ORTH 05/25 Released w/o Limitations [facility]( Phys Therapy FB) [facility] [facility]) OUTPATIENT [id number] VALERIA DAVIES 05/26 Released w/o Limitations [facility]( [place] [facility]) [facility](EM G Cl FB) OUTPATIENT [id number] CERVICA L RADICUL OPATHY C6 JOSÉ LUIS CASTRO 06/06 Released w/o Limitations [facility]( EMG Cl FB) [facility](Au diology Cl FB) OUTPATIENT [id number] SONIDO CORREA 06/10 Released w/o Limitations [facility]( Audiolo gy Cl FB) [facility](Pa in Mgmt Clinic Fossil) OUTPATIENT [id number] CERVICA L RADICUL OPATHY C6 ROGER ALANIS 06/15 Released w/o Limitations [facility]( Pain Mgmt Clinic [place] a) [facility](Sports Med Prim Care Cl FB) OUTPATIENT [id number] f/u DOT Martin 06/16 Released w/o Limitations [facility]( [id number] rts Med Prim Care Cl FB) [facility](AP U Pain Cl Be) OUTPATIENT [id number] C-SILVA KENDALL QUEVEDO 06/17 Released w/o Limitations [facility]( APU Pain Cl Be) [facility](Sl eep (Pulm) Cl Be) OUTPATIENT [id number] cpap DEVIN Murillo 06/29 Released w/o Limitations [facility]( Sleep (Pulm) Cl Be) [facility](Fa [facility] Practice Blue FB) OUTPATIENT [id number] resched ule from 06/30 MARISEL HUSSEIN 06/29 Released w/o Limitations [facility]( Family Practic e Blue FB) [facility]([place] [facility]) OUTPATIENT [id number] VALERIA DAVIES 07/21 Released w/o Limitations [facility]( [facility] [facility]) [facility](Op hth Compre FB) OUTPATIENT [id number] DOT WAYNE 07/28 Released w/o Limitations [facility]( Ophth Compre FB) [facility](In t Med Purple FB) OUTPATIENT [id number] PHA Part 2 (verifi ed) RICHARD CORREA Magui 09/27 Released with Work/Duty Limitations [facility]( Int Med Purple FB) [address] [place] [address] Group Chuck [facility] rior Op Med Cln Tm A Ad) OUTPATIENT [id number] Initial appt [phone] ANETTE FISHMAN 12/22 Released w/o Limitations [address] [place] [address] [facility])(W arrior Op Med Cln Tm A Ad) [address] [place] [address] Chuck [facility])([facility]co tt [facility] Fam Res Tm Gold) TELE CONSULT [id number] Notes Entered by: ROSA MARIA PEARSON 16 Dec 2014 0630 ------- ------- ------- ------- -- Emergen cy room visit JOSSELYN BANDA 12/[address] [place] [address] [facility] ([facility] Fam Res Tm Gold) [address] [place] [address] Chuck SNY[facility])(Sco tt [employer] Fam Res Tm Gold) TELE CONSULT [id number] Notes Entered by: CHARMAINE TORRES 08 Jun 2015 1540 ------- ------- ------- ------- -- Xarelto f/u JOSSELYN BANDA 06/[address] [place] [address] Chuck SNYDER [facility])([facility] Fam Res Tm Gold) [facility] PSYTX W PT 60 MINUTES [id number] Diagnos is: ICD-10- CM F43.10 Post-tr aumatic stress disorde r unspeci fied MASTNAK,JU LIE 02/08 [facility] Outpatient Encounter [id number] MASTNAK,JU LIE 02/08 [facility] Outpatient Encounter [id number] MASTNAK,JU LIE 02/08 [facility] Outpatient Encounter [id number] 02/13 [facility] OFFICE O/P EST MOD 30-39 MIN [id number] Diagnos is: ICD-10- CM F43.12 Post-tr aumatic stress disorde r, chronic ARISTIDES,KLA RA I 02/17 [facility] Outpatient Encounter [id number] MASTNAK,JU LIE 03/02 [facility] Outpatient Encounter [id number] MASTNAK,JU LIE 03/03 [facility] Outpatient Encounter [id number] MASTNAK,JU LIE 03/03 [facility] Outpatient Encounter [id number] 03/03 [facility] PSYTX W PT 60 MINUTES [id number] Diagnos is: ICD-10- CM F43.12 Post-tr aumatic stress disorde r, chronic MASTNAK,JU LIE 03/10 [facility] Outpatient Encounter [id number] 03/12 [facility] Outpatient Encounter [id number] ABDI PERALTA M 03/14 [facility] Outpatient Encounter [id number] 03/14 [facility] PSYTX W PT 60 MINUTES [id number] Diagnos is: ICD-10- CM F43.12 Post-tr aumatic stress disorde r, chronic MASTNAK, LIE 03/17 [facility] PSYTX W PT 60 MINUTES [id number] Diagnos is: ICD-10- CM F43.12 Post-tr aumatic stress disorde r, chronic MASTNAK,JU LIE 03/24 [facility] Outpatient Encounter [id number] 03/29 [facility] OFFICE O/P EST MOD 30-39 MIN [id number] Diagnos is: ICD-10- CM E11.9 Type 2 diabete s mellitu s without complic ations CAMDEN HE 03/29 [facility] PSYTX W PT 45 MINUTES [id number] Diagnos is: ICD-10- CM F43.12 Post-tr aumatic stress disorde r, chronic MASTNAK, LIE 03/[address] [facility] [facility] Outpatient Encounter [id number] MASTNAK,JU LIE 04/05 [facility] Outpatient Encounter [id number] MASTNAK,JU LIE 04/05 [facility] Outpatient Encounter [id number] 04/10 [facility] PSYTX W PT 60 MINUTES [id number] Diagnos is: ICD-10- CM F43.12 Post-tr aumatic stress disorde r, chronic MASTNAK,JU LIE 04/12 [facility] Outpatient Encounter [id number] MASTNAK, LIE 04/12 [facility] Outpatient Encounter [id number] 04/13 [facility] Outpatient Encounter [id number] 04/18 [facility] Outpatient Encounter [id number] 04/18 [facility] PSYTX W PT 60 MINUTES [id number] Diagnos is: ICD-10- CM F43.12 Post-tr aumatic stress disorde r, chronic MASTNAK,JU LIE 04/26 [facility] Outpatient Encounter [id number] MASTNAK,JU LIE 04/26 [facility] Outpatient Encounter [id number] 04/28 [facility] PSYTX W PT 60 MINUTES [id number] Diagnos is: ICD-10- CM F43.12 Post-tr aumatic stress disorde r, chronic ILDEFONSO,JU LIE 05/05 [facility] Outpatient Encounter [id number] 05/08 [facility] Outpatient Encounter [id number] GERRY MENDEZ TTHEW C 05/10 [facility] Outpatient Encounter [id number] GERRY MENDEZ TTHEW C 05/11 [facility] Outpatient Encounter [id number] 05/12 [facility] Outpatient Encounter [id number] ILDEFONSO,JU LIE 05/12 [facility] Outpatient Encounter [id number] 05/12 [facility] Outpatient Encounter [id number] Felisa JIM 05/15 [facility] Outpatient Encounter [id number] Felisa JIM 05/16 [facility] Outpatient Encounter [id number] 06/06 [facility] Outpatient Encounter [id number] 06/15 [facility] Outpatient Encounter [id number] 06/30 [facility] Outpatient Encounter [id number] 07/04 [facility] OFFICE O/P EST MOD 30 MIN [id number] Diagnos is: ICD-10- CM F43.12 Post-tr aumatic stress disorde r, chronic ARISTIDES,KLA RA I 07/06 [facility] OFFICE O/P EST MOD 30 MIN [id number] Diagnos is: ICD-10- CM F43.12 Post-tr aumatic stress disorde r, chronic POTTER,AR MIDA A 08/06 [facility] Outpatient Encounter [id number] 08/14 [facility] Outpatient Encounter [id number] 09/21 [facility] OFFICE O/P EST LOW 20 MIN [id number] Diagnos is: ICD-10- CM E11.9 Type 2 diabete s mellitu s without complic ations Carolee DANIELS 11/13 [facility] Outpatient Encounter [id number] 11/27 [facility] OFFICE O/P EST MOD 30 MIN [id number] Diagnos is: ICD-10- CM K31.9 Disease of stomach and duodenu m, unspeci fied ELIZABETH REYES E 12/04 [facility] Outpatient Encounter [id number] Felisa JIM 12/27 [facility] Outpatient Encounter [id number] Felisa JIM 01/03 [facility] Outpatient Encounter [id number] Diagnos is: ICD-10- CM F43.12 Post-tr aumatic stress disorde r, chronic ISIDORO IRVING RA, I 01/03 [facility] Outpatient Encounter [id number] ISIDORO IRVING RA, I 01/05 [facility] Outpatient Encounter [id number] 01/24 [facility] Outpatient Encounter [id number] 02/05 [facility] Outpatient Encounter [id number] GERRY MENDEZ TTHEW C 02/12 [facility] Outpatient Encounter [id number] 02/22 [facility] Outpatient Encounter [id number] 03/21 [facility] QNHP OL DIG ASSMT&MGMT 04-17 [id number] Diagnos is: ICD-10- CM E11.9 Type 2 diabete s mellitu s without complic ations GERRY THOMPSON M 04/09 [facility] OFFICE O/P EST MOD 30 MIN [id number] Diagnos is: ICD-10- CM F43.12 Post-tr aumatic stress disorde r, chronic POTTER,AR [place] A 04/15 [facility] Outpatient Encounter [id number]. [id number] 04/16 [facility] PSYTX W PT 60 MINUTES [id number]. [id number] Diagnos is: ICD-10- CM F43.12 Post-tr aumatic stress disorde r, chronic MASTNAK,JU LIE 05/01 [facility] Outpatient Encounter [id number]. [id number] MASTNAK,JU LIE 05/01 [facility] THERAPEUTI C EXERCISES [id number]. [id number] Diagnos is: ICD-10- CM M54.50 Low back pain, unspeci fied LILI TRAN 05/02 [facility] Outpatient Encounter [id number] 05/07 [facility] Outpatient Encounter [id number] 05/14 [facility] Outpatient Encounter [id number] 05/14 [facility] PSYTX W PT 60 MINUTES [id number] Diagnos is: ICD-10- CM F43.12 Post-tr aumatic stress disorde r, chronic MASTNAK,JU LIE 05/15 [facility] THERAPEUTI C EXERCISES [id number] Diagnos is: ICD-10- CM M54.50 Low back pain, unspeci fied LILI TRAN 05/16 [facility] PSYTX W PT 30 MINUTES [id number] Diagnos is: ICD-10- CM F43.12 Post-tr aumatic stress disorde r, chronic Sylvain VARGHESE 06/10 [facility] Outpatient Encounter [id number] Sylvain VARGHESE 06/25 [facility] Outpatient Encounter [id number] BRITT VEGA 06/26 [facility] Outpatient Encounter [id number] 07/02 [facility] Outpatient Encounter [id number] Sylvain VARGHESE 07/02 [facility] Outpatient Encounter [id number] BRITT VEGA 07/03 [facility] SYNCH AUDIO-ONLY EST LOW 20 [id number] Diagnos is: ICD-10- CM M50.30 Other cervica l disc degener ation, unsp cervica l region POTTER,AR MIDA A 07/09 [facility] Outpatient Encounter [id number] POTTER,AR MIDA A 07/16 [facility] OFF/OP CNSLTJ NEW/EST MOD 40 [id number] Diagnos is: ICD-10- CM 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 Procedure Procedure Type Code Date Perfdarren Johnston e PHYSICAL THERAPY RE-EVALUATION 12/06 [facility] THERAPEUTIC PROCEDURE, 1 OR MORE AREAS, EACH 15 MINUTES; THERAPEUTIC EXERCISES TO DEVELOP STRENGTH AND ENDURANCE, RANGE OF MOTION AND FLEXIBILITY 11/15 [facility] THERAPEUTIC PROCEDURE(S), GROUP (2 OR MORE INDIVIDUALS) 04/11 [facility] COLLECTION OF VENOUS BLOOD BY VENIPUNCTURE 09/24 [facility] NONINVASIVE EAR OR PULSE OXIMETRY FOR OXYGEN SATURATION; SINGLE DETERMINATION 09/22 [facility] INJECTION, METHOCARBAMOL, UP TO 10 ML 05/08 [facility] SKIN TEST; TUBERCULOSIS, INTRADERMAL 12/24 [facility] INFLUENZA VIRUS VACCINE, WHOLE VIRUS, FOR INTRAMUSCULAR OR JET INJECTION USE 08/21 [facility] UNLISTED VACCINE/TOXOID 07/24 [facility] COLLECTION OF VENOUS BLOOD BY VENIPUNCTURE 07/04 [facility] CHIROPRACTIC MANIPULATIVE TREATMENT (CMT); SPINAL, 1-2 REGIONS 06/28 [facility] CHIROPRACTIC MANIPULATIVE TREATMENT (CMT); SPINAL, 1-2 REGIONS 06/18 [facility] APPLICATION OF A MODALITY TO 1 OR MORE AREAS; ELECTRICAL STIMULATION (UNATTENDED) 04/30 [facility] OPHTHALMOLOGICAL SERVICES: MEDICAL EXAMINATION AND EVALUATION, WITH INITIATION OR CONTINUATION OF DIAGNOSTIC AND TREATMENT PROGRAM; INTERMEDIATE, ESTABLISHED PATIENT 04/09 [facility] OPHTHALMOLOGICAL SERVICES: MEDICAL EXAMINATION AND EVALUATION, WITH INITIATION OR CONTINUATION OF DIAGNOSTIC AND TREATMENT PROGRAM; COMPREHENSIVE, ESTABLISHED PATIENT, 1 OR MORE VISITS 02/26 [facility] IMMUNIZATION ADMINISTRATION (INCLUDES PERCUTANEOUS, INTRADERMAL, SUBCUTANEOUS, OR INTRAMUSCULAR INJECTIONS); EACH ADDITIONAL VACCINE (SINGLE OR COMBINATION VACCINE/TOXOID) 11/05 [facility] EAR PROTECTOR ATTENUATION MEASUREMENTS 08/31 [facility] IMMUNIZATION ADMINISTRATION (INCLUDES PERCUTANEOUS, INTRADERMAL, SUBCUTANEOUS, OR INTRAMUSCULAR INJECTIONS); 1 VACCINE (SINGLE OR COMBINATION VACCINE/TOXOID) 04/12 [facility] EAR PROTECTOR ATTENUATION MEASUREMENTS 09/15 [facility] ANALYSIS OF CLINICAL DATA STORED IN COMPUTERS (EG, ECGS, BLOOD PRESSURES, HEMATOLOGIC DATA) 09/13 [facility] INTRAVENOUS INFUSION FOR THERAPY/DIAGNOSIS, ADMINISTERED BY PHYSICIAN OR UNDER DIRECT SUPERVISION OF PHYSICIAN; UP TO ONE HOUR 08/31 [facility] ANTHRAX VACCINE, FOR SUBCUTANEOUS OR INTRAMUSCULAR USE 08/04 [facility] ACOUSTIC REFLEX TESTING, THRESHOLD 08/07 [facility] EDUCATION &TRAINING, PATIENT SELF-MGT QUALIFIED, NONPHYSICIAN HEALTH PHOTO INTERN USING STDIZED CURRICULUM, [id number] W THE PATIENT (COULD INCL CAREGIVER/FAMILY) EA 30 MIN; INDIVIDUAL PATIENT 08/06 [facility] AUDIOMETRIC TESTING OF GROUPS 07/29 [facility] ELECTROCARDIOGRAM, ROUTINE ECG WITH AT LEAST 12 LEADS; TRACING ONLY, WITHOUT INTERPRETATION AND REPORT 07/29 [facility] INJECTION, DIHYDROERGOTAMINE MESYLATE, PER 1 MG 11/06 [facility] PHYSICAL THERAPY RE-EVALUATION 10/11 [facility] SELF-CARE/HOME MANAGMENT TRAIN (EG,ACT OF DAILY LIVING (ADL) &COMPENSAT TRAIN,MEAL PREPARATION,SAFETY PROCS,AND INSTRUCT IN USE OF ASST TECHNOLOGY DEV/ADPT EQUIP) DIR ONE-ON-ONE CONT,EA 15 MINUTES 09/11 [facility] THERAPEUTIC PROCEDURE(S), GROUP (2 OR MORE INDIVIDUALS) 09/06 [facility] THERAPEUTIC PROCEDURE(S), GROUP (2 OR MORE INDIVIDUALS) 09/04 [facility] THERAPEUTIC PROCEDURE, 1 OR MORE AREAS, EACH 15 MINUTES; THERAPEUTIC EXERCISES TO DEVELOP STRENGTH AND ENDURANCE, RANGE OF MOTION AND FLEXIBILITY 08/30 [facility] THERAPEUTIC PROCEDURE, 1 OR MORE AREAS, EACH 15 MINUTES; THERAPEUTIC EXERCISES TO DEVELOP STRENGTH AND ENDURANCE, RANGE OF MOTION AND FLEXIBILITY 08/28 [facility] THERAPEUTIC PROCEDURE, 1 OR MORE AREAS, EACH 15 MINUTES; THERAPEUTIC EXERCISES TO DEVELOP STRENGTH AND ENDURANCE, RANGE OF MOTION AND FLEXIBILITY 08/21 [facility] THERAPEUTIC PROCEDURE, 1 OR MORE AREAS, EACH 15 MINUTES; THERAPEUTIC EXERCISES TO DEVELOP STRENGTH AND ENDURANCE, RANGE OF MOTION AND FLEXIBILITY 08/19 [facility] THERAPEUTIC PROCEDURE, 1 OR MORE AREAS, EACH 15 MINUTES; THERAPEUTIC EXERCISES TO DEVELOP STRENGTH AND ENDURANCE, RANGE OF MOTION AND FLEXIBILITY 08/09 [facility] THERAPEUTIC PROCEDURE, 1 OR MORE AREAS, EACH 15 MINUTES; AQUATIC THERAPY WITH THERAPEUTIC EXERCISES 07/19 [facility] SELF-CARE/HOME MANAGMENT TRAIN (EG,ACT OF DAILY LIVING (ADL) &COMPENSAT TRAIN,MEAL PREPARATION,SAFETY PROCS,AND INSTRUCT IN USE OF ASST TECHNOLOGY DEV/ADPT EQUIP) DIR ONE-ON-ONE CONT,EA 15 MINUTES 07/10 [facility] THERAPEUTIC PROCEDURE(S), GROUP (2 OR MORE INDIVIDUALS) 04/26 [facility] THERAPEUTIC PROCEDURE(S), GROUP (2 OR MORE INDIVIDUALS) 04/17 [facility] SELF-CARE/HOME MANAGMENT TRAIN (EG,ACT OF DAILY LIVING (ADL) &COMPENSAT TRAIN,MEAL PREPARATION,SAFETY PROCS,AND INSTRUCT IN USE OF ASST TECHNOLOGY DEV/ADPT EQUIP) DIR ONE-ON-ONE CONT,EA 15 MINUTES 04/05 [facility] THERAPEUTIC PROCEDURE, 1 OR MORE AREAS, EACH 15 MINUTES; THERAPEUTIC EXERCISES TO DEVELOP STRENGTH AND ENDURANCE, RANGE OF MOTION AND FLEXIBILITY 04/04 [facility] INJECTION, PROMETHAZINE HCL, UP TO 50 MG 03/12 [facility] PHYSICAL THERAPY EVALUATION 05/17 [facility] PRESCRIPTION DRUG, ORAL, NONCHEMOTHERAPEUTIC , NOT OTHERWISE SPECIFIED 05/12 [facility] ELECTROCARDIOGRAM, ROUTINE ECG WITH AT LEAST 12 LEADS; WITH INTERPRETATION AND REPORT 09/27 [facility] OPHTHALMOLOGICAL SERVICES: MEDICAL EXAMINATION AND EVALUATION, WITH INITIATION OR CONTINUATION OF DIAGNOSTIC AND TREATMENT PROGRAM; INTERMEDIATE, ESTABLISHED PATIENT 07/28 [facility] GAVI&INTERPRET,PHYS IO DATA (EG,ECG,BLD PRESS,GLUCOSE MON) DIGIT STORED &/TRANSMIT,PT &/ C/G TO PHYS/OTH QUAL HCP,QUAL,EDUC,TRAIN ,LICENS/REG (WHEN YOLANDA) REQ A MINIMUM OF 30 MINUTES OF TIME,EACH 30 DAYS 06/29 [facility] INDIVIDUAL PSYCHOTHERAPY, INSIGHT ORIENTED, BEHAVIOR MODIFYING AND/OR SUPPORTIVE, IN AN OFFICE OR OUTPATIENT FACILITY, APPROXIMATELY 20 TO 30 MINUTES [id number]-VR-[id number] W THE PATIENT; W MED EVAL & MGT SER 06/28 [facility] INDIVIDUAL PSYCHOPHYSIOLOGICAL THERAPY INCORP BIOFEED TRAINING,ANY MODALITY ([id number] W THE PATIENT),W PSYCHOTHERAPY (EG,INSIGHT ORIENT,BEHAVIOR MODIFYING/SUPPORTIV E PSYCHOTHER); 45 MINUTES 06/28 [facility] NONINVASIVE EAR OR PULSE OXIMETRY FOR OXYGEN SATURATION; SINGLE DETERMINATION 06/17 [facility] OSTEOPATHIC MANIPULATIVE TREATMENT (OMT); 7-8 BODY REGIONS INVOLVED 06/16 [facility] INDIVIDUAL PSYCHOPHYSIOLOGICAL THERAPY INCORP BIOFEED TRAINING,ANY MODALITY ([id number] W THE PATIENT),W PSYCHOTHERAPY (EG,INSIGHT ORIENT,BEHAVIOR MODIFYING/SUPPORTIV E PSYCHOTHER); 45 MINUTES 06/14 [facility] DISTORTION PRODUCT EVOKED OTOACOUSTIC EMISSIONS;COMPREHEN SIVE DIAG EVALUATION (QUANTITATIVE ANALYSIS OF OUTER HAIR CELL FUNCTION,COCHLEAR MAPPING,MINIMUM OF 12 FREQUENCIES),W INTERPRETATION &REPORT 06/10 [facility] INDIVIDUAL PSYCHOPHYSIOLOGICAL THERAPY INCORP BIOFEED TRAINING,ANY MODALITY ([id number] W THE PATIENT),W PSYCHOTHERAPY (EG,INSIGHT ORIENT,BEHAVIOR MODIFYING/SUPPORTIV E PSYCHOTHER); 45 MINUTES 06/07 [facility] NERVE CONDUCTION, AMPLITUDE AND LATENCY/VELOCITY STUDY, EACH NERVE; SENSORY 06/06 [facility] INDIVIDUAL PSYCHOPHYSIOLOGICAL THERAPY INCORP BIOFEED TRAINING,ANY MODALITY ([id number]-[id number] W THE PATIENT),W PSYCHOTHERAPY (EG,INSIGHT ORIENT,BEHAVIOR MODIFYING/SUPPORTIV E PSYCHOTHER); 45 MINUTES 05/31 [facility] THERAPEUTIC PROCEDURE(S), GROUP (2 OR MORE INDIVIDUALS) 05/25 [facility] SCANNING COMPUTERIZED OPHTHALMIC DIAGNOSTIC IMAGING, POSTERIOR SEGMENT, WITH INTERPRETATION AND REPORT, UNILATERAL OR BILATERAL; RETINA 05/19 [facility] THERAPEUTIC PROCEDURE, 1 OR MORE AREAS, EACH 15 MINUTES; THERAPEUTIC EXERCISES TO DEVELOP STRENGTH AND ENDURANCE, RANGE OF MOTION AND FLEXIBILITY 05/16 [facility] INDIVIDUAL PSYCHOTHERAPY, INSIGHT ORIENTED, BEHAVIOR MODIFYING AND/OR SUPPORTIVE, IN AN OFFICE OR OUTPATIENT FACILITY, APPROXIMATELY 20 TO 30 MINUTES HBFA-[id number]-[id number] W THE PATIENT; W MED EVAL & MGT SER 05/11 [facility] INDIVIDUAL PSYCHOPHYSIOLOGICAL THERAPY INCORP BIOFEED TRAINING,ANY MODALITY (IBER-YU-XSUU W THE PATIENT),W PSYCHOTHERAPY (EG,INSIGHT ORIENT,BEHAVIOR MODIFYING/SUPPORTIV E PSYCHOTHER); 45 MINUTES 05/11 DoD DETERMINATION OF REFRACTIVE STATE 05/09 [facility] THERAPEUTIC PROCEDURE, 1 OR MORE AREAS, EACH 15 MINUTES; THERAPEUTIC EXERCISES TO DEVELOP STRENGTH AND ENDURANCE, RANGE OF MOTION AND FLEXIBILITY 05/09 [facility] THERAPEUTIC PROCEDURE(S), GROUP (2 OR MORE INDIVIDUALS) 05/06 [facility] PURE TONE AUDIOMETRY (THRESHOLD); AIR ONLY 05/03 [facility] ELECTROCARDIOGRAM, ROUTINE ECG WITH AT LEAST 12 LEADS; TRACING ONLY, WITHOUT INTERPRETATION AND REPORT 05/03 [facility] THERAPEUTIC PROCEDURE, 1 OR MORE AREAS, EACH 15 MINUTES; THERAPEUTIC EXERCISES TO DEVELOP STRENGTH AND ENDURANCE, RANGE OF MOTION AND FLEXIBILITY 05/02 [facility] THERAPEUTIC PROCEDURE, 1 OR MORE AREAS, EACH 15 MINUTES; THERAPEUTIC EXERCISES TO DEVELOP STRENGTH AND ENDURANCE, RANGE OF MOTION AND FLEXIBILITY 04/29 [facility] THERAPEUTIC PROCEDURE, 1 OR MORE AREAS, EACH 15 MINUTES; THERAPEUTIC EXERCISES TO DEVELOP STRENGTH AND ENDURANCE, RANGE OF MOTION AND FLEXIBILITY 04/25 [facility] PHYSICAL THERAPY EVALUATION 04/20 [facility] INDIVIDUAL PSYCHOTHERAPY, INSIGHT ORIENTED, BEHAVIOR MODIFYING AND/OR SUPPORTIVE, IN AN OFFICE OR OUTPATIENT FACILITY, APPROXIMATELY 45 TO 50 MINUTES WDWP-FO-QATK WITH THE PATIENT 04/05 [facility] EDUCATION &TRAINING, PATIENT SELF-MGT QUALIFIED, NONPHYSICIAN HEALTH PHOTO INTERN USING STANDARDIZED CURRICULUM, VNVC-DX-MDUL W THE PATIENT (COULD INCL CAREGIVER/FAMILY) EA 30 MIN; 5-8 PATIENTS 03/29 [facility] INDIVIDUAL PSYCHOTHERAPY, INSIGHT ORIENTED, BEHAVIOR MODIFYING AND/OR SUPPORTIVE, IN AN OFFICE OR OUTPATIENT FACILITY, APPROXIMATELY 20 TO 30 MINUTES QNMX-RB-DCTU W THE PATIENT; W MED EVAL & MGT SER 03/29 [facility] INDIVIDUAL PSYCHOPHYSIOLOGICAL THERAPY INCORP BIOFEED TRAINING,ANY MODALITY ([id number] W THE PATIENT),W PSYCHOTHERAPY (EG,INSIGHT ORIENT,BEHAVIOR MODIFYING/SUPPORTIV E PSYCHOTHER); 45 MINUTES 03/29 [facility] INDIVIDUAL PSYCHOPHYSIOLOGICAL THERAPY INCORP BIOFEED TRAINING,ANY MODALITY (GHKT-DG-JJWH W THE PATIENT),W PSYCHOTHERAPY (EG,INSIGHT ORIENT,BEHAVIOR MODIFYING/SUPPORTIV E PSYCHOTHER); 45 MINUTES 03/23 DoD TELE ASSESS & MGT SRV PROV QUAL NONPHYS HLTH CARE PRO TO EST PAT,PARENT,GUARD NOT ORIG REL ASSESS & MGT SRV PROV W/IN PREV 7 DAYS NOR LEAD ASSESS & MGT SRV/PX W/IN NXT 24 HR/SOON APT;5-10 MIN MED DIS 03/09 [facility] THERAPEUTIC,PROPHYL ACTIC,OR DIAGNOSTIC INJECTION (SPECIFY SUBSTANCE/DRUG);EA ADDITIONAL SEQUENTIAL INTRAVENOUS PUSH OF A NEW SUBSTANCE/DRUG (LIST SEPARATELY IN ADDITION TO CODE FOR PRIMARY PROCEDURE) 03/02 [facility] INDIVIDUAL PSYCHOPHYSIOLOGICAL THERAPY INCORP BIOFEED TRAINING,ANY MODALITY (HCCX-KF-WVGM W THE PATIENT),W PSYCHOTHERAPY (EG,INSIGHT ORIENT,BEHAVIOR MODIFYING/SUPPORTIV E PSYCHOTHER); 45 MINUTES 02/25 [facility] INDIVIDUAL PSYCHOTHERAPY, INSIGHT ORIENTED, BEHAVIOR MODIFYING AND/OR SUPPORTIVE, IN AN OFFICE OR OUTPATIENT FACILITY, APPROXIMATELY 45 TO 50 MINUTES AVPH-HU-PJOO WITH THE PATIENT 02/16 [facility] INDIVIDUAL PSYCHOTHERAPY, INSIGHT ORIENTED, BEHAVIOR MODIFYING AND/OR SUPPORTIVE, IN AN OFFICE OR OUTPATIENT FACILITY, APPROXIMATELY 20 TO 30 MINUTES VIBR-VK-MJJQ W THE PATIENT; W MED EVAL & MGT SER 02/16 Do[facility] SPEECH AUDIOMETRY THRESHOLD; 01/26 Do[facility] TYMPANOMETRY AND REFLEX THRESHOLD MEASUREMENTS 01/03 [facility] POLYSOMNOGRAPHY; AGE 6 YEARS OR OLDER, SLEEP STAGING WITH 4 OR MORE ADDITIONAL PARAMETERS OF SLEEP, ATTENDED BY A TECHNOLOGIST 12/15 [facility] INJECT(S),OF DIAG/THER SUBS(S) (INCLD ANES,ANTISPASMODIC, OPIOID,STEROID,OTH JANELLE),NOT INCLD NEUROLYTIC SUB,INCLD NEEDLE/CATH PLCMNT,INCLDS CONT FOR LOCALIZATION WHEN PERFORM,EPIDUR/SUBA MINO;LUMB/SAC 09/20 [facility] THERAPEUTIC, PROPHYLACTIC, OR DIAGNOSTIC INJECTION (SPECIFY SUBSTANCE OR DRUG); SUBCUTANEOUS OR INTRAMUSCULAR 07/11 [facility] INDIVIDUAL PSYCHOTHERAPY, INSIGHT ORIENTED, BEHAVIOR MODIFYING AND/OR SUPPORTIVE, IN AN OFFICE OR OUTPATIENT FACILITY, APPROXIMATELY 20 TO 30 MINUTES OKCR-UY-TWWT W THE PATIENT; W MED EVAL & MGT SER 06/02 [facility] PHYSICAL THERAPY RE-EVALUATION 05/18 [facility] DEVELOPMENT OF COGNITIVE SKILLS TO IMPROVE ATTENTION, MEMORY, PROBLEM SOLVING (INCLUDES COMPENSATORY TRAINING), DIRECT (ONE-ON-ONE) PATIENT CONTACT, EACH 15 MINUTES 05/05 [facility] INDIVIDUAL PSYCHOTHERAPY, INSIGHT ORIENTED, BEHAVIOR MODIFYING AND/OR SUPPORTIVE, IN AN OFFICE OR OUTPATIENT FACILITY, APPROXIMATELY 45 TO 50 MINUTES YNAT-HP-[id number] W THE PATIENT; W MED EVAL & MGT SER 05/05 [facility] SCANNING COMPUTERIZED OPHTHALMIC DIAGNOSTIC IMAGING, POSTERIOR SEGMENT, (EG, SCANNING LASER) WITH INTERPRETATION AND REPORT, UNILATERAL 04/26 [facility] INDIVIDUAL PSYCHOTHERAPY, INSIGHT ORIENTED, BEHAVIOR MODIFYING AND/OR SUPPORTIVE, IN AN OFFICE OR OUTPATIENT FACILITY, APPROXIMATELY 45 TO 50 MINUTES TESK-HM-[id number] WITH THE PATIENT 04/20 [facility] THERAPEUTIC PROCEDURE, 1 OR MORE AREAS, EACH 15 MINUTES; THERAPEUTIC EXERCISES TO DEVELOP STRENGTH AND ENDURANCE, RANGE OF MOTION AND FLEXIBILITY 04/16 [facility] INDIVIDUAL PSYCHOTHERAPY, INSIGHT ORIENTED, BEHAVIOR MODIFYING AND/OR SUPPORTIVE, IN AN OFFICE OR OUTPATIENT FACILITY, APPROXIMATELY 45 TO 50 MINUTES CKSF-NO-PATD WITH THE PATIENT 04/06 [facility] INDIVIDUAL PSYCHOTHERAPY, INSIGHT ORIENTED, BEHAVIOR MODIFYING AND/OR SUPPORTIVE, IN AN OFFICE OR OUTPATIENT FACILITY, APPROXIMATELY 45 TO 50 MINUTES TOAH-SB-GGVC WITH THE PATIENT 03/31 [facility] EDUCATIONAL SUPPLIES, SUCH BOOKS, TAPES, AND PAMPHLETS, FOR THE PATIENT'S EDUCATION AT COST TO PHYSICIAN OR OTHER QUALIFIED HEALTH PHOTO INTERN 03/17 [facility] INDIVIDUAL PSYCHOTHERAPY, INSIGHT ORIENTED, BEHAVIOR MODIFYING AND/OR SUPPORTIVE, IN AN OFFICE OR OUTPATIENT FACILITY, APPROXIMATELY 20 TO 30 MINUTES MCRG-GV-FVSS W THE PATIENT; W MED LORELEI & MGT SER 03/17 [facility] THERAPEUTIC PROCEDURE, 1 OR MORE AREAS, EACH 15 MINUTES; THERAPEUTIC EXERCISES TO DEVELOP STRENGTH AND ENDURANCE, RANGE OF MOTION AND FLEXIBILITY 02/23 [facility] EDUCATION &TRAINING, PATIENT SELF-MGT QUALIFIED, NONPHYSICIAN HEALTH PHOTO INTERN USING STDIZED CURRICULUM, TWJF-UA-IRGP W THE PATIENT (COULD INCL CAREGIVER/FAMILY) EA 30 MIN; INDIVIDUAL PATIENT 01/15 [facility] INDIVIDUAL PSYCHOPHYSIOLOGICAL THERAPY INCORP BIOFEED TRAINING,ANY MODALITY (FPTZ-JF-PKEW W THE PATIENT),W PSYCHOTHERAPY (EG,INSIGHT ORIENT,BEHAVIOR MODIFYING/SUPPORTIV E PSYCHOTHER); 45 MINUTES 01/14 [facility] INDIVIDUAL PSYCHOTHERAPY, INSIGHT ORIENTED, BEHAVIOR MODIFYING AND/OR SUPPORTIVE, IN AN OFFICE OR OUTPATIENT FACILITY, APPROXIMATELY 45 TO 50 MINUTES APCV-DU-FTQK W THE PATIENT; W MED ELIZABETHAL & MGT SER 01/06 [facility] INDIVIDUAL PSYCHOPHYSIOLOGICAL THERAPY INCORP BIOFEED TRAINING,ANY MODALITY (AHQF-YR-EVXQ W THE PATIENT),W PSYCHOTHERAPY (EG,INSIGHT ORIENT,BEHAVIOR MODIFYING/SUPPORTIV E PSYCHOTHER); 45 MINUTES 12/31 [facility] INDIVIDUAL PSYCHOTHERAPY, INSIGHT ORIENTED, BEHAVIOR MODIFYING AND/OR SUPPORTIVE, IN AN OFFICE OR OUTPATIENT FACILITY, APPROXIMATELY 45 TO 50 MINUTES SEKR-YQ-ZYOF WITH THE PATIENT 12/25 [facility] INDIVIDUAL PSYCHOTHERAPY, INSIGHT ORIENTED, BEHAVIOR MODIFYING AND/OR SUPPORTIVE, IN AN OFFICE OR OUTPATIENT FACILITY, APPROXIMATELY 45 TO 50 MINUTES VCTL-LZ-[id number] W THE PATIENT; W MED EVAL & MGT SER 11/24 [facility] THERAPEUTIC PROCEDURE, 1 OR MORE AREAS, EACH 15 MINUTES; THERAPEUTIC EXERCISES TO DEVELOP STRENGTH AND ENDURANCE, RANGE OF MOTION AND FLEXIBILITY 11/17 DoD BATTERY FOR USE IN HEARING DEVICE 11/16 DoD PSYCHIATRIC DIAGNOSTIC INTERVIEW EXAMINATION 11/16 DoD INJECTION, KETOROLAC TROMETHAMINE, PER 15 MG 10/28 [facility] EDUCATION &TRAINING, PATIENT SELF-MGT QUALIFIED, NONPHYSICIAN HEALTH PHOTO INTERN USING STANDARDIZED CURRICULUM, XPKP-[id number]-[id number] W THE PATIENT (COULD INCL CAREGIVER/FAMILY) EA 30 MIN; 2-4 PATIENTS 10/06 Do[facility] UNLISTED OTORHINOLARYNGOLOGI TISHA SERVICE OR PROCEDURE 09/23 DoD APPLICATION OF A MODALITY TO 1 OR MORE AREAS; ELECTRICAL STIMULATION (UNATTENDED) 09/22 DoD APPLICATION OF A MODALITY TO 1 OR MORE AREAS; ELECTRICAL STIMULATION (UNATTENDED) 09/08 DoD REMOVAL IMPACTED CERUMEN REQUIRING INSTRUMENTATION, UNILATERAL 09/01 DoD PHYSICAL THERAPY RE-EVALUATION 08/31 DoD APPLICATION OF A MODALITY TO 1 OR MORE AREAS; ELECTRICAL STIMULATION (MANUAL), EACH 15 MINUTES 08/17 DoD TYMPANOMETRY (IMPEDANCE TESTING) 08/10 DoD APPLICATION OF A MODALITY TO 1 OR MORE AREAS; ELECTRICAL STIMULATION (MANUAL), EACH 15 MINUTES 08/10 DoD APPLICATION OF A MODALITY TO 1 OR MORE AREAS; ELECTRICAL STIMULATION (UNATTENDED) 08/05 DoD OSTEOPATHIC MANIPULATIVE TREATMENT (OMT); 1-2 BODY REGIONS INVOLVED 07/27 DoD SPEECH AUDIOMETRY THRESHOLD; WITH SPEECH RECOGNITION 06/25 DoD DETERMINATION OF VENOUS PRESSURE 11/13 DoD SELF-CARE/HOME MANAGMENT TRAIN (EG,ACT OF DAILY LIVING (ADL) &COMPENSAT TRAIN,MEAL PREPARATION,SAFETY PROCS,AND INSTRUCT IN USE OF ASST TECHNOLOGY DEV/ADPT EQUIP) DIR ONE-ON-ONE CONT,EA 15 MINUTES 11/14 [facility] OTHER EXPLORATION AND DECOMPRESSION OF SPINAL CANAL 06/09 [facility] LAMINECTOMY WITH EXPLORATION AND/OR DECOMPRESSION OF SPINAL CORD AND/OR CAUDA EQUINA, WITHOUT FACETECTOMY, FORAMINOTOMY OR DISCECTOMY (EG, SPINAL STENOSIS), MORE THAN 2 VERTEBRAL SEGMENTS; CERVICAL 06/08 [facility] SELF-CARE/HOME MANAGMENT TRAIN (EG,ACT OF DAILY LIVING (ADL) &COMPENSAT TRAIN,MEAL PREPARATION,SAFETY PROCS,AND INSTRUCT IN USE OF ASST TECHNOLOGY DEV/ADPT EQUIP) DIR ONE-ON-ONE CONT,EA 15 MINUTES 06/07 [facility] Physical Therapy: ___ Se ion Segments, 15 Minutes Each Physical Therapy: ___ Session Segments, 15 Minutes Each [id number] 09/08 CHARAN MELENDEZ [facility] Cerumen Removal 09/01 GIL KENNEY Cerumen debridement was performed utilizing Binocular Microscopy and appropriate sized otologic speculums, wax loops, and suctions. After cerumen removal, careful inspection of the cartilaginous and bony external auditory canal was performed. The tympanic membrane and landmarks to include the annulus, umbo, and lateral process of the malleus were inspected. TM mobility was assessed using a pneumatic otoscope. Additional findings were: [facility] Physical Therapy Service Re-Evaluation Physical Therapy Service Re-Evaluation 21517 08/31 RICHARD CLARK V [facility] Modalities Electrical Stimulation Modalities Electrical Stimulation 12036 08/17 MICHEAL LAMB [facility] Physical Medicine - Group Physical Therapy Se ion Physical Medicine - Group Physical Therapy Session 26925 08/17 MICHEAL LAMB [facility] Physical Therapy: ___ Se ion Segments, 15 Minutes Each Physical Therapy: ___ Session Segments, 15 Minutes Each 08063 08/17 MICHEAL LAMB [facility] Tympanometry Tympanometry 36057 08/10 KIRILL LOERA [facility] Threshold Audiogram (Pure Tone) Threshold Audiogram (Pure Tone) 93355 08/10 KIRILL LOERA [facility] Modalities Electrical Stimulation Modalities Electrical Stimulation 73029 08/10 MICHEAL LAMB [facility] Physical Medicine - Group Physical Therapy Se ion Physical Medicine - Group Physical Therapy Session 76273 08/10 ADONISMICHEAL [facility] Physical Therapy: ___ Se ion Segments, 15 Minutes Each Physical Therapy: ___ Session Segments, 15 Minutes Each 21805 08/10 ADONISMICHEAL [facility] Modalities Electrical Stimulation Unattended Modalities Electrical Stimulation Unattended 28564 08/05 CHARAN MELENDEZ Physical Medicine - Group Physical Therapy Se ion Physical Medicine - Group Physical Therapy Session 94292 08/05 CHARAN MELENDEZ Physical Therapy: ___ Se ion Segments, 15 Minutes Each Physical Therapy: ___ Session Segments, 15 Minutes Each 64233 08/05 CHARAN MELENDEZ Osteopathic Manip Treatment (OMT) 1-2 Body Regions Involved Osteopathic Manip Treatment (OMT) 1-2 Body Regions Involved 56334 07/27 RICHARD CLARK Physical Therapy: ___ Se ion Segments, 15 Minutes Each Physical Therapy: ___ Session Segments, 15 Minutes Each 25098 07/27 RICHARD CLARK Physical Therapy Service Evaluation Physical Therapy Service Evaluation 74858 07/27 RICHARD CLARK Acoustic Reflex Testing 06/25 FREEDOM ARORA Threshold Audiogram (Pure Tone) Threshold Audiogram (Pure Tone) 50910 06/25 FREEDOM ARORA Audiometry Speech Threshold With Discrimination Audiometry Speech Threshold With Discrimination 58242 06/25 FREEDOM ARORA Tympanometry Tympanometry 89413 06/25 FREEDOM ARORA Venous Pre ure Venous Pressure 30235 11/13 SABRA BOWMAN [facility] Vital Signs Recorded Vital Signs Recorded 11/13 SABRA BOWMAN Acoustic Reflex Testing 08/14 TAYLOR MCGHEE Comprehensive Audiometry Comprehensive Audiometry 43100 08/14 TAYLOR MCGHEE Patient Counseling Medical Management Individual Patient Patient Counseling Medical Management Individual Patient 97449 08/06 ROMERO MURRAY Patient Training And Self-Care Skills Patient Training And Self-Care Skills 92708 08/06 ROMERO MURRAY Threshold Audiogram (Pure Tone) Threshold Audiogram (Pure Tone) 05114 08/06 ROMERO MURRAY Patient Counseling Medical Management Individual Patient Patient Counseling Medical Management Individual Patient 03124 07/29 ROMERO MURRAY Threshold Audiogram (Pure Tone) Threshold Audiogram (Pure Tone) 12899 07/29 ROMERO MURRAY Audiometry Group Testing Audiometry Group Testing 34650 07/29 ROMERO MURRAY Electrocardiogram Electrocardiogram 75618 07/29 LAURA KELLY Phys Therapy Education Self Care Training - Per 15 Minutes Phys Therapy Education Self Care Training - Per 15 Minutes 63380 11/14 MARY BIRMINGHAM Physical Therapy Service Evaluation Physical Therapy Service Evaluation 01291 11/14 MARY BIRMINGHAM Physical Therapy Service Re-Evaluation Physical Therapy Service Re-Evaluation 19998 10/11 EMILY GUAMAN Phys Therapy Education Self Care Training - Per 15 Minutes Phys Therapy Education Self Care Training - Per 15 Minutes 41228 09/11 EMILY GUAMAN Physical Therapy Service Re-Evaluation Physical Therapy Service Re-Evaluation 09331 09/11 EMILY GUAMAN Physical Medicine - Group Physical Therapy Se ion Physical Medicine - Group Physical Therapy Session 86178 09/06 EVIE PEREZ Physical Therapy: ___ Se ion Segments, 15 Minutes Each Physical Therapy: ___ Session Segments, 15 Minutes Each 01032 09/05 EVIE PEREZ Physical Medicine - Group Physical Therapy Se ion Physical Medicine - Group Physical Therapy Session 28983 09/05 EVIE PEREZ A isted Exercises For ROM Assisted Exercises For ROM 19936 08/30 DO KAHN A isted Exercises [place] 30852 08/29 DO KAHN A isted Exercises [place] 84996 08/21 DO KAHN A isted Exercises [place] 06593 08/19 DO KAHN A isted Exercises [place] 07006 08/09 EMILY GUAMAN Physical Therapy Service Re-Evaluation Physical Therapy Service Re-Evaluation 90948 08/09 EMILY GUAMAN [facility] Aquatic Exercises Aquatic Exercises 42374 08/02 CARRIE MOHR [facility] Phys Therapy Education Self Care Training - Per 15 Minutes Phys Therapy Education Self Care Training - Per 15 Minutes 67030 07/10 EMILY GUAMAN [facility] A isted Exercises For ROM Assisted [place]ercises For ROM 02009 07/10 EMILY GUAMAN [facility] Physical Therapy Service Evaluation Physical Therapy Service Evaluation 06071 07/10 EMILY GUAMAN Phys Therapy Education Self Care Training - Per 15 Minutes Phys Therapy Education Self Care Training - Per 15 Minutes 96232 06/07 MARY BIRMINGHAM [facility] Physical Therapy Service Evaluation Physical Therapy Service Evaluation 55248 06/07 MARY BIRMINGHAM [facility] Physical Medicine - Group Physical Therapy Se ion Physical Medicine - Group Physical Therapy Session 30337 04/26 DO KAHN [facility] Physical Medicine - Group Physical Therapy Se ion Physical Medicine - Group Physical Therapy Session 83621 04/17 DO KAHN Phys Therapy Education Self Care Training - Per 15 Minutes Phys Therapy Education Self Care Training - Per 15 Minutes 05704 04/05 EMILY GUAMAN [facility] Physical Therapy Service Evaluation Physical Therapy Service Evaluation 96271 04/05 EMILY GUAMAN [facility] Phys Therapy Education Self Care Training - Per 15 Minutes Phys Therapy Education Self Care Training - Per 15 Minutes 17907 04/04 LEANN CORDERO [facility] A isted Exercises For ROM Assisted Exercises For ROM 45863 04/04 LEANN CORDERO [facility] Physical Therapy Service Evaluation Physical Therapy Service Evaluation 31356 04/04 LEANN CORDERO [facility] Physical Therapy Service Evaluation Physical Therapy Service Evaluation 63745 05/17 AMERICA HERNANDEZ [facility] Physical Therapy Service Re-Evaluation Physical Therapy Service Re-Evaluation 40515 12/06 PABLO LANG [facility] Physical Therapy Service Evaluation Physical Therapy Service Evaluation 77666 11/15 PABLO LANG [facility] Physical Therapy: ___ Se ion Segments, 15 Minutes Each Physical Therapy: ___ Session Segments, 15 Minutes Each 31943 11/15 PABLO LANG [facility] Physical Medicine - Group Physical Therapy Se ion Physical Medicine - Group Physical Therapy Session 79067 04/11 KIRILL REY [facility] ECG 12-Lead With Interpretation And Report ECG 12-Lead With Interpretation And Report 49491 09/27 RICHARD CORREA [facility] Remote Physiologic Monitoring Collect/Interpret Data, Minimum 30 Min 08/20 DEVIN DEL CID [facility] Ophthalmological Prior Patient Start Intermediate Level Care Ophthalmological Prior Patient Start Intermediate Level Care 85921 08/01 SYBIL DAVIES [facility] Pulse Oximetry Pulse Oximetry 42148 06/17 KENDALL QUEVEDO [facility] Apnea Monitor Apnea Monitor 19599 06/17 KENDALL QUEVEDO [facility] Corticosteroid Inj Interlaminar Cervical C6 - C7 06/17 KENDALL QUEVEDO [facility] Fluoroscopic Guidance/Localiz Of Needle For Spinal Injection 06/17 KENDALL QUEVEDO [facility] Intravenous Catheter Placement Intravenous Catheter Placement 86970 06/17 KENDALL QUEVEDO Osteopathic Manip Treatment (OMT) 7-8 Body Regions Involved Osteopathic Manip Treatment (OMT) 7-8 Body Regions Involved 20442 06/16 DOT HODGE [facility] Intralesional Injections - Up To Seven Intralesional Injections - Up To Seven 43258 06/16 DOT HODGE [facility] Ultrasonic Guidance Procedures Ultrasonic Guidance Procedures 88894 06/16 DOT HODGE [facility] Evoked Otoacoustic Azul ions Comprehensive 06/10 SONIDO CORREA [facility] Acoustic Reflex Testing 06/10 SONIDO CORREA [facility] Tympanometry Tympanometry 56759 06/10 SONIDO CORREA [facility] Comprehensive Audiometry Comprehensive Audiometry 86812 06/10 SONIDO CORREA [facility] NCS Right Median Nerve Sensory Function (Orthodromic) NCS Right Median Nerve Sensory Function (Orthodromic) 94110 06/06 JOSÉ LUIS CASTRO [facility] NCS Right Median Nerve Motor Function NCS Right Median Nerve Motor Function 81401 06/06 JOSÉ LUIS CASTRO [facility] NCS Right Radial Nerve Sensory Function NCS Right Radial Nerve Sensory Function 40554 06/06 JOSÉ LUIS CASTRO [facility] NCS Right Ulnar Nerve Sensory Function (Orthodromic) NCS Right Ulnar Nerve Sensory Function (Orthodromic) 03560 06/06 JOSÉ LUIS CASTRO NCS Right Ulnar Nerve Motor Function NCS Right Ulnar Nerve Motor Function 11910 06/06 JOSÉ LUIS CASTRO EMG Of One Extremity With Related Paraspinal Areas EMG Of One Extremity With Related Paraspinal Areas 44164 06/06 JOSÉ LUIS CASTRO Physical Therapy: ___ Se ion Segments, 15 Minutes Each Physical Therapy: ___ Session Segments, 15 Minutes Each 99802 05/25 KIRIT PARISI Physical Medicine - Group Physical Therapy Se ion Physical Medicine - Group Physical Therapy Session 79685 05/25 KIRIT PARISI Scanning Computerized Ophthalmic Diagnostic Imaging Retina Scanning Computerized Ophthalmic Diagnostic Imaging Retina 80998 05/19 EMILY ELLISON Ophthalmological Sensorimotor Exam Ophthalmological Sensorimotor Exam 89012 05/19 EMILY ELLISON Ophthalmological New Patient Start Comprehensive Care Ophthalmological New Patient Start Comprehensive Care 26618 05/19 EMILY ELLISON Physical Therapy: ___ Se ion Segments, 15 Minutes Each Physical Therapy: ___ Session Segments, 15 Minutes Each 41662 05/18 JUNE FARAH ECG Interpretation And Report Only ECG Interpretation And Report Only 22040 05/16 FRITZ LANGE Audiogram (Screening) Audiogram (Screening) 75481 05/16 FRITZ LANGE Visual Function Screening Visual Function Screening 45930 05/16 FRITZ LANGE Remote Physiologic Monitoring Collect/Interpret Data, Minimum 30 Min 05/10 DEVIN DEL CID Ophthalmological Prior Patient Start Comprehensive Care Ophthalmological Prior Patient Start Comprehensive Care 49552 05/09 GRIFFIN GONZALEZ Spectacles Services Fitting Bifocal Except For Aphakia Spectacles Services Fitting Bifocal Except For Aphakia 36404 05/09 GRIFFIN GONZALEZ Determination Of Refractive State Determination Of Refractive State 54239 05/09 GRIFFIN GONZALEZ Physical Medicine - Group Physical Therapy Se ion Physical Medicine - Group Physical Therapy Session 40735 05/09 LAM RAPHAEL Physical Therapy: ___ Se ion Segments, 15 Minutes Each Physical Therapy: ___ Session Segments, 15 Minutes Each 00859 05/09 LAM RAPHAEL [facility] Physical Medicine - Group Physical Therapy Se ion Physical Medicine - Group Physical Therapy Session 01892 05/06 MADISONMICHEAL [facility] Physical Therapy: ___ Se ion Segments, 15 Minutes Each Physical Therapy: ___ Session Segments, 15 Minutes Each 92522 05/06 MADISONMICHEAL [facility] Ultrasound Extremity, Nonvascular 05/05 CAMDEN ARAYA [facility] Corticosteroids Injection Intraarticular Subacromial Bursa Corticosteroids Injection Intraarticular Subacromial Bursa 39913 05/05 CAMDEN ARAYA [facility] ECG Performance of Tracing Only ECG Performance of Tracing Only 35403 05/03 ZARA LINK JR [facility] Threshold Audiogram (Pure Tone) Threshold Audiogram (Pure Tone) 51702 05/03 LATESHA PATTERSON [facility] Physical Therapy: ___ Se ion Segments, 15 Minutes Each Physical Therapy: ___ Session Segments, 15 Minutes Each 27230 05/02 MADISONMICHEAL [facility] Physical Therapy: ___ Se ion Segments, 15 Minutes Each Physical Therapy: ___ Session Segments, 15 Minutes Each 34795 [facility]: ___ Se ion Segments, 15 Minutes Each Physical Therapy: ___ Session Segments, 15 Minutes Each 62762 04/[facility] Physical Therapy Service Evaluation Physical Therapy Service Evaluation 18505 04/20 AMERICA ABDULLAHI [facility] Patient Counseling Medical Management Five To Eight Patients Patient Counseling Medical Management Five To Eight Patients 07508 03/30 BRYANT SIMON [facility] Remote Physiologic Monitoring Collect/Interpret Data, Minimum 30 Min 03/22 DEVIN DEL CID [facility] Non-Physician Phone Call To Patient/Provider Brief (5-10min) Non-Physician Phone Call To Patient/Provider Brief (5-10min) 22152 03/09 NOE ROY Audiometry Speech Threshold Audiometry Speech Threshold 10805 01/26 BRYANT SIMON Acoustic Immittance Test Acoustic Immittance Test 75032 01/26 BRYANT SIMON Threshold Audiogram (Pure Tone) Threshold Audiogram (Pure Tone) 38145 01/26 BRYANT SIMON Tympanometry With Reflex Threshold Measurements Tympanometry With Reflex Threshold Measurements 81102 01/04 MILDRED VARGAS Comprehensive Audiometry Comprehensive Audiometry 23720 01/04 MILDRED VARGAS Polysomnography With Four Or More Additional Sleep Parameters 12/25 DEVIN DEL CID Corticosteroid Inj Interlaminar Lumbar L4 - L5 09/20 IJEOMA DOLAN Fluoroscopic Guidance/Localiz Of Needle For Spinal Injection 09/20 IJEOMA DOLAN Apnea Monitor Apnea Monitor 83243 09/20 IJEOMA DOLAN Psychotherapy Individual Approx 30 Min W/ Medical Evaluation & Management Psychotherapy Individual Approx 30 Min W/ Medical Evaluation & Management 74258 06/02 OLAMIDE AGUILAR Physical Therapy: ___ Se ion Segments, 15 Minutes Each Physical Therapy: ___ Session Segments, 15 Minutes Each 12550 05/18 AMERICA ABDULLAHI Physical Therapy Service Re-Evaluation Physical Therapy Service Re-Evaluation 23899 05/18 AMERICA ABDULLAHI Development Of Cognitive Skills By Compensatory Activities Development Of Cognitive Skills By Compensatory Activities 19435 05/05 HA FELIZ Clinical Social Work Individual Outpatient Counseling 75-80 Minutes Clinical Social Work Individual Outpatient Counseling 75-80 Minutes 93256 05/05 HA FELIZ Optical Coherence Tomography 04/26 CARMEN SANCHEZ [employer] Fundus Photography 28401 CARMEN SANCHEZ Spectacles Services Fitting Bifocal Except For Aphakia Spectacles Services Fitting Bifocal Except For Aphakia 05972 04/26 CARMEN SANCHEZ Determination Of Refractive State Determination Of Refractive State 79292 04/26 CARMEN SANCHEZ Ophthalmological New Patient Start Comprehensive Care Ophthalmological New Patient Start Comprehensive Care 69866 04/26 CARMEN SANCHEZ Physical Therapy: ___ Se ion Segments, 15 Minutes Each Physical Therapy: ___ Session Segments, 15 Minutes Each 58975 04/19 AMERICA ABDULLAHI Osteopathic Manip Treatment (OMT) 1-2 Body Regions Involved Osteopathic Manip Treatment (OMT) 1-2 Body Regions Involved 52467 04/19 AMERICA ABDULLAHI [facility] Physical Therapy Service Re-Evaluation Physical Therapy Service Re-Evaluation 24135 04/19 AMERICA ABDULLAHI [facility] Physician Supervised Services Provision Of Educational Supplies Physician Supervised Services Provision Of Educational Supplies 63901 04/09 HA FELIZ Development Of Cognitive Skills By Compensatory Activities Development Of Cognitive Skills By Compensatory Activities 56049 04/09 HA FELIZ Clinical Social Work Individual Outpatient Counseling 75-80 Minutes Clinical Social Work Individual Outpatient Counseling 75-80 Minutes 85906 04/09 HA FELIZ Physician Supervised Services Provision Of Educational Supplies Physician Supervised Services Provision Of Educational Supplies 23979 04/07 HA FELIZ Clinical Social Work Individual Outpatient Counseling 75-80 Minutes Clinical Social Work Individual Outpatient Counseling 75-80 Minutes 70678 04/07 HA FELIZ Psych Ther Indiv Psychophysiological W/ Biofeedback Approx 45 Minutes 03/31 IVANIA SAMUEL [facility] Physical Therapy: ___ Se ion Segments, 15 Minutes Each Physical Therapy: ___ Session Segments, 15 Minutes Each 69385 02/23 AMERICA ABDULLAHI [facility] Physical Therapy Neuromuscular Re-education Physical Therapy Neuromuscular Re-education 47828 02/23 AMERICA ABDULLAHI [facility] Physical Therapy Service Evaluation Physical Therapy Service Evaluation 50490 02/23 AMERICA ABDULLAHI [facility] Patient Counseling Medical Management Individual Patient Patient Counseling Medical Management Individual Patient 39581 01/20 RICHARD CLARK V [facility] Physical Therapy Service Re-Evaluation Physical Therapy Service Re-Evaluation 13608 01/20 RICHARD CLARK V [facility] Psychotherapy Individual Approximately 45 Minutes Psychotherapy Individual Approximately 45 Minutes 60091 01/17 HA FELIZ Psych Ther Indiv Psychophysiological W/ Biofeedback Approx 45 Minutes 01/14 IVANIA SAMUEL Psychiatric Diagnostic Evaluation Comprehensive Examination Psychiatric Diagnostic Evaluation Comprehensive Examination 40910 12/31 IVANIA SAMUEL Psych Ther Indiv Psychophysiological W/ Biofeedback Approx 45 Minutes 12/31 IVANIA SAMUEL Psychotherapy Individual Approximately 45 Minutes Psychotherapy Individual Approximately 45 Minutes 56792 11/24 HA FELIZ Physical Therapy: ___ Se ion Segments, 15 Minutes Each Physical Therapy: ___ Session Segments, 15 Minutes Each 98524 11/17 RICHARD CLARK V [facility] Physical Therapy Service Evaluation Physical Therapy Service Evaluation 75738 11/17 RICHARD CLARK V [facility] Battery for use in hearing device 11/17 YEYO ABEBE [facility] Physician Supervised Injection Physician Supervised Injection 80809 10/28 PAULA LEA [facility] Injection, ketorolac tromethamine, per 15 mg 10/28 PAULA LEA 60mg Toradol IM x 1 now [facility] Patient Counseling Medical Management Two To Four Patients Patient Counseling Medical Management Two To Four Patients 97264 10/07 YEYO ABEBE [facility] ENT Services ENT Services 95560 09/25 YEYO ABEBE QuickSIN- 3 conditions, 2 lists each [facility] Modalities Electrical Stimulation Unattended Modalities Electrical Stimulation Unattended 34199 09/22 CHARAN MELENDEZ Physical Medicine - Group Physical Therapy Se ion Physical Medicine - Group Physical Therapy Session 83525 09/22 CHARAN MELENDEZ [facility] Physical Therapy: ___ Se ion Segments, 15 Minutes Each Physical Therapy: ___ Session Segments, 15 Minutes Each 51641 09/22 CHARAN MELENDEZ Modalities Electrical Stimulation Unattended Modalities Electrical Stimulation Unattended 76370 09/08 CHARAN MELENDEZ Physical Therapy Mobilization Joint Physical Therapy Mobilization Joint 66718 09/08 CHARAN MELENDEZ Physical Medicine - Group Physical Therapy Se ion Physical Medicine - Group Physical Therapy Session 33295 09/08 CHARAN MELENDEZ [facility] No data available for this section Ambulato ry Pharmacy Social History Combined list of available smoking, tobacco, and other social history from Department of Defense and Veterans Affairs facilities. Social History Type Response Date Comment Sourc e Tobacco smoking status NHIS VA-TOBACCO NEVER USED 12/28/2023 [facility] History of tobacco use VA-TOBACCO NEVER USED 12/19/2022 [facility] History of tobacco use VA-TOBACCO NEVER USED 09/22/2021 [facility] History of tobacco use VA-TOBACCO NEVER USED 09/17/2020 [facility] History of tobacco use VA-TOBACCO NEVER USED 08/07/2019 [facility] History of tobacco use VA-TOBACCO NEVER USED 05/18/2018 [facility] History of tobacco use VA-TOBACCO NEVER USED 03/06/2018 [facility] History of tobacco use VA-TOBACCO NEVER USED 10/03/2017 [facility] History of tobacco use LIFETIME NON-USER OF TOBACCO 03/24/2017 [facility] History of tobacco use LIFETIME NON-USER OF TOBACCO 10/07/2016 [facility] History of tobacco use LIFETIME NON-USER OF TOBACCO 11/11/2015 [facility] History of tobacco use LIFETIME NON-USER OF TOBACCO 12/29/2014 [facility] History of tobacco use LIFETIME NON-USER OF TOBACCO 12/24/2013 never [facility] History of tobacco use LIFETIME NON-USER OF TOBACCO 06/04/2012 [facility] This section is an empty social history section. DoD Assessment and Plan Combined list of future care activities from Department of Defense and Veterans Affairs facilities (e.g., assessment and plan notes, appointments, orders, and referrals). Additional future care activities may be listed in the Plan of Care section. Result Assessment and Plan Date Source Assessment and Plan No data available for this section 07/31/2024 Ambulatory Pharmacy Plan of Care List of future care activities from Department of Veterans Affairs facilities. Additional future care activities may be listed in the Assessment and Plan section. Date/Time Care Activity Care Activity Detail Facili ty 08/06/2024 AMBULATORY - NONE AMBULATORY - NONE . [facility] 10/01/2024 AMBULATORY - MEDICINE AMBULATORY - MEDICI [facility] 07/29/2024 Consult Order HEMATOLOGY/ONCOL OGY ECONSULT OUTPT STL Cons All Source Collection Manager's Choice [facility] Functional Status Combined list of recent functional and cognitive assessments recorded at [facility] Defense and [facility] ([facility] Functional Raymond Measurement (FIM) Scale: 1 = Total Assistance (Subject = 0% +), 2 = Maximal Assistance (Subject = 25% +), 3 = Moderate Assistance (Subject = 50% +), 4 = Minimal Assistance (Subject = 75% +), 5 = Supervision, 6 = Modified Raymond (Device), 7 = Complete Raymond (Timely, Safely). Assessment Date/Time Source Assessment Type Assessment Skill Assessment Score Assessment Details No data available for this section
--- OUTSIDE RECORDS SUMMARY | 2024-07-30 19:25 | XMS_ITS | Encounter Summary ---
Author Name [facility] [place] [facility] [facility] [place] Address [address] [place] [address] Care Team Providers Care Casket Inspector Name Role Phone ABBEY TOVA Primary Care Provider Unavailabl e Insurance [...] Type Encounter Description Reason Provider Source Apr 15, 2024 02:00 PM OFFICE O/P EST MOD 30 MIN PRIMARY CARE/MEDICINE ICD-10-CM F43.12 Post-traumatic stress disorder, chronic POTTER,TOVA A IHE Encounter Template Text not used by [place] Assessments - Encounter Diagnoses This section includes the primary and secondary diagnoses documented for the Encounter. Date/Time Primary/Secondary Diagnosis Diagnosis Name Provider Source Apr 15, 2024 02:44 PM PRIMARY Post-traumatic stress disorder, chronic [facility] Apr 15, 2024 02:44 PM SECONDARY Cervical disc disorder w radiculopathy, unsp cervical region POTTER,TOVA A [facility] Apr 15, 2024 02:44 PM SECONDARY Other cervical disc degeneration, unsp cervical region TOVA POTTER [facility] Apr 15, 2024 02:44 PM SECONDARY Other migraine, not intractable, without status migrainosus TOVA POTTER [facility] Apr 15, 2024 02:44 PM SECONDARY Type 2 diabetes mellitus without complications TOVA POTTER [facility] Plan of Treatment: Future Appointments (+ 6 months) and Future Tests (+/- 45 days) The Plan of Treatment section includes future care activities for the patient from all [place] [facility] This section includes future appointments and future orders which are active, pending or scheduled. Future Appointments This section includes appointments that were scheduled to occur 6 months from the date of the Encounter, up to a maximum of 20 appointments. The data comes from all [facility]. Appointment Date/Time Appointment Type Appointme nt Facility Name May 01, 2024 02:00 PM AMBULATORY - PSY[facility]IATRY [facility] May 02, 2024 01:00 PM AMBULATORY - REHAB MEDICIN E [facility] May 07, 2024 02:00 PM AMBULATORY - NONE [facility] May 15, 2024 02:00 PM AMBULATORY - PSYCHIATRY [facility] May 16, 2024 01:00 PM AMBULATORY - REHAB MEDICIN E [facility] May 31, 2024 01:30 PM AMBULATORY - REHAB MEDICIN E [facility] Jun 10, 2024 03:00 PM AMBULATORY - NONE [facility] Jun 14, 2024 01:30 PM AMBULATORY - REHAB MEDICIN E [facility] Jun 21, 2024 03:00 PM AMBULATORY - NONE [facility] Jun 25, 2024 10:00 AM AMBULATORY - NONE [facility] Jun 28, 2024 01:30 PM AMBULATORY - REHAB MEDICIN E [facility] Jul 02, 2024 08:00 AM AMBULATORY - NONE [facility] Jul 09, 2024 08:30 AM AMBULATORY - MEDICINE [facility] Jul 29, 2024 01:00 PM AMBULATORY - SURGERY [facility] Aug 06, 2024 02:00 AM AMBULATORY - NONE [facility] October 01, 2024 08:00 AM AMBULATORY - MEDICINE [facility] Active, Pending, and Scheduled Orders This section includes a listing of several types of active, pending, and scheduled orders, including clinic medications orders, diagnostic test orders, procedure orders and consult orders; where the start date of the order is 45 days before the date of the Encounter or 45 days after the date of theEncounter. The data comes from all [place] treatment facilities. Test Date/Time Test Type Test Details Facility Name Apr 15, 2024 12:00 AM Laboratory - Chemi stry Order BASIC METABOLIC PANEL GREEN LI/HEP BLD/PLAS PLASMA SP [facility] Apr 15, 2024 12:00 AM Laboratory - Chemi stry Order MICRAL/CREAT PROFILE (STL) URINE SP [facility] Apr 15, 2024 12:00 AM Laboratory - Chemi stry Order LIPID PANEL (STL) GREEN LI/HEP BLD/PLAS PLASMA SP ONCE [facility] Apr 15, 2024 12:00 AM Laboratory - Chemi stry Order HGA1C BLOOD SP [facility] May 14, 2024 11:54 AM Consult Order COMMUNITY CARE-STL DENTAL GEN Cons Door Core Assembler's Choice [facility] Lab Results: +/- 30 days of the encounter This section includes the Chemistry and Hematology Lab Results on record with [place] for the patient. Radiology Reports and Pathology Reports are provided separately, in subsequent sections. Lab Results This section contains the Chemistry/Hematology Results that were resulted 30 days before or 30 daysafter the date of the Encounter. Date/Time Source Result Type Result - Unit Interpretation Reference Range Comment Apr 15, 2024 02:33 PM [facility] GLUCOSE,BLOOD-poct (STL) Specimen Type: BLOOD Comment: Test Performed by: [id number] Meter #: [id number] Ordering Provider: CHARITY POTTER Report Released Date/Time: Apr 15, 2024 03:35 PM Reporting Lab: [facility] [address] [facility] [id number] Performing Lab: [facility] [address] [facility] [id number] GLUCOSE,BLO OD-poct (STL) 71 mg/dL L 72-99 Vital Signs: All taken on the encounter date This section contains inpatient and outpatient Vital Signs collected on the date of the Encounter. Date/Time Temperature Pulse Blood Pressure Respiratory Rate SP02 Pain Height Weight Body Mass Index Source Apr 15, 2024 02:11 PM 97.8 50 122/73 18 99 8 73 195 26 [facility] Social History: Smoking Status (Most current) and [...] Current Smoking Status Comment Facil ity Dec 29, 2014 03:43 PM LIFETIME NON-USER OF TOBACCO [facility] Encounter Notes: All associated encounter notes This section contains the clinical notes associated to the Encounter. Date/Time Encounter Note(s) Provider Source Apr 15, 2024 02:44 PM ADDENDUM: LOCAL TITLE: Addendum STANDARD TITLE: ADDENDUM DATE OF NOTE: APR 15, 2024@14:44:42 ENTRY DATE: APR 15, 2024@14:44:43 AUTHOR: TOVA POTTER EXP COSIGNER: URGENCY: STATUS: COMPLETED pt with PTSD , requesting return to counseling, preferred provider is Ms Mary Fregoso.denies Si/HI. will contnue current meds /es/ TOVA POTTER MD Signed: 04/15/2024 14:45 Receipt Acknowledged By: 04/15/2024 15:08 /rahda/ SONU JIM REGISTERED NURSE, [facility] 04/16/2024 13:16 /radha/ Mary Fregoso, Ph.D., ABPP Psychologist, [facility] --- Original Document --- 04/15/24 PRIMARY CARE PROVIDER ESTABLISHED VISIT STL: ESTABLISHED PATIENT [id number]: REASON FOR VISIT/CHIEF COMPLAINT: pt with DM LBP /Neck pain, PTSD, migraine, reports worsening low back pain. HPI:Reports stable mood, takes meds as prescribed, denies SI/HI.would like to resume counseiling. will tage nurse. Has chronic neck pain that radiates down both hands. no weakness. worse with activity , better with rest. takes NSaid alternating with APAP prn for pain. Denies increased thirst, urination nor hunger, denies cp, sob, palpitations. reports worsening low back pain that radiates down to BLE, no recent trauma. no loss of bowel and bladder control. no difficulty ambulating. SOURCE(S) OF HISTORY: Patient PAST MEDICAL HISTORY: [...] medication list with the patient and/or his/her care-senior php developer. Handwritten corrections, additions and/or deletions were made to the list. Corrected Outpatient Medication List was provided to the patient/caregiver. Active Outpatient Medications (including Supplies): Active Outpatient Medications Status 1) CLONIDINE [...] DAY NEEDED FOR ANXIETY *MAY CAUSE DROWSINESS* Pending Outpatient Medications Status 1) ATORVASTATIN CALCIUM 80MG TAB TAKE ONE-HALF TABLET BY PENDING MOUTH EVERY EVENING 2) SITAGLIPTIN (EQV-ZITUVIO) 100MG TAB TAKE ONE TABLET PENDING BY MOUTH ONCE A DAY REPLACES ALOGLIPTIN 5 Total Medications REVIEW OF SYSTEMS: General: Normal No Fevers, Chills, Weight Loss, Weight Gain, Recent Illness. Ears, Nose, Mouth, Throat: Normal No new loss of hearing or tinnitus, no Dental issue, Difficulty swallowing, Vertigo. Eye: Normal No Trauma, Cataracts, Glaucoma, Blurred vision Cardiovascular: Normal No Chest pain, Dizziness, Palpitations. Respiratory: Normal No Cough, SOB, Hemoptysis, Epistaxis, Influenza symptoms, +PDD. ABD/GI: Normal No Acid reflux/heartburn, Nausea, Vomiting, Diarrhea, Constipation, Pain/discomfort. Musculoskeletal/Extremities: Normal No Weakness, Edema, new Pain, new Stiffness/reduced ROM, Trauma. /BODY ARTIST: Normal No Frequency, Hesitancy, Nocturia, Dysuria, Discharge, Odor. Hematology & Lymph: Normal No Anemia, Bleeding tendencies, Fatigue, Malignancy, Swollen nodes. Endocrine: Normal No Excessive hunger, Excessive thirst, Excessive urination. Psych: Normal No Insomnia, Hypersomnia, Nightmares, Anxiety. Neuro: Normal No Headaches, Seizures, Concussion, LOC, Tremor, Neuropathy. Skin: Normal No Lacerations/skin tears, Rash, Insect bites, Pressure ulcers, Lesions, Hematomae/contusions/abrasio ns. PHYSICAL EXAMINATION: General appearance: VITALS (most recent, as listed in the electronic record): B/P: 122/73 (04/15/2024 14:11) Pulse: 50 (04/15/2024 14:11) Temperature: 97.8 F [36.6 C] (04/15/2024 14:11) Weight: 195 lb [88.45 kg] (04/15/2024 14:11) Height: 73 in [185.4 cm] (04/15/2024 14:11) BMI: 25.8 Pain: 8 (04/15/2024 14:11) (0-10 scale) General: pleasant, cooperative, well-developed, well-nourished, appropriately dressed and groomed Winfred; in no acute distress. Ears, Nose, Mouth, Throat:NC/AT,MMM, no thyromegaly Eye:PERRL Cardiovascular:RRR, No m/r/g or clicks. Respiratory:Clear to auscultation bilaterally. No accessory muscle use. Respirations even and non-labored ABD/GI:soft, non-tender. BS + x 4. /BODY ARTIST: Deferred Lymph: No lymphadenopathy Extremities:No pedal edema. + SLR , bilateral SI joint TTP Psych:Affect appropriate. Neuro: Oriented x3. Gait steady with normal stride. Hematology: Color good. No pallor. No ecchymosis or petechiae. Skin:No visualized abnormalities. ASSESSMENT/PLAN: PTSD - mood stable, denies SI.HI. MH recs. cpm DMT2- at goal. cont sitagliptin.cont statin,. recommend юлия inh for renoprotection,deferred by pt. eye exam UTD october 2023 worsening LBP 2/2 DDD- cont RICE. repeat imaging. recommend PT neck pain 2.2 DDD- cont stretching exercises. cont otc apap alternate with nsaid prn. NSY recs. Migraine stable, monitor RETURN TO CLINIC:6-9 mo Return to Clinic order placed SUMMARY STATEMENT: Plan of care has been discussed with including expected therapeutic benefits and potential side effects of prescribed medication and treatments. verbalizes understanding and is in agreement with the plan of care. Patient was instructed to keep all scheduled appointments and contact brickmason supervisor for any additional problems. PREVENTION & SCREENING: ALCOHOL: Clinical Reminder not due now or within a month BLOOD PRESSURE: Clinical Reminder not due now or within a month HEMOGLOBIN A1C: Clinical Reminder not due now or within a month /radha/ TOVA POTTER MD Signed: 04/15/2024 14:44 04/16/2024 ADDENDUM STATUS: COMPLETED An internal consult to TRP was generated on this date. /radha/ Mary Fregoso, Ph.D., ABPP Psychologist, [facility] Signed: 04/16/2024 11:02 TOVA POTTER [facility] Apr 15, 2024 02:28 PM PRIMARY CARE NOTE: LOCAL TITLE: PRIMARY CARE PROVIDER ESTABLISHED VISIT [facility] STANDARD TITLE: PRIMARY CARE NOTE DATE OF NOTE: APR 15, 2024@14:28 ENTRY DATE: APR 15, 2024@14:28:59 AUTHOR: TOVA POTTER EXP COSIGNER: URGENCY: STATUS: COMPLETED PRIMARY CARE PROVIDER ESTABLISHED VISIT ST Has ADDENDA ESTABLISHED PATIENT [id number]: REASON FOR VISIT/CHIEF COMPLAINT: pt with DM LBP /Neck pain, PTSD, migraine, reports worsening low back pain. HPI:Reports stable mood, takes meds as prescribed, denies SI/HI.would like to resume counseiling. will tage nurse. Has chronic neck pain that radiates down both hands. no weakness. worse with activity , better with rest. takes NSaid alternating with APAP prn for pain. Denies increased thirst, urination nor hunger, denies cp, sob, palpitations. reports worsening low back pain that radiates down to BLE, no recent trauma. no loss of bowel and bladder control. no difficulty ambulating. SOURCE(S) OF HISTORY: Patient PAST MEDICAL HISTORY: [...] medication list with the patient and/or his/her care-senior php developer. Handwritten corrections, additions and/or deletions were made to the list. Corrected Outpatient Medication List was provided to the patient/caregiver. Active Outpatient Medications (including Supplies): Active Outpatient Medications Status 1) CLONIDINE [...] DAY NEEDED FOR ANXIETY *MAY CAUSE DROWSINESS* Pending Outpatient Medications Status 1) ATORVASTATIN CALCIUM 80MG TAB TAKE ONE-HALF TABLET BY PENDING MOUTH EVERY EVENING 2) SITAGLIPTIN (EQV-ZITUVIO) 100MG TAB TAKE ONE TABLET PENDING BY MOUTH ONCE A DAY REPLACES ALOGLIPTIN 5 Total Medications REVIEW OF SYSTEMS: General: Normal No Fevers, Chills, Weight Loss, Weight Gain, Recent Illness. Ears, Nose, Mouth, Throat: Normal No new loss of hearing or tinnitus, no Dental issue, Difficulty swallowing, Vertigo. Eye: Normal No Trauma, Cataracts, Glaucoma, Blurred vision Cardiovascular: Normal No Chest pain, Dizziness, Palpitations. Respiratory: Normal No Cough, SOB, Hemoptysis, Epistaxis, Influenza symptoms, +PDD. ABD/GI: Normal No Acid reflux/heartburn, Nausea, Vomiting, Diarrhea, Constipation, Pain/discomfort. Musculoskeletal/Extremities: Normal No Weakness, Edema, new Pain, new Stiffness/reduced ROM, Trauma. /BODY ARTIST: Normal No Frequency, Hesitancy, Nocturia, Dysuria, Discharge, Odor. Hematology & Lymph: Normal No Anemia, Bleeding tendencies, Fatigue, Malignancy, Swollen nodes. Endocrine: Normal No Excessive hunger, Excessive thirst, Excessive urination. Psych: Normal No Insomnia, Hypersomnia, Nightmares, Anxiety. Neuro: Normal No Headaches, Seizures, Concussion, LOC, Tremor, Neuropathy. Skin: Normal No Lacerations/skin tears, Rash, Insect bites, Pressure ulcers, Lesions, Hematomae/contusions/abrasio ns. PHYSICAL EXAMINATION: General appearance: VITALS (most recent, as listed in the electronic record): B/P: 122/73 (04/15/2024 14:11) Pulse: 50 (04/15/2024 14:11) Temperature: 97.8 F [36.6 C] (04/15/2024 14:11) Weight: 195 lb [88.45 kg] (04/15/2024 14:11) Height: 73 in [185.4 cm] (04/15/2024 14:11) BMI: 25.8 Pain: 8 (04/15/2024 14:11) (0-10 scale) General: pleasant, cooperative, well-developed, well-nourished, appropriately dressed and groomed Winfred; in no acute distress. Ears, Nose, Mouth, Throat:NC/AT,MMM, no thyromegaly Eye:PERRL Cardiovascular:RRR, No m/r/g or clicks. Respiratory:Clear to auscultation bilaterally. No accessory muscle use. Respirations even and non-labored ABD/GI:soft, non-tender. BS + x 4. /BODY ARTIST: Deferred Lymph: No lymphadenopathy Extremities:No pedal edema. + SLR , bilateral SI joint TTP Psych:Affect appropriate. Neuro: Oriented x3. Gait steady with normal stride. Hematology: Color good. No pallor. No ecchymosis or petechiae. Skin:No visualized abnormalities. ASSESSMENT/PLAN: PTSD - mood stable, denies SI.HI. MH recs. cpm DMT2- at goal. cont sitagliptin.cont statin,. recommend юлия inh for renoprotection,deferred by pt. eye exam UTD october 2023 worsening LBP 2/2 DDD- cont RICE. repeat imaging. recommend PT neck pain 2.2 DDD- cont stretching exercises. cont otc apap alternate with nsaid prn. NSY recs. Migraine stable, monitor RETURN TO CLINIC:6-9 mo Return to Clinic order placed SUMMARY STATEMENT: Plan of care has been discussed with including expected therapeutic benefits and potential side effects of prescribed medication and treatments. verbalizes understanding and is in agreement with the plan of care. Patient was instructed to keep all scheduled appointments and contact brickmason supervisor for any additional problems. PREVENTION & SCREENING: ALCOHOL: Clinical Reminder not due now or within a month BLOOD PRESSURE: Clinical Reminder not due now or within a month HEMOGLOBIN A1C: Clinical Reminder not due now or within a month /radha/ TOVA POTTER MD Signed: 04/15/2024 14:44 04/15/2024 ADDENDUM STATUS: COMPLETED pt with PTSD , requesting return to counseling, preferred provider is Ms Mary Fregoso.denies Si/HI. will contnue current meds /radha/ TOVA POTTER MD Signed: 04/15/2024 14:45 Receipt Acknowledged By: 04/15/2024 15:08 /radha/ SONU JIM REGISTERED NURSE, [facility] * AWAITING SIGNATURE * MARY FREGOSO 04/16/2024 ADDENDUM STATUS: COMPLETED An internal consult to TRP was generated on this date. /radha/ Mary Fregoso, Ph.D., ABPP Psychologist, [facility] Signed: 04/16/2024 11:02 TOVA POTTER [facility] Apr 15, 2024 02:18 PM NURSING NOTE: LOCAL TITLE: V15 PACT FACE TO FACE NOTE ST STANDARD TITLE: NURSING NOTE DATE OF NOTE: APR 15, 2024@14:18 ENTRY DATE: APR 15, 2024@14:18:36 AUTHOR: JAI GARCÍA EXP COSIGNER: URGENCY: STATUS: COMPLETED V15 PACT FACE TO FACE NOTE STL Has ADDENDA Provider Visit: Patient Identifiers : Full Name Date of Reason for visit: Established Follow-Up Mode of Arrival: Ambulatory Allergy Review: Patient has answered NKA Allergy list reviewed and remains current. Recent Vital Signs: Temperature: 97.8 F [36.6 C] (04/15/2024 14:11) Pulse: 50 (04/15/2024 14:11) Respiration: 18 (04/15/2024 14:11) B/P: 122/73 (04/15/2024 14:11) Pain: 8 (04/15/2024 14:11) Wt: 195 lb [88.45 kg] (04/15/2024 14:11) Ht: 73 in [185.4 cm] (04/15/2024 14:11) BMI: 25.8 POX: 99% (04/15/2024 14:11) Would you like to discuss any personal problem, family problem, alcohol use, drug use, or a mental or emotional illness? No My [facility] please select appointment type: Face to face: Yes-Do you have an upgraded (Premium) account which gives you the added benefit of Secure Messaging with your Primary Care Provider and refilling your prescriptions online? Contact provided Primary Care phone number and encouraged to call if any questions or concerns. Review that after hours nurse line [phone] and emergency room are available 19/12 for patient use. Contact verbalized good understanding. Sexual Orientation - CP,L,N,P,PH,PS,S,U: The patient thinks of their sexual orientation as: Straight or Heterosexual /es/ S RICKY VALENTINE LICENSED PRACTICAL NURSE Signed: 04/15/2024 14:20 04/15/2024 ADDENDUM STATUS: COMPLETED Clinic Administered Medications: Indication: Pain Provider order verified Allergies verified Verbalized understanding and verbal consent given for the following clinic administered medication: Medication #1: Source of Medication: Clinic Supplied Medication: Ketorlac Tromethamine Amount/Dose Ordered: 60mg/2ml Payment Processor: [employer] Lot#: [id number] Exp Date: Route: IM Injection site: Left Gluteal Patient toleration: Tolerated well Follow up instructions: No follow up required Influenza Immunization - L,N,P,PH,U: Deferral / Refusal The patient declines to receive the recommended dose of seasonal influenza vaccine. Immunization: INFLUENZA, UNSPECIFIED FORMULATION Refusal Reason: PATIENT DECISION Patient refuses all immunization(s) in the FLU group Date Documented: 04/15/24 14:37 /radha/ JAI GARCÍA LPN LICENSED PRACTICAL NURSE Signed: 04/15/2024 14:37 JAI GARCÍA [facility]
--- OUTSIDE RECORDS SUMMARY | 2024-07-30 19:25 | XMS_ITS | Clinical Summary ---
Author Organization [facility] Address [address] [place] [address] Care Team Providers Care Shower Enclosure Installer Name Role Phone Raphael Hodge MD Primary Care Provider Medications GLUCOSAMINE-CHONDROITIN 8522-0166 MG OR TABSIndications:Lumbar disc herniation Take 1 tablet by mouth daily. 90 tablet 3 07/01/19 23 Active LUMIGAN 0.01 % Solution 05/0 07/18 23 Active atorvastatin (LIPITOR) 40 MG tabletIndications:Pure hypercholesterolemia Take 1 tablet (40 mg total) by mouth daily. 90 tablet 3 09/19/19 24 Active pioglitazone (ACTOS) 30 MG tabletIndications:Type 2 diabetes mellitus with hyperglycemia, with long-term current use of insulin ([facility]) Take 1 tablet (30 mg total) by mouth daily. 90 tablet 3 12/19/19 24 Active sildenafil (VIAGRA) 50 MG tabletIndications:Erecti le dysfunction, unspecified erectile dysfunction type Take 1 tablet (50 mg total) by mouth daily as needed for Erectile Dysfunction . 30 tablet 3 03/21/20 24 Active empagliflozin (JARDIANCE) 25 MG tabletIndications:Type 2 diabetes mellitus with hyperglycemia, with long-term current use of insulin ([facility]) Take 1 tablet (25 mg total) by mouth daily. 90 tablet 3 04/22/20 24 Active Vitamin D-3 125 mcg TabIndications:Vitamin D deficiency Take 1 tablet (125 mcg total) by mouth daily. 90 tablet 3 06/21/19 25 Active Active Problems Problem Noted Date Diagnosed Date Scalp cyst 10/25/2023 Degenerative disc disease, lumbar 03/20/2023 Overview (03/20/2023): Mar 06, 2018 Entered By: BLACK HOOD Comment: cervical s/p fusion c4-5 '06 and laminec/foraminot c6-7 '08 Cervical radiculopathy 03/20/2023 Cervical spondylosis with myelopathy 03/20/2023 Overview (03/20/2023): The SM 's films,PE and Hx were reviewed by the [facility] Neurosurgeon. 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 He is to continue his PL2.He is to continue his medicines. He was advised to implement good spine health by routinely performing spine stabilization stretches and exercises, using proper lifting techniques, and maintaining a normal body weight. He is to follow up in the [facility] clinic post opt day 7-10 for a wound check unless otherwise directed by the [facility] Neurosurgeon. Time of face to face counseling and/or coordinating was 30 minutes Sensorineural hearing loss (SNHL) of both ears 1 Sacroiliitis 03/20/2023 Restless legs syndrome 03/20/2023 Ptosis of left eyelid 03/20/2023 Primary open-angle glaucoma, bilateral, indeterm inate stage 03/20/2023 Posttraumatic stress disorder 03/20/2023 Migraine headache 03/20/2023 Patellofemoral syndrome 03/20/2023 Organic sleep related movement disorders 023 History of embolism 03/20/2023 Overview (03/20/2023): Nov 11, 2015 Entered By: MICHAEL LEROY Comment: Pulmonary Gout 03/20/2023 Chronic pain syndrome 03/20/2023 Obstructive sleep apnea syndrome 03/20/2023 Astigmatism 03/20/2023 Subjective tinnitus 03/20/2023 Tinea pedis 03/20/2023 Transient ischemic attack 03/20/2023 Herniation of intervertebral disc of cervical re gion 03/20/2023 Spinal stenosis of cervical region 03/20/2023 Sciatica 03/02/2022 Primary osteoarthritis of left shoulder 03/02/20 Type 2 diabetes mellitus wit h hyperglycemia, with long-term current use of insulin ([facility]) 03/02/2022 Pure hypercholesterolemia 03/02/2022 Vitamin D deficiency 03/02/2022 Radiculopathy of cervical region 12/15/2015 Erectile dysfunction 09/02/2015 Overview (03/02/2022): IMO 2021 Update DDD (degenerative disc disease), lumbar 12/17/19 15 Facet arthropathy, lumbar 12/16/2014 Lumbar stenosis 12/16/2014 Lumbar disc herniation 12/04/2014 Resolved Problems Problem Noted Date Diagnosed Date Resolved Date Primary hypertension 03/20/2023 024 Panic disorder without agoraphobia 03/17/2015 03/02/2022 Other pulmonary embolism wit hout acute cor pulmonale ([facility]) 01/26/2015 03/02/2022 Encounter for preventive health examination 12/03/2014 03/07/2022 Encounters Date Type Department Care Team Description 06/21/2024 12:34 PM PRODUCT MARKETING COORDINATOR - 06/21/2024 11:59 PM PRODUCT MARKETING COORDINATOR Hospital Encounter [facility] [address] [place] [address] Raphael Hodge MD Discharge Disposition: Home or Self Care (Routine Discharge) 06/21/2024 9:40 AM PRODUCT MARKETING COORDINATOR Office Visit [facility] - [place] [address], [address] [place] [id number] Raphael Hodge MD Follow Up (Pt wants to make sure he does not have a blood clot in his right leg. ) 06/21/2024 Telephone [facility] - [place] [address], [address] [place] [address] Raphael Hodge MD Results 06/21/2024 Travel from Last 3 Months Immunizations Name Administration Dates Next Due Anthrax Vaccine 01/28/2004, 3,08/10/1998,06/16,04/14/1998 Hepatitis A (Havrix [address]) 02/14/1996,1987 Hepatitis B (Generic: Adult) 11/02/1998,06/04/18 99,04/14/1998 Influenza (FluMist) 02/04/2009,04/30/2008 Influenza (Generic) 2015, 4,04/12/2007,04/18,06/03/2005,04/21/2004,08/21/2002 ,04/23/2002,04/06/2001 MMR (MMRII) 01/16/1995 Meningococcal (Menomune) 06/29/2002,11/05/2001,0 02/14/1996 PFIZER COVID-19 (ORIGINAL FO RMULATION, PURPLE CAP) mRNA, LNP-S, PF, 30 MCG/0.3 ML DOSE 03/13/2021,09/01/2020,08/11/2020 Polio IPV (Ipol) 01/16/1995 Small Pox 07/27/2002 Td (TDVAX) 06/25/1999 Tdap (Generic) 09/21/2009,07/30/2003 Typhoid (Typhim ) 09/23/2004,08/21/2002,1998 Typhoid Oral (Vivotif) 09/21/2009 Yellow Fever (YF- Vax) 11/03/1993 Family History Medical History Relation Comments Arthritis Father Hypertension Father Stroke Father Cancer Mother Diabetes Mother Relation Status Comments Father Mother Social History Tobacco Use Types Packs/Day Years Used Date Smoking Tobacco: Never Passive Smoke Exposure: Never Smokeless Tobacco: Never Tobacco Cessation:Counseling Given: No Alcohol Use Standard Drinks/Week Comments Never 0 (1 standard drink = 0.6 oz pur e alcohol) PHQ-2 Answer Date Recorded Patient Health Questionnaire-2 Score 0 06/21/2024 Sex and Gender Information Value Date Recorded Sex Assigned at Male 06/21/2024 10:45 AM PRODUCT MARKETING COORDINATOR Legal Sex Male 11:40 PM CDT Gender Identity Not on file Sexual Orientation Not on file Last Filed Vital Signs Vital Sign Reading Time Taken Comments Blood Pressure 114/64 06/21/2024 9:18 AM PRODUCT MARKETING COORDINATOR Pulse 79 06/21/2024 9:18 AM PRODUCT MARKETING COORDINATOR Temperature 36.3 C (97.4 F) 06/21/2024 9:18 AM PRODUCT MARKETING COORDINATOR Respiratory Rate 19 06/21/2024 9:18 AM PRODUCT MARKETING COORDINATOR Oxygen Saturation 96% 06/21/2024 9:18 AM PRODUCT MARKETING COORDINATOR Inhaled Oxygen Concentration - - Weight 91.2 kg (201 lb) 06/21/2024 9:18 AM PRODUCT MARKETING COORDINATOR Height 182.9 cm (6' 0.01 ) 06/21/2024 9:18 AM CS T Body Mass Index 27.25 06/21/2024 9:18 AM PRODUCT MARKETING COORDINATOR Plan of Treatment Upcoming Encounters Date Type Department Care Team (Late st Contact Info) Description 09/20/2024 9:40 AM CDT Office Visit [facility] Family [facility] - [place] [address], [address] [place] [address] NaveenRaphael toledo MD [address] [place], [place] [id number] Health Maintenance Due Date Last Done Comments Pneumococcal Vaccine: Pediatrics (0 to 5 Years) and At-Risk Patients (6 to 64 Years) (1 of 2 - PCV) 1974 Hepatitis C 1986 Zoster Vaccines (1 of 2) 2018 DTaP, Tdap and Td Vaccines (3 - Td or Tdap) 09/22/2019 09/21/2009, 07/30/2003, 06/25/1999 Annual Physical 10/06/2023 10/05/2022 COVID-19 Vaccine ( season) 2024 03/13/2021, 09/01/2020, 08/11/2020 Influenza Adult (#1) 2024 2015, 03/29/2014, 02/04/2009, Additional history exists Lipid Panel 12/13/2024 12/14/2023, 02/27, 01/26/2015 Hemoglobin A1C 12/19/2024 06/21/2024, 05/30, 03/21/2024, Additional history exists Kidney Health Evaluation 03/21/2025 03/21/2024 Diabetes: Retinopathy Eye Exam 03/12/2026 03/12/2024, 03/07/2023, 03/16/2022 Colorectal Cancer Screening Colonoscopy (10 Years) 02/09/2031 02/09/2021 Hepatitis B Vaccines Completed 11/02/1998, 06/04/1998, 04/14/1998 Meningococcal Vaccine Aged Out 06/29/2002 , 11/05/2001, 02/14/1996 No longer eligible based on patient's age to complete this topic PHQ-2 (Physician [place]) Completed 06/21/2024 Meningococcal B Vaccine Aged Out No l onger eligible based on patient's age to complete this topic RSV Immunizations Under 20 Months Aged Out No longer eligible based on patient's age to complete this topic Procedures Procedure Name Priority Date/Time Associated Diagnosis Comments D-DIMER, QUANTITATIVE STAT 06/21/2024 12:41 PM PRODUCT MARKETING COORDINATOR Pain and swelling of right lower leg HEMOGLOBIN, GLYCOSYLATED Routine 06/21/2024 12:41 PM PRODUCT MARKETING COORDINATOR Type 2 diabetes mellitus with hyperglycemia, with long-term current use of insulin ([facility]) HEMOGLOBIN, GLYCOSYLATED Routine 06/21/2024 9:30 AM PRODUCT MARKETING COORDINATOR Type 2 diabetes mellitus with hyperglycemia, with long-term current use of insulin ([facility]) COLLECT.CAPILLARY (FNGR,HEEL,EAR) Routine 06/21/2024 9:20 AM PRODUCT MARKETING COORDINATOR Type 2 diabetes mellitus with hyperglycemia, with long-term current use of insulin ([facility]) DIABETIC RETINOPATHY EXAM (NEGATIVE)(SCAN ORDER) Routine 03/12/2024 LIPID PANEL Routine 12/14/2023 11:40 AM CDT Pure hypercholesterolemia COLONOSCOPY GENERIC (SCAN ORDER) 02/09/2021 from Last 3 Months or Most Recently Relevant to Health Maintenance Results * (ABNORMAL) HEMOGLOBIN, GLYCOSYLATED (06/21/2024 12:41 PM PRODUCT MARKETING COORDINATOR) Only the most recent of2 resultswithin the time period is included. HGB A1C 6.1(H) <5.7 % 06/21/2024 2:06 PM PRODUCT MARKETING COORDINATOR [facility] Comment: ADA GUIDELINES 2010 5.7 TO 6.4% INCREASED RISK OF DIABETES > OR = 6.5% CONSISTENT WITH DIABETES ESTIMATED AVG GLUCOSE 128 mg/dL 06/21/2024 2:06 PM PRODUCT MARKETING COORDINATOR [facility] 06/21/2024 12:4 1 PM PRODUCT MARKETING COORDINATOR Raphael Hodge MD LABORATORY Final R esult Performing Organization Address City/[facility] Co de Phone Number [facility] [address] [place] [address], [place] [phone] * D-DIMER, QUANTITATIVE (06/21/2024 12:41 PM PRODUCT MARKETING COORDINATOR) Pathologist [facility] D-DIMER 489 0 - 500 ng{FEU}/mL 06/21/2024 1:47 PM PRODUCT MARKETING COORDINATOR [facility] Comment: D-Dimer values less than or equal to 500 ng/mL FEU have a negative predictive value of >95% for exclusion of deep vein thrombosis and pulmonary embolism. In patients over 50 (who tend to have higher normal baseline D-Dimer values), recent studies suggest age-adjusted D-Dimer cutoff values (calculated as: age [years] x 10 ng/mL) result in equivalent outcomes and no additional false negative findings. 06/21/2024 12:4 1 PM PRODUCT MARKETING COORDINATOR Raphael Hodge MD LABORATORY Final R esult Performing Organization Address City/[facility]/ZIP Co de Phone Number [facility] [address] [place] [address], [place] [phone] * DIABETIC RETINOPATHY EXAM (NEGATIVE) (03/12/2024) [facility] Scanned SCANNING Final Resu lt [facility] ONBASE * LIPID PANEL (12/14/2023 11:40 AM CDT) CHOLESTEROL 143 <200 MG/DL 12/14/2023 12:16 PM CDT [facility] TRIGLYCERIDES 59 <150 MG/DL 12/14/2023 12:16 PM CDT [facility] HDL 52 >40.0 MG/DL 12/14/2023 12:16 PM CDT [facility] LDL (CALCULATED) 79 <100 MG/DL 12/14/19 24 12:16 PM CDT [facility] NON HDL CHOLESTEROL 91 <130 MG/DL 12/13 12:16 PM CDT [facility] CHOL/HDL RATIO 2.8 0.0 - 4.5 12/14/2023 12:16 PM CDT [facility] VLDL CALCULATION 12 5 - 55 MG/DL 12/14/2023 12:16 PM CDT [facility] LIPID INTERPRETATION 12/14/2023 12:16 PM CDT [facility] Comment: NIH CONCENSUS REPORT RECOMMENDATIONS: ADULT CHILD LOW RISK: CHOLESTEROL <200 <170 TRIGLYCERIDE <150 --- HDL >=60 --- LDL <100 <110 BORDERLINE: CHOLESTEROL 200-239 170-199 TRIGLYCERIDE 150-199 --- HDL 40-59 --- LDL 100-159 110-129 HIGH RISK: CHOLESTEROL >=240 >=200 TRIGLYCERIDE >=200 --- HDL <40 --- LDL >=160 >=130 12/14/2023 11:4 0 AM CDT Raphael Hodge MD LABORATORY Final R esult [facility] [address] [place] [address], * COLONOSCOPY GENERIC (02/09/2021) 02/09/2021 [facility] Scanned SCANNING Final Resu lt from Last 3 Months or Most Recently Relevant to Health Maintenance Insurance Care Teams Shower Enclosure Installer Relationship Specialty Start Date End Date Raphael Hodge MD [address] [facility] [address] [place] [address] PCP - General FAMILY PRACTICE 03/02/22
[2024-07-30 19:31] LABS: Partial Thromboplastin Time 23.8 Seconds (22.3-36.8); Prothrombin Time 13.3 Seconds (11.1-14.7)
[2024-07-30 19:39] LABS: Alanine Aminotransferase 29 U/L (6-50); Albumin Level 4.7 g/dL (3.5-5.1); Alkaline Phosphatase 54 U/L (38-126); Anion Gap 12 mmol/L (4-12); Aspartate Amino Transferase 40 U/L (17-59); Bilirubin,Total 0.9 mg/dL (0.2-1.3); Blood Urea Nitrogen 12 mg/dL (9-20); Calcium 9.6 mg/dL (8.4-10.2); Carbon Dioxide 25 mmol/L (22-30); Chloride 103 mmol/L (98-107); Estimated CRCL calculation 99 ml/min; Estimated Glomerular Filt Rate > 60; Glucose 89 mg/dL (65-110); Lipase 139 U/L (23-300); Potassium 3.7 mmol/L (3.4-5.0); Sodium 140 mmol/L (137-145); Troponin I 0.016 ng/mL (0.000-0.034)
[2024-07-30 22:23] VITALS: BP 125/85; PULSE 48; RESP 14; O2SAT 96
--- NOTE | 2024-07-30 22:23 | ECG_ITS ---
Test Date: 2024-07-30 23:30:29 Measurements Intervals [place] Rate: 42 P: 76 UT: 206 QRS: -1 QRSD: 105 T: 4 QT: 456 QTc: 385 Interpretive Statements SINUS BRADYCARDIA WITH SINUS ARRHYTHMIA Compared to ECG 07/30/2024 18:58:13 Intraventricular conduction delay no longer present Electronically Signed On 07-31-2024 13:16:18 BREASTFEEDING PEER COUNSELOR by Shree Kirby M.D.
[2024-07-30 23:10] LABS: Troponin I < 0.012 ng/mL (0.000-0.034)
[2024-07-30 23:23] VITALS: BP 102/64; PULSE 47; RESP 16; O2SAT 98
[2024-07-30 23:30] VITALS: PULSE 46
== END 2024-07-31 00:48 | disposition home or self-care (01) ==
PROVIDERS: Emergency Medicine; Emergency Provider Emergency Medicine
DX: R07.89 Other chest pain (principal); Z86.711 Personal history of pulmonary embolism; Z79.01 Long term (current) use of anticoagulants
CPT/HCPCS: 36415; 71046; 71275; 80053; 83690; 84484; 85025; 85610; 85730; 93005; 99284; A9270; Q9967

== ENCOUNTER 2025-05-10 14:34 | Emergency (ER) | payer OTHER, SELFPAY ==
[2025-05-10] VITALS (19 sets, daily range): BP systolic 143–156; BP diastolic 83–90; PULSE 46–57; RESP 10–18; TEMP 36.1; O2SAT 92–100
--- NOTE | ~2025-05-10 | XR_ITS ---
EXAMINATION: XR chest 2V, 05/10/2025 15:10 FORESTRY TECHNICIAN HISTORY: CP, SOB COMPARISON: No comparisons available. Technique: 2 views obtained. Findings: The lungs are clear, no effusion. No pneumothorax. Heart is normal size. Mediastinal and hilar contours are within normal limits. Bony thorax no acute abnormality. Impression: No acute cardiopulmonary abnormality. Reviewed, dictated and finalized at location P. STRY TECHNICIAN Impression: No acute cardiopulmonary abnormality.
--- NOTE | 2025-05-10 14:37 | ECG_ITS ---
Test Date: 2025-05-10 14:40:38 Measurements Intervals [place] Rate: 53 P: 26 FL: 172 QRS: -15 QRSD: 98 T: -8 QT: 414 QTc: 391 Interpretive Statements SINUS BRADYCARDIA BASELINE ARTIFACT- I, II, III, AVR, AVL, AVF, V1-V6 BORDERLINE ECG Compared to ECG 07/30/2024 23:30:29 Sinus arrhythmia no longer present Electronically Signed On 05-10-2025 15:29:29 SECRETARY [employer]ARD [employer] COMMISSIONERS by Joseph Lindquist D.O.
[2025-05-10 14:53] LABS: Hematocrit 46.4 % (42.0-52.0); Hemoglobin 15.2 g/dL (14.0-18.0); Immature Granulocyte Percent A 0.3 % (0-0.5); Lymphocytes Absolute Auto 2.44 K/mm3 (0.9-3.2); Mean Corpuscular HGB Conc 32.8 g/dl (32-36); Mean Corpuscular Hemoglobin 26.7 pg (26-34); Mean Corpuscular Volume 81.4 fl (80-100); Nucleated Red Blood Cells Absolute Auto 0.000 K/mm3 (0.0-0.012); Nucleated Red Blood Cells Perc 0.0 % (0.0-0.2); Platelet Count Result 288 k/mm3 (150-375); Red Blood Count 5.70 M/mm3 (4.6-6.20); White Blood Count 7.2 K/mm3 (4.5-10.0)
[2025-05-10 15:03] LABS: Alanine Aminotransferase 26 U/L (6-50); Albumin Level 4.8 g/dL (3.5-5.1); Alkaline Phosphatase 63 U/L (38-126); Anion Gap 8 mmol/L (4-12); Aspartate Amino Transferase 41 U/L (17-59); Bilirubin,Total 0.8 mg/dL (0.2-1.3); Blood Urea Nitrogen 14 mg/dL (9-20); Calcium 9.8 mg/dL (8.4-10.2); Carbon Dioxide 27 mmol/L (22-30); Chloride 102 mmol/L (98-107); Estimated CRCL calculation 84 ml/min; Estimated Glomerular Filt Rate > 60; Glucose 96 mg/dL (65-110); Lipase 109 U/L (23-300); Potassium 4.5 mmol/L (3.4-5.0); Sodium 137 mmol/L (137-145); Total Protein 8.9 g/dL (6.3-8.2)
[2025-05-10 15:06] LABS: INR 1.0; Prothrombin Time 12.9 Seconds (11.1-14.7)
[2025-05-10 15:07] LABS: Partial Thromboplastin Time 24.1 Seconds (22.3-36.8)
--- OUTSIDE RECORDS SUMMARY | 2025-05-10 15:45 | XMS_ITS | Clinical Summary ---
Author Organization [facility] Address [address] [place] [address] Care Team Providers Care Sports Photographer Name Role Phone Raphael Hodge MD Primary Care Provider Allergies No known active allergies Medications GLUCOSAMINE-CHONDROITIN 7331-7236 MG OR TABSIndications:Lumbar disc herniation Take 1 tablet by mouth daily. 90 tablet 3 07/01/19 23 Active LUMIGAN 0.01 % Solution 05/0 07/18 23 Active empagliflozin (JARDIANCE) 25 MG tabletIndications:Type 2 diabetes mellitus with hyperglycemia, with long-term current use of insulin ([facility]) Take 1 tablet (25 mg total) by mouth daily. 90 tablet 3 04/22/20 24 Active Vitamin D-3 125 mcg TabIndications:Vitamin D deficiency Take 1 tablet (125 mcg total) by mouth daily. 90 tablet 3 06/21/19 25 Active Blood Glucose Monitoring Suppl (ONE TOUCH ULTRA 2) w/Device KitIndications:Type 2 diabetes mellitus with hyperglycemia, with long-term current use of insulin ([facility]) Use to check fasting blood glucose once daily for DM E 11.9 1 kit 09/21/19 25 Active Glucose Blood test stripIndications:Type 2 diabetes mellitus with hyperglycemia, with long-term current use of insulin ([facility]) Use to check fasting blood glucose once daily for DM E 11.9 100 strip 3 09/21/19 25 Active Lancets (ONETOUCH ULTRASOFT) lancetsIndications:Type 2 diabetes mellitus with hyperglycemia, with long-term current use of insulin ([facility]) Use to check fasting blood glucose once daily for DM E 11.9 100 each 3 09/21/19 25 Active atorvastatin (LIPITOR) 40 MG tabletIndications:Pure hypercholesterolemia Take 1 tablet (40 mg total) by mouth daily. 90 tablet 3 09/21/19 25 Active pioglitazone (ACTOS) 30 MG tabletIndications:Type 2 diabetes mellitus with hyperglycemia, with long-term current use of insulin ([facility]) Take 1 tablet (30 mg total) by mouth daily. 90 tablet 3 12/21/19 25 Active Blood Glucose Monitoring Suppl (D-CARE GLUCOMETER) w/Device KitIndications:Type 2 diabetes mellitus with hyperglycemia, with long-term current use of insulin ([facility]) To be used to check fating blood sugar once daily for DM E 11.9 1 kit 12/21/19 25 Active Lancets (ONETOUCH ULTRASOFT) lancetsIndications:Type 2 diabetes mellitus with hyperglycemia, with long-term current use of insulin ([facility]) To be used to check fating blood sugar once daily for DM E 11.9 100 each 3 12/21/19 25 Active Glucose Blood test stripIndications:Type 2 diabetes mellitus with hyperglycemia, with long-term current use of insulin ([facility]) To be used to check fating blood sugar once daily for DM E 11.9 100 strip 3 12/21/19 25 Active sildenafil (VIAGRA) 50 MG tabletIndications:Erect ile dysfunction, unspecified erectile dysfunction type Take 1 tablet (50 mg total) by mouth daily as needed for Erectile Dysfunction . 30 tablet 3 04/30/20 25 Active sildenafil (VIAGRA) 50 MG tabletIndications:Erect ile dysfunction, unspecified erectile dysfunction type Take 1 tablet (50 mg total) by mouth daily as needed for Erectile Dysfunction . 30 tablet 3 03/21/20 24 025 Disconti gabo(Toryo ronda) Active Problems Problem Noted Date Diagnosed Date Scalp cyst 10/25/2023 Degenerative disc disease, lumbar 03/20/2023 Overview (03/20/2023): Mar 06, 2018 Entered By: BLACK [facility]OD Comment: cervical s/p fusion c4-5 '06 and laminec/foraminot c6-7 '08 Cervical radiculopathy 03/20/2023 Cervical spondylosis with myelopathy 03/20/2023 Overview (03/20/2023): The SM 's films,PE and Hx were reviewed by the [facility] Neurosurgeon. 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 He was scheduled at [facility] on 08 Jun 2007 .The soldier [...] wound check unless otherwise directed by the [facility] Neurosurgeon. Time of face to face [...] 03/02/2022 Primary osteoarthritis of left shoulder 03/02/20 22 Type 2 diabetes mellitus wit h hyperglycemia, with long-term current use of insulin 03/02/2022 Pure hypercholesterolemia 03/02/2022 Vitamin D deficiency [...] pulmonary embolism wit hout acute cor pulmonale 01/26/2015 03/02/2022 Encounter for preventive health examination 12/03/2014 03/07/2022 Encounters Date Type Department Care Team Description 04/30/2025 MyChart Message Enc [facility] [address], [address] [place] [phone] Raphael Hodge MD Referral 03/28/2025 9:40 AM CDT Office Visit [facility] [address], [address] [place] [phone] Raphael Hodge MD Follow Up (Patient states no new concerns ); Lab Results (A1C went up from 6.1 to 6.3. ); Other (Patient refused flu vaccine ) 03/27/2025 2:36 PM CDT - 03/27/2025 11:59 PM CDT Hospital Encounter [facility] [place] [address] Raphael Hodge MD Discharge Disposition: Home or Self Care (Routine Discharge) 03/27/2025 Travel from Last 3 Months Immunizations Immunization Administration Dates Next Due Anthrax Vaccine 01/28/2004, 3,08/10/1998,06/16,04/14/1998 Hepatitis A (Havrix [address]) 02/14/1996,1987 Hepatitis B (Generic: Adult) 11/02/1998,06/04/18 99,04/14/1998 Influenza (FluMist) 02/04/2009,04/30/2008 Influenza (Generic) 2015, 4,04/12/2007,04/18,06/03/2005,04/21/2004,08/21/2002 ,04/23/2002,04/06/2001 MMR (MMRII) 01/16/1995 Meningococcal (Menomune) 06/29/2002,11/05/2001,0 02/14/1996 PFIZER COVID-19 (12+) MRNA, LNP-S, PF, GEOFFREY-SUCROSE, 30 MCG/0.3 ML (COMIRNATY) 12/13/2024 PFIZER COVID-19 (ORIGINAL FO RMULATION, PURPLE CAP) mRNA, LNP-S, PF, 30 MCG/0.3 ML DOSE 03/13/2021,09/01/2020,08/11/2020 Polio IPV (Ipol) 01/16/1995 Small Pox 07/27/2002 Td (TDVAX) 06/25/1999 Tdap (Generic) 09/21/2009,07/30/2003 Typhoid (Typhim ) 09/23/2004,08/21/2002,1998 Typhoid Oral (Vivotif) 09/21/2009 Yellow Fever (YF- Vax) 11/03/1993 Family History Medical History Relation Comments Arthritis Father Hypertension Father Stroke Father Cancer Mother Diabetes Mother Stroke Mother COPD Sister Relation Status Comments Father Mother Alive Sister Alive Social History Tobacco Use Types Packs/Day Years Used Date Smoking Tobacco: Never Passive Smoke Exposure: Never Smokeless Tobacco: Never Tobacco Cessation:Counseling Given: No Alcohol Use Standard Drinks/Week Comments Never 0 (1 standard drink = 0.6 oz pur e alcohol) PHQ-2 Answer Date Recorded Patient Health Questionnaire-2 Score 0 12/20/2024 Sex and Gender Information Value Date Recorded Sex Assigned at Male 06/21/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 Sex Male 11:40 PM CDT Gender Identity Male 09/20/2024 9:59 AM CDT Sexual Orientation Straight 09/20/2024 9: 59 AM CDT Last Filed Vital Signs Vital Sign Reading Time Taken Comments Blood Pressure 124/70 03/28/2025 10:00 AM CDT Pulse 49 03/28/2025 10:00 AM CDT Temperature 36.5 C (97.7 F) 03/28/2025 10:00 AM CDT Respiratory Rate 18 03/28/2025 10:00 AM CDT Oxygen Saturation 98% 03/28/2025 10:00 AM CDT Inhaled Oxygen Concentration - - Weight 89.6 kg (197 lb 9.6 oz) 03/28/2025 10:00 AM CDT Height 182.9 cm (6' 0.01) 03/28/2025 10:00 AM C DT Body Mass Index 26.79 03/28/2025 10:00 AM CDT Plan of Treatment Upcoming Encounters Date Type Department Care Team (Late st Contact Info) Description 11/14/2025 9:40 AM CDT Office Visit [facility] [place] [address], [address] [place] [phone] Naveen, Raphael Spencer MD [address] [facility] [address] [place] [address] Health Maintenance Due Date Last Done Comments Hepatitis C 1986 Pneumococcal Vaccine: 50+ Years (1 of 2 - PCV) 1987 Zoster Vaccines (1 of 2) 2018 DTaP, Tdap and Td Vaccines (3 - Td or Tdap) 09/22/2019 09/21/2009, 07/30/2003, 06/25/1999 Annual Physical 10/06/2023 10/05/2022 COVID-19 Vaccine ( season) 2025 12/13/2024, 03/13/2021, 09/01/2020, Additional history exists Influenza Adult (#1) 2025 2015, 03/29/2014, 02/04/2009, Additional history exists Hemoglobin A1C 09/25/2025 03/27/2025, 11/27, 09/20/2024, Additional history exists Kidney Health Evaluation 12/16/2025 12/16/2024 Lipid Panel 12/16/2025 12/16/2024, 11/26, 03/20/2023, Additional history exists Diabetes: Retinopathy Eye Exam 03/12/2026 03/12/2024, 03/07/2023, 03/16/2022 Colorectal Cancer Screening Colonoscopy (10 Years) 02/09/2031 02/09/2021 Hepatitis A Vaccines Aged Out 02/14/1996, 04/28/19 88 No longer eligible based on patient's age to complete this topic Hepatitis B Vaccines Completed 11/02/1998, 06/04/1998, 04/14/1998 Meningococcal Vaccine Aged Out 06/29/2002 , 11/05/2001, 02/14/1996 No longer eligible based on patient's age to complete this topic PHQ-2 (Physician Ross) Completed 12/20/2024 Meningococcal B Vaccine Aged Out No l onger eligible based on patient's age to complete this topic RSV Immunizations Under 20 Months Aged Out No longer eligible based on patient's age to complete this topic Procedures Procedure Name Priority Date/Time Associated Diagnosis Comments HEMOGLOBIN, GLYCOSYLATED Routine 03/27/2025 2:44 PM CDT Type 2 diabetes mellitus with hyperglycemia, with long-term current use of insulin ([facility]) HC LIPID PANEL Routine 12/16/2024 11:36 AM CDT Pure hypercholesterolemia DIABETIC RETINOPATHY EXAM (NEGATIVE)(SCAN ORDER) Routine 03/12/2024 COLONOSCOPY GENERIC (SCAN ORDER) 02/09/2021 from Last 3 Months or Most Recently Relevant to Health Maintenance Results * (ABNORMAL) HEMOGLOBIN, GLYCOSYLATED (03/27/2025 2:44 PM CDT) HGB A1C 6.3(H) <5.7 % 03/27/2025 3:22 PM CDT [facility] Comment: ADA GUIDELINES 2010 5.7 TO 6.4% INCREASED RISK OF DIABETES > OR = 6.5% CONSISTENT WITH DIABETES ESTIMATED AVG GLUCOSE 134 mg/dL 03/27/2025 3:22 PM CDT [facility] 03/27/2025 2:44 PM CDT us Raphael Hodge MD LABORATORY Final R esult [facility] [address] [place] [address], * LIPID PANEL (12/16/2024 11:36 AM CDT) CHOLESTEROL 140 <200 MG/DL 12/16/2024 12:35 PM CDT [facility] TRIGLYCERIDES 82 <150 MG/DL 12/16/2024 12:35 PM CDT [facility] HDL 58 >40.0 MG/DL 12/16/2024 12:35 PM T [facility] LDL (CALCULATED) 66 <100 MG/DL 12/17/19 12:35 PM CDT [facility] Comment:CALCULATED USING THE FRIEDEWALD EQUATION NON HDL CHOLESTEROL 82 <130 MG/DL 12/16 12:35 PM CDT [facility] CHOL/HDL RATIO 2.4 0.0 - 4.5 12/16/2024 12:35 PM CDT [facility] VLDL CALCULATION 16 5 - 55 MG/DL 12/16/2024 12:35 PM T [facility] LIPID INTERPRETATION 12/16/2024 12:35 PM CDT [facility] Comment: NIH CONCENSUS REPORT RECOMMENDATIONS: ADULT CHILD LOW RISK: CHOLESTEROL <200 <170 TRIGLYCERIDE <150 --- HDL >=60 --- LDL <100 <110 BORDERLINE: CHOLESTEROL 200-239 170-199 TRIGLYCERIDE 150-199 --- HDL 40-59 --- LDL 100-159 110-129 HIGH RISK: CHOLESTEROL >=240 >=200 TRIGLYCERIDE >=200 --- HDL <40 --- LDL >=160 >=130 12/16/2024 11:3 6 AM CDT Raphael Hodge MD LABORATORY Final R esult [facility] [address] [place] [address], * DIABETIC RETINOPATHY EXAM (NEGATIVE) (03/12/2024) [facility] Scanned SCANNING Final Resu lt Performing Organization Address [facility]/ZIP Co de Phone Number [facility] ONBASE * COLONOSCOPY GENERIC (02/09/2021) 02/09/2021 [facility] Scanned SCANNING Final Resu lt from Last 3 Months or Most Recently Relevant to Health Maintenance Insurance [facility] Care Teams Sports Photographer Relationship Specialty Start Date End Date Raphael Hodge MD [address] [place] [address] PCP - General FAMILY PRACTICE 03/02/22
--- OUTSIDE RECORDS SUMMARY | 2025-05-10 15:45 | XMS_ITS | Data Portability ---
[facility] Address [address] [place] [address] Assessment No assessment recorded. Plan of Treatment Reminders Order Date Submit Date Provider Last Modified By Organization Details Last Modified Time Details Appointments None recorded. Lab None recorded. Referral pain managemen t referral - radicular back pain 2014 015 SARITA Fraser MD, [address] [facility], [facility] [address], [place], [address], 5 17:42:41 pain managemen t referral - radicular back pain 2014 015 cher [facility], [address] [facility], [place], [address], 5 11:09:23 Procedures None recorded. Surgeries None recorded. Imaging MRI, lumbar spine - chronic lbp radiating to right leg. 2014 015 [email or web address] Not available 5 11:07:46 ultrasoun d, abdominal - ultrasoun d of RUQ and LUQ and epigastri um 2013 014 [email or web address] Not available 4 14:45:15 Medication Orders None recorded. Patient TargetsNo targets recorded. Patient Instructions Encounter Date Encounter Id Patient Instructions Last Modified By Organization Details Last Modified Time 08/19/2014 [id number] I was present an d available in the Family Medicine clinic to discuss this patient's care during the appointment. I agree with the assessment and plan as documented. Carmel Pollard MD [email or web address] Not available 08/19/2014 14:46:28 Reason for Referral Pain Management Referral for Sciatica radicular back pain Referring Physician: Travis Wells, Associate Creative Director, Encounter Date: 08/19/2014 Pain Management Referral for Backache with radiating pain radicular back pain Referring Physician: Shyam Crawley Associate Creative Director, Encounter Date: 09/17/2014 Results Created Date Observation Date Name Description Value Unit Range Abnormal Flag Note LastModifiedBy Organization Detail LastModifiedTime 08/24/19 15 08/23/2014 MRI, lumba r spine No observ [facility]ion [facility] ed[email or web address] 2014 12:21:43 08/24/19 15 08/23/2014 MRI, lumba r spine No observ ation record ed. [facility], [place], [address], 09/06/2014 12:21:43 12/10/19 15 12/09/2014 imagi ng/di agnos tic resul t No observ ation record ed. [email or web address] Not Available 2014 20:00:11 12/17/19 15 12/16/2014 imagi ng/di agnos tic resul t No observ ation record ed. [email or web address] Not Available 2014 19:37:06 12/17/19 15 12/15/2014 imagi ng/di agnos tic resul t No observ ation record ed. [email or web address] Not Available 2014 19:37:07 12/17/19 15 12/16/2014 imagi ng/di agnos tic resul t No observ ation record ed. [email or web address] Not Available 2014 08:43:11 01/06/20 15 01/03/2015 imagi ng/di agnos tic resul t No observ ation record ed. [email or web address] Not Available 2014 09:04:35 Result Notes None recorded. Problems Name Problem SNOMED Code Status Onset Date Resolution Date Notes Provider Name and Address Organization Details Recorded Time Osteoarthritis 250849583 Active Carmel Pollard MD Attn: [id number] [facility], [place], [address] [place] [address] 5 14:46:27 Sciatica 07420790 Active Sampson Crawley null, [facility] 5 19:29:48 Backache with radiating pain 452456258 Active Sampson Crawley null, [facility] 5 16:57:23 Epigastric pain 58914361 Active Sampson Mjmita null, [facility] 4 18:49:55 Problem Notes None recorded. Medical Equipment None Reported. Allergies No known drug allergies Medications Not known to be on any medication Vitals Date Recorded Body weight Body temperature Body height Body mass index (BMI) Heart rate Systolic And Diastolic Provider Name and Address Organization Details Last Updated DateTime 5 97247.0 6637 g 97.9 [degF] 182.88 cm 27.3 kg/m2 68 /min 120/88 mm[Hg[facility] 14:15:03 Date Recorded Body weight Heart rate Body mass index (BMI) Body height Body temperature Systolic And Diastolic Provider Name and Address Organization Details Last Updated DateTime 5 03142.0 20326 g 52 /min 26.7 kg/m2 184.15 cm 98.3 [degF] 124/82 mm[Hg] Helen Lucero [facility] 5 16:31:54 Date Recorded Body weight Heart rate Body mass index (BMI) Body height Body temperature Systolic And Diastolic Provider Name and Address Organization Details Last Updated DateTime 4 28553.9 9007 g 51 /min 28.6 kg/m2 182.88 cm 97.8 [degF] 120/80 mm[Hg] Gayathri Maverick [facility] 4 18:33:29 Social History None recorded. Functional Status None recorded. Mental Status None recorded. Family History Nothing Reported. Medical History No medical history recorded. Past Encounters Encounter ID Performer Location Encounter Start Date Encounter Closed Date Diagnosis/Indication Diagnosis SNOMED-CT Code Diagnosis ICD10 Code Diagnosis IMO Codes Diagnosis Note [id number] MD Iliana Aaron ([address]) [address] [place] [address] 05/06/2014 18:12:52 05/06/2014 18:57:37 Epigastric pain 28599370 episode two times. Last started week 1/2 ago, No foods. No stress. Tried otc and not relieved. [id number] MD Wyatt Aaron e FP ([address]) [address] [place] [address] 08/19/2014 14:03:18 08/19/2014 14:46:45 Osteoarthritis 445059768 Back and hip documented by MRI. Takes gabapentin for pain which works somewhat. Has had cortisone shots in lumbar spine which temporaril y help for a couple months. MRI from a different region in 2010 he describes sounds like disk herniation but did not have radicular pain at that time. Will get another MRI to re-assess pain and send to pain mgmt. as it is likely disk herniation needing spinal injections . Also c/o R>L hip pain most likely OA. Continue current regimen. Consider XR in future but pain mild. Sciatica 85472597 for abov e problem. [id number] Shyam Crawley MD Wyatt e FP ([address]) [address] [place] [address] 09/17/2014 16:08:07 09/17/2014 20:43:14 Backache with radiating pain 452549789 Health Concerns Section Related Observation LastModified by Organization Detai ls LastModified Time None Recorded Concern Status LastModified by Organization Details LastModified Time None Recorded Advance Directives Directive None Recorded Payers Insurance Date Sequence Insurance Name Policy Number Policy Clemons Covered Member ID Clemons Member ID Guarantor Name 01/11/2015 1 [facility] Rodolfo Tatum [id number] Rodolfo Tatum Notes Date Note Type Note Provider Name and Address Organization Details Recorded Time 4 text/html Abdominal PainReported by PatientAbdominal PainFor quality, patient reportspainandcramping. For location, patient reportsepigastric. For severity, patient reportsmoderate. For duration, patient reportsintermittent. Sampson yuan, [place] - [place] 05/06/2014 18:57:22 5 text/html Back PainReported by PatientHPIFor location, patient reportspain radiating to the legs (right leg.). For quality, patient reportssharpandtingling. For severity, patient reportsworsening. For associated symptoms, patient reportstinglingbut reportsno fever,no weak limbs,no numbness of the legs/feet,no incontinence, andno shortness of breath. For duration, patient reportschronic. For onset/timing, patient reportsrecurrent episode. For context, patient reportstrauma,overuse,used medications for back pain, andhad evaluations by back specialist. For alleviating factors, patient reportsrestandrelieved by changing position.ROS as noted in the HPI Carmel Pollard MD Attn: Accounting,[address] [place], [address], [facility] [place] 08/19/2014 14:46:29 5 text/html Generic HPI TemplateReported by PatientHere to discuss his MRI. Has spinal stenosis and back pain radiating to right leg. Would like to have injections. Sampson Crawley [facility], [place] - [place] 09/17/2014 20:42:52
--- OUTSIDE RECORDS SUMMARY | 2025-05-10 15:45 | XMS_ITS | Clinical Summary ---
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 Gender Identity Not on file Sexual Orientation Not on file Plan of Treatment Health Maintenance Due Date Last Done Comments Hepatitis C Virus (HCV) Screening 1968 TdaP Immunization 1968 Hepatitis B Immunization (1 of 3 - 19+ 3-dose series) 1987 Cologuard 2013 Colonoscopy 2013 Colorectal Cancer Screening 2013 Immunochemical Fecal Occult Blood 2013 Pneumococcal Immunization (5 0+ years) (1 of 1 - PCV) 2018 Zoster Immunization (1 of 2) 2018 Influenza Immunization (#1) 2025 SARS-COV-2 Immunization ( - season) 2025 Respiratory Syncytial Virus (RSV) Immunization (Adult) (1 - 1-dose 75+ series) 2043 Human Papillomavirus (HPV) Immunization Aged Out No longer eligible b ased on patient's age to complete this topic Meningococcal Immunization (ACWY) Aged Out No longer eligible based on patient's age to complete this topic Rotavirus Immunization Aged Out No lo nger eligible based on patient's age to complete this topic
--- OUTSIDE RECORDS SUMMARY | 2025-05-10 15:45 | XMS_ITS | Clinical Summary ---
Author Organization [facility] Address [address] [place] [address] Care Team Providers Care Funeral Planner Name Role Phone Corey Donahue MD Primary Care Provider [phone] Source Comments [facility],non-owned Affiliates and Associated Physician Practices is amultiple site organization consisting of ambulatory clinics and hospital sitesin [place], [place], [place] and [place]. This disclosure is being madepursuant to the Care Everywhere program and may not contain all information available regarding this patient. Last updated 18.[facility] Allergies No known active allergies Medications * Be aware that medications may not be up to date on this document. Alwaysverify current medications with the patient. gabapentin (NEURONTIN) 400 MG capsule Take 400 mg by mouth TID. 90 capsule 3 12/15/2015 Active sildenafil (Viagra) 50 MG tablet Take 1 (one) tablet by mouth every 24 hours as needed 03/21/2024 Active pioglitazone (Actos) 30 MG tablet Take 1 (one) tablet by mouth once daily 12/20/2024 Active FreeStyle Lancets MISC 12/20/2024 Active blood glucose test strip To be used to check fating blood sugar once daily for DM E 11.9 09/20/2024 Active empagliflozin (Jardiance) 25 MG tablet Take 1 (one) tablet by mouth once daily 04/22/2024 Active Cholecalciferol 125 MCG (5000 UT) Take 125 mcg by mouth once daily 06/21/2024 Active Blood Glucose Monitoring Suppl (FreeStyle [place] Lite) w/Device KIT 12/20/2024 Active atorvastatin (Lipitor) 40 MG tablet Take 1 (one) tablet by mouth once daily 09/20/2024 Active Lumigan 0.01 % ophth solution 03/13/2024 Acti ve methocarbamol (Robaxin) 750 MG tablet TAKE 1 TABLET BY MOUTH FOUR TIMES A DAY NEEDED FOR MUSCLE SPASM 12/13/2024 Active meloxicam (Mobic) 7.5 MG tablet Take 1 (one) tablet by mouth once daily 12/13/2024 Active Coenzyme Q-10 100 MG capsule Take 100 (one hundred) mg by mouth once daily 90 capsule 04/03/2025 Active Active Problems Problem Noted Date Diagnosed Date Abnormal auditory perception 04/03/2025 Shoulder pain 04/03/2025 Myopia 04/03/2025 Back muscle spasm 04/03/2025 Benign neoplasm of duodenum, jejunum, and ileum 04/03/2025 Borderline glaucoma 04/03/2025 Breathing-related sleep disorder 04/03/2025 Deferred diagnosis on axis I 04/03/2025 Disorder of eye movements 04/03/2025 Encounter for postoperative care 04/03/2025 Exposure to potentially hazardous substance 10/2024 Fatigue 04/03/2025 Hip pain 04/03/2025 Muscle weakness 04/03/2025 Ophthalmoplegia 04/03/2025 Other specified counseling 04/03/2025 Encounter for other preprocedural examination Encounter for health counseling related to trave l 04/03/2025 Encounter for hearing conservation and treatment 04/03/2025 Personal history of pulmonary embolism Pins and needles sensation 04/03/2025 Postoperative state 04/03/2025 Presbyopia 04/03/2025 Rotator cuff tendinitis 04/03/2025 Somatic dysfunction of head region 04/03/2025 Somatic dysfunction of thoracic region Somatic dysfunction of sacral spine 04/03/2025 Spondylosis without myelopat hy or radiculopathy, lumbosacral region 04/03/2025 Type 2 diabetes mellitus 04/03/2025 Scalp cyst 10/25/2023 Astigmatism 03/20/2023 Chronic pain disorder 03/20/2023 Spondylosis 03/20/2023 Overview (04/03/2025): The SM 's films,PE and Hx were reviewed by the [facility] Neurosurgeon. 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 He was scheduled at [facility] on 08 Jun 2007 .The soldier is [...] wound check unless otherwise directed by the [facility] Neurosurgeon. Time of face to face counseling and/or coordinating was 30 minutes Gout 03/20/2023 History of embolism 03/20/2023 Overview (04/03/2025): Nov 11, 2015 Entered By: MICHAEL LEROY Comment: Pulmonary Obstructive sleep apnea syndrome 03/20/2023 Organic sleep related movement disorders 023 Patellofemoral syndrome 03/20/2023 Primary open-angle glaucoma, bilateral, indeterm inate stage 03/20/2023 Ptosis of left eyelid 03/20/2023 Restless legs syndrome 03/20/2023 Sacroiliitis 03/20/2023 Sensorineural hearing loss (SNHL) of both ears 1 Subjective tinnitus 03/20/2023 Tinea pedis 03/20/2023 Transient ischemic attack 03/20/2023 Migraine headache 03/20/2023 Primary osteoarthritis of left shoulder 03/02/20 Pure hypercholesterolemia 03/02/2022 Sciatica 03/02/2022 Type 2 diabetes mellitus wit h hyperglycemia, with long-term current use of insulin 03/02/2022 Vitamin D deficiency 03/02/2022 Cervical radiculopathy 12/15/2015 Male erectile disorder 09/02/2015 Overview (02/26/2022): IMO 2021 Update Other specified abnormal findings of blood chemi stry 03/17/2015 Epigastric pain 03/17/2015 Cognitive disorder 03/17/2015 Prediabetes 03/17/2015 Midline low back pain 03/17/2015 Dyspepsia 03/17/2015 Elevated liver function tests 03/17/2015 Posttraumatic stress disorder 03/17/2015 Pulmonary embolism 01/26/2015 Lumbar stenosis 12/16/2014 Overview (04/03/2025): Mar 06, 2018 Entered By: BLACK HOOD Comment: cervical s/p fusion c4-5 '06 and laminec/foraminot c6-7 '08 Facet arthropathy, lumbar 12/16/2014 Lumbar disc herniation 12/04/2014 Resolved Problems Problem Noted Date Diagnosed Date Resolved Date Impacted cerumen 04/03/2025 04/17/2025 Encounters Date Type Department Care Team Description 04/03/2025 11:00 AM DELI SLICER Office Visit [facility] - Neurology [address] [place] [phone] Meme Vogel MD Mitochondrial disease (HCC) (Primary Dx) 04/03/2025 Travel 02/18/2025 1:10 PM CDT Clinical Support [facility] - Ophthalmology [address] [place] [phone] Trina Watson MD CPEO (chronic progressive external ophthalmoplegia), bilateral (Primary Dx) 02/18/2025 10:00 AM CDT Office [facility] - Ophthalmology [address] [place] [phone] Trina Watson MD CPEO (chronic progressive external ophthalmoplegia), bilateral (Primary Dx); [place]-Tj syndrome of eye, bilateral 02/18/2025 Travel from Last 3 Months Immunizations Immunization Administration Dates Next Due ANTHRAX, HISTORIC VACCINE 01/28/2004,,08/10/1998,1998,04/14/1998 HEP A VACCINE, ADULT 02/14/1996,04/28/1988 HEP B VACCINE, ADULT 3 DOSE 11/02/1998, 9,04/14/1998 INFLUENZA VACCINE 2015,03/29/2014 INFLUENZA VACCINE, QUADR. (A FLURIA, FLUZONE QUADRIVALENT; 6MO+) (IIV4) 04/12/2007,04/18/2006,06/03/2005,2003,08/21/2002,04/23/2002,04/06/2001 MENINGOCOCAL MENINGITIS 06/29/2002,11/05/2001, MMR 01/16/1995 POLIO IPV 01/16/1995 SMALLPOX (VACCINIA) VACCINE, LIVE 07/27/2002 TDAP (7yrs+) 09/21/2009,07/30/2003 TYPHOID IM 09/23/2004,08/21/2002,02/02/1999 TYPHOID ORAL 09/21/2009 Td (Adult), 2 Lf Tetanus Tox oid, Adsorbed, Pf 06/25/1999 YELLOW FEVER 11/03/1993 Family History Medical History Relation Name Comments [...] Date Recorded Patient Health Questionnaire-2 Score 0 01/28/2025 Sex and Gender Information Value Date Recorded Sex Assigned at Not on file Legal Sex Male 5:48 PM DELI SLICER Gender Identity Not on file Sexual Orientation Not on file Last Filed Vital Signs Vital Sign Reading Time Taken Comments Blood Pressure 136/84 04/03/2025 10:52 AM DELI SLICER Pulse 49 04/03/2025 10:52 AM DELI SLICER Temperature 36.8 C (98.2 F) 04/27/2016 2:07 AM DELI SLICER Respiratory Rate 16 04/27/2016 2:07 AM DELI SLICER Oxygen Saturation 96% 04/03/2025 10:52 AM DELI SLICER Inhaled Oxygen Concentration - - Weight 89.1 kg (196 lb 6.4 oz) 04/03/2025 10:52 AM DELI SLICER Height 182.9 cm (6') 04/03/2025 10:52 AM DELI SLICER Body Mass Index 26.64 04/03/2025 10:52 AM DELI SLICER Plan of Treatment Upcoming Encounters Date Type Department Care Team (Late st Contact Info) Description 06/23/2025 2:30 PM DELI SLICER Office Visit [facility] - Ophthalmology [address] [place] [address], [place] [phone] Fabián Webb MD [address] [place] [address] [place] [phone] 07/22/2025 9:00 AM DELI SLICER Office Visit [facility] - Neurology [address] [place] [phone] Meme Vogel MD [address] [place] [address] [address] [place] [phone] 09/05/2025 6:30 AM CDT Appointment [facility] [address] [place] [phone] Meme Vogel MD [address] [place] [address] [address] [place] [phone] 09/05/2025 8:00 AM CDT Appointment [facility] EEG/EMG [address] [place] [phone] Meme Vogel MD [address] [place] [address] [address] [place] [address] Health Maintenance Due Date Last Done Comments COLOGUARD (AGES 45-75) - COLON CA SCREENING 1968 COLON MONITORING 1968 COLONOSCOPY - COLON CA SCREENING 1968 CT COLONOGRAPHY - COLON CA SCREENING 1968 Colorectal Cancer Screening 1968 FIT - COLON CA SCREENING 1968 FLEX SIG - COLON CA SCREENING 1968 HIV SCREENING 1983 HEPATITIS C SCREENING 02/28/1986 PNEUMOCOCCAL VACCINE 50+ (1 of 2 - PCV) 1987 DIABETES-SERUM CREATININE 04/26/20172015, 09/19/2015, 04/30/2015, Additional history exists ZOSTER VACCINE (1 of 2) 2018 DTAP/TDAP/TD VACCINES (3 - Td or Tdap) 09/22/2019 09/21/2009, 07/30/2003, 06/25/1999 DIABETES - URINE PROTEIN SCREENING 05/29/2024 COVID-19 VACCINE (4 - season) 2025 03/13/2021, 09/01/2020, 08/11/2020 INFLUENZA VACCINE (#1) 2025 5, 03/29/2014, 04/12/2007, Additional history exists DIABETES-FOOT EXAM WITH MONOFILAMENT 04/03/2025 DIABETES-HGB A1C 04/03/2025 12/24/2014 DIABETES RETINOPATHY SCREENING 02/18/2027 02/18/2025, 01/28/2025, 08/02/2011, Additional history exists HEPATITIS B VACCINE Completed 11/02/1998, 06/04/1998, 04/14/1998 MENINGOCOCCAL GROUPS A/C/Y/W VACCINE Aged Out 06/29/2002, 11/05/2001, 02/14/1996 No longer eligible based on patient's age to complete this topic DEPRESSION SCREENING Completed 01/28/2025 HIB VACCINE Aged Out No longer eligi ble based on patient's age to complete this topic HPV VACCINE Aged Out No longer eligi ble based on patient's age to complete this topic MENINGOCOCCAL (Group B) VACCINE SHARED DECISION-MAKING Aged Out No longer eligible based on patient's age to complete this topic Procedures Procedure Name Priority Date/Time Associated Diagnosis Comments FUNDUS PHOTO BOTH EYES Routine 5 1:08 PM CDT CPEO (chronic progressive external ophthalmoplegia), bilateral COMPREHENSIVE METABOLIC PANEL STAT 04/26/2016 10:23 PM DELI SLICER HEMOGLOBIN A1C Routine 12/24/2014 5:44 PM CDT from Last 3 Months or Most Recently Relevant to Health Maintenance Results * FUNDUS PHOTO BOTH EYES (02/18/2025 1:08 PM CDT) Anatomical Region Laterality Modality Head External-Camera Photography Narrative 03/17/2025 10:25 AM CDT Images from the original result were not included. Fundus Photos 02/18/25 OD: enlarged c/d ratio, retinal pigmentary epithelial pigmentary mottling macula up to mid periphery OS: enlarged c/d ratio, pigmentary mottling up macula up to mid periphery us Trina Watson MD OPHTHALMOLOGY SCHED ORD W PACS Final Result * (ABNORMAL) COMPREHENSIVE METABOLIC PANEL (04/26/2016 10:23 PM DELI SLICER) BUN 12 7 - 26 mg/dL [facility] Creatinine 0.9 0.6 - 1.2 mg/dL [facility] Sodium 140 136 - 145 mmol/L [facility] Potassium 3.9 3.5 - 4.5 mmol/L [facility] Chloride 104 98 - 107 mmol/L [facility] CO2 25 22 - 29 mmol/L [facility] Glucose 110 70 - 115 mg/dL [facility] Calcium 9.4 8.4 - 10.2 mg/dL [facility] Protein Total 7.7 6.0 - 8.3 g/dL [facility] Albumin 3.8 3.4 - 5.0 g/dL [facility] Bilirubin Total 0.5 0.2 - 1.2 mg/dL [facility] Alkaline Phosphatase 50 40 - 150 Units/L [facility] ALT 10 0 - 55 Units/L [facility] AST 20 5 - 34 Units/L [facility] Anion Gap 15 8 - 18 [facility] BUN/Creatinine Ratio 13 7 - 23 [facility] Osmolality Calculated 290 270 - 300 mOsm/kg [facility] Albumin/Globulin Ratio 1.0(L) 1.1 - 2.3 [facility] eGFR >60 >60 mL/min/1.7 3 m2 [facility] Blood specimen (specimen) BLOOD SPECIMEN / Unknown 04/26/2016 10:23 PM DELI SLICER 04/26/2016 10:29 PM DELI SLICER Antonia Beverly MD LAB - CHEMISTRY ORDERABLES Fi nal Result Performing Organization Address [facility]/ZIP Co de Phone Number [address] [phone] * (ABNORMAL) HEMOGLOBIN A1C (12/24/2014 5:44 PM CDT) Hemoglobin A1c 6.4(H) 4.4 - 6.3 % [facility] Comment: Hemoglobin variant detected. Abnormal hemoglobins [...] clinically indicated. Estimated Average Glucose 137 mg/dL [facility] Comment: HbA1c Interpretation: Treatment target values [...] CDT Danis Mcpherson MD LAB - CHEMISTRY ORDERABLES Xiomara l Result [address] [phone] from Last 3 Months or Most Recently Relevant to Health Maintenance Insurance Care Teams Funeral Planner Relationship Specialty Start Date End Date Corey Donahue MD [address] [place] [address] PCP - General 01/19/16
[2025-05-10 16:02] LABS: Troponin I 0.019 ng/mL (0.000-0.034)
--- NOTE | 2025-05-10 17:21 | ECG_ITS ---
Test Date: 2025-05-10 17:25:02 Measurements Intervals [place] Rate: 47 P: 19 [place]: 182 QRS: -12 QRSD: 105 T: -7 QT: 422 QTc: 375 Interpretive Statements SINUS BRADYCARDIA INCOMPLETE RIGHT BUNDLE BRANCH BLOCK BORDERLINE T WAVE ABNORMALITY- INFERIOR LEADS BASELINE ARTIFACT- I, I, AVR, AVF, V1 ABNORMAL ECG Compared to ECG 05/10/2025 14:40:38 HEART RATE HAS DECREASED Electronically Signed On 05-10-2025 19:55:33 PODIATRIC AIDE by Joseph Lindquist D.O.
--- NOTE | 2025-05-10 17:22 | ED_ITS ---
HPI - Chest Pain General Chief Complaint: Chest Pain Stated Complaint: Chest pain Time Seen by Provider: 05/10/25 15:34 Source: patient Mode of arrival: ambulatory Limitations: no limitations History of Present Illness HPI narrative: 55-year-old remote history of the presents to the ER with the complaints of left-sided chest pain with started this afternoon. Patient states that it hurts with movement. Denies any shortness of breath, cough or fever chills. Patient states that he was lifting furniture 2 days ago. And complaint: chest pain Onset (ago): hour(s) (3) Timing of current episode: constant and still present Pain location: left chest Pain radiation: none Severity: moderate Quality: aching Relieving factors: nothing Exacerbating factors: nothing Treatment prior to arrival: none Risk Factors Coronary artery disease risk factors: none Thoracic aortic dissection risk factors: none Related Data Allergies Allergy/AdvReac Type Severity Reaction Status Date / Time No Known Allergies Allergy Verified 05/10/25 14:35 Review of Systems 2 Review of Systems: All systems reviewed & are unremarkable except as noted in HPI and below Constitutional: Constitutional: Reports no additional constitutional complaints Eyes: Eyes: Reports no additional eye complaints ENT: Reports system reviewed and no additional complaints, except as documented Cardiovascular: Cardiovascular: Reports as per HPI Respiratory: Respiratory: Reports no additional respiratory complaints Gastrointestinal: Gastrointestinal: Reports no additional gastrointestinal complaints Genitourinary: Genitourinary: Reports no additional male genitourinary complaints Musculoskeletal: Musculoskeletal: Reports no additional musculoskeletal complaints PMFSH Past Medical History Medical History Pulmonary embolism Surgical History Surgical History H/O spinal fusion Social History Social History Smoking status: Never smoker Exam 2 Narrative: GENERAL: Well-appearing, well-nourished, and in no acute distress. HEAD: Normocephalic, atraumatic. EYES: PERRLA and EOMI. ENT: Nares clear, no rhinorrhea or epistaxis. Mucous membranes moist. NECK: Supple. CHEST: Clear to auscultation. No respiratory distress. HEART: Regular rate and rhythm. No murmur heard. Normal peripheral pulses. ABDOMEN: Soft, nontender, nondistended, normal active bowel sounds. EXTREMITIES: Normal range of motion. No edema. SKIN: Warm, dry, no rash. NEURO: No focal deficits. Alert and oriented x3. PSYCH: Normal mood and affect. Course Course Emergency Course: Notified patient about his EKG and lab work. Declined any pain medication his pain appears to be noncardiac. Advised him to take naproxen as prescribed Vital Signs Vital signs: Vital Signs Temperature 36.1 C L 05/10/25 14:37 Pulse Rate 53 L 05/10/25 14:37 Respiratory Rate 16 05/10/25 14:37 Blood Pressure 148/83 H 05/10/25 14:37 Temperature 36.1 C L 05/10/25 14:37 Pulse Rate 53 L 05/10/25 14:37 Respiratory Rate 16 05/10/25 14:37 Blood Pressure 148/83 H 05/10/25 14:37 MDM MDM Narrative Medical decision making narrative: 55-year-old with remote history here with the left-sided chest pain started 3 hours ago, will do cardiac workup including D-dimer. Differential Diagnosis Differential Diagnosis: ACS, costochondritis, PE, pneumonia Lab Data 05/10/25 14:49 05/10/25 14:49 Labs: Lab Results 05/10/25 Range/Units 14:49 WBC 7.2 (4.5-10.0) K/mm3 RBC 5.70 (4.6-6.20) M/mm3 Hgb 15.2 (14.0-18.0) g/dL Hct 46.4 (42.0-52.0) % MCV 81.4 (80-100) fl MCH 26.7 (26-34) pg MCHC 32.8 (32-36) g/dl RDW 15.1 H (11.5-14.5) % Plt Count 288 (150-375) k/mm3 MPV 8.8 (7.4-10.4) fl Immature Gran % (Auto) 0.3 (0-0.5) % Neut % (Auto) 55.2 (45.5-73.1) % Lymph % (Auto) 33.8 (18.3-44.2) % [place] % (Auto) 8.7 H (2.6-8.5) % Eos % (Auto) 1.2 (0-4.4) % Baso % (Auto) 0.8 (0.2-1.2) % Lymph # (Auto) 2.44 (0.9-3.2) K/mm3 [place] # (Auto) 0.6 (0.1-0.6) K/mm3 Eos # (Auto) 0.1 (0-0.3) K/mm3 Baso # (Auto) 0.1 (0.0-0.1) K/mm3 Abs Immat Gran (auto) 0.02 (0.00-0.031) K/mm3 Absolute Neuts (auto) 4.0 (1.3-6.7) K/mm3 Absolute Nucleated RBC 0.000 (0.0-0.012) K/mm3 Nucleated RBC % 0.0 (0.0-0.2) % PT 12.9 (11.1-14.7) Seconds INR 1.0 APTT 24.1 (22.3-36.8) Seconds D-Dimer 0.35 (<0.48) ug/mL Sodium 137 (137-145) mmol/L Potassium 4.5 (3.4-5.0) mmol/L Chloride 102 (98-107) mmol/L Carbon Dioxide 27 (22-30) mmol/L Anion Gap 8 (4-12) mmol/L BUN 14 (9-20) mg/dL Creatinine 0.94 (0.7-1.3) mg/dL Estim Creat Clear Calc 84 ml/min Estimated GFR > 60 (59 - ) Glucose 96 (65-110) mg/dL Calcium 9.8 (8.4-10.2) mg/dL Total Bilirubin 0.8 (0.2-1.3) mg/dL AST 41 (17-59) U/L ALT 26 (6-50) U/L Alkaline Phosphatase 63 (38-126) U/L Troponin I 0.019 (0.000-0.034) ng/mL Total Protein 8.9 H (6.3-8.2) g/dL Albumin 4.8 (3.5-5.1) g/dL Lipase 109 (23-300) U/L Imaging Data Radiologist's impression: ITS Impressions Chest X-Ray 05/10/25 15:18 Impression: No acute cardiopulmonary abnormality. ECG Data EKG #1: ECG completion date: 05/10/25 ECG completion time: 14:40 bradycardia (53), no ectopy, no ST changes, normal QT and no acute changes EKG #2: ECG completion date: 05/10/25 ECG completion time: 17:25 bradycardia (47), no ectopy, no ST changes, normal QRS, normal QT and NL axis Discharge Plan Discharge Clinical Impression: Chest pain Qualifiers: Chest pain type: unspecified Qualified Code(s): R07.9 - Chest pain, unspecified Patient Disposition: Home Condition: Stable Instructions: Chest Pain (ED) Patient Language: Ukrainian Prescriptions: New naproxen 500 mg tablet 500 mg PO BID PRN (Reason: pain) Qty: 14 0RF No Action cyclobenzaprine 10 mg tablet 10 mg PO TID PRN (Reason: muscle spasm) Qty: 20 0RF naproxen 500 mg tablet 500 mg PO BID Qty: 20 0RF Follow-up/Referrals: [facility] [Primary Care Provider, Medical] Time of Disposition: 18:37
[2025-05-10 18:33] LABS: Troponin I < 0.012 ng/mL (0.000-0.034)
== END 2025-05-10 18:57 | disposition home or self-care (01) ==
PROVIDERS: Emergency Provider Family Medicine
DX: R07.9 Chest pain, unspecified (principal); Z98.1 Arthrodesis status; R00.1 Bradycardia, unspecified; I45.10 Unspecified right bundle-branch block; R94.31 Abnormal electrocardiogram [ECG] [EKG]
CPT/HCPCS: 36415; 71046; 80053; 83690; 84484; 85025; 85380; 85610; 85730; 93005; 99284